=== PATIENT | male | born 1965 | race African-American/Black ===

== ENCOUNTER 2023-10-13 08:38 | Inpatient (IN) | payer MEDICARE, MEDICAID ==
[~2023-10-13] VITALS: Ht 185.4 cm; Wt 73.0 kg
[~2023-10-13 08:38] MED LIST: NITR1CAP35 PO
[2023-10-13 10:04] LABS: Urine Bacteria None Seen /hpf (None Seen)
[2023-10-13 10:25] LABS: Urine Blood 3+ /uL (Negative); Urine Budding Yeast MODERATE /hpf (None Seen); Urine Clarity Ex.Turbid (Clear); Urine Color Light-Brown (Yellow); Urine Protein, UAD 1+ (Negative); Urine Specific Gravity 1.006 (1.001-1.035); Urine Urobilinogen Normal (Negative); Urine WBC 1419 /hpf (0 - 3); Urine WBC Clumps PRESENT /hpf (None Seen)
[2023-10-13] MEDS: SODIUM CHLORIDE 0.9% 1,000 ML IV ONE (10:45)
[2023-10-13 11:03] LABS: Basophils # (auto) 0 10 ^3/uL (0-0.2); Basophils % (auto) 0.7 % (0.0-2.0); Eosinophils # (auto) 0.1 10 ^3/uL (0-0.8); Eosinophils % (auto) 1.8 % (0.0-7.0); Hematocrit 38.2 % (41.0-53.0); Hemoglobin 13.2 g/dL (13.5-17.5); Lymphocytes # (auto) 1.7 10 ^3/uL (0.4-5.4); Mean Corpuscular Hemoglobin 33.4 pg (28.0-32.0); Mean Corpuscular Hgb Conc. 34.6 g/dL (32.0-36.0); Mean Corpuscular Volume 96.4 fL (80.0-100.0); Monocytes # (auto) 0.8 10 ^3/uL (0-1.3); Neutrophils # (auto) 2.8 10 ^3/uL (1.6-8.6); Neutrophils % (auto) 51.5 % (37.0-80.0); Nucleated Red Blood Cells % 0.1 %; Red Blood Cells 3.96 10^6/uL (4.5-5.90); Red Cell Distribution Width 14.2 % (11.8-14.3); White Blood Cell 5.4 10^3/uL (4.4-10.8)
[2023-10-13 11:11] LABS: Chloride 105 mmol/L (98-107); Potassium 4.5 mmol/L (3.5-5.1); Sodium 138 mmol/L (136-145)
[2023-10-13 11:12] LABS: Anion Gap 3 (5-15); Calcium 10.2 mg/dL (8.7-10.4); Carbon Dioxide 30 mmol/L (20-30)
[2023-10-13 11:17] LABS: Blood Urea Nitrogen 21 mg/dL (9-23); Glucose 98 mg/dL (74-106)
[2023-10-13] MEDS ORDERED: OMEP1CAP70 PO (13:24)
[2023-10-13] MEDS ORDERED: TAMS0.4C36 PO (13:24)
[2023-10-13] MEDS ORDERED: LEVE750T3 PO (13:24)
[2023-10-13] MEDS ORDERED: FOLI-119 PO (13:24)
[2023-10-13] MEDS ORDERED: ATOR10TA52 PO (13:24)
[2023-10-13] MEDS ORDERED: METH-928 PO (13:24)
[2023-10-13] MEDS ORDERED: ARIP10TA29 PO (13:24)
[2023-10-13] MEDS ORDERED: NIAC1TAB30 PO (13:24)
[2023-10-13] MEDS ORDERED: PHEN1CAP60 PO (13:24)
[2023-10-13] MEDS ORDERED: BENZ1TAB6 PO (13:24)
[2023-10-13] MEDS ORDERED: TRAZ-227 PO (13:24)
[2023-10-13] MEDS ORDERED: ESCI1TAB36 PO (13:24)
[2023-10-13] MEDS ORDERED: LORA-1121 PO (13:24)
[2023-10-13] MEDS ORDERED: HYDR12.59 PO (13:24)
[2023-10-13] MEDS ORDERED: LOSA-534 PO (13:24)
[2023-10-13] MEDS ORDERED: VALP1CAP4 PO (13:24)
[2023-10-13] MEDS ORDERED: SODI1TAB PO (13:24)
[2023-10-13] MEDS ORDERED: FIN5T PO (13:24)
[2023-10-13 13:25] LABS: Triglycerides 76 mg/dL (< 150)
[2023-10-13 13:26] LABS: LDL Cholesterol 79 mg/dL (< 100)
[2023-10-13 13:27] LABS: Cholesterol 159 mg/dL (< 200); HDL Cholesterol 68 mg/dL (40-59)
[2023-10-13] MEDS: FLUCONAZOLE 100 MG TAB PO ONE (13:30)
[2023-10-13] MEDS: PHENAZOPYRIDINE HCL 100 MG TAB PO ONE (14:01)
[2023-10-13] MEDS: cefTRIAXone 1GM/50ML D5W 50 ML IV ONE (14:01)
[2023-10-13] MEDS: SODIUM CHLORIDE 0.9% 1,000 ML IV SCH (14:01)
[2023-10-13] MEDS: PHENAZOPYRIDINE HCL 100 MG TAB PO SCH (20:57)
[2023-10-13 21:37] VITALS: PULSE 108; RESP 18; O2SAT 96
[2023-10-14 00:21] VITALS: BP 132/76; PULSE 78; RESP 18; TEMP 98; O2SAT 98
[2023-10-14 04:31] VITALS: BP 124/68; PULSE 77; RESP 16; TEMP 97.8; O2SAT 98
[2023-10-14 04:53] LABS: Basophils # (auto) 0 10 ^3/uL (0-0.2); Eosinophils # (auto) 0.1 10 ^3/uL (0-0.8); Lymphocytes # (auto) 1.7 10 ^3/uL (0.4-5.4); Mean Corpuscular Hemoglobin 34.2 pg (28.0-32.0); Mean Corpuscular Hgb Conc. 35.1 g/dL (32.0-36.0); Mean Corpuscular Volume 97.4 fL (80.0-100.0); Neutrophils # (auto) 3.6 10 ^3/uL (1.6-8.6); Red Blood Cells 3.76 10^6/uL (4.5-5.90); White Blood Cell 6.4 10^3/uL (4.4-10.8)
[2023-10-14 04:55] LABS: Basophils % (auto) 0.4 % (0.0-2.0); Eosinophils % (auto) 1.4 % (0.0-7.0); Hematocrit 36.6 % (41.0-53.0); Hemoglobin 12.8 g/dL (13.5-17.5); Lymphocytes % (auto) 26.7 % (10.0-50.0); Monocytes % (auto) 15.6 % (0.0-12.0); Neutrophils % (auto) 55.9 % (37.0-80.0); Nucleated Red Blood Cells % 0.3 %
[2023-10-14] MEDS: ONDANSETRON HCL 4 MG/2 ML VIAL IV PRN (05:00)
[2023-10-14] MEDS: ONDANSETRON HCL 4 MG/2 ML VIAL ONE (05:01)
[2023-10-14 05:10] LABS: Alanine Aminotransferase 38 U/L (7-40); Alkaline Phosphatase 71 U/L (46-116); Calcium 8.8 mg/dL (8.7-10.4)
[2023-10-14 05:11] LABS: Albumin 3.7 g/dL (3.2-4.8); Anion Gap 7 (5-15); Aspartate Aminotransferase 28 U/L (13-40); BUN/Creatinine Ratio 12.4 (10.0-20.0); Bilirubin, Total 0.4 mg/dL (0.2-1.0); Blood Urea Nitrogen 16 mg/dL (9-23); Carbon Dioxide 25 mmol/L (20-30); Chloride 108 mmol/L (98-107); Glucose 97 mg/dL (74-106); Potassium 3.1 mmol/L (3.5-5.1); Sodium 140 mmol/L (136-145); Total Protein 6.6 g/dL (5.7-8.2)
[2023-10-14 07:30] VITALS: PULSE 107; RESP 18; O2SAT 98
[2023-10-14] MEDS: ACETAMINOPHEN 325 MG TAB PO PRN (07:45)
[2023-10-14] MEDS ORDERED: PALI3TAB PO (08:18)
[2023-10-14] MEDS ORDERED: QUET200T45 PO (08:18)
[2023-10-14] MEDS ORDERED: QUET50TA27 PO (08:18)
[2023-10-14] MEDS: cefTRIAXone 1GM/50ML D5W 50 ML IV SCH (09:30)
[2023-10-14] MEDS: FLUCONAZOLE 100 MG TAB PO SCH (11:09)
[2023-10-14] MEDS: FINASTERIDE 5 MG TAB PO ONE (15:04)
[2023-10-14] MEDS: VALPROIC ACID 250 MG/5 ML ORAL SOLN PO ONE (15:04)
[2023-10-14] MEDS: ATORVASTATIN 20 MG TAB PO ONE (15:05)
[2023-10-14] MEDS: POTASSIUM CHL 20 Meq TABLET PO SCH (15:05)
[2023-10-14] MEDS: PHENYTOIN SODIUM 100 MG CAP PO ONE (15:06)
[2023-10-14] MEDS: DONEPEZIL HYDROCHLORIDE 5 MG TAB PO ONE (15:06)
[2023-10-14] MEDS: PANTOPRAZOLE 40 MG TAB PO ONE (15:06)
[2023-10-14] MEDS: MULTIPLE VITAMIN TAB PO ONE (15:06)
[2023-10-14] MEDS: BENZTROPINE MESY 0.5 MG TAB PO ONE (15:07)
[2023-10-14] MEDS: QUEtiapine FUMARATE 25 MG TAB PO ONE (15:07)
[2023-10-14] MEDS: levETIRAcetam 500 MG TAB PO ONE (15:08)
[2023-10-14] MEDS: FLUCONAZOLE 200MG/100ML 100 ML IV ONE (17:50)
[2023-10-14] MEDS: LIDOCAINE 2% TOPICAL JELLY 5 ML URJT TOP ONE (17:55)
[2023-10-14] MEDS: TAMSULOSIN HYDROCHLORIDE 0.4 MG CAP PO SCH (19:17)
[2023-10-14] MEDS: QUEtiapine FUMARATE 25 MG TAB PO SCH (20:15)
[2023-10-14] MEDS: DONEPEZIL HYDROCHLORIDE 5 MG TAB PO SCH (21:45)
[2023-10-14] MEDS: levETIRAcetam 500 MG TAB PO SCH (21:46)
[2023-10-14] MEDS: ATORVASTATIN 20 MG TAB PO SCH (21:46)
[2023-10-14] MEDS: traZODone HCL 50 MG TAB PO SCH (21:47)
[2023-10-14] MEDS: PHENYTOIN SODIUM 100 MG CAP PO SCH (21:47)
[2023-10-14] MEDS ORDERED: Niacin 500mg TAB ER PO SCH (22:00)
[2023-10-14] MEDS ORDERED: QUEtiapine FUMARATE 25 MG TAB PO SCH (22:00)
[2023-10-15 07:25] VITALS: RESP 18
[2023-10-15] MEDS: PANTOPRAZOLE 40 MG TAB PO SCH (08:02)
[2023-10-15] MEDS: LORazepam 0.5 MG TAB PO PRN (08:02)
[2023-10-15] MEDS: VALPROIC ACID 250 MG/5 ML ORAL SOLN PO SCH (09:27)
[2023-10-15] MEDS: MULTIPLE VITAMIN TAB PO SCH (09:28)
[2023-10-15] MEDS: FLUCONAZOLE 200MG/100ML 100 ML IV SCH (10:30)
[2023-10-15] MEDS ORDERED: PALI1TAB PO (10:45)
[2023-10-15] MEDS ORDERED: QUET200T30 PO (10:45)
[2023-10-15] MEDS: BENZTROPINE MESY 0.5 MG TAB PO SCH (10:45)
[2023-10-15] MEDS ORDERED: AMLO1TAB23 PO (10:47)
[2023-10-15] MEDS: FINASTERIDE 5 MG TAB PO SCH (11:21)
[2023-10-15] MEDS: LORazepam 2MG/ML-1ML VIAL IV ONE (12:37)
[2023-10-15 18:20] VITALS: BP 159/101; PULSE 90; RESP 18; TEMP 97.5; O2SAT 95
[2023-10-15 19:00] VITALS: PULSE 90; RESP 16; O2SAT 96
[2023-10-15 20:00] VITALS: PULSE 96; RESP 19; O2SAT 93
[2023-10-15 21:00] VITALS: BP 156/99; PULSE 96; RESP 19; TEMP 97.6; O2SAT 93
[2023-10-16] VITALS (7 sets, daily range): BP systolic 134–161; BP diastolic 89–98; PULSE 81–96; RESP 17–20; TEMP 97.6–98; O2SAT 95–100
[2023-10-16 05:33] LABS: Valproic Acid (Depakene) 11.7 ug/mL (50-100)
[2023-10-16 05:49] LABS: Phenytoin (Dilantin) 21.1 ug/mL (10-20)
[2023-10-16 05:50] LABS: INR 1.02 (0.9-1.15); Partial Thromboplastin Time 29.5 SEC (24.5-34.5); Prothrombin Time 10.8 sec (9.3-11.8)
[2023-10-16] MEDS: amLODIPine BESYLATE 5 MG TAB PO SCH (10:00)
[2023-10-16] MEDS ORDERED: amLODIPine BESYLATE 5 MG TAB PO ONE (10:00)
[2023-10-16] MEDS: FLUoxetine HCL 20 MG CAP PO ONE (10:30)
[2023-10-16] MEDS: LORazepam 2MG/ML-1ML VIAL IV PRN (11:18)
[2023-10-16 11:23] LABS: Chloride 104 mmol/L (98-107); Potassium 4.2 mmol/L (3.5-5.1); Sodium 136 mmol/L (136-145)
[2023-10-16 11:24] LABS: Anion Gap 8 (5-15); Calcium 10.2 mg/dL (8.7-10.4); Carbon Dioxide 24 mmol/L (20-30)
[2023-10-16 11:29] LABS: BUN/Creatinine Ratio 13.5 (10.0-20.0); Blood Urea Nitrogen 22 mg/dL (9-23); Glucose 88 mg/dL (74-106)
[2023-10-16] MEDS ORDERED: hydrALAZINE HCL 20 MG/ML VL IV PRN (11:30)
[2023-10-16 11:37] LABS: Basophils # (auto) 0.1 10 ^3/uL (0-0.2); Basophils % (auto) 0.7 % (0.0-2.0); Eosinophils # (auto) 0.2 10 ^3/uL (0-0.8); Hematocrit 40.1 % (41.0-53.0); Hemoglobin 13.9 g/dL (13.5-17.5); Lymphocytes # (auto) 2.6 10 ^3/uL (0.4-5.4); Lymphocytes % (auto) 27.6 % (10.0-50.0); Mean Corpuscular Hemoglobin 33.8 pg (28.0-32.0); Mean Corpuscular Hgb Conc. 34.7 g/dL (32.0-36.0); Mean Corpuscular Volume 97.2 fL (80.0-100.0); Monocytes # (auto) 1.3 10 ^3/uL (0-1.3); Monocytes % (auto) 13.3 % (0.0-12.0); Neutrophils # (auto) 5.3 10 ^3/uL (1.6-8.6); Neutrophils % (auto) 56.4 % (37.0-80.0); Nucleated Red Blood Cells % 0.5 %; Red Blood Cells 4.13 10^6/uL (4.5-5.90); Red Cell Distribution Width 13.8 % (11.8-14.3); White Blood Cell 9.4 10^3/uL (4.4-10.8)
[2023-10-16] MEDS: VALPROIC ACID 250 MG/5 ML ORAL SOLN PO SCH (13:51)
[2023-10-16] MEDS ORDERED: PHENYTOIN SODIUM 100 MG CAP PO SCH (14:00)
[2023-10-16] MEDS: QUEtiapine FUMARATE 25 MG TAB PO SCH (21:42)
[2023-10-17 05:51] VITALS: BP 133/90; PULSE 89; RESP 18; TEMP 97.6; O2SAT 99
[2023-10-17 07:17] LABS: Calcium 9.9 mg/dL (8.7-10.4); Chloride 104 mmol/L (98-107); Sodium 138 mmol/L (136-145)
[2023-10-17 07:18] LABS: Anion Gap 7 (5-15); Carbon Dioxide 27 mmol/L (20-30)
[2023-10-17 07:23] LABS: BUN/Creatinine Ratio 16.4 (10.0-20.0); Blood Urea Nitrogen 24 mg/dL (9-23); Glucose 86 mg/dL (74-106)
[2023-10-17 09:00] VITALS: BP 132/78; PULSE 84; RESP 18; TEMP 97.6; O2SAT 98
[2023-10-17] MEDS: FLUoxetine HCL 20 MG CAP PO SCH (11:39)
[2023-10-17 13:00] VITALS: BP 148/94; PULSE 91; RESP 20; TEMP 98; O2SAT 94
[2023-10-17 17:00] VITALS: BP 137/94; PULSE 90; RESP 20; TEMP 98.2; O2SAT 98
[2023-10-17 21:00] VITALS: BP 145/66; PULSE 100; RESP 20; TEMP 98; O2SAT 100
[2023-10-18 01:00] VITALS: BP 135/75; PULSE 88; RESP 20; TEMP 97.9; O2SAT 100
[2023-10-18 05:00] VITALS: BP 131/91; PULSE 100; RESP 20; TEMP 98.3; O2SAT 100
[2023-10-18 09:00] VITALS: BP 140/91; PULSE 71; RESP 15; TEMP 98; O2SAT 96
[2023-10-18 10:27] LABS: Chloride 107 mmol/L (98-107); Potassium 4.4 mmol/L (3.5-5.1); Sodium 139 mmol/L (136-145)
[2023-10-18 10:28] LABS: Anion Gap 11 (5-15); Calcium 9.7 mg/dL (8.7-10.4); Carbon Dioxide 21 mmol/L (20-30)
[2023-10-18 10:33] LABS: BUN/Creatinine Ratio 10.3 (10.0-20.0); Blood Urea Nitrogen 16 mg/dL (9-23); Glucose 92 mg/dL (74-106)
[2023-10-18 13:00] VITALS: BP 132/78; PULSE 113; RESP 16; TEMP 98; O2SAT 94
[2023-10-18] MEDS: PHENYTOIN SODIUM 100 MG CAP PO SCH (15:11)
[2023-10-18 17:25] VITALS: BP 130/75; PULSE 94; RESP 22; TEMP 98.2; O2SAT 96
[2023-10-18 20:44] VITALS: BP 130/70; PULSE 101; RESP 20; TEMP 98.2; O2SAT 96
[2023-10-19 04:53] VITALS: BP 128/72; PULSE 101; RESP 20; TEMP 98.1; O2SAT 95
[2023-10-19 09:02] VITALS: BP 126/80; PULSE 82; RESP 15; TEMP 98.2; O2SAT 96
[2023-10-19] MEDS: CEPHALEXIN 250 MG CAP PO SCH (10:59)
[2023-10-19] MEDS: FLUCONAZOLE 100 MG TAB PO ONE (11:04)
[2023-10-19] MEDS: FUROSEMIDE 40 MG/4 ML VIAL IV ONE (11:05)
[2023-10-19] MEDS: FUROSEMIDE 40 MG/4 ML VIAL ONE (12:13)
[2023-10-19 13:53] VITALS: BP 135/77; PULSE 101; RESP 16; TEMP 98; O2SAT 96
[2023-10-19] MEDS: CIPROFLOXACIN 400MG/200ML 200 ML IV ONE (16:04)
[2023-10-19] MEDS ORDERED: MIDAZOLAM HCL 2MG/2ML 2ml VIAL (1mg/ml) ONE (16:43)
[2023-10-19] MEDS ORDERED: fentaNYL CITRATE 100 MCG/2 ML VL ONE (16:43)
[2023-10-19] MEDS ORDERED: ePHEDrine SULFATE 50 MG/ML AMP ONE (16:44)
[2023-10-19] MEDS ORDERED: GLYCOPYRROLATE 0.2 MG/ML 1ML VIAL ONE (16:44)
[2023-10-19] MEDS ORDERED: LIDOCAINE 2% (LOCAL ANESTH.) PF 5ml SDV ONE (16:44)
[2023-10-19] MEDS ORDERED: ETOMIDATE (2MG/ML) 20ML VIAL IV ONE (16:44)
[2023-10-19] MEDS ORDERED: ONDANSETRON HCL 4 MG/2 ML VIAL ONE (16:44)
[2023-10-19] MEDS ORDERED: PROPOFOL 10 MG/ML 20 ML IV ONE (16:44)
[2023-10-19] MEDS ORDERED: MEPERIDINE HCL (25 MG/ML) 1ML VIAL ONE (17:09)
[2023-10-19] MEDS ORDERED: SUGAMMADEX 200mg/2ml Vial (100MG/ML) IV ONE (17:15)
[2023-10-19 17:29] VITALS: O2SAT 100
[2023-10-19] MEDS ORDERED: HYDROmorphone HCL 2 MG/ML VL/or syr IV PRN (17:45)
[2023-10-19] MEDS: ONDANSETRON HCL 4 MG/2 ML VIAL IV ONE (17:45)
[2023-10-19] MEDS ORDERED: ROCURONIUM 10MG/ML 10ML VIAL IV ONE (18:29)
[2023-10-19 21:00] VITALS: BP 130/79; PULSE 86; RESP 17; TEMP 97.6; O2SAT 96
[2023-10-19] MEDS ORDERED: QUEtiapine FUMARATE 25 MG TAB ONE ×2 (22:35→22:37)
[2023-10-20 05:00] VITALS: BP 143/90; PULSE 71; RESP 17; TEMP 97.8; O2SAT 98
[2023-10-20 08:00] VITALS: PULSE 68; RESP 20; O2SAT 98
[2023-10-20 08:43] VITALS: BP 135/88; PULSE 68; RESP 22; TEMP 98.1; O2SAT 96
[2023-10-20] MEDS ORDERED: CEFD300C2 PO (11:18)
[2023-10-20] MEDS: FLUCONAZOLE 100 MG TAB PO SCH (12:31)
[2023-10-20] MEDS: cefTRIAXone 1GM/50ML D5W 50 ML IV SCH (12:56)
[2023-10-20 13:00] VITALS: BP 129/84; PULSE 84; RESP 19; TEMP 97.9; O2SAT 98
[2023-10-20 14:16] LABS: Basophils # (auto) 0 10 ^3/uL (0-0.2); Eosinophils # (auto) 0 10 ^3/uL (0-0.8); Red Cell Distribution Width 13.8 % (11.8-14.3)
[2023-10-20 14:19] LABS: Basophils % (auto) 0.6 % (0.0-2.0); Eosinophils % (auto) 0.1 % (0.0-7.0); Hematocrit 42.8 % (41.0-53.0); Hemoglobin 14.6 g/dL (13.5-17.5); Lymphocytes # (auto) 1.7 10 ^3/uL (0.4-5.4); Lymphocytes % (auto) 24.2 % (10.0-50.0); Mean Corpuscular Hemoglobin 33.1 pg (28.0-32.0); Mean Corpuscular Hgb Conc. 34.1 g/dL (32.0-36.0); Mean Corpuscular Volume 97.2 fL (80.0-100.0); Monocytes % (auto) 14.3 % (0.0-12.0); Neutrophils # (auto) 4.3 10 ^3/uL (1.6-8.6); Neutrophils % (auto) 60.8 % (37.0-80.0); Nucleated Red Blood Cells % 0.1 %; White Blood Cell 7.1 10^3/uL (4.4-10.8)
[2023-10-20 14:32] LABS: Chloride 103 mmol/L (98-107); Potassium 4.1 mmol/L (3.5-5.1); Sodium 136 mmol/L (136-145)
[2023-10-20 14:33] LABS: Anion Gap 7 (5-15); Calcium 9.5 mg/dL (8.7-10.4); Carbon Dioxide 26 mmol/L (20-30)
[2023-10-20 14:38] LABS: BUN/Creatinine Ratio 13.4 (10.0-20.0); Blood Urea Nitrogen 25 mg/dL (9-23); Glucose 102 mg/dL (74-106)
[2023-10-20 15:48] VITALS: BP 135/88; PULSE 84; RESP 19; TEMP 97.8; O2SAT 98
[2023-10-20 16:56] VITALS: BP 126/81; PULSE 79; RESP 21; TEMP 97.4; O2SAT 100
== END 2023-10-20 18:30 | disposition home or self-care (01) | DRG 690 ==
LOC: ER 08:38 → OVERFLOW 13:00 → WEST WING 10-15 18:22
PROVIDERS: ADMIT Internal Medicine; ATTEND Internal Medicine
PROC: 0TJB8ZZ Inspection of Bladder, Via Natural or Artificial Opening Endoscopic (ICD-10-PCS; principal; 2023-10-19 16:46)
DX: N13.6 Pyonephrosis (principal); I69.351 Hemiplegia and hemiparesis following cerebral infarction affecting right dominant side; N40.1 Benign prostatic hyperplasia with lower urinary tract symptoms; N17.0 Acute kidney failure with tubular necrosis; B96.89 Other specified bacterial agents as the cause of diseases classified elsewhere; N18.9 Chronic kidney disease, unspecified; I12.9 Hypertensive chronic kidney disease with stage 1 through stage 4 chronic kidney disease, or unspecified chronic kidney disease; F32.A Depression, unspecified; E87.6 Hypokalemia; E66.9 Obesity, unspecified; E78.5 Hyperlipidemia, unspecified; F03.90 Unspecified dementia, unspecified severity, without behavioral disturbance, psychotic disturbance, mood disturbance, and anxiety; K21.9 Gastro-esophageal reflux disease without esophagitis; G47.00 Insomnia, unspecified; R33.8 Other retention of urine; F41.9 Anxiety disorder, unspecified; D64.9 Anemia, unspecified; I70.8 Atherosclerosis of other arteries; Z88.8 Allergy status to other drugs, medicaments and biological substances; Z68.21 Body mass index [BMI] 21.0-21.9, adult
CPT/HCPCS: 36415; 71045; 74176; 76775; 78707; 80048; 80053; 80061; 80164; 80185; 81001; 83605; 83930; 84153; 84443; 85025; 85610; 85730; 86703; 86850; 86900; 86901; 87086; 93005; 97110; 97116; 97163; 97530; G0378; J1100; J1450; J2001; J2250; J2405; J2704

== ENCOUNTER 2023-11-16 14:42 | Inpatient (IN) | payer MEDICARE, MEDICAID ==
[~2023-11-16] VITALS: Ht 185.4 cm; Wt 65.0 kg
[~2023-11-16 14:42] MED LIST changes: +AMLO1TAB23 PO; +ARIP10TA29 PO; +ATOR10TA52 PO; +BENZ1TAB6 PO; +CEFD300C2 PO; +ESCI1TAB36 PO; +FIN5T PO; +FOLI-119 PO; +HYDR12.59 PO; +LEVE750T3 PO; +LORA-1121 PO; +LOSA-534 PO; +METH-928 PO; +NIAC1TAB30 PO; +OMEP1CAP70 PO; +PALI3TAB PO; +PHEN1CAP38 PO; +QUET200T30 PO; +SODI1TAB PO; +TAMS0.4C39 PO; +TRAZ-227 PO; +VALP1CAP4 PO
[2023-11-16] MEDS ORDERED: MORPHINE SULFATE INJ 2 MG/ml SYRG IV PRN ×2 (16:30→20:45)
[2023-11-16] MEDS ORDERED: DOCUSATE SOD 100 MG CAP PO PRN (16:30)
[2023-11-16] MEDS ORDERED: ONDANSETRON HCL 4 MG/2 ML VIAL IV PRN (16:30)
[2023-11-16 17:14] LABS: Basophils # (auto) 0 10 ^3/uL (0-0.2); Basophils % (auto) 0.4 % (0.0-2.0); Eosinophils # (auto) 0.1 10 ^3/uL (0-0.8); Eosinophils % (auto) 1.3 % (0.0-7.0); Hemoglobin 12.5 g/dL (13.5-17.5); Lymphocytes # (auto) 1.8 10 ^3/uL (0.4-5.4); Lymphocytes % (auto) 20.4 % (10.0-50.0); Mean Corpuscular Hemoglobin 33.6 pg (28.0-32.0); Mean Corpuscular Hgb Conc. 34.7 g/dL (32.0-36.0); Mean Corpuscular Volume 96.7 fL (80.0-100.0); Monocytes # (auto) 0.9 10 ^3/uL (0-1.3); Monocytes % (auto) 10.1 % (0.0-12.0); Neutrophils # (auto) 6.1 10 ^3/uL (1.6-8.6); Neutrophils % (auto) 67.8 % (37.0-80.0); Platelet Count (auto) 222 10^3/uL (140-450); Red Blood Cells 3.73 10^6/uL (4.5-5.90); Red Cell Distribution Width 14.1 % (11.8-14.3)
[2023-11-16 17:31] LABS: Chloride 106 mmol/L (98-107); INR 1.06 (0.9-1.15); Potassium 3.6 mmol/L (3.5-5.1); Prothrombin Time 11.2 sec (9.3-11.8); Sodium 139 mmol/L (136-145)
[2023-11-16 17:32] LABS: Anion Gap 6 (5-15); Carbon Dioxide 27 mmol/L (20-30)
[2023-11-16 17:33] LABS: Calcium 9.6 mg/dL (8.7-10.4)
[2023-11-16 17:37] LABS: BUN/Creatinine Ratio 11.3 (10.0-20.0); Blood Urea Nitrogen 17 mg/dL (9-23); Glucose 100 mg/dL (74-106)
[2023-11-16 20:38] LABS: INR 1.07 (0.9-1.15); Prothrombin Time 11.3 sec (9.3-11.8)
[2023-11-16] MEDS: SODIUM CHLORIDE 0.9% 1,000 ML IV SCH (20:45)
[2023-11-16] MEDS ORDERED: NITROGLYCERIN 0.4 MG SL TAB SL PRN (20:45)
[2023-11-16] MEDS: PALIPERIDONE PO SCH (22:00)
[2023-11-16] MEDS: METHENAMINE HIPPURATE 1 GM PO SCH (22:00)
[2023-11-16 22:57] VITALS: PULSE 104; O2SAT 97
[2023-11-17] VITALS (8 sets, daily range): BP systolic 119–155; BP diastolic 75–88; PULSE 101–109; RESP 16–20; TEMP 97.9–99.4; O2SAT 92–98
[2023-11-17] MEDS: levETIRAcetam 500 MG TAB PO SCH (01:25)
[2023-11-17] MEDS: traZODone HCL 50 MG TAB PO SCH (01:28)
[2023-11-17] MEDS: LOSARTAN POTASSIUM 50 MG TAB PO SCH (01:28)
[2023-11-17] MEDS: PHENYTOIN SODIUM 100 MG CAP PO SCH (01:29)
[2023-11-17] MEDS: QUEtiapine FUMARATE 100 MG TAB PO SCH (01:29)
[2023-11-17] MEDS: LORazepam 0.5 MG TAB PO SCH (01:30)
[2023-11-17] MEDS: VALPROIC ACID 250 MG/5 ML ORAL SOLN PO SCH (01:30)
[2023-11-17 06:48] LABS: Alanine Aminotransferase 33 U/L (7-40); Albumin 3.5 g/dL (3.2-4.8); Alkaline Phosphatase 71 U/L (46-116); Anion Gap 6 (5-15); Aspartate Aminotransferase 32 U/L (13-40); BUN/Creatinine Ratio 10.5 (10.0-20.0); Bilirubin, Total 0.4 mg/dL (0.2-1.0); Blood Urea Nitrogen 15 mg/dL (9-23); Calcium 9.5 mg/dL (8.7-10.4); Carbon Dioxide 27 mmol/L (20-30); Chloride 108 mmol/L (98-107); Glucose 98 mg/dL (74-106); Potassium 3.4 mmol/L (3.5-5.1); Sodium 141 mmol/L (136-145); Total Protein 6.3 g/dL (5.7-8.2)
[2023-11-17 06:52] LABS: Basophils # (auto) 0 10 ^3/uL (0-0.2); Basophils % (auto) 0.3 % (0.0-2.0); Eosinophils # (auto) 0.1 10 ^3/uL (0-0.8); Eosinophils % (auto) 1.3 % (0.0-7.0); Hematocrit 36.9 % (41.0-53.0); Hemoglobin 12.6 g/dL (13.5-17.5); Lymphocytes # (auto) 1.8 10 ^3/uL (0.4-5.4); Lymphocytes % (auto) 23.6 % (10.0-50.0); Mean Corpuscular Hemoglobin 33.8 pg (28.0-32.0); Mean Corpuscular Hgb Conc. 34.2 g/dL (32.0-36.0); Mean Corpuscular Volume 98.8 fL (80.0-100.0); Monocytes # (auto) 1.3 10 ^3/uL (0-1.3); Monocytes % (auto) 17.8 % (0.0-12.0); Neutrophils # (auto) 4.3 10 ^3/uL (1.6-8.6); Nucleated Red Blood Cells % 0.1 %; Platelet Count (auto) 218 10^3/uL (140-450); Red Blood Cells 3.73 10^6/uL (4.5-5.90); Red Cell Distribution Width 14.1 % (11.8-14.3); White Blood Cell 7.5 10^3/uL (4.4-10.8)
[2023-11-17] MEDS: BENZTROPINE MESY 0.5 MG TAB PO SCH (11:02)
[2023-11-17] MEDS: ATORVASTATIN 20 MG TAB PO SCH (11:02)
[2023-11-17] MEDS: amLODIPine BESYLATE 5 MG TAB PO SCH (11:02)
[2023-11-17] MEDS: FOLIC ACID 1 MG TAB PO SCH (11:03)
[2023-11-17] MEDS: FINASTERIDE 5 MG TAB PO SCH (11:03)
[2023-11-17] MEDS: CITALOPRAM HYDROBR 20 MG TAB PO SCH (11:03)
[2023-11-17] MEDS: hydroCHLOROthiazide 25 MG TAB PO SCH (11:04)
[2023-11-17] MEDS: Niacin 500mg TAB ER PO SCH (11:12)
[2023-11-17] MEDS: OMEPRAZOLE-SOD BICARB 20 MG POWDER PO SCH (11:12)
[2023-11-17] MEDS: TAMSULOSIN HYDROCHLORIDE 0.4 MG CAP PO SCH (18:06)
[2023-11-18] VITALS (10 sets, daily range): BP systolic 116–155; BP diastolic 78–92; PULSE 77–98; RESP 15–20; TEMP 97.8–98.4; O2SAT 90–100
[2023-11-18] MEDS: IODIXANOL 320MG/ML 100ML BTL IV ONE ×2 (14:28→14:59)
[2023-11-18] MEDS: MIDAZOLAM HCL 2MG/2ML 2ml VIAL (1mg/ml) ONE (14:59)
[2023-11-18] MEDS: LIDOCAINE 2%HCL (LOCAL ANESTH.) INJ 20ML MDV ONE (14:59)
[2023-11-18] MEDS: fentaNYL CITRATE 100 MCG/2 ML VL ONE (15:00)
[2023-11-18] MEDS: cefTRIAXone 1GM/50ML D5W 50 ML IV ONE (15:00)
[2023-11-18] MEDS: HYDROmorphone HCL 2 MG/ML VL/or syr ONE (15:26)
[2023-11-19] VITALS (9 sets, daily range): BP systolic 119–145; BP diastolic 68–84; PULSE 89–98; RESP 16–20; TEMP 36.2; O2SAT 94–99
[2023-11-20 01:00] VITALS: BP 122/73; PULSE 89; RESP 17; TEMP 98.2; O2SAT 97
[2023-11-20 05:00] VITALS: BP 133/78; PULSE 17; PULSE 96; RESP 17; TEMP 97.7; O2SAT 96
[2023-11-20 09:00] VITALS: BP 106/77; PULSE 86; RESP 17; TEMP 98.1; O2SAT 96
[2023-11-20] MEDS: PANTOPRAZOLE 40 MG TAB PO SCH (09:12)
[2023-11-20 17:00] VITALS: BP 132/79; PULSE 98; RESP 17; TEMP 98.4; O2SAT 98
[2023-11-20 20:00] VITALS: RESP 17
[2023-11-20 21:00] VITALS: BP 136/73; PULSE 98; RESP 16; TEMP 98; O2SAT 98
[2023-11-21 01:26] VITALS: BP 131/78; PULSE 79; RESP 18; TEMP 97.9; O2SAT 98
[2023-11-21 05:00] VITALS: BP 146/76; PULSE 80; RESP 18; TEMP 97.8; O2SAT 99
[2023-11-21 09:00] VITALS: BP 119/67; PULSE 83; RESP 18; TEMP 98.5; O2SAT 96
[2023-11-21 13:00] VITALS: BP 112/78; PULSE 85; RESP 18; TEMP 98.3; O2SAT 98
[2023-11-21] MEDS ORDERED: ACETAMINOPHEN 500 MG TAB PO PRN (17:15)
[2023-11-21] MEDS: HYDROcodone-ACET 5/325MG TAB PO PRN (17:26)
[2023-11-21 20:40] VITALS: BP 153/99; PULSE 78; RESP 18; TEMP 98; O2SAT 98
[2023-11-22] VITALS (7 sets, daily range): BP systolic 106–144; BP diastolic 61–78; PULSE 73–105; RESP 16–18; TEMP 97.9–98.4; O2SAT 91–98
[2023-11-22 07:04] LABS: Eosinophils # (auto) 0.4 10 ^3/uL (0-0.8); Hemoglobin 12.1 g/dL (13.5-17.5); Lymphocytes # (auto) 1.9 10 ^3/uL (0.4-5.4); Nucleated Red Blood Cells % 0.1 %; White Blood Cell 6.9 10^3/uL (4.4-10.8)
[2023-11-22 07:09] LABS: Basophils # (auto) 0.1 10 ^3/uL (0-0.2); Basophils % (auto) 0.8 % (0.0-2.0); Eosinophils % (auto) 5.3 % (0.0-7.0); Hematocrit 34.6 % (41.0-53.0); Lymphocytes % (auto) 27.8 % (10.0-50.0); Mean Corpuscular Hemoglobin 34.1 pg (28.0-32.0); Mean Corpuscular Hgb Conc. 34.8 g/dL (32.0-36.0); Mean Corpuscular Volume 98.1 fL (80.0-100.0); Monocytes # (auto) 0.9 10 ^3/uL (0-1.3); Monocytes % (auto) 13.8 % (0.0-12.0); Neutrophils # (auto) 3.6 10 ^3/uL (1.6-8.6); Neutrophils % (auto) 52.3 % (37.0-80.0); Platelet Count (auto) 239 10^3/uL (140-450); Red Blood Cells 3.53 10^6/uL (4.5-5.90); Red Cell Distribution Width 13.7 % (11.8-14.3)
[2023-11-22 07:22] LABS: Alanine Aminotransferase 29 U/L (7-40); Albumin 3.5 g/dL (3.2-4.8); Alkaline Phosphatase 65 U/L (46-116); Anion Gap 6 (5-15); Aspartate Aminotransferase 27 U/L (13-40); Blood Urea Nitrogen 16 mg/dL (9-23); Calcium 8.8 mg/dL (8.7-10.4); Carbon Dioxide 27 mmol/L (20-30); Chloride 108 mmol/L (98-107); Glucose 98 mg/dL (74-106); Potassium 3.5 mmol/L (3.5-5.1); Sodium 141 mmol/L (136-145)
[2023-11-22 07:23] LABS: Bilirubin, Total 0.3 mg/dL (0.2-1.0); Total Protein 5.9 g/dL (5.7-8.2)
[2023-11-22] MEDS: PALIPERIDONE 1.5 MG PO SCH (21:01)
[2023-11-22] MEDS: PALIPERIDONE 3 MG PO SCH (21:01)
[2023-11-23] VITALS (10 sets, daily range): BP systolic 110–141; BP diastolic 64–86; PULSE 71–100; RESP 15–24; TEMP 97.7–98.4; O2SAT 96–98
[2023-11-23 06:57] LABS: Basophils # (auto) 0 10 ^3/uL (0-0.2); Basophils % (auto) 0.5 % (0.0-2.0); Eosinophils # (auto) 0.3 10 ^3/uL (0-0.8); Eosinophils % (auto) 4.5 % (0.0-7.0); Hematocrit 36.8 % (41.0-53.0); Hemoglobin 12.6 g/dL (13.5-17.5); Lymphocytes # (auto) 2.2 10 ^3/uL (0.4-5.4); Lymphocytes % (auto) 34.2 % (10.0-50.0); Mean Corpuscular Hemoglobin 33.4 pg (28.0-32.0); Mean Corpuscular Hgb Conc. 34.3 g/dL (32.0-36.0); Mean Corpuscular Volume 97.6 fL (80.0-100.0); Monocytes # (auto) 0.8 10 ^3/uL (0-1.3); Monocytes % (auto) 12.4 % (0.0-12.0); Neutrophils # (auto) 3.2 10 ^3/uL (1.6-8.6); Neutrophils % (auto) 48.4 % (37.0-80.0); Nucleated Red Blood Cells % 0.3 %; Platelet Count (auto) 253 10^3/uL (140-450); Red Blood Cells 3.77 10^6/uL (4.5-5.90); Red Cell Distribution Width 13.8 % (11.8-14.3); White Blood Cell 6.5 10^3/uL (4.4-10.8)
[2023-11-23 06:59] LABS: Anion Gap 5 (5-15); Carbon Dioxide 28 mmol/L (20-30); Chloride 108 mmol/L (98-107); Potassium 3.9 mmol/L (3.5-5.1); Sodium 141 mmol/L (136-145)
[2023-11-23 07:00] LABS: Calcium 9.1 mg/dL (8.7-10.4)
[2023-11-23 07:05] LABS: BUN/Creatinine Ratio 12.9 (10.0-20.0); Blood Urea Nitrogen 18 mg/dL (9-23); Glucose 87 mg/dL (74-106)
[2023-11-23] MEDS: MIDAZOLAM HCL 2MG/2ML 2ml VIAL (1mg/ml) ONE (10:40)
[2023-11-23] MEDS: fentaNYL CITRATE 100 MCG/2 ML VL ONE (10:40)
[2023-11-23] MEDS: IODIXANOL 320MG/ML 100ML BTL IV ONE (10:41)
[2023-11-23] MEDS: LIDOCAINE 2%HCL (LOCAL ANESTH.) INJ 20ML MDV ONE (10:41)
[2023-11-23] MEDS: cefTRIAXone 1GM/50ML D5W 50 ML IV ONE (11:14)
[2023-11-24 01:00] VITALS: BP 116/69; PULSE 79; RESP 18; TEMP 97.8; O2SAT 97
[2023-11-24 04:46] VITALS: BP 129/71; PULSE 94; RESP 18; TEMP 97.9; O2SAT 99
[2023-11-24 08:00] VITALS: PULSE 79; RESP 16; O2SAT 99
[2023-11-24 08:47] VITALS: BP 119/79; PULSE 79; RESP 16; TEMP 98.9; O2SAT 99
== END 2023-11-24 15:20 | disposition home or self-care (01) | DRG 699 ==
LOC: EDBD 14:42 → ER 14:42 → EDUNIT# 14:42 → OVERFLOW 20:34 → EAST 23:10 → CENTRAL 11-19 21:08
PROVIDERS: ADMIT Nurse Practitioner Family; ATTEND Family Medicine
PROC: 0T9430Z Drainage of Left Kidney Pelvis with Drainage Device, Percutaneous Approach (ICD-10-PCS; principal; 2023-11-18)
PROC: 0TP5X0Z Removal of Drainage Device from Kidney, External Approach (ICD-10-PCS; 2023-11-20)
PROC: 0T9730Z Drainage of Left Ureter with Drainage Device, Percutaneous Approach (ICD-10-PCS; 2023-11-23)
DX: N99.522 Malfunction of incontinent external stoma of urinary tract (principal); F03.918 Unspecified dementia, unspecified severity, with other behavioral disturbance; I69.351 Hemiplegia and hemiparesis following cerebral infarction affecting right dominant side; N13.2 Hydronephrosis with renal and ureteral calculous obstruction; N17.9 Acute kidney failure, unspecified; F03.94 Unspecified dementia, unspecified severity, with anxiety; F51.04 Psychophysiologic insomnia; I12.9 Hypertensive chronic kidney disease with stage 1 through stage 4 chronic kidney disease, or unspecified chronic kidney disease; K21.9 Gastro-esophageal reflux disease without esophagitis; N18.9 Chronic kidney disease, unspecified; N40.0 Benign prostatic hyperplasia without lower urinary tract symptoms; G40.909 Epilepsy, unspecified, not intractable, without status epilepticus; E78.00 Pure hypercholesterolemia, unspecified; D63.8 Anemia in other chronic diseases classified elsewhere; Y73.2 Prosthetic and other implants, materials and accessory gastroenterology and urology devices associated with adverse incidents; Z87.442 Personal history of urinary calculi; Z79.82 Long term (current) use of aspirin; Z79.899 Other long term (current) drug therapy
CPT/HCPCS: 36415; 50693; 70450; 71045; 74176; 76775; 76942; 80048; 80053; 80164; 82607; 85025; 85610; 86850; 86900; 86901; 87081; 97110; 97116; 97163; 97530; 99152; G0378; J2250; Q9967

== ENCOUNTER 2024-10-10 16:27 | Inpatient (IN) | payer MEDICARE, MEDICAID ==
[~2024-10-10] VITALS: Ht 185.4 cm; Wt 74.1 kg
[2024-10-10] MEDS: SODIUM CHLORIDE 0.9% 1,000 ML IV SCH (00:30)
[2024-10-10 17:28] LABS: Hematocrit 38.0 % (41.0-53.0); Hemoglobin 12.8 g/dL (13.5-17.5); Mean Corpuscular Hemoglobin 32.2 pg (28.0-32.0); Mean Corpuscular Volume 95.6 fL (80.0-100.0); Nucleated Red Blood Cells % 0.1 %
--- NOTE | 2024-10-10 17:51 | DVH ---
EXAM: CT HEAD WITHOUT CONTRAST INDICATION: aloc TECHNIQUE: CT of the head without intravenous contrast. Radiation Dose : 1. Head: CT Dose: CTDI volume is 59 mGy. Dose-length product is 2102 mGy*cm The dose indicators for CT are the volume Computed Tomography (CT) Dose Index (CTDIvol) and the Dose Length Product (DLP), and are measured in units of mGy and mGy-cm, respectively. These indicators are not patient dose, but values generated from the CT scanner acquisition factors. The report includes radiation exposure data for exposures received during this examination. COMPARISON: CT HEAD WITHOUT CONTRAST on DOS: 11/23/23 FINDINGS: There is no evidence of acute intracranial hemorrhage, extra-axial collection, mass effect, midline s hift, herniation or hydrocephalus. Chronic encephalomalacia is seen throughout the left brain The ventricles, sulci and cisterns are age appropriate. Patchy periventricular and subcortical white matter hypoattenuation is nonspecific but may be related to small vessel ischemic disease. The visualized paranasal sinuses and mastoid air cells are clear. The surrounding soft tissues and osseous structures are unremarkable. IMPRESSION: 1. No acute intracranial abnormality. 2. Chronic encephalomalacia is seen throughout the left brain Radiation optimization: All CT scans at this facility use at least one of these dose optimization jenni hniques: automated exposure control mA and/or kV adjustment per patient size (includes targeted exam s where dose is matched to clinical indication) or iterative reconstruction.
[2024-10-10 17:54] LABS: Alanine Aminotransferase 28 U/L (7-40); Albumin 3.8 g/dL (3.2-4.8); Alkaline Phosphatase 75 U/L (46-116); Anion Gap 7 (5-15); BUN/Creatinine Ratio 22.2 (10.0-20.0); Calcium 9.8 mg/dL (8.7-10.4); Carbon Dioxide 28 mmol/L (20-31); Chloride 100 mmol/L (98-107); Potassium 4.3 mmol/L (3.5-5.1); Total Protein 6.3 g/dL (5.7-8.2)
[2024-10-10 17:56] LABS: Bilirubin, Total 0.2 mg/dL (0.2-1.0); Blood Urea Nitrogen 35 mg/dL (9-23); Glucose 137 mg/dL (74-106); Sodium 135 mmol/L (136-145)
[2024-10-10 18:01] LABS: Lactic Acid w/Reflex 2.1 mmol/L (0.4-2.0)
--- NOTE | 2024-10-10 20:09 | ED.PDOC ---
History of Present Illness HPI Comments Patient brought in by caregiver from assisted living facility he came from. Patient has been having a steady decline in his health over the last six months. Caregiver states they have noticed more significant decreased over the last month and a half. States patient has been more slouched forward in his chair, slow to respond. Patient does have a history of Alzheimer's and dementia. They state they has been seeing his different specialist over the last six months with no significant findings to attribute why he has been feeling more tired and less reactive. Caregiver states she has not noticed he has been more aggressive periodically. Chief Complaint: Lower Extremity Time Seen by MD: 16:36 Primary Care Provider: FLO Rojas Notes: Nurses Notes Allergies: Coded Allergies: ROBIN Inhibitors (Verified Allergy, Unknown, 10/13/23) Home Meds Active Scripts Cefdinir (Cefdinir) 300 Mg Cap, 1 CAP PO BID for 7 Days, #14 CAP Prov:STARR MURPHY MD 10/20/23 Reported Medications Nitrofurantoin (Nitrofurantoin Macrocryst) 50 Mg Cap, 1 CAP PO DAILY for 31 Days, #31 10/15/23 Amlodipine Besylate (Amlodipine Besylate) 10 Mg Tab, 1 TAB PO DAILY 10/15/23 Quetiapine Fumerate (Seroquel) 200 Mg Tab, 250 MG PO HS Take 50 mg tablet and 200 mg tablet together for a TOTAL of 250 mg tablets by mouth at bedtime. 10/15/23 Paliperidone (Paliperidone ER) 3 Mg Tab, 4.5 MG PO HS Take 1.5 mg tablet and 3 mg tablet together for a TOTAL of 4.5 mg tablets by mouth at bedtime. 10/15/23 Escitalopram Oxalate (ESCITALOPRAM OXALATE) 10 Mg Tab, 1 TAB PO DAILY 10/13/23 Folic Acid (Folic Acid) 1 Mg Tab, 1 TAB PO DAILY 10/13/23 Benztropine Mesylate (Benztropine Mesylate) 1 Mg Tab, 1 TAB PO DAILY 10/13/23 Levetiracetam (Levetiracetam) 750 Mg Tab, 1 TAB PO BID 10/13/23 Valproic Acid (Valproic Acid) 250 Mg Cap, 2 CAP PO TID 10/13/23 Phenytoin Sodium (DILANTIN CAPSULE) 100 Mg Cp, 1 CAP PO TID 10/13/23 Aripiprazole (Aripiprazole) 10 Mg Tab, 1 TAB PO DAILY 10/13/23 Lorazepam (ATIVAN TABLET) 0.5 Mg Tb, 1 TAB PO BID 10/13/23 Tamsulosin Hcl (Tamsulosin Hcl) 0.4 Mg Cap, 1 CAP PO DAILY 10/13/23 Finasteride (Finasteride) 5 Mg Tab, 1 TAB PO DAILY 10/13/23 Trazodone Hcl (Trazodone Hcl) 50 Mg Tab, 1 TAB PO 10/13/23 Omeprazole (Omeprazole Dr) 20 Mg Cap, 1 CAP PO DAILY 10/13/23 Niacin (Niacin ER) 500 Mg Tab, 1 TAB PO DAILY 10/13/23 Methenamine Hippurate (Methenamine Hippurate) 1 Gm Tab, 1 TAB PO BID 10/13/23 Hydrochlorothiazide (Hydrochlorothiazide) 12.5 Mg Cap, 1 CAP PO DAILY 10/13/23 Losartan Potassium (Losartan Potassium) 50 Mg Tab, 1 TAB PO BID 10/13/23 Atorvastatin Calcium (ATORVASTATIN CALCIUM) 10 Mg Tab, 1 TAB PO DAILY 10/13/23 Sodium Sulfate-Magnesium Sulfa (Sutab 0507-650-831 mg) 1 Tab Tab, 1 TAB PO 10/13/23 Information Source: Patient, Legal Guardian Mode of Arrival: Wheelchair Past Medical History PAST MEDICAL HISTORY: CKF, CVA, HTN Surgical History: Denies all surgeries Family History Family History: Reviewed,noncontributory to illness Social History Smoker: Non-Smoker Alcohol: Denies ETOH Use Drugs: Denies Drug Use Lives In: Home Unable to Obtain due to: Altered Mental Status, Dementia Physical Exam General Appearance: No Apparent Distress, Normal HEENT: Normal ENT Inspection, Pharynx Normal, TMs Normal Neck: Full Range of Motion, Non-Tender, Normal, Normal Inspection Respiratory: Chest Non-Tender, Lungs Clear, No Accessory Muscle Use, No Respiratory Distress, Normal Breath Sounds Cardiovascular: No Edema, No JVD, No Murmur, No Gallop, Normal Peripheral Pulses, Regular Rate/Rhythm Breast Exam: Deferred Gastrointestinal: No Organomegaly, Non Tender, No Pulsatile Mass, Normal Bowel Sounds, Soft Genitalia: Deferred Pelvic: Deferred Rectal: Deferred Extremities: No calf tenderness, Normal capillary refill, Normal inspection, Normal range of motion, Non-tender, No pedal edema Musculoskeletal : Apperance: Normal Neurologic: NOT DONE Cerebellar Function: Unable to Test Reflexes: NOT DONE Skin: Dry, Normal Color, Warm Lymphatic: No Adenopathy Was a procedure done? Was a procedure done?: No Differential Dx Considerations may include: Stroke, TIA, sepsis, metabolic encephalopathy, pneumonia, flu X-Ray, Labs, Meds, VS Vital Signs Date Time Temp Pulse Resp B/P (MAP) Pulse Ox O2 Delivery O2 Flow Rate FiO2 10/10/24 19:27 98.0 96 20 140/74 (96) 96 98.0 10/10/24 19:27 96 20 94 Room Air 10/10/24 16:39 97.6 91 16 139/76 (97) 97 97.6 Lab Test 10/10/24 18:45 10/10/24 16:53 10/10/24 16:47 Range/Units Lactic Acid Level 1.4 2.1 *H 0.4-2.0 mmol/L Ammonia 66 H 11-32 umol/L White Blood Count 5.7 4.4-10.8 10^3/uL Red Blood Count 3.98 L 4.5-5.90 10^6/uL Hemoglobin 12.8 L 13.5-17.5 g/dL Hematocrit 38.0 L 41.0-53.0 % Mean Corpuscular Volume 95.6 80.0-100.0 fL Mean Corpuscular Hemoglobin 32.2 H 28.0-32.0 pg Mean Corpuscular Hemoglobin Concent 33.7 32.0-36.0 g/dL Red Cell Distribution Width 13.8 11.8-14.3 % Platelet Count 205 140-450 10^3/uL Mean Platelet Volume 8.5 6.9-10.8 fL Neutrophils (%) (Auto) 44.3 37.0-80.0 % Lymphocytes (%) (Auto) 37.6 10.0-50.0 % Monocytes (%) (Auto) 13.8 H 0.0-12.0 % Eosinophils (%) (Auto) 3.7 0.0-7.0 % Basophils (%) (Auto) 0.6 0.0-2.0 % Neutrophils # (Auto) 2.5 1.6-8.6 10 ^3/uL Lymphocytes # (Auto) 2.1 0.4-5.4 10 ^3/uL Monocytes # (Auto) 0.8 0-1.3 10 ^3/uL Eosinophils # (Auto) 0.2 0-0.8 10 ^3/uL Basophils # (Auto) 0 0-0.2 10 ^3/uL Nucleated Red Blood Cells 0.1 % Sodium Level 135 L 136-145 mmol/L Potassium Level 4.3 3.5-5.1 mmol/L Chloride Level 100 98-107 mmol/L Carbon Dioxide Level 28 20-31 mmol/L Anion Gap 7 5-15 Blood Urea Nitrogen 35 H 9-23 mg/dL Creatinine 1.58 H 0.700-1.30 mg/dL Glomerular Filtration Rate Calc 50 >90 mL/min BUN/Creatinine Ratio 22.2 H 10.0-20.0 Serum Glucose 137 H 74-106 mg/dL Calcium Level 9.8 8.7-10.4 mg/dL Total Bilirubin 0.2 0.2-1.0 mg/dL Aspartate Amino Transferase (AST) 24 13-40 U/L Alanine Aminotransferase (ALT) 28 7-40 U/L Alkaline Phosphatase 75 46-116 U/L Total Protein 6.3 5.7-8.2 g/dL Albumin 3.8 3.2-4.8 g/dL Plasma/Serum Blood Alcohol < 3.0 <10 mg/dL X-Ray, Labs, Meds, VS Comment Has been here for metabolic encephalopathy, acute kidney injury, suspected urinary tract infection Time of 1ST Reevaluation: 20:09 Reevaluation 1ST: Unchanged Patient Education/Counseling: Diagnosis Family Education/Counseling: Diagnosis SEPSIS Sepsis Screen Date sepsis recognized/suspect: Oct 10, 2024 Time Sepsis recognized/suspect: 1928 Recent Procedure: No On Antibiotic Therapy: No Respiratory Rate >20: No Heart Rate >90: No Temp<36 C (96.8 F) or >38.3 C: No SBP <90 or MAP <65 mmHG: No New Acute Mental Status Change: No Is the patient on CPAP, BIPAP,: No Physician Orders Head Without Contrast (10/10/24 16:49) Drug Screen (10/10/24 16:49) Urinalysis (10/10/24 16:49) Blood Culture (10/10/24 16:49) Vital Signs Date Time Temp Pulse Resp B/P (MAP) Pulse Ox O2 Delivery O2 Flow Rate FiO2 7/14/25 19:27 98.0 96 20 140/74 (96) 96 98.0 10/10/24 19:27 96 20 94 Room Air 10/10/24 16:39 97.6 91 16 139/76 (97) 97 97.6 Laboratory Tests Test 10/10/24 16:47 10/10/24 16:53 10/10/24 18:45 White Blood Count 5.7 10^3/uL (4.4-10.8) Lactic Acid Level 2.1 mmol/L (0.4-2.0) *H 1.4 mmol/L (0.4-2.0) Departure 1 Departure Time of Disposition: 20:08 Impression: Primary Impression: Metabolic encephalopathy Additional Impressions: Grave disability Acute kidney injury Disposition: ADMITTED INPATIENT Condition: Stable Critical Care Note Critical Care Time?: No Stability Stability form required: No Heart Score Heart Score: Heart Score Response (Comments) Value History N/A 0 EKG N/A 0 Age N/A 0 Risk Factors N/A 0 Troponin N/A 0 Total 0 TIERA WORRELL RN ORTHOPAEDIC Oct 10, 2024 20:09
[2024-10-10] MEDS ORDERED: DOCUSATE SOD 100 MG CAP PO PRN (23:15)
--- NOTE | 2024-10-10 23:15 | DVHHP2 ---
History of Present Illness History of Present Illness Patient is 58 years old male with past medical history of hypertension, CKD, CVA with right-sided deficit, hyperlipidemia, BPH, seizure disorder, history of bilateral hydronephrosis, Alzheimer's dementia was brought in from [facility]. Patient is a poor historian, history was taken from patient's caregiver and also from reviewing chart. As per caregiver patient has been having declining function for last 3-4 months which has been getting worse lately. Patient has slow response, tired looking. patient is getting agitated lately. As per caregiver patient is ambulating less with worsening ADLS. No history of fever, chest pain, shortness of breath, dysuria, acute joint redness, fever, diarrhea. She lab workup revealed hemoglobin 12.4, serum creatinine 1.58, BUN 35, GFR 50, lactic acid 2.1, ammonia 66. CT head chronic encephalomalacia, no acute intracranial abnormality. CXR- Bibasilar opacities may reflect atelectasis or mild pneumonia . Kidney ultrasound revealed- Severe bilateral hydronephrosis. Distended urinary bladder. Urinary bladder wall is thickened which may be related to chronic outlet obstruction.Prior to voiding the bladder volume measures volume 811.95 cc. Past Medical History hypertension, CKD, CVA with right-sided deficit, hyperlipidemia, BPH, seizure disorder, history of bilateral hydronephrosis, Alzheimer's dementia Past Surgical History History of nephrostomy due to bilateral hydronephrosis, Past Social History Patient was brought in from [facility] Review of Systems Review of Systems Allergy- NKDA Patient was seen today at the bedside. Cardiovascular- deny acute chest pain or shortness of breath or cough or palpitation Respiratory denies cough or short of breath or wheezing Gastrointestinal- denies any rectal bleeding, nausea or vomiting Musculoskeletal-right ankle swelling Neurological- denies acute dysarthria, dysphagia, change in vision Psychiatry- denies depression or SI or HI Skin- denies acute rash or purpura Allergies: Coded Allergies: ROBIN Inhibitors (Verified Allergy, Unknown, 10/13/23) Medications Current Medications Medications Dose Ordered Sig/Jazmin Route Start Time Stop Time Status Last Admin Dose Admin Sodium Chloride 1,000 ml @ 120 mls/hr [id number] IV 10/10/24 23:15 Docusate Sodium 100 mg BIDPRN PRN PO 10/10/24 23:15 Enoxaparin Sodium 40 mg DAILY SC 10/11/24 10:00 UNV Exam Vital Signs Vital Signs Date Time Temp Pulse Resp B/P (MAP) Pulse Ox O2 Delivery O2 Flow Rate FiO2 10/10/24 21:47 97.3 83 20 137/70 (92) 97 97.3 10/10/24 19:27 Room Air Exam General examination- awake, alert, not in acute distress HEENT- PEERLA, no acute nasal discharge Cardiovascular- S1-S2 audible, rate and rhythm regular, no murmur Respiratory- CTAB, no wheeze or rhonchi Gastrointestinal-nontender, bowel sound+. Nondistended Musculoskeletal-no acute joint swelling or tenderness or redness Lower extremity- right ankle swollen+ Neurological- dysarthria, right-sided weakness++, Psychiatry- denies depression or SI or HI Skin- no acute rash or purpura Labs/Xrays Labs Test 10/10/24 18:45 10/10/24 16:53 10/10/24 16:47 Range/Units Lactic Acid Level 1.4 0.4-2.0 mmol/L Ammonia 66 H 11-32 umol/L White Blood Count 5.7 4.4-10.8 10^3/uL Red Blood Count 3.98 L 4.5-5.90 10^6/uL Hemoglobin 12.8 L 13.5-17.5 g/dL Hematocrit 38.0 L 41.0-53.0 % Mean Corpuscular Volume 95.6 80.0-100.0 fL Mean Corpuscular Hemoglobin 32.2 H 28.0-32.0 pg Mean Corpuscular Hemoglobin Concent 33.7 32.0-36.0 g/dL Red Cell Distribution Width 13.8 11.8-14.3 % Platelet Count 205 140-450 10^3/uL Mean Platelet Volume 8.5 6.9-10.8 fL Neutrophils (%) (Auto) 44.3 37.0-80.0 % Lymphocytes (%) (Auto) 37.6 10.0-50.0 % Monocytes (%) (Auto) 13.8 H 0.0-12.0 % Eosinophils (%) (Auto) 3.7 0.0-7.0 % Basophils (%) (Auto) 0.6 0.0-2.0 % Neutrophils # (Auto) 2.5 1.6-8.6 10 ^3/uL Lymphocytes # (Auto) 2.1 0.4-5.4 10 ^3/uL Monocytes # (Auto) 0.8 0-1.3 10 ^3/uL Eosinophils # (Auto) 0.2 0-0.8 10 ^3/uL Basophils # (Auto) 0 0-0.2 10 ^3/uL Nucleated Red Blood Cells 0.1 % Sodium Level 135 L 136-145 mmol/L Potassium Level 4.3 3.5-5.1 mmol/L Chloride Level 100 98-107 mmol/L Carbon Dioxide Level 28 20-31 mmol/L Anion Gap 7 5-15 Blood Urea Nitrogen 35 H 9-23 mg/dL Creatinine 1.58 H 0.700-1.30 mg/dL Glomerular Filtration Rate Calc 50 >90 mL/min BUN/Creatinine Ratio 22.2 H 10.0-20.0 Serum Glucose 137 H 74-106 mg/dL Calcium Level 9.8 8.7-10.4 mg/dL Total Bilirubin 0.2 0.2-1.0 mg/dL Aspartate Amino Transferase (AST) 24 13-40 U/L Alanine Aminotransferase (ALT) 28 7-40 U/L Alkaline Phosphatase 75 46-116 U/L Total Protein 6.3 5.7-8.2 g/dL Albumin 3.8 3.2-4.8 g/dL Plasma/Serum Blood Alcohol < 3.0 <10 mg/dL SEPSIS Sepsis Screen Date sepsis recognized/suspect: Oct 10, 2024 Time Sepsis recognized/suspect: 1928 Recent Procedure: No On Antibiotic Therapy: No Respiratory Rate >20: No Heart Rate >90: No Temp<36 C (96.8 F) or >38.3 C: No SBP <90 or MAP <65 mmHG: No New Acute Mental Status Change: No Is the patient on CPAP, BIPAP,: No Physician Orders Head Without Contrast (10/10/24 16:49) Drug Screen (10/10/24 16:49) Urinalysis (10/10/24 16:49) Blood Culture (10/10/24 16:49) Admit (10/10/24 23:06) Code Status (10/10/24 23:06) Renal Standard(2gna,3gk,Lopho) (10/11/24 Breakfast) Sodium Chloride 0.9% (10/10/24 23:15) Docusate Sodium Capsule (Colace Capsule) (10/10/24 23:15) Enoxaparin Sodium (Lovenox) (10/11/24 10:00) Complete Blood Count (10/11/24 04:00) Comprehensive Metabolic Panel (10/11/24 04:00) Cardiac Diet-2gna,Lofat,Lochol (10/11/24 Breakfast) Notify Of Changes From Base (10/10/24 23:06) Aquatic Scientist For 24 Hours (10/10/24 23:06) Thyroid Stimulating Hormone (10/10/24 23:12) Acute Hepatitis Panel (10/10/24 23:12) R Ankle 2 View Xray (10/10/24 23:12) Vital Signs Date Time Temp Pulse Resp B/P (MAP) Pulse Ox O2 Delivery O2 Flow Rate FiO2 10/10/24 21:47 97.3 83 20 137/70 (92) 97 97.3 10/10/24 19:27 98.0 96 20 140/74 (96) 96 98.0 10/10/24 19:27 96 20 94 Room Air 10/10/24 16:39 97.6 91 16 139/76 (97) 97 97.6 Laboratory Tests Test 10/10/24 16:47 10/10/24 16:53 10/10/24 18:45 White Blood Count 5.7 10^3/uL (4.4-10.8) Lactic Acid Level 2.1 mmol/L (0.4-2.0) *H 1.4 mmol/L (0.4-2.0) Assessment/Plan Assessment/Plan Assessment and plan # metabolic encephalopathy likely due to underlying UTI/PNA, rule out hepatic failure -ammonia 66, serum creatinine 1.58, BUN 35 -Bibasilar opacities may reflect atelectasis or mild pneumonia -CTA negative for acute intracranial abnormality Continue ceftriaxone and azithromycin as prescribed --continue IV fluid as prescribed -pending urine culture, blood culture # Acute retention of urine # bilateral severe hydronephrosis # obstructive uropathy due to BPH -ultrasound of the kidney-. Severe bilateral hydronephrosis.Distended urinary bladder. Urinary bladder wall is thickened which may be related to chronic outlet obstruction. Prior to voiding the bladder volume measures volume 811.95 cc. -ordered for Bobby's catheter - pending urinalysis -pending urine culture -pending PSA -continue ceftriaxone 1 g IV daily --continue Flomax and finasteride # ANNETTE likely due to VMN -avoid dehydration -continue IV normal saline as prescribed # lactic acidosis -lactic acid 2.1> 1.4 -continue IV normal saline as prescribed #Hyper ammonia -pending acute hepatic panel -continue lactulose 30 mL p.o. b.i.d. -avoid constipation # hypertension -resume home medication losartan, amlodipine -monitor blood pressure # CKD -avoid dehydration and nephrotoxic drugs # CVD with right-sided deficit -CT head negative for acute intracranial abnormality # hyperlipidemia -continue atorvastatin 10 mg p.o. q.h.s. #Seizure disorder -resume home medication phenytoin, levetiracetam. Valproic acid # Alzheimer's dementia -resumed home medication # history of hydronephrosis, history of nephrostomy tube placement -continue current management Diet-cardiac and renal diet Goals of care, Code status fullcode ; discussed with >15 minutes PUD prophylaxis: Pantoprazole DVT prophylaxis: Lovenox Plan discussed with Dr. Bird , nursing staff, Total time spent on patient evaluation, chart review, assessment and plan, discussion discussion >35 minutes Plan discussed with: Patient, Other (RN, Caregiver) My Orders Orders - MESHA CORONA RESIDENT Procedure Category Date Status Time Admit ADMIT 10/10/24 Transmitted 23:06 Code Status CODE 10/10/24 Transmitted 23:06 Renal DIET 10/11/24 Transmitted Standard(2gna,3gk,Lopho) Breakfast Sodium Chloride 0.9% PHA 10/10/24 Logged 23:15 Docusate Sodium PHA 10/10/24 Logged Capsule (Colace 23:15 Enoxaparin Sodium PHA 10/11/24 Logged (Lovenox) 10:00 Complete Blood Count LAB 10/11/24 Verified 04:00 Comprehensive LAB 10/11/24 Verified Metabolic Panel 04:00 Cardiac DIET 10/11/24 Transmitted Diet-2gna,Lofat,Lochol Breakfast Notify Of Changes FARHAT 10/10/24 In Process From Base 23:06 Aquatic Scientist For FARHAT 10/10/24 In Process 24 Hours 23:06 Thyroid Stimulating LAB 10/10/24 Transmitted Hormone 23:12 Acute Hepatitis Panel LAB 10/10/24 Transmitted 23:12 R Ankle 2 View Xray XY 10/10/24 Transmitted 23:12 Date of Service: Oct 10, 2024 Billing Provider: EDEL BIRD MD Common Visit Codes: 47280-MPOIZVH INP/OBS CARE (HIGH) Secondary Visit Codes: 54900-FPUNYYZR CARE PLAN 30 MINUTES MESHA CORONA RESIDENT Oct 10, 2024 23:15
--- NOTE | 2024-10-10 23:52 | DVH ---
CHEST RADIOGRAPH Indication: PNA Technique: Single frontal view of the chest was obtained COMPARISON: XY CHEST XRAY 1 VIEW on DOS: 11/17/23, XY CHEST XRAY 1 VIEW on DOS: 10/16/23 FINDINGS: Lines and Tubes: None Lungs: Bibasilar opacities may reflect atelectasis or mild pneumonia. Pleura: No effusion. No pneumothorax. Cardiomediastinal contours: Unremarkable Bones: Unremarkable IMPRESSION: 1. Bibasilar opacities may reflect atelectasis or mild pneumonia
[2024-10-11] VITALS (9 sets, daily range): BP systolic 116–161; BP diastolic 66–121; PULSE 75–120; RESP 18–20; TEMP 97.5–98.1; O2SAT 93–99
--- NOTE | 2024-10-11 00:13 | DVH ---
CLINICAL INDICATION: rule out fracture TECHNIQUE: XY R ANKLE 2 VIEW XRAY Comparison: None FINDINGS/IMPRESSION: : There is no evidence of acute fracture or dislocation. Soft tissues are unremarkable.
[2024-10-11] MEDS: PANTOPRAZOLE 40 MG TAB PO ONE (00:40)
--- NOTE | 2024-10-11 02:40 | DVH ---
Bilateral lower extremity venous duplex Clinical History: leg swelling Comparison: None Technique: Duplex Doppler evaluation of the deep venous systems of both lower extremities from the common femora l veins to the popliteal veins including color Doppler and spectral/pulsed waveform analysis was perf ormed. Findings: RIGHT SIDE: The common femoral vein demonstrates appropriate compressibility and waveform variability. There is compressibility/patency of the great saphenous vein at the proximal thigh. The femoral vein demonstrates appropriate compressibility and waveform variability. The deep femoral vein demonstrates appropriate compressibility and waveform variability. The popliteal vein demonstrates appropriate compressibility and waveform variability. There is normal compressibility at the tibioperoneal trunk. LEFT SIDE: The common femoral vein demonstrates appropriate compressibility and waveform variability. There is compressibility/patency of the great saphenous vein at the proximal thigh. The femoral vein demonstrates appropriate compressibility and waveform variability. The deep femoral vein demonstrates appropriate compressibility and waveform variability. The popliteal vein demonstrates appropriate compressibility and waveform variability. There is normal compressibility at the tibioperoneal trunk. Impression: 1. No right or left femoropopliteal venous thrombosis.
[2024-10-11] MEDS: cefTRIAXone 1GM/50ML D5W 50 ML IV ONE (02:41)
[2024-10-11] MEDS: AZITHROMYCIN 500MG/ 250ML 250 ML IV ONE (04:22)
--- NOTE | 2024-10-11 04:52 | DVH ---
INDICATION: History of hydronephrosis TECHNIQUE: Multiple real-time sonographic images of the kidneys and bladder were obtained. COMPARISON: US KIDNEY on DOS: 11/17/23, US KIDNEY on DOS: 10/15/23 FINDINGS: The right kidney measures 10.3 cm in length, which is normal in size. There is normal echog enicity of the right kidney. Severe hydronephrosis. The left kidney measures 10.2 cm in length, which is normal in size. There is normal echogenicity of the left kidney. Severe hydronephrosis. No echogenic material. Urinary bladder wall thickening measuring 0.5 cm. Prior to voiding the bladde r volume measures volume 811.95 cc. Postvoid residual not evaluated. IMPRESSION: 1. Severe bilateral hydronephrosis. 2. Distended urinary bladder. Urinary bladder wall is thickened which may be related to chronic outle t obstruction.
[2024-10-11] MEDS: PHENYTOIN SODIUM 100 MG CAP PO SCH (05:49)
[2024-10-11] MEDS: PANTOPRAZOLE 40 MG TAB PO SCH (05:49)
[2024-10-11 07:13] LABS: Urine Protein, UAD Negative (Negative)
[2024-10-11 07:25] LABS: Barbiturate Scree,Urine Neg (NEGATIVE)
[2024-10-11 07:29] LABS: Amphetamine Screen, Urine Neg (NEGATIVE); Benzodiazephine Screen, Urine Neg (NEGATIVE); Cannabinoid Screen, Urine Neg (NEGATIVE); Cocaine Screen, Urine Neg (NEGATIVE); Opiate Scree,Urine Neg (NEGATIVE); Phencyclidine Screen, Urine Neg (NEGATIVE)
[2024-10-11 07:34] LABS: Hematocrit 41.3 % (41.0-53.0); Hemoglobin 14.2 g/dL (13.5-17.5); Mean Corpuscular Hemoglobin 33.0 pg (28.0-32.0); Mean Corpuscular Volume 95.9 fL (80.0-100.0)
[2024-10-11 07:39] LABS: Alanine Aminotransferase 25 U/L (7-40); Albumin 4.0 g/dL (3.2-4.8); Alkaline Phosphatase 68 U/L (46-116); Anion Gap 7 (5-15); BUN/Creatinine Ratio 16.6 (10.0-20.0); Calcium 9.8 mg/dL (8.7-10.4); Carbon Dioxide 29 mmol/L (20-31); Chloride 105 mmol/L (98-107); Glucose 85 mg/dL (74-106); Potassium 4.0 mmol/L (3.5-5.1); Sodium 141 mmol/L (136-145); Total Protein 6.7 g/dL (5.7-8.2)
[2024-10-11 07:42] LABS: Bilirubin, Total 0.2 mg/dL (0.2-1.0); Blood Urea Nitrogen 28 mg/dL (9-23)
[2024-10-11 08:23] LABS: Total Cells Counted 100.0 (100)
[2024-10-11] MEDS: BENZTROPINE MESY 0.5 MG TAB PO SCH (09:31)
[2024-10-11] MEDS: TAMSULOSIN HYDROCHLORIDE 0.4 MG CAP PO SCH (09:32)
[2024-10-11] MEDS: levETIRAcetam 500 MG TAB PO SCH (09:33)
[2024-10-11] MEDS: CITALOPRAM HYDROBR 20 MG TAB PO SCH (09:33)
[2024-10-11] MEDS: LOSARTAN POTASSIUM 50 MG TAB PO SCH (09:49)
[2024-10-11] MEDS: FINASTERIDE 5 MG TAB PO SCH (09:49)
[2024-10-11] MEDS ORDERED: PATIENTS OWN MEDICATION (Benztropine Mesylate 1 TAB) PO SCH (10:00)
[2024-10-11] MEDS ORDERED: PATIENTS OWN MEDICATION (Amlodipine Besylate 1 TAB) PO SCH (10:00)
[2024-10-11] MEDS ORDERED: PATIENTS OWN MEDICATION (Escitalopram Oxalate 1 TAB) PO SCH (10:00)
[2024-10-11] MEDS ORDERED: PATIENTS OWN MEDICATION (Levetiracetam 1 TAB) PO SCH (10:00)
[2024-10-11] MEDS ORDERED: PATIENTS OWN MEDICATION (Atorvastatin Calcium 1 TAB) PO SCH (10:00)
[2024-10-11] MEDS: ENOXAPARIN SOD 40 MG/0.4 ML SYRINGE SC SCH (10:44)
--- NOTE | 2024-10-11 11:52 | DVH ---
Exam: CT CT AB PEL WO CON-NO ORAL OR IV History: hydronephrosis Comparison Study: CT CT AB PEL WO CON-NO ORAL OR IV on DOS: 11/19/23, CT CT AB PEL WO CON-NO ORAL OR I V on DOS: 10/14/23 Technique: Multidetector spiral CT of the abdomen and pelvis was performed from lung bases to pubic symphysis. Imaging was performed without IV contrast. Axial, coronal and sagittal multiplanar reform ats were obtained from the axial data set by the technologist. Radiation dose : Abdomen/Pelvis: CTDIvol 8.9 mGy, DLP 561.69 mGy*cm. Findings: Limited by motion. Evaluation of solid organs is limited due to lack of intravenous contrast use. Lung Bases: Mild atelectasis and consolidation in the lung bases left greater than right. Liver: The liver is normal in size. No focal lesions. Gallbladder and biliary Tree: Unremarkable Spleen: Unremarkable Pancreas: The pancreas is grossly normal in appearance. Adrenal Glands: Diffuse nodular enlargement of the left adrenal gland. Kidneys: Moderate right hydronephrosis and hydroureter. Severe left hydronephrosis and hydroureter. Bilateral renal cortical thinning and scarring right greater than left. Right kidney is small relati ve to the left kidney. No obstructing ureteral calculus identified. Bladder: Bladder is decompressed with a Bobby catheter and cannot be adequately assessed. Bowel: The stomach is grossly normal in appearance. Small bowel and colon are normal in caliber and d istribution. The appendix is not visualized; however, no secondary findings of acute appendicitis martin ntified. Large amount of stool in the colon and rectum. Ascites: Absent Lymphadenopathy: No mesenteric, retroperitoneal or periportal lymphadenopathy. Abdominal wall and Mesentery: Unremarkable. Vasculature: Calcified atherosclerotic disease. Pelvic Organs: Unremarkable Musculoskeletal: No aggressive focal bony lesions, acute fractures or dislocation. IMPRESSION: 1. Moderate right and severe left hydronephrosis and hydroureter. No obstructing ureteral calculus i dentified. Bilateral renal cortical thinning and scarring. Right kidney is small relative to the lef t kidney. 2. Left adrenal hyperplasia. Large amount of stool in the colon and rectum, consider constipation and fecal impaction. Mild atelectasis and consolidation in the lung bases. Radiation optimization: All CT scans at this facility use at least one of these dose optimization jenni hniques: Automated exposure control mA and/or kV adjustment per patient size (includes targeted exams where dose is matched to clinical indication) or iterative reconstruction. HS:Y
--- NOTE | 2024-10-11 13:22 | DVHINCON2 ---
Date of service: Oct 11, 2024 Referring Physician Hospitalist Reason for Consultation Patient has large left renal stones History of Present Illness 58 years old male with past medical history of hypertension, CKD, CVA with right-sided deficit, hyperlipidemia, BPH, seizure disorder, history of bilateral hydronephrosis, Alzheimer's dementia was brought in from [facility]. Patient is a poor historian, history was taken from patient's caregiver and also from reviewing chart. As per caregiver patient has been having declining function for last 3-4 months which has been getting worse lately. Patient has slow response, tired looking. patient is getting agitated lately. As per caregiver patient is ambulating less with worsening ADLS. No history of fever, chest pain, shortness of breath, dysuria, acute joint redness, fever, diarrhea. She lab workup revealed hemoglobin 12.4, serum creatinine 1.58, BUN 35, GFR 50, lactic acid 2.1, ammonia 66. CT head chronic encephalomalacia, no acute intracranial abnormality. CXR- Bibasilar opacities may reflect atelectasis or mild pneumonia . Kidney ultrasound revealed- Severe bilateral hydronephrosis. Distended urinary bladder. Urinary bladder wall is thickened which may be related to chronic outlet obstruction.Prior to voiding the bladder volume caio sures volume 811.[address] scan shows large left lower pole renal calculi Past Medical History hypertension, CKD, CVA with right-sided deficit, hyperlipidemia, BPH, seizure disorder, history of bilateral hydronephrosis, Alzheimer's dementia Past Surgical History Cystoscopy with left ureteral stent placement and left ESWL on 11/16/2023 Subsequent bilateral nephrostomy tubes placed for hydronephrosis Previous TURP Family History: Patient reports no known family medical history. Allergies: Coded Allergies: ROBIN Inhibitors (Verified Allergy, Unknown, 10/13/23) Home Meds Active Scripts Cefdinir (Cefdinir) 300 Mg Cap, 1 CAP PO BID for 7 Days, #14 CAP Prov:STARR MURPHY MD 10/20/23 Reported Medications Nitrofurantoin (Nitrofurantoin Macrocryst) 50 Mg Cap, 1 CAP PO DAILY for 31 Days, #31 10/15/23 Amlodipine Besylate (Amlodipine Besylate) 10 Mg Tab, 1 TAB PO DAILY 10/15/23 Quetiapine Fumerate (Seroquel) 200 Mg Tab, 250 MG PO HS Take 50 mg tablet and 200 mg tablet together for a TOTAL of 250 mg tablets by mouth at bedtime. 10/15/23 Paliperidone (Paliperidone ER) 3 Mg Tab, 4.5 MG PO HS Take 1.5 mg tablet and 3 mg tablet together for a TOTAL of 4.5 mg tablets by mouth at bedtime. 10/15/23 Escitalopram Oxalate (ESCITALOPRAM OXALATE) 10 Mg Tab, 1 TAB PO DAILY 10/13/23 Folic Acid (Folic Acid) 1 Mg Tab, 1 TAB PO DAILY 10/13/23 Benztropine Mesylate (Benztropine Mesylate) 1 Mg Tab, 1 TAB PO DAILY 10/13/23 Levetiracetam (Levetiracetam) 750 Mg Tab, 1 TAB PO BID 10/13/23 Valproic Acid (Valproic Acid) 250 Mg Cap, 2 CAP PO TID 10/13/23 Phenytoin Sodium (DILANTIN CAPSULE) 100 Mg Cp, 1 CAP PO TID 10/13/23 Aripiprazole (Aripiprazole) 10 Mg Tab, 1 TAB PO DAILY 10/13/23 Lorazepam (ATIVAN TABLET) 0.5 Mg Tb, 1 TAB PO BID 10/13/23 Tamsulosin Hcl (Tamsulosin Hcl) 0.4 Mg Cap, 1 CAP PO DAILY 10/13/23 Finasteride (Finasteride) 5 Mg Tab, 1 TAB PO DAILY 10/13/23 Trazodone Hcl (Trazodone Hcl) 50 Mg Tab, 1 TAB PO 10/13/23 Omeprazole (Omeprazole Dr) 20 Mg Cap, 1 CAP PO DAILY 10/13/23 Niacin (Niacin ER) 500 Mg Tab, 1 TAB PO DAILY 10/13/23 Methenamine Hippurate (Methenamine Hippurate) 1 Gm Tab, 1 TAB PO BID 10/13/23 Hydrochlorothiazide (Hydrochlorothiazide) 12.5 Mg Cap, 1 CAP PO DAILY 10/13/23 Losartan Potassium (Losartan Potassium) 50 Mg Tab, 1 TAB PO BID 10/13/23 Atorvastatin Calcium (ATORVASTATIN CALCIUM) 10 Mg Tab, 1 TAB PO DAILY 10/13/23 Sodium Sulfate-Magnesium Sulfa (Sutab 9483-364-888 mg) 1 Tab Tab, 1 TAB PO 10/13/23 Current Medications Current Medications Medications (Trade) Dose Ordered Sig/Jazmin Route PRN Reason Start Time Stop Time Status Last Admin Sodium Chloride 1,000 ml @ 120 mls/hr Q8H20M IV 10/10/24 23:15 10/11/24 02:03 Docusate Sodium (Colace Capsule) 100 mg BIDPRN PRN PO FOR CONSTIPATION 10/10/24 23:15 Enoxaparin Sodium (Lovenox) 40 mg DAILY SC 10/11/24 10:00 10/11/24 10:44 Finasteride (Proscar Tablet) 5 mg DAILY PO 10/11/24 10:00 10/11/24 10:43 Losartan Potassium (Cozaar Tablet) 50 mg BID PO 10/11/24 10:00 10/11/24 09:49 Phenytoin Sodium (Dilantin Capsule) 100 mg TID PO 10/11/24 06:00 10/11/24 05:49 Tamsulosin HCl (Flomax) 0.4 mg DAILY PO 10/11/24 10:00 10/11/24 09:32 Trazodone HCl (Desyrel) 50 mg HS PO 10/11/24 22:00 Patient Own Medication 1 tab DAILY PO 10/11/24 10:00 10/10/24 23:42 [place] Patient Own Medication 1 tab DAILY PO 10/11/24 10:00 Patient Own Medication 1 tab DAILY PO 10/11/24 10:00 10/10/24 23:42 [place] Patient Own Medication 1 tab DAILY PO 10/11/24 10:00 10/10/24 23:42 [place] Patient Own Medication 1 tab DAILY PO 10/11/24 10:00 10/10/24 23:42 [place] Patient Own Medication 1 tab BID PO 10/11/24 10:00 10/10/24 23:42 [place] Patient Own Medication 4.5 mg HS PO 10/11/24 22:00 Patient Own Medication 250 mg HS PO 10/11/24 22:00 10/10/24 23:42 [place] Patient Own Medication 2 cap TID PO 10/11/24 06:00 Pantoprazole Sodium (Protonix Tablet) 40 mg DAILY@0600 PO 10/11/24 06:00 10/11/24 05:49 Amlodipine Besylate (Norvasc Tablet) 10 mg DAILY PO 10/11/24 10:00 10/11/24 09:32 Atorvastatin Calcium (Lipitor) 10 mg HS PO 10/11/24 22:00 Benztropine Mesylate (Cogentin Tablet) 1 mg DAILY PO 10/11/24 10:00 10/11/24 09:31 Citalopram Hydrobromide (CeleXA TABLET) 20 mg DAILY PO 10/11/24 10:00 10/11/24 09:33 Levetiracetam (Keppra Tablet) 750 mg BID PO 10/11/24 10:00 10/11/24 09:33 Quetiapine Fumarate (SEROquel TABLET) 250 mg HS PO 10/11/24 22:00 Ceftriaxone Sodium 50 ml @ 100 mls/hr DAILY@09 IV 10/12/24 09:00 Azithromycin 250 ml @ 125 mls/hr DAILY IV 10/12/24 10:00 Review of Systems Allergy- NKDA Patient was seen today at the bedside. Cardiovascular- deny acute chest pain or shortness of breath or cough or palpitation Respiratory denies cough or short of breath or wheezing Gastrointestinal- denies any rectal bleeding, nausea or vomiting Musculoskeletal-right ankle swelling Neurological- denies acute dysarthria, dysphagia, change in vision Psychiatry- denies depression or SI or HI Skin- denies acute rash or purpura Allergies: Coded Allergies: ROBIN Inhibitors (Verified Allergy, Unknown, 10/13/23) Medications Current Medications Medications Dose Ordered Sig/Jazmin Route Start Time Stop Time Status Last Admin Dose Admin Sodium Chloride 1,000 ml @ 120 mls/hr Q8H20M IV 10/10/24 23:15 Docusate Sodium 100 mg BIDPRN PRN PO 10/10/24 23:15 Enoxaparin Sodium 40 mg DAILY SC 10/11/24 10:00 UNV Vital Signs Vital Signs Date Time Temp Pulse Resp B/P (MAP) Pulse Ox O2 Delivery O2 Flow Rate FiO2 10/11/24 12:59 98.1 75 20 134/84 (101) 97 98.1 10/11/24 07:30 Room Air* 0 21 Physical Exam Vital Signs Date Time Temp Pulse Resp B/P (MAP) Pulse Ox O2 Delivery O2 Flow Rate FiO2 10/10/24 21:47 97.3 83 20 137/70 (92) 97 97.3 10/10/24 19:27 Room Air Exam General examination- awake, alert, not in acute distress HEENT- PEERLA, no acute nasal discharge Cardiovascular- S1-S2 audible, rate and rhythm regular, no murmur Respiratory- CTAB, no wheeze or rhonchi Gastrointestinal-nontender, bowel sound+. Nondistended : Bobby catheter in place Musculoskeletal-no acute joint swelling or tenderness or redness Lower extremity- right ankle swollen+ Neurological- dysarthria, right-sided weakness++, Psychiatry- denies depression or SI or HI Skin- no acute rash or purpura Labs/Diagnostic Data Labs Test 10/11/24 06:58 10/11/24 05:45 10/11/24 02:27 10/10/24 23:29 Range/Units White Blood Count 5.6 4.4-10.8 10^3/uL Red Blood Count 4.31 L 4.5-5.90 10^6/uL Hemoglobin 14.2 13.5-17.5 g/dL Hematocrit 41.3 41.0-53.0 % Mean Corpuscular Volume 95.9 80.0-100.0 fL Mean Corpuscular Hemoglobin 33.0 H 28.0-32.0 pg Mean Corpuscular Hemoglobin Concent 34.4 32.0-36.0 g/dL Red Cell Distribution Width 13.7 11.8-14.3 % Platelet Count 188 140-450 10^3/uL Mean Platelet Volume 8.3 6.9-10.8 fL Neutrophils (%) (Auto) 37.0-80.0 % Lymphocytes (%) (Auto) 10.0-50.0 % Monocytes (%) (Auto) 0.0-12.0 % Basophils (%) (Auto) 0.0-2.0 % Neutrophils # (Auto) 1.6-8.6 10 ^3/uL Lymphocytes # (Auto) 0.4-5.4 10 ^3/uL Monocytes # (Auto) 0-1.3 10 ^3/uL Differential Total Cells Counted 100.0 100 Neutrophils % (Manual) 53 37.0-80.0 Band Neutrophils % (Manual) 0 Lymphocytes % (Manual) 28 10.0-50.0 Monocytes % (Manual) 16 H 0-12 Eosinophils % (Manual) 3 0-7 Basophils % (Manual) 0 0.0-2.0 Metamyelocytes % (manual) 0 Myelocytes % (Manual) 0 Promyelocytes % (Manual) 0 Blast Cells % (Manual) 0 Reactive Lymphocytes 0 Platelet Estimate Adequate Sodium Level 141 # 136-145 mmol/L Potassium Level 4.0 3.5-5.1 mmol/L Chloride Level 105 98-107 mmol/L Carbon Dioxide Level 29 20-31 mmol/L Anion Gap 7 5-15 Blood Urea Nitrogen 28 H 9-23 mg/dL Creatinine 1.69 H 0.700-1.30 mg/dL Glomerular Filtration Rate Calc 46 >90 mL/min BUN/Creatinine Ratio 16.6 10.0-20.0 Serum Glucose 85 74-106 mg/dL Hemoglobin A1c 5.1 <5.7 % A1C Calcium Level 9.8 8.7-10.4 mg/dL Total Bilirubin 0.2 0.2-1.0 mg/dL Aspartate Amino Transferase (AST) 24 13-40 U/L Alanine Aminotransferase (ALT) 25 7-40 U/L Alkaline Phosphatase 68 46-116 U/L Total Protein 6.7 5.7-8.2 g/dL Albumin 4.0 3.2-4.8 g/dL Vitamin B12 Level 1333 H 211-911 pg/mL Vitamin D 25-Hydroxy 64.6 30.0-100 ng/mL Folic Acid 28.17 >5.38 ng/mL Urine Color Light-yellow Yellow Urine Clarity Turbid H Clear Urine pH 7.5 5.0-9.0 Urine Specific [place] 1.007 1.001-1.035 Urine Protein Negative Negative Urine Ketones Negative Negative Urine Blood Trace H Negative /uL Urine Nitrite Negative Negative Urine Bilirubin Negative Negative Urine Urobilinogen Normal Negative mg/dL Urine Leukocyte Esterase 3+ Negative /uL Urine RBC 4 0 - 3 /hpf Urine Microscopic WBC 29 H 0-3 /HPF Urine Squamous Epithelial Cells None seen <5 /hpf Urine Bacteria Few H None Seen /hpf Urine Glucose Normal Normal mg/dL Urine Opiates Screen Neg NEGATIVE Urine Fentanyl Screen Neg NEGATIVE Urine Barbiturates Screen Neg NEGATIVE Urine Phencyclidine Screen Neg NEGATIVE Urine Amphetamines Screen Neg NEGATIVE Urine Benzodiazepines Screen Neg NEGATIVE Urine Cocaine Screen Neg NEGATIVE Urine Cannabinoids Screen Neg NEGATIVE Troponin I High Sensitivity 6 </=54 ng/L B-Type Natriuretic Peptide 5.77 0-100 pg/mL Thyroid Stimulating Hormone (TSH) 1.33 0.55-4.78 uIU/mL Test 10/10/24 18:45 7/14/25 16:53 10/10/24 16:47 Range/Units Lactic Acid Level 1.4 0.4-2.0 mmol/L Ammonia 66 H 11-32 umol/L Eosinophils (%) (Auto) 3.7 0.0-7.0 % Eosinophils # (Auto) 0.2 0-0.8 10 ^3/uL Basophils # (Auto) 0 0-0.2 10 ^3/uL Nucleated Red Blood Cells 0.1 % Plasma/Serum Blood Alcohol < 3.0 <10 mg/dL Assessment Left nephrolithiasis Bilateral hydronephrosis secondary to bladder outlet obstruction resolved with Bobby catheter insertion Neurogenic bladder Status post TURP Plan/Recommendation Patient needs to undergo left PCNL for the management of his kidney stones. He also requires catheter to be left in place due to bladder outlet obstruction from neurogenic bladder. Patient became violent when I explained that he needs to undergo testing and pro cedure. He does not want to stay in the hospital. He wants to go home. I recommend discharging with an indwelling catheter and arranging for outpatient procedure if he consents to proceed Plan discussed with: Patient, Other ROSA ELENA ROSSI MD Oct 11, 2024 13:22
[2024-10-11] MEDS: VALPROIC ACID 250 MG PO SCH (13:57)
--- NOTE | 2024-10-11 16:36 | DVHPNRES ---
Progress Note Date Seen: Oct 11, 2024 Resident Creating Document: GENNA CALLE RESIDENT Medical Necessity Reason Pt with a Central, PICC or Fol: Yes The following are medically ne: Bobby Catheter Subjective Review of Systems Kamlesh Palmer is a 58-year-old male with past medical history of epilepsy, GERD with esophagitis, hemiplegia & hemiparesis right side, dementia with behavioral disturbance, mixed HLD, paranoid schizophrenia, history of traumatic brain injury, chronic idiopathic constipation, CKD, history of COPD with chronic bronchitis, prostatomegaly, depression, insomnia, asthma. He is a poor historian. His history was obtained from his chart and caregiver in the ED. As per his caregiver, he has been declining function for last 3-4 months which has been getting worse lately. He has been getting agitated lately. When evaluated at bedside, he was agitated. He is ambulating less. No history of fever, chest pain, shortness of breath, dysuria, acute joint redness, fever, diarrhea. His WBCs are WNL. He has monocytosis, increased BUN, creatinine and BUN/creatinine ratio. His urine analysis showed turbid urine with trace blood, WBCs 29 and few bacteria. His toxicology screen was negative. Bilateral ultrasound Doppler showed no thrombosis. CXR showed bibasilar opacity due to atelectasis or pneumonia. Ankle x-ray WNL. CT scan showed no acute abnormality, chronic encephlomalacia seen. Past medical history: Epilepsy, GERD with esophagitis, hemiplegia & hemiparesis right side, dementia with behavioral disturbance, mixed HLD, paranoid schizophrenia, history of traumatic brain injury, chronic idiopathic constipation, CKD, history of COPD with chronic bronchitis, prostatomegaly, depression, insomnia, asthma Social history: He was brought in from [facility]. ROS: Constitutional: Agitated, unable to articulate his words. He is mostly mumbling and struggling to explain his needs. Objective vital signs Vital Sign Date Time Temp Pulse Resp B/P (MAP) Pulse Ox O2 Delivery O2 Flow Rate FiO2 10/11/24 12:59 98.1 75 20 134/84 (101) 97 98.1 10/11/24 07:30 Room Air* 0 21 Total Intake and Output 10/10/24 10/10/24 10/11/24 15:00 23:00 07:00 Intake Total 170 ml Balance 170 ml medications Current Medications Medications Dose Ordered Sig/Jazmin Route Start Time Stop Time Status Last Admin Dose Admin Sodium Chloride 1,000 ml @ 120 mls/hr Q8H20M IV 10/10/24 23:15 10/11/24 02:03 120 MLS/HR Docusate Sodium 100 mg BIDPRN PRN PO 10/10/24 23:15 Enoxaparin Sodium 40 mg DAILY SC 10/11/24 10:00 10/11/24 10:44 40 MG Finasteride 5 mg DAILY PO 10/11/24 10:00 10/11/24 10:43 5 MG Losartan Potassium 50 mg BID PO 10/11/24 10:00 10/11/24 09:49 50 MG Phenytoin Sodium 100 mg TID PO 10/11/24 06:00 10/11/24 05:49 100 MG Tamsulosin HCl 0.4 mg DAILY PO 10/11/24 10:00 10/11/24 09:32 0.4 MG Trazodone HCl 50 mg HS PO 10/11/24 22:00 Patient Own Medication 1 tab DAILY PO 10/11/24 10:00 Patient Own Medication 4.5 mg HS PO 10/11/24 22:00 Patient Own Medication 2 cap TID PO 10/11/24 06:00 Pantoprazole Sodium 40 mg DAILY@0600 PO 10/11/24 06:00 10/11/24 05:49 40 MG Amlodipine Besylate 10 mg DAILY PO 10/11/24 10:00 10/11/24 09:32 10 MG Atorvastatin Calcium 10 mg HS PO 10/11/24 22:00 Benztropine Mesylate 1 mg DAILY PO 10/11/24 10:00 10/11/24 09:31 1 MG Citalopram Hydrobromide 20 mg DAILY PO 10/11/24 10:00 10/11/24 09:33 20 MG Levetiracetam 750 mg BID PO 10/11/24 10:00 10/11/24 09:33 750 MG Quetiapine Fumarate 250 mg HS PO 10/11/24 22:00 Ceftriaxone Sodium 50 ml @ 100 mls/hr DAILY@09 IV 10/12/24 09:00 Azithromycin 250 ml @ 125 mls/hr DAILY IV 10/12/24 10:00 Lactulose 30 ml BID PO 10/11/24 13:45 Examination General: Patient is not following commands. Patient is lying on bed and does not want to be examined. HEENT: Hemiparesis of right side. Difficulty in articulating words. Agitation when trying to speak. laboratory and microbiology Laboratory Tests 10/11/24 06:58 Test 10/11/24 06:58 Range/Units Serum Glucose 85 74-106 mg/dL Problem List/Assessment/Plan Problem List/Assessment/Plan #Metabolic encephalopathy likely due to: #Bladder outlet obstruction #Hyperammonemia #UTI, possible #PNA, possible #Hepatic failure, rule out -Increased Ammonia 66, -Bibasilar opacities may reflect atelectasis or mild pneumonia -CTA negative for acute intracranial abnormality -UA shows turbid urine, trace blood, 29 WBCs and few bacteria. Pending urine culture -Continue IV ceftriaxone and azithromycin -Continue IV fluid as prescribed -Ordered urine culture, blood culture #Bladder outlet obstruction, possible, due to BPH -Ultrasound kidneys-. Severe bilateral hydronephrosis. Distended urinary bladder. Urinary bladder wall is thickened which may be related to chronic outlet obstruction. Prior to voiding the bladder volume measures volume 811.95 cc. -Ordered for Bobby's catheter -Pending PSA -Continue ceftriaxone 1 g IV daily -Continue Flomax and finasteride # ANNETTE likely due to VMN -Serum creatinine 1.58, BUN 35 -Increased BUN to creatinine ratio -Continue IV normal saline as prescribed #Lactic acidosis -Lactic acid 2.1> 1.4 #Hyperammonia -Pending acute hepatic panel -Start lactulose 30 mL b.i.d. #Hypertension -Resume home medication losartan, amlodipine -Monitor blood pressure # CKD -Avoid dehydration and nephrotoxic drugs # CVD with right-sided deficit -CT head negative for acute intracranial abnormality # hyperlipidemia -Continue atorvastatin 10 mg p.o. q.h.s. #Seizure disorder -Resume home medication phenytoin, levetiracetam, valproic acid # Alzheimer's dementia -Resumed home medication #History of hydronephrosis, history of nephrostomy tube placement -Continue current management PUD prophylaxis: Pantoprazole DVT prophylaxis: Lovenox Plan discussed with nursing staff, Dr. Polanco. Patient evaluation, chart review, assessment and plan reviewed for more than 35 minute Code status full code Plan discussed with: Patient, Other (Nurse) My Orders My Orders Orders - GENNA CALLE Procedure Category Date Status Time Lactulose Oral PHA 10/11/24 In Process 13:45 *Tele Psych Consult CONS 10/11/24 Transmitted 13:39 GENNA CALLE RESIDENT Oct 11, 2024 16:36
[2024-10-11] MEDS: LACTULOSE 20Gm/30ML SOLN PO SCH (17:32)
[2024-10-11 19:03] LABS: INR 1.04 (0.9-1.15); Partial Thromboplastin Time 29.1 SEC (24.5-34.5); Prothrombin Time 11.0 sec (9.3-11.8)
[2024-10-11] MEDS: ATORVASTATIN 20 MG TAB PO SCH (21:39)
[2024-10-11] MEDS: PALIPERIDONE PO SCH (21:44)
[2024-10-11] MEDS ORDERED: QUETIAPINE PO SCH (22:00)
[2024-10-12] VITALS (7 sets, daily range): BP systolic 135–151; BP diastolic 83–94; PULSE 72–107; RESP 16–19; TEMP 97.3–97.8; O2SAT 96–99
[2024-10-12] MEDS: LORazepam 2MG/ML-1ML VIAL IV PRN (00:13)
[2024-10-12 08:07] LABS: Prostate Specific Antigen 0.2 ng/mL (0.0-4.0)
[2024-10-12] MEDS: cefTRIAXone 1GM/50ML D5W 50 ML IV SCH (08:39)
[2024-10-12] MEDS: FUROSEMIDE 40 MG/4 ML VIAL IV ONE (09:45)
[2024-10-12 10:02] LABS: Hepatitis B Surface Antigen Negative (Negative)
[2024-10-12 10:32] LABS: Hepatitis C Antibody Negative (Negative)
[2024-10-12 11:27] LABS: Hematocrit 47.3 % (41.0-53.0); Hemoglobin 16.1 g/dL (13.5-17.5); Mean Corpuscular Hemoglobin 32.8 pg (28.0-32.0); Mean Corpuscular Volume 96.7 fL (80.0-100.0)
[2024-10-12 11:43] LABS: Alanine Aminotransferase 32 U/L (7-40); Albumin 4.4 g/dL (3.2-4.8); Alkaline Phosphatase 75 U/L (46-116); Anion Gap 8 (5-15); BUN/Creatinine Ratio 15.0 (10.0-20.0); Calcium 9.8 mg/dL (8.7-10.4); Carbon Dioxide 27 mmol/L (20-31); Chloride 106 mmol/L (98-107); Glucose 98 mg/dL (74-106); Potassium 4.3 mmol/L (3.5-5.1); Sodium 141 mmol/L (136-145); Total Protein 7.3 g/dL (5.7-8.2)
[2024-10-12 11:44] LABS: Bilirubin, Total 0.4 mg/dL (0.2-1.0); Blood Urea Nitrogen 24 mg/dL (9-23)
[2024-10-12] MEDS: AZITHROMYCIN 500MG/ 250ML 250 ML IV SCH (11:50)
[2024-10-12 11:54] LABS: Total Cells Counted 100.0 (100)
[2024-10-12 11:55] LABS: RBC Morphology Normal
--- NOTE | 2024-10-12 14:38 | DVH ---
EXAM: NM NM MAG3 RENAL SCAN DATE OF SERVICE: 10/12/2024 09:00 AM ORDERING PHYSICIAN: GENNA CALLE REASON FOR EXAM: hydronephrosis TECHNIQUE: During the injection of radiopharmaceutical, posterior flow images of the kidneys were ac quired immediately at one frame per second for one minute, immediately followed by posterior imaging at 30 seconds per frame for 30 minutes. Approximately 20 minutes after the radiopharmaceutical admini stration, the indicated dose of lasix was administered. Regions of interest were drawn around the kid neys and time activity curves were generated. Differential function was calculated. COMPARISON: NM NM MAG3 RENAL SCAN on DOS: 10/19/23 FINDINGS: Blood flow images demonstrate delayed but symmetric flow to the left kidney with no focal defects. D elayed and heterogeneous uptake in the right kidney. Functional images demonstrate a cortical transit time ([id number]) of 18.4 on the right and 18.4 on the left (normal is < 6 minutes). There is no adequate spontaneous excretion from the kidneys. Differential function (uptake %) is 25.9 % by the right kidney and 74.1 % by the left kidney. After Lasix administration, there was adequate and prompt excretion from both collecting systems. The post-Lasix half-emptying time (diuretic T1/2) was 55.6 minutes on the right and 6.5 minutes on the l eft. IMPRESSION: 1. Delayed perfusion of the left kidney with appropriate response to the diuretic suggestive of a fun ctional obstruction. 2. Delayed perfusion and no evidence of response to the diuretic suggestive of a minimally functionin g right kidney. 3. Differential renal function (uptake percent) of 25.9 % by the right kidney and 74.1 % by the left.
--- NOTE | 2024-10-12 17:51 | DVHPNRES ---
Progress Note Date Seen: Oct 12, 2024 Resident Creating Document: GENNA CALLE RESIDENT Medical Necessity Reason Pt with a Central, PICC or Fol: Yes The following are medically ne: Bobby Catheter Subjective Review of Systems Kamlesh Palmer is a 58-year-old male with past medical history of epilepsy, GERD with esophagitis, hemiplegia & hemiparesis right side, dementia with behavioral disturbance, mixed HLD, paranoid schizophrenia, history of traumatic brain injury, chronic idiopathic constipation, CKD, history of COPD with chronic bronchitis, prostatomegaly, depression, insomnia, asthma. He is a poor historian. His history was obtained from his chart and caregiver in the ED. As per his caregiver, he has been declining function for last 3-4 months which has been getting worse lately. He has been getting agitated lately. When evaluated at bedside, he was agitated. He is ambulating less. No history of fever, chest pain, shortness of breath, dysuria, acute joint redness, fever, diarrhea. His WBCs are WNL. He has monocytosis, increased BUN, creatinine and BUN/creatinine ratio. His urine analysis showed turbid urine with trace blood, WBCs 29 and few bacteria. His toxicology screen was negative. Bilateral ultrasound Doppler showed no thrombosis. CXR showed bibasilar opacity due to atelectasis or pneumonia. Ankle x-ray WNL. CT scan showed no acute abnormality, chronic encephlomalacia seen. Past medical history: Epilepsy, GERD with esophagitis, hemiplegia & hemiparesis right side, dementia with behavioral disturbance, mixed HLD, paranoid schizophrenia, history of traumatic brain injury, chronic idiopathic constipation, CKD, history of COPD with chronic bronchitis, prostatomegaly, depression, insomnia, asthma Social history: He was brought in from [facility]. 10/12/24: Patient seen at bedside. No history obtained from patient today. Urology was consulted. He has taken for scan, we will undergo PCNL for stone in left kidney pole. ROS: Constitutional: Agitated, unable to articulate his words. He is mostly mumbling and struggling to explain his needs. Objective vital signs Vital Sign Date Time Temp Pulse Resp B/P (MAP) Pulse Ox O2 Delivery O2 Flow Rate FiO2 10/12/24 16:37 97.8 98 17 151/87 (108) 97 97.8 10/12/24 07:30 Room Air* 0 21 Total Intake and Output 10/11/24 10/11/24 10/12/24 15:00 23:00 07:00 Intake Total 2490 ml 400 ml Output Total 2500 ml 1100 ml Balance -10 ml -700 ml medications Current Medications Medications Dose Ordered Sig/Jazmin Route Start Time Stop Time Status Last Admin Dose Admin Sodium Chloride 1,000 ml @ 120 mls/hr [id number] IV 10/10/24 23:15 10/12/24 06:11 120 MLS/HR Docusate Sodium 100 mg BIDPRN PRN PO 10/10/24 23:15 Enoxaparin Sodium 40 mg DAILY SC 10/11/24 10:00 10/11/24 10:44 40 MG Finasteride 5 mg DAILY PO 10/11/24 10:00 10/11/24 10:43 5 MG Losartan Potassium 50 mg BID PO 10/11/24 10:00 10/12/24 08:45 50 MG Phenytoin Sodium 100 mg TID PO 10/11/24 06:00 10/12/24 14:08 100 MG Tamsulosin HCl 0.4 mg DAILY PO 10/11/24 10:00 10/12/24 11:51 0.4 MG Trazodone HCl 50 mg HS PO 10/11/24 22:00 10/11/24 21:37 50 MG Patient Own Medication 1 tab DAILY PO 10/11/24 10:00 Patient Own Medication 4.5 mg HS PO 10/11/24 22:00 Patient Own Medication 2 cap TID PO 10/11/24 06:00 Pantoprazole Sodium 40 mg DAILY@0600 PO 10/11/24 06:00 10/12/24 06:12 40 MG Amlodipine Besylate 10 mg DAILY PO 10/11/24 10:00 10/12/24 08:45 10 MG Atorvastatin Calcium 10 mg HS PO 10/11/24 22:00 10/11/24 21:39 10 MG Benztropine Mesylate 1 mg DAILY PO 10/11/24 10:00 10/12/24 08:42 1 MG Citalopram Hydrobromide 20 mg DAILY PO 10/11/24 10:00 10/12/24 08:44 20 MG Levetiracetam 750 mg BID PO 10/11/24 10:00 10/12/24 08:44 750 MG Quetiapine Fumarate 250 mg HS PO 10/11/24 22:00 10/11/24 21:38 250 MG Ceftriaxone Sodium 50 ml @ 100 mls/hr DAILY@09 IV 10/12/24 09:00 10/12/24 08:39 100 MLS/HR Azithromycin 250 ml @ 125 mls/hr DAILY IV 10/12/24 10:00 10/12/24 11:50 125 MLS/HR Lactulose 30 ml BID PO 10/11/24 13:45 10/12/24 11:50 30 ML Lorazepam 0.5 mg Q4HP PRN IV 10/11/24 19:15 10/12/24 09:00 0.5 MG Examination General: Patient is not following commands. Patient is lying on bed and does not want to be examined. HEENT: Hemiparesis of right side. Difficulty in articulating words. Agitation when trying to speak. laboratory and microbiology Laboratory Tests 10/12/24 10:56 10/12/24 10:54 Test 10/12/24 10:56 Range/Units Serum Glucose 98 74-106 mg/dL Microbiology Date/Time Source Procedure Growth Status 10/11/24 05:45 Voided Urine Urine Culture - Preliminary Resulted 10/10/24 16:53 Blood Blood Culture - Preliminary NO GROWTH AFTER 48 HOURS OF INCUBATION. Resulted Problem List/Assessment/Plan Problem List/Assessment/Plan #Metabolic encephalopathy likely due to: #Bladder outlet obstruction #Hyperammonemia #UTI, possible #PNA, possible #Hepatic failure, rule out -Increased Ammonia 66, -Bibasilar opacities may reflect atelectasis or mild pneumonia -CTA negative for acute intracranial abnormality -UA shows turbid urine, trace blood, 29 WBCs and few bacteria. Pending urine culture -Continue IV ceftriaxone and azithromycin -Continue IV fluid as prescribed -Ordered urine culture, blood culture #Left nephrolithiasis -Urology consulted -He will undergo left PCNL. #Bilateral hydronephrosis secondary to bladder outlet obstruction #Neurogenic bladder #Status post TURP -Ultrasound kidneys-. Severe bilateral hydronephrosis. Distended urinary bladder. Urinary bladder wall is thickened which may be related to chronic outlet obstruction. Prior to voiding the bladder volume measures volume 811.95 cc. -Ordered for Bobby's catheter -Pending PSA -Continue ceftriaxone 1 g IV daily -Continue Flomax and finasteride -Neurology advised discharge plan to continue indwelling catheter. # ANNETTE likely due to VMN -Serum creatinine 1.58, BUN 35 -Increased BUN to creatinine ratio -Continue IV normal saline as prescribed #Lactic acidosis -Lactic acid 2.1> 1.4 #Hyperammonia -Pending acute hepatic panel -Start lactulose 30 mL b.i.d. #Hypertension -Resume home medication losartan, amlodipine -Monitor blood pressure # CKD -Avoid dehydration and nephrotoxic drugs # CVD with right-sided deficit -CT head negative for acute intracranial abnormality # hyperlipidemia -Continue atorvastatin 10 mg p.o. q.h.s. #Seizure disorder -Resume home medication phenytoin, levetiracetam, valproic acid # Alzheimer's dementia, behavioral disturbance -Resumed home medication -Psychiatry consulted #History of hydronephrosis, history of nephrostomy tube placement -Continue current management PUD prophylaxis: Pantoprazole DVT prophylaxis: Lovenox Plan discussed with nursing staff, caregiver, Dr. Polanco. Patient evaluation, chart review, assessment and plan reviewed for more than 25 minute Code status full code Plan discussed with: Other (Caregivers, nursing staff) GENNA CALLE RESIDENT Oct 12, 2024 17:51
[2024-10-13] VITALS (12 sets, daily range): BP systolic 125–158; BP diastolic 77–95; PULSE 82–120; RESP 15–20; TEMP 97.4–98.6; O2SAT 93–99
[2024-10-13 05:16] LABS: Hematocrit 44.4 % (41.0-53.0); Hemoglobin 15.3 g/dL (13.5-17.5); Mean Corpuscular Hemoglobin 32.9 pg (28.0-32.0); Mean Corpuscular Volume 95.2 fL (80.0-100.0); Nucleated Red Blood Cells % 0.1 %
[2024-10-13 05:35] LABS: Alanine Aminotransferase 33 U/L (7-40); Albumin 4.1 g/dL (3.2-4.8); Alkaline Phosphatase 73 U/L (46-116); Anion Gap 8 (5-15); BUN/Creatinine Ratio 15.9 (10.0-20.0); Bilirubin, Total 0.4 mg/dL (0.2-1.0); Blood Urea Nitrogen 28 mg/dL (9-23); Calcium 10.2 mg/dL (8.7-10.4); Carbon Dioxide 30 mmol/L (20-31); Chloride 108 mmol/L (98-107); Glucose 86 mg/dL (74-106); Potassium 3.8 mmol/L (3.5-5.1); Sodium 146 mmol/L (136-145); Total Protein 7.1 g/dL (5.7-8.2)
--- NOTE | 2024-10-13 06:48 | DVHDSRES ---
Discharge Summary Date of Admission Resident Creating Document: GENNA CALLE RESIDENT Oct 10, 2024 at 23:06 Date of Discharge: Oct 14, 2024 Admitting Diagnosis Metabolic encephalopathy likely due to underlying urinary tract infection/pneumonia Wounds: No large wounds Labs/Diagnostic Data: Laboratory Results Test 10/13/24 04:35 10/12/24 10:54 10/11/24 18:30 10/11/24 06:58 White Blood Count 7.1 10^3/uL (4.4-10.8) Red Blood Count 4.66 10^6/uL (4.5-5.90) Hemoglobin 15.3 g/dL (13.5-17.5) Hematocrit 44.4 % (41.0-53.0) Mean Corpuscular Volume 95.2 fL (80.0-100.0) Mean Corpuscular Hemoglobin 32.9 pg (28.0-32.0) Mean Corpuscular Hemoglobin Concent 34.5 g/dL (32.0-36.0) Red Cell Distribution Width 14.1 % (11.8-14.3) Platelet Count 221 10^3/uL (140-450) Mean Platelet Volume 8.4 fL (6.9-10.8) Neutrophils (%) (Auto) 51.8 % (37.0-80.0) Lymphocytes (%) (Auto) 26.8 % (10.0-50.0) Monocytes (%) (Auto) 17.0 % (0.0-12.0) Eosinophils (%) (Auto) 3.9 % (0.0-7.0) Basophils (%) (Auto) 0.5 % (0.0-2.0) Neutrophils # (Auto) 3.7 10 ^3/uL (1.6-8.6) Lymphocytes # (Auto) 1.9 10 ^3/uL (0.4-5.4) Monocytes # (Auto) 1.2 10 ^3/uL (0-1.3) Eosinophils # (Auto) 0.3 10 ^3/uL (0-0.8) Basophils # (Auto) 0 10 ^3/uL (0-0.2) Nucleated Red Blood Cells 0.1 % Sodium Level 146 mmol/L (136-145) Potassium Level 3.8 mmol/L (3.5-5.1) Chloride Level 108 mmol/L (98-107) Carbon Dioxide Level 30 mmol/L (20-31) Anion Gap 8 (5-15) Blood Urea Nitrogen 28 mg/dL (9-23) Creatinine 1.76 mg/dL (0.700-1.30) Glomerular Filtration Rate Calc 44 mL/min (>90) BUN/Creatinine Ratio 15.9 (10.0-20.0) Serum Glucose 86 mg/dL (74-106) Calcium Level 10.2 mg/dL (8.7-10.4) Total Bilirubin 0.4 mg/dL (0.2-1.0) Aspartate Amino Transferase (AST) 37 U/L (13-40) Alanine Aminotransferase (ALT) 33 U/L (7-40) Alkaline Phosphatase 73 U/L (46-116) Total Protein 7.1 g/dL (5.7-8.2) Albumin 4.1 g/dL (3.2-4.8) Differential Total Cells Counted 100.0 (100) Neutrophils % (Manual) 55 (37.0-80.0) Band Neutrophils % (Manual) 0 Lymphocytes % (Manual) 27 (10.0-50.0) Monocytes % (Manual) 16 (0-12) Eosinophils % (Manual) 2 (0-7) Basophils % (Manual) 0 (0.0-2.0) Metamyelocytes % (manual) 0 Myelocytes % (Manual) 0 Promyelocytes % (Manual) 0 Blast Cells % (Manual) 0 Reactive Lymphocytes 0 Platelet Estimate Adequate Red Blood Cell Morphology Normal Prothrombin Time 11.0 sec (9.3-11.8) Prothrombin Time INR 1.04 (0.9-1.15) Activated Partial Thromboplast Time 29.1 SEC (24.5-34.5) Hemoglobin A1c 5.1 % A1C (<5.7) Free Prostate Specific Antigen 0.06 ng/mL (N/A) Percent Free Prostate Specific Ag 30.0 % (.) Prostate Specific Antigen Total 0.2 ng/mL (0.0-4.0) Vitamin B12 Level 1333 pg/mL (211-911) Vitamin D 25-Hydroxy 64.6 ng/mL (30.0-100) Folic Acid 28.17 ng/mL (>5.38) Test 10/11/24 05:45 10/11/24 02:27 10/10/24 23:29 10/10/24 18:45 Urine Color Light-yellow (Yellow) Urine Clarity Turbid (Clear) Urine pH 7.5 (5.0-9.0) Urine Specific [place] 1.007 (1.001-1.035) Urine Protein Negative (Negative) Urine Ketones Negative (Negative) Urine Blood Trace /uL (Negative) Urine Nitrite Negative (Negative) Urine Bilirubin Negative (Negative) Urine Urobilinogen Normal mg/dL (Negative) Urine Leukocyte Esterase 3+ /uL (Negative) Urine RBC 4 /hpf (0 - 3) Urine Microscopic WBC 29 /HPF (0-3) Urine Squamous Epithelial Cells None seen /hpf (<5) Urine Bacteria Few /hpf (None Seen) Urine Glucose Normal mg/dL (Normal) Urine Opiates Screen Neg (NEGATIVE) Urine Fentanyl Screen Neg (NEGATIVE) Urine Barbiturates Screen Neg (NEGATIVE) Urine Phencyclidine Screen Neg (NEGATIVE) Urine Amphetamines Screen Neg (NEGATIVE) Urine Benzodiazepines Screen Neg (NEGATIVE) Urine Cocaine Screen Neg (NEGATIVE) Urine Cannabinoids Screen Neg (NEGATIVE) Troponin I High Sensitivity 6 ng/L (</=54) B-Type Natriuretic Peptide 5.77 pg/mL (0-100) Thyroid Stimulating Hormone (TSH) 1.33 uIU/mL (0.55-4.78) Hepatitis A IgM Antibody Negative Hepatitis B Surface Antigen Negative (Negative) Hepatitis B Core IgM Antibody Negative (Negative) Hepatitis C Antibody Negative (Negative) Lactic Acid Level 1.4 mmol/L (0.4-2.0) Test 10/10/24 16:53 10/10/24 16:47 Ammonia 66 umol/L (11-32) Plasma/Serum Blood Alcohol < 3.0 mg/dL (<10) Other Laboratory Tests 10/13/24 04:35 Brief Hx & Hospital Course: Kamlesh Palmer is a 58-year-old male with past medical history of epilepsy, GERD with esophagitis, hemiplegia & hemiparesis right side, dementia with behavioral disturbance, mixed HLD, paranoid schizophrenia, history of traumatic brain injury, chronic idiopathic constipation, CKD, history of COPD with chronic bronchitis, prostatomegaly, depression, insomnia, asthma. He is a poor historian. He was brought in from [facility]. His history was obtained from his chart and caregiver in the ED. As per his caregiver, he has been declining function for last 3-4 months which has been getting worse lately. He has been getting agitated lately. The caregiver also mentioned to him losing balance and was unable to support his head in the chair or bed. He is ambulating less. When evaluated at bedside, he was agitated. No history of fever, chest pain, shortness of breath, dysuria, acute joint redness, fever, diarrhea. His WBCs are WNL. He has monocytosis, increased BUN, creatinine and BUN/creatinine ratio. His urine analysis showed turbid urine with trace blood, WBCs 29 and few bacteria. His toxicology screen was negative. Bilateral ultrasound Doppler showed no thrombosis. CXR showed bibasilar opacity due to atelectasis or pneumonia. Ankle x-ray WNL. CT scan showed no acute abnormality, chronic encephlomalacia seen. CT abdomen showed large stone in the lower pole of left kidney. Urology was consulted, advised PCNL. Renal scan showed delayed perfusion of left kidney with appropriate response to diuretics, and delayed perfusion of right kidney with inappropriate response. A nephrostomy tube was placed to drain hydronephrosis. During his stay, he was agitated, unable to articulate his words. Caretakers at the [facility] reports inability to support patient with catheter. He is being discharged to SNF on oral Bactrim. Discharge plan: Follow up with PCP in 1 week. Follow with urology for PCNL outpatient. Continue oral Bactrim twice daily for 5 days. Continue home medications. Consults/Reason for consult Urology was consulted, for left nephrolithiasis, bilateral hydronephrosis secondary to bladder outlet obstruction resolved with Bobby catheter insertion, neurogenic bladder, status post TURP. He was recommended to undergo left PCNL for the management of his kidney stones. He also requires catheter to be left in place due to bladder outlet obstruction from neurogenic bladder. For discharge plan, discharge with an indwelling catheter and arranging for outpatient procedure if he consents to proceed Operations or Procedures NM NM MAG3 RENAL SCAN DATE OF SERVICE: 10/12/2024 09:00 AM ORDERING PHYSICIAN: GENNA CALLE REASON FOR EXAM: hydronephrosis TECHNIQUE: During the injection of radiopharmaceutical, posterior flow images of the kidneys were acquired immediately at one frame per second for one minute, immediately followed by posterior imaging at 30 seconds per frame for 30 minutes. Approximately 20 minutes after the radiopharmaceutical administration, the indicated dose of lasix was administered. Regions of interest were drawn around the kidneys and time activity curves were generated. Differential function was calculated. COMPARISON: NM NM MAG3 RENAL SCAN on DOS: 10/19/23 FINDINGS: Blood flow images demonstrate delayed but symmetric flow to the left kidney with no focal defects. Delayed and heterogeneous uptake in the right kidney. Functional images demonstrate a cortical transit time ([id number]) of 18.4 on the right and 18.4 on the left (normal is < 6 minutes). There is no adequate spontaneous excretion from the kidneys. Differential function (uptake %) is 25.9 % by the right kidney and 74.1 % by the left kidney. After Lasix administration, there was adequate and prompt excretion from both collecting systems. The post-Lasix half-emptying time (diuretic T1/2) was 55.6 minutes on the right and 6.5 minutes on the left. IMPRESSION: 1. Delayed perfusion of the left kidney with appropriate response to the diuretic suggestive of a functional obstruction. 2. Delayed perfusion and no evidence of response to the diuretic suggestive of a minimally functioning right kidney. 3. Differential renal function (uptake percent) of 25.9 % by the right kidney and 74.1 % by the left. --- CT CT AB PEL WO CON-NO ORAL OR IV History: hydronephrosis Comparison Study: CT CT AB PEL WO CON-NO ORAL OR IV on DOS: 11/19/23, CT CT AB PEL WO CON-NO ORAL OR IV on DOS: 10/14/23 Technique: Multidetector spiral CT of the abdomen and pelvis was performed from lung bases to pubic symphysis. Imaging was performed without IV contrast. Axial, coronal and sagittal multiplanar reformats were obtained from the axial data set by the technologist. Radiation dose : Abdomen/Pelvis: CTDIvol 8.9 mGy, DLP 561.69 mGy*cm. Findings: Limited by motion. Evaluation of solid organs is limited due to lack of intravenous contrast use. Lung Bases: Mild atelectasis and consolidation in the lung bases left greater than right. Liver: The liver is normal in size. No focal lesions. Gallbladder and biliary Tree: Unremarkable Spleen: Unremarkable Pancreas: The pancreas is grossly normal in appearance. Adrenal Glands: Diffuse nodular enlargement of the left adrenal gland. Kidneys: Moderate right hydronephrosis and hydroureter. Severe left hydronephrosis and hydroureter. Bilateral renal cortical thinning and scarring right greater than left. Right kidney is small relative to the left kidney. No obstructing ureteral calculus identified. Bladder: Bladder is decompressed with a Bobby catheter and cannot be adequately assessed. Bowel: The stomach is grossly normal in appearance. Small bowel and colon are normal in caliber and distribution. The appendix is not visualized; however, no secondary findings of acute appendicitis identified. Large amount of stool in the colon and rectum. Ascites: Absent Lymphadenopathy: No mesenteric, retroperitoneal or periportal lymphadenopathy. Abdominal wall and Mesentery: Unremarkable. Vasculature: Calcified atherosclerotic disease. Pelvic Organs: Unremarkable Musculoskeletal: No aggressive focal bony lesions, acute fractures or dislocation. IMPRESSION: 1. Moderate right and severe left hydronephrosis and hydroureter. No obstructing ureteral calculus identified. Bilateral renal cortical thinning and scarring. Right kidney is small relative to the left kidney. 2. Left adrenal hyperplasia. Large amount of stool in the colon and rectum, consider constipation and fecal impaction. Mild atelectasis and consolidation in the lung bases. -- Multiple real-time sonographic images of the kidneys and bladder were obtained. COMPARISON: US KIDNEY on DOS: 11/17/23, US KIDNEY on DOS: 10/15/23 FINDINGS: The right kidney measures 10.3 cm in length, which is normal in size. There is normal echogenicity of the right kidney. Severe hydronephrosis. The left kidney measures 10.2 cm in length, which is normal in size. There is normal echogenicity of the left kidney. Severe hydronephrosis. No echogenic material. Urinary bladder wall thickening measuring 0.5 cm. Prior to voiding the bladder volume measures volume 811.95 cc. Postvoid residual not evaluated. IMPRESSION: 1. Severe bilateral hydronephrosis. 2. Distended urinary bladder. Urinary bladder wall is thickened which may be related to chronic outlet obstruction. --- Bilateral lower extremity venous duplex Clinical History: leg swelling Comparison: None Technique: Duplex Doppler evaluation of the deep venous systems of both lower extremities from the common femoral veins to the popliteal veins including color Doppler and spectral/pulsed waveform analysis was performed. Findings: RIGHT SIDE: The common femoral vein demonstrates appropriate compressibility and waveform variability. There is compressibility/patency of the great saphenous vein at the proximal thigh. The femoral vein demonstrates appropriate compressibility and waveform variability. The deep femoral vein demonstrates appropriate compressibility and waveform variability. The popliteal vein demonstrates appropriate compressibility and waveform variability. There is normal compressibility at the tibioperoneal trunk. LEFT SIDE: The common femoral vein demonstrates appropriate compressibility and waveform variability. There is compressibility/patency of the great saphenous vein at the proximal thigh. The femoral vein demonstrates appropriate compressibility and waveform variability. The deep femoral vein demonstrates appropriate compressibility and waveform variability. The popliteal vein demonstrates appropriate compressibility and waveform variability. There is normal compressibility at the tibioperoneal trunk. Impression: 1. No right or left femoropopliteal venous thrombosis. --- CHEST RADIOGRAPH Indication: PNA Technique: Single frontal view of the chest was obtained COMPARISON: XY CHEST XRAY 1 VIEW on DOS: 11/17/23, XY CHEST XRAY 1 VIEW on DOS: 10/16/23 FINDINGS: Lines and Tubes: None Lungs: Bibasilar opacities may reflect atelectasis or mild pneumonia. Pleura: No effusion. No pneumothorax. Cardiomediastinal contours: Unremarkable Bones: Unremarkable IMPRESSION: 1. Bibasilar opacities may reflect atelectasis or mild pneumonia --- XY R ANKLE 2 VIEW XRAY Comparison: None FINDINGS/IMPRESSION: : There is no evidence of acute fracture or dislocation. Soft tissues are unremarkable. --- CT HEAD WITHOUT CONTRAST INDICATION: aloc TECHNIQUE: CT of the head without intravenous contrast. Radiation Dose : 1. Head: CT Dose: CTDI volume is 59 mGy. Dose-length product is 2102 mGy*cm The dose indicators for CT are the volume Computed Tomography (CT) Dose Index (CTDIvol) and the Dose Length Product (DLP), and are measured in units of mGy and mGy-cm, respectively. These indicators are not patient dose, but values generated from the CT scanner acquisition factors. The report includes radiation exposure data for exposures received during this examination. COMPARISON: CT HEAD WITHOUT CONTRAST on DOS: 11/23/23 FINDINGS: There is no evidence of acute intracranial hemorrhage, extra-axial collection, mass effect, midline shift, herniation or hydrocephalus. Chronic encephalomalacia is seen throughout the left brain The ventricles, sulci and cisterns are age appropriate. Patchy periventricular and subcortical white matter hypoattenuation is nonspecific but may be related to small vessel ischemic disease. The visualized paranasal sinuses and mastoid air cells are clear. The surrounding soft tissues and osseous structures are unremarkable. IMPRESSION: 1. No acute intracranial abnormality. 2. Chronic encephalomalacia is seen throughout the left brain --- Genitourinary catheter placement Procedural Personnel Attending physician(s): Phil Laughlin Fellow physician(s): None Resident physician(s): None Advanced practice provider(s): None Pre-procedure diagnosis: Left hydronephrosis Post-procedure diagnosis: Same Indication: Provision of access to the collecting system No Additional clinical history: None Complications: No immediate complications. IMPRESSION: Left nephrostomy tube placement. Plan: Flush drain with 10 cc normal saline daily to maintain patency. PROCEDURE SUMMARY - Target organ: Unilateral [place] kidney - Image-guided placement of genitourinary catheter(s) - Additional procedure(s): None PROCEDURE DETAILS: Pre-procedure Consent: Informed consent for the procedure including risks, benefits and alternatives was obtained and time-out was performed prior to the procedure. Preparation: The site was prepared and draped using maximal sterile barrier technique including cutaneous antisepsis. Anesthesia/sedation Level of anesthesia/sedation: Moderate sedation (conscious sedation) Anesthesia/sedation administered by: Independent trained observer under attending supervision with continuous monitoring of the patient s level of consciousness and physiologic status Total intra-service sedation time (minutes): 45 Genitourinary catheter placement Side:Left [place] Local anesthesia was administered. A needle was advanced into an interpolar calyx under ultrasound and fluoroscopy guidance. A wire was advanced, the tract was serially dilated and a nephrostomy tube was placed . Contrast injection was performed. Genitourinary catheter placed: Multipurpose drain, 8.5 [place] Findings: Redemonstrated filling defects of the calyceal and pelvic regions External catheter securement: Non-absorbable suture Additional genitourinary system intervention Side:NA Genitourinary intervention: None Location of intervention: Not applicable Device used: Not applicable Description of intervention: Not applicable Post-intervention findings: Not applicable Contrast Contrast agent: Omnipaque 350 Contrast volume (mL): 10 Radiation Dose Fluoroscopy time (mm:ss): 1:41 Reference air kerma (mGy): 8 Kerma area product (Not provided by imaging equipment) Additional Details Additional description of procedure: None Registry event: V/3/f Device used: Not applicable Equipment details: None Specimens removed: None. A sample was not sent for analysis. Estimated blood loss (mL): Less than 10 Standardized report: _[email or web address] Condition at Discharge: Stable Final Diagnosis/Problems List Metabolic encephalopathy likely due to: Bladder outlet obstruction UTI, possible PNA, possible Hyperammonemia Hepatic failure, ruled out Left nephrolithiasis Bilateral hydronephrosis secondary to bladder outlet obstruction Neurogenic bladder Status post TURP ANNETTE likely due to VMN Lactic acidosis Hypertension CKD CVD with right-sided deficit hyperlipidemia Seizure disorder Alzheimer's dementia, behavioral disturbance Hydronephrosis, nephrostomy tube placement Discharge Disposition: Usp Facility Discharge Instruct/Medications Diet: Renal Activity: No Restrictions, As Tolerated New Medications: Sulfamethoxazole W/Trimethopri (Bactrim Ds Tablet) 1 Tab Tb 1 TAB PO BID for 5 Days, #10 TAB Care Plan: Care plan: Follow up with PCP in 1 week. Follow with urology for PCNL outpatient. Continue oral Bactrim twice daily for 5 day. Continue home medications Scheduled Amlodipine Besylate (Amlodipine Besylate), 1 TAB PO DAILY, (Reported) Aripiprazole (Aripiprazole), 1 TAB PO DAILY, (Reported) Atorvastatin Calcium (Atorvastatin Calcium), 1 TAB PO DAILY, (Reported) Benztropine Mesylate (Benztropine Mesylate), 1 TAB PO DAILY, (Reported) Cefdinir (Cefdinir), 1 CAP PO BID Escitalopram Oxalate (Escitalopram Oxalate), 1 TAB PO DAILY, (Reported) Finasteride (Finasteride), 1 TAB PO DAILY, (Reported) Folic Acid (Folic Acid), 1 TAB PO DAILY, (Reported) Hydrochlorothiazide (Hydrochlorothiazide), 1 CAP PO DAILY, (Reported) Levetiracetam (Levetiracetam), 1 TAB PO BID, (Reported) Lorazepam (Ativan Tablet), 1 TAB PO BID, (Reported) Losartan Potassium (Losartan Potassium), 1 TAB PO BID, (Reported) Methenamine Hippurate (Methenamine Hippurate), 1 TAB PO BID, (Reported) Niacin (Niacin ER), 1 TAB PO DAILY, (Reported) Nitrofurantoin (Nitrofurantoin Macrocryst), 1 CAP PO DAILY, (Reported) Omeprazole (Omeprazole Dr), 1 CAP PO DAILY, (Reported) Paliperidone (Paliperidone ER), 4.5 MG PO HS, (Reported) Phenytoin Sodium (Dilantin Capsule), 1 CAP PO TID, (Reported) Quetiapine Fumerate (Seroquel), 250 MG PO HS, (Reported) Sulfamethoxazole W/Trimethopri (Bactrim Ds Tablet), 1 TAB PO BID Tamsulosin Hcl (Tamsulosin Hcl), 1 CAP PO DAILY, (Reported) Valproic Acid (Valproic Acid), 2 CAP PO TID, (Reported) Miscellaneous Medications Sodium Sulfate-Magnesium Sulfa (Sutab 9212-461-817 mg), 1 TAB PO, (Reported) Trazodone Hcl (Trazodone Hcl), 1 TAB PO, (Reported) Discharge Statement: "Patient was advised to return to the ER or call 911 if any headaches, dizziness, shortness of breath, chest pain, abdominal pain, bleeding, fevers, or worsening of medical condition. Patient was counseled about treatment plan, medications, possible side effects, patientverbalized understanding. All questions were answered to the best of my ability. This discharge took greater then 30 minutes in planning, reviewing documentation, counseling the patient, and discussing with other team members." ASSESSMENT ASSESSMENT Assessment GENNA CALLE RESIDENT Oct 13, 2024 06:48
[2024-10-13 12:12] LABS: COVID19 ANTIGEN SOFIA FIA NEGATIVE (NEGATIVE)
[2024-10-13] MEDS: MIDAZOLAM HCL 2MG/2ML 2ml VIAL (1mg/ml) ONE (13:06)
[2024-10-13] MEDS: fentaNYL CITRATE 100 MCG/2 ML VL ONE (13:06)
[2024-10-13] MEDS: LIDOCAINE 2%HCL (LOCAL ANESTH.) INJ 20ML MDV ONE (13:06)
[2024-10-13] MEDS: IODIXANOL 320MG/ML 100ML BTL IV ONE (13:10)
--- NOTE | 2024-10-13 15:31 | DVH ---
PROCEDURE: Genitourinary catheter placement Procedural Personnel Attending physician(s): Phil Laughlin Fellow physician(s): None Resident physician(s): None Advanced practice provider(s): None Pre-procedure diagnosis: Left hydronephrosis Post-procedure diagnosis: Same Indication: Provision of access to the collecting system No Additional clinical history: None Complications: No immediate complications. IMPRESSION: Left nephrostomy tube placement. Plan: Flush drain with 10 cc normal saline daily to maintain patency. PROCEDURE SUMMARY - Target organ: Unilateral [place] kidney - Image-guided placement of genitourinary catheter(s) - Additional procedure(s): None PROCEDURE DETAILS: Pre-procedure Consent: Informed consent for the procedure including risks, benefits and alternatives was obtained a nd time-out was performed prior to the procedure. Preparation: The site was prepared and draped using maximal sterile barrier technique including cutan eous antisepsis. Anesthesia/sedation Level of anesthesia/sedation: Moderate sedation (conscious sedation) Anesthesia/sedation administered by: Independent trained observer under attending supervision with co ntinuous monitoring of the patient s level of consciousness and physiologic status Total intra-service sedation time (minutes): 45 Genitourinary catheter placement Side:Left [place] Local anesthesia was administered. A needle was advanced into an interpolar calyx under ultrasound an d fluoroscopy guidance. A wire was advanced, the tract was serially dilated and a nephrostomy tube wa s placed . Contrast injection was performed. Genitourinary catheter placed: Multipurpose drain, 8.5 [place] Findings: Redemonstrated filling defects of the calyceal and pelvic regions External catheter securement: Non-absorbable suture Additional genitourinary system intervention Side:NA Genitourinary intervention: None Location of intervention: Not applicable Device used: Not applicable Description of intervention: Not applicable Post-intervention findings: Not applicable Contrast Contrast agent: Omnipaque 350 Contrast volume (mL): 10 Radiation Dose Fluoroscopy time (mm:ss): 1:41 Reference air kerma (mGy): 8 [place] area product (Not provided by imaging equipment) Additional Details Additional description of procedure: None Registry event: V/3/f Device used: Not applicable Equipment details: None Specimens removed: None. A sample was not sent for analysis. Estimated blood loss (mL): Less than 10 Standardized report: [email or web address] Attestation Signer name: Phil Floresca I attest that I was present for the entire procedure. I reviewed the stored images and agree with the report as written.
--- NOTE | 2024-10-13 15:31 | DVH ---
PROCEDURE: Genitourinary catheter placement Procedural Personnel Attending physician(s): Phil Laughlin Fellow physician(s): None Resident physician(s): None Advanced practice provider(s): None Pre-procedure diagnosis: Left hydronephrosis Post-procedure diagnosis: Same Indication: Provision of access to the collecting system No Additional clinical history: None Complications: No immediate complications. IMPRESSION: Left nephrostomy tube placement. Plan: Flush drain with 10 cc normal saline daily to maintain patency. PROCEDURE SUMMARY - Target organ: Unilateral [place] coos kidney - Image-guided placement of genitourinary catheter(s) - Additional procedure(s): None PROCEDURE DETAILS: Pre-procedure Consent: Informed consent for the procedure including risks, benefits and alternatives was obtained a nd time-out was performed prior to the procedure. Preparation: The site was prepared and draped using maximal sterile barrier technique including cutan eous antisepsis. Anesthesia/sedation Level of anesthesia/sedation: Moderate sedation (conscious sedation) Anesthesia/sedation administered by: Independent trained observer under attending supervision with co ntinuous monitoring of the patient s level of consciousness and physiologic status Total intra-service sedation time (minutes): 45 Genitourinary catheter placement Side:Left [place] Local anesthesia was administered. A needle was advanced into an interpolar calyx under ultrasound an d fluoroscopy guidance. A wire was advanced, the tract was serially dilated and a nephrostomy tube wa s placed . Contrast injection was performed. Genitourinary catheter placed: Multipurpose drain, 8.5 Romanian Findings: Redemonstrated filling defects of the calyceal and pelvic regions External catheter securement: Non-absorbable suture Additional genitourinary system intervention Side:NA Genitourinary intervention: None Location of intervention: Not applicable Device used: Not applicable Description of intervention: Not applicable Post-intervention findings: Not applicable Contrast Contrast agent: Omnipaque 350 Contrast volume (mL): 10 Radiation Dose Fluoroscopy time (mm:ss): 1:41 Reference air kerma (mGy): 8 Kerma area product (Not provided by imaging equipment) Additional Details Additional description of procedure: None Registry event: V/3/f Device used: Not applicable Equipment details: None Specimens removed: None. A sample was not sent for analysis. Estimated blood loss (mL): Less than 10 Standardized report: [email or web address] Attestation Signer name: Phil Floresca I attest that I was present for the entire procedure. I reviewed the stored images and agree with the report as written.
--- NOTE | 2024-10-13 17:33 | DVHPNRES ---
Progress Note Date Seen: Oct 13, 2024 Resident Creating Document: GENNA CALLE RESIDENT Medical Necessity Reason Pt with a Central, PICC or Fol: Yes The following are medically ne: Bobby Catheter Subjective Review of Systems Kamlesh Palmer is a 58-year-old male with past medical history of epilepsy, GERD with esophagitis, hemiplegia & hemiparesis right side, dementia with behavioral disturbance, mixed HLD, paranoid schizophrenia, history of traumatic brain injury, chronic idiopathic constipation, CKD, history of COPD with chronic bronchitis, prostatomegaly, depression, insomnia, asthma. He is a poor historian. His history was obtained from his chart and caregiver in the ED. As per his caregiver, he has been declining function for last 3-4 months which has been getting worse lately. He has been getting agitated lately. When evaluated at bedside, he was agitated. He is ambulating less. No history of fever, chest pain, shortness of breath, dysuria, acute joint redness, fever, diarrhea. His WBCs are WNL. He has monocytosis, increased BUN, creatinine and BUN/creatinine ratio. His urine analysis showed turbid urine with trace blood, WBCs 29 and few bacteria. His toxicology screen was negative. Bilateral ultrasound Doppler showed no thrombosis. CXR showed bibasilar opacity due to atelectasis or pneumonia. Ankle x-ray WNL. CT scan showed no acute abnormality, chronic encephalomalacia seen. Past medical history: Epilepsy, GERD with esophagitis, hemiplegia & hemiparesis right side, dementia with behavioral disturbance, mixed HLD, paranoid schizophrenia, history of traumatic brain injury, chronic idiopathic constipation, CKD, history of COPD with chronic bronchitis, prostate enlargement, depression, insomnia, asthma Social history: He was brought in from [facility]. 10/12/24: No history obtained from patient today. Urology was consulted. He has taken for scan, we will undergo PCNL for stone in left kidney pole. 10/13/24: Patient was seen at bedside. Unable to obtain history from him, illegible speech. Patient is agitated and wants to go back home. He tried to pulled out his IV lines yesterday. Caretakers at the [facility] reports inability to support patient with catheter. He will be discharged to SNF. Computer Operator consulted. Nephrology on board, will place a nephrostomy tube to drain hydronephrosis. Renal scan showed delayed perfusion of left kidney with appropriate response to diuretics, and delayed perfusion of right kidney with inappropriate response. Poor prognosis due to given comorbidities and behavioral issues. We will monitor him today. ROS: Constitutional: Agitated, unable to articulate his words. He is mostly mumbling and struggling to explain his needs. General: Patient is not following commands. Patient is lying on bed and does not want to be examined. HEENT: Difficulty in articulating words. Agitation when trying to speak. Objective vital signs Vital Sign Date Time Temp Pulse Resp B/P (MAP) Pulse Ox O2 Delivery O2 Flow Rate FiO2 10/13/24 14:31 97.4 105 17 150/91 (110) 95 97.4 10/13/24 08:00 Room Air* 0 21 Total Intake and Output 10/12/24 10/12/24 10/13/24 15:00 23:00 07:00 Intake Total 1050 ml 700 ml 100 ml Output Total 2700 ml 850 ml Balance 1050 ml -2000 ml -750 ml medications Current Medications Medications Dose Ordered Sig/Jazmin Route Start Time Stop Time Status Last Admin Dose Admin Sodium Chloride 1,000 ml @ 120 mls/hr Q8H20M IV 10/10/24 23:15 10/12/24 06:11 120 MLS/HR Docusate Sodium 100 mg BIDPRN PRN PO 10/10/24 23:15 Enoxaparin Sodium 40 mg DAILY SC 10/11/24 10:00 10/11/24 10:44 40 MG Finasteride 5 mg DAILY PO 10/11/24 10:00 10/13/24 11:20 5 MG Losartan Potassium 50 mg BID PO 10/11/24 10:00 10/13/24 11:18 50 MG Phenytoin Sodium 100 mg TID PO 10/11/24 06:00 10/13/24 15:39 100 MG Tamsulosin HCl 0.4 mg DAILY PO 10/11/24 10:00 10/13/24 11:18 0.4 MG Trazodone HCl 50 mg HS PO 10/11/24 22:00 10/12/24 22:09 50 MG Patient Own Medication 1 tab DAILY PO 10/11/24 10:00 Patient Own Medication 4.5 mg HS PO 10/11/24 22:00 Patient Own Medication 2 cap TID PO 10/11/24 06:00 Pantoprazole Sodium 40 mg DAILY@0600 PO 10/11/24 06:00 10/13/24 06:09 40 MG Amlodipine Besylate 10 mg DAILY PO 10/11/24 10:00 10/13/24 11:18 10 MG Atorvastatin Calcium 10 mg HS PO 10/11/24 22:00 10/12/24 22:06 10 MG Benztropine Mesylate 1 mg DAILY PO 10/11/24 10:00 10/13/24 11:18 1 MG Citalopram Hydrobromide 20 mg DAILY PO 10/11/24 10:00 10/13/24 11:18 20 MG Levetiracetam 750 mg BID PO 10/11/24 10:00 10/13/24 09:26 750 MG Quetiapine Fumarate 250 mg HS PO 10/11/24 22:00 10/12/24 22:08 250 MG Ceftriaxone Sodium 50 ml @ 100 mls/hr DAILY@09 IV 10/12/24 09:00 10/13/24 11:17 100 MLS/HR Azithromycin 250 ml @ 125 mls/hr DAILY IV 10/12/24 10:00 10/13/24 15:39 125 MLS/HR Lactulose 30 ml BID PO 10/11/24 13:45 10/13/24 11:17 30 ML Lorazepam 0.5 mg Q4HP PRN IV 10/11/24 19:15 10/13/24 09:31 0.5 MG Examination General: Patient is not following commands. Patient is lying on bed and does not want to be examined. HEENT: Hemiparesis of right side. Difficulty in articulating words. Agitation when trying to speak. laboratory and microbiology Laboratory Tests 10/13/24 04:35 Test 10/13/24 04:35 Range/Units Serum Glucose 86 74-106 mg/dL Microbiology Date/Time Source Procedure Growth Status 10/11/24 05:45 Voided Urine Urine Culture - Preliminary Resulted 10/10/24 16:53 Blood Blood Culture - Preliminary NO GROWTH AFTER 48 HOURS OF INCUBATION. Resulted Problem List/Assessment/Plan Problem List/Assessment/Plan #Metabolic encephalopathy likely due to: #Bladder outlet obstruction #Hyperammonemia #UTI, possible #PNA, possible #Hepatic failure, rule out -Increased Ammonia 66, -Bibasilar opacities may reflect atelectasis or mild pneumonia -CTA negative for acute intracranial abnormality -UA shows turbid urine, trace blood, 29 WBCs and few bacteria. Pending urine culture -Continue IV ceftriaxone and azithromycin -Continue IV fluid as prescribed -Ordered urine culture, blood culture #Left nephrolithiasis -Urology consulted -He will undergo left PCNL. -Nephrology on board, placed a nephrostomy tube to drain hydronephrosis. Renal scan showed delayed perfusion of left kidney with appropriate response to diuretics, and delayed perfusion of right kidney with inappropriate response. #Bilateral hydronephrosis secondary to bladder outlet obstruction #Neurogenic bladder #Status post TURP -Ultrasound kidneys-. Severe bilateral hydronephrosis. Distended urinary bladder. Urinary bladder wall is thickened which may be related to chronic outlet obstruction. Prior to voiding the bladder volume measures volume 811.95 cc. -Ordered for Bobby's catheter -Pending PSA -Continue ceftriaxone 1 g IV daily -Continue Flomax and finasteride -Neurology advised discharge plan to continue indwelling catheter. # ANNETTE likely due to VMN -Serum creatinine 1.58, BUN 35 -Increased BUN to creatinine ratio -Continue IV normal saline as prescribed #Lactic acidosis -Lactic acid 2.1> 1.4 #Hyperammonia -Pending acute hepatic panel -Start lactulose 30 mL b.i.d. #Hypertension -Resume home medication losartan, amlodipine -Monitor blood pressure # CKD -Avoid dehydration and nephrotoxic drugs # CVD with right-sided deficit -CT head negative for acute intracranial abnormality # hyperlipidemia -Continue atorvastatin 10 mg p.o. q.h.s. #Seizure disorder -Resume home medication phenytoin, levetiracetam, valproic acid # Alzheimer's dementia, behavioral disturbance -Resumed home medication -Psychiatry consulted #History of hydronephrosis, history of nephrostomy tube placement -Continue current management PUD prophylaxis: Pantoprazole DVT prophylaxis: Lovenox Plan discussed with nursing staff, caregiver, Dr. Polanco. Patient evaluation, chart review, assessment and plan reviewed for more than 25 minute Code status full code Plan discussed with: Other (Nursing staff, POA) My Orders My Orders Orders - GENNA CALLE RESIDENT Procedure Category Date Status Time Percutaneous XY 10/13/24 Resulted Nephrostomy 13:46 Complete Blood Count LAB 10/13/24 Transmitted 17:15 Comprehensive LAB 10/13/24 Transmitted Metabolic Panel 17:15 GENNA CALLE RESIDENT Oct 13, 2024 17:33
[2024-10-13 18:07] LABS: Hematocrit 46.9 % (41.0-53.0); Hemoglobin 15.8 g/dL (13.5-17.5); Mean Corpuscular Hemoglobin 32.2 pg (28.0-32.0); Mean Corpuscular Volume 95.5 fL (80.0-100.0); Nucleated Red Blood Cells % 0.1 %
[2024-10-13 18:15] LABS: Alanine Aminotransferase 37 U/L (7-40); Albumin 4.3 g/dL (3.2-4.8); Alkaline Phosphatase 77 U/L (46-116); Anion Gap 8 (5-15); BUN/Creatinine Ratio 15.1 (10.0-20.0); Calcium 10.3 mg/dL (8.7-10.4); Carbon Dioxide 27 mmol/L (20-31); Potassium 3.7 mmol/L (3.5-5.1); Sodium 143 mmol/L (136-145); Total Protein 7.4 g/dL (5.7-8.2)
[2024-10-13 18:17] LABS: Bilirubin, Total 0.3 mg/dL (0.2-1.0); Blood Urea Nitrogen 28 mg/dL (9-23); Chloride 108 mmol/L (98-107); Glucose 138 mg/dL (74-106)
[2024-10-13] MEDS ORDERED: ACETAMINOPHEN 325 MG TAB PO PRN (23:30)
[2024-10-14] VITALS (9 sets, daily range): BP systolic 133–166; BP diastolic 79–90; PULSE 83–110; RESP 15–17; TEMP 36.7; O2SAT 93–96
[2024-10-14] MEDS ORDERED: BACDST PO (14:19)
[2024-10-15 01:00] VITALS: BP 138/63; PULSE 85; RESP 14; TEMP 97.9; O2SAT 95
[2024-10-15 05:00] VITALS: BP 146/83; PULSE 72; RESP 14; TEMP 97; O2SAT 97
[2024-10-15 08:00] VITALS: PULSE 84; PULSE 87; RESP 18; O2SAT 95
[2024-10-15 09:02] VITALS: BP 130/77; PULSE 87; RESP 18; O2SAT 95
[2024-10-15 13:30] VITALS: BP 133/84; PULSE 89; RESP 19; O2SAT 95
--- NOTE | 2024-10-15 13:59 | DVHPNRES ---
Progress Note Date Seen: Oct 15, 2024 Resident Creating Document: WILLIE CACERES RESIDENT Medical Necessity Reason Pt with a Central, PICC or Fol: Yes The following are medically ne: Cancino Catheter Reason for cancino catheter: Bladder Retention/Obstruc Subjective Review of Systems Patient seen and examined at the bedside. Unable to obtain complete ROS due to patient's clinical status like patient is agitated but saying that he do not have any active issues right now and wants to go home. Patient was discharged yesterday but unable to arrange transport to [facility], discharge expected in next 24 hours. Objective vital signs Vital Sign Date Time Temp Pulse Resp B/P (MAP) Pulse Ox O2 Delivery O2 Flow Rate FiO2 10/15/24 10:48 130/77 10/15/24 09:02 87 18 95 10/15/24 08:00 Room Air* 0 21 10/15/24 05:00 97.0 97.0 Total Intake and Output 10/14/24 10/14/24 10/15/24 15:00 23:00 07:00 Intake Total 1200 ml 300 ml Output Total 625 ml 900 ml Balance 575 ml -600 ml medications Current Medications Medications Dose Ordered Sig/Jazmin Route Start Time Stop Time Status Last Admin Dose Admin Sodium Chloride 1,000 ml @ 120 mls/hr Q8H20M IV 10/10/24 23:15 10/14/24 02:41 120 MLS/HR Docusate Sodium 100 mg BIDPRN PRN PO 10/10/24 23:15 Enoxaparin Sodium 40 mg DAILY SC 10/11/24 10:00 10/11/24 10:44 40 MG Finasteride 5 mg DAILY PO 10/11/24 10:00 10/15/24 10:46 5 MG Losartan Potassium 50 mg BID PO 10/11/24 10:00 10/15/24 10:45 50 MG Phenytoin Sodium 100 mg TID PO 10/11/24 06:00 10/15/24 06:03 100 MG Tamsulosin HCl 0.4 mg DAILY PO 10/11/24 10:00 10/15/24 10:46 0.4 MG Trazodone HCl 50 mg HS PO 10/11/24 22:00 10/14/24 20:48 50 MG Patient Own Medication 1 tab DAILY PO 10/11/24 10:00 Patient Own Medication 4.5 mg HS PO 10/11/24 22:00 Patient Own Medication 2 cap TID PO 10/11/24 06:00 Pantoprazole Sodium 40 mg DAILY@0600 PO 10/11/24 06:00 10/15/24 06:03 40 MG Amlodipine Besylate 10 mg DAILY PO 10/11/24 10:00 10/15/24 10:48 10 MG Atorvastatin Calcium 10 mg HS PO 10/11/24 22:00 10/14/24 20:50 10 MG Benztropine Mesylate 1 mg DAILY PO 10/11/24 10:00 10/15/24 10:46 1 MG Citalopram Hydrobromide 20 mg DAILY PO 10/11/24 10:00 10/15/24 10:46 20 MG Levetiracetam 750 mg BID PO 10/11/24 10:00 10/15/24 10:44 750 MG Quetiapine Fumarate 250 mg HS PO 10/11/24 22:00 10/14/24 20:49 250 MG Ceftriaxone Sodium 50 ml @ 100 mls/hr DAILY@09 IV 10/12/24 09:00 10/13/24 11:17 100 MLS/HR Azithromycin 250 ml @ 125 mls/hr DAILY IV 10/12/24 10:00 10/13/24 15:39 125 MLS/HR Lactulose 30 ml BID PO 10/11/24 13:45 10/15/24 10:43 30 ML Lorazepam 0.5 mg Q4HP PRN IV 10/11/24 19:15 10/13/24 20:03 0.5 MG Acetaminophen 650 mg Q6HP PRN PO 10/13/24 23:30 Examination Pt is lying on bed, agitated, limited exam due to patient's status. General Appearance: Alert, But agitated, not in distress HEENT: Atraumatic, Mucous membranes moist/pink Respiratory: Clear to auscultation, Normal air movement, No added sounds Cardiovascular: Regular rate, Normal S1, Normal S2, No murmurs Abdominal: Active bowel sounds, Soft, no distention, no tenderness : Left nephrostomy tube Extremities: minimal right ankle swelling but no tenderness Skin: No Significant rash, except past surgical scars Neuro: dysarthria, right-sided weakness from old CVA Psych/Mental Status: minimal agitation Nurse was there as student education specialist during examination laboratory and microbiology Laboratory Tests 10/13/24 17:39 Test 10/13/24 17:39 Range/Units Serum Glucose 138 H 74-106 mg/dL Microbiology Date/Time Source Procedure Growth Status 10/13/24 11:17 Nose MRSA Screen - Final Complete 10/11/24 05:45 Voided Urine Urine Culture - Final Morganella morganii Complete 10/10/24 16:53 Blood Blood Culture - Preliminary NO GROWTH AFTER 72 HOURS OF INCUBATION. Resulted Labs and/or images reviewed: Labs reviewed by me, Image(s) reviewed by me Problem List/Assessment/Plan Problem List/Assessment/Plan # Acute Metabolic encephalopathy likely due to suspected sepsis: PNA vs UTI # ? PNA, Gram-positive/negative -Bibasilar opacities may reflect atelectasis or mild pneumonia -CTA negative for acute intracranial abnormality -UA shows turbid urine, trace blood, 29 WBCs and few bacteria. Pending urine culture -Continue IV ceftriaxone and azithromycin -Continue IV fluid as prescribed -Ordered urine culture, blood culture #Bilateral hydronephrosis secondary to bladder outlet obstruction #Neurogenic bladder #Status post TURP #Left nephrolithiasis # ? Acute complicated UTI with Morganella morganii cultures -S/p left PCNL. -Nephrology on board, placed a nephrostomy tube to drain hydronephrosis. Renal scan showed delayed perfusion of left kidney with appropriate response to diuretics, and delayed perfusion of right kidney with inappropriate response. -Ultrasound kidneys-. Severe bilateral hydronephrosis. Distended urinary bladder. Urinary bladder wall is thickened which may be related to chronic outlet obstruction. Prior to voiding the bladder volume measures volume 811.95 cc. -Ordered for Cancino's catheter -Continue ceftriaxone 1 g IV daily -Continue Flomax and finasteride -Urology advised discharge plan to continue indwelling catheter. # ANNETTE likely due to VMN # CKD -Serum creatinine 1.58, BUN 35 -Increased BUN to creatinine ratio -Continue IV normal saline as prescribed #Hyperammonemia -Pending acute hepatic panel- negative -Start lactulose 30 mL b.i.d. #Hypertension -Resume home medication losartan, amlodipine -Monitor blood pressure # hyperlipidemia -Continue atorvastatin 10 mg p.o. q.h.s. # CVA with right-sided deficit -CT head negative for acute intracranial abnormality # Seizure disorder -Resume home medication phenytoin, levetiracetam, valproic acid # Alzheimer's dementia, behavioral disturbance -Resumed home medication -Psychiatry consulted PUD prophylaxis: Pantoprazole DVT prophylaxis: Lovenox Discharge summary documented on October 13, 2024 Goals of care discussed with the patient for 20 minutes, code status full code Plan discussed with the Dr. Kohli, nurse Plan discussed with: Other (RN) Addendum Addendum Addendum I was physically present for the [place] portions of the service provided to patient by THE RESIDENT. I have reviewed the documentation, discussed the case with resident and agree with the resident's documentation except as noted. Also the patient's clinical case was discussed with the patient's nurse. This medical document was created using an electronic medical record system with computerized dictation system. Although this document has been carefully reviewed, there might still be some phonetic and typographical errors. These areas are purely typographical due to imperfections of the software programs, and do not reflect any compromise in the patient's medical care. Late signature. Date of Service: Oct 15, 2024 Billing Provider: MARIUSZ KOHLI MD Common Visit Codes: 97658-FGX/OBS DISCH DAY >30min Secondary Visit Codes: 27814-[id number] CARE PLAN 30 MINUTES (20 minute) WILLIE CACERES RESIDENT Oct 15, 2024 13:59 MARIUSZ KOHLI MD Oct 16, 2024 14:13
[2024-10-15 17:24] VITALS: BP 130/77; PULSE 80; RESP 17; O2SAT 96
== END 2024-10-15 20:58 | DRG 853 ==
LOC: ER 16:27 → OVERFLOW 23:06 → TELE-WESTW 10-11 03:15
PROVIDERS: ADMIT Student in an Organized Health Care Education/Training Program; ATTEND Student in an Organized Health Care Education/Training Program
PROC: 0T9170Z Drainage of Left Kidney with Drainage Device, Via Natural or Artificial Opening (ICD-10-PCS; principal; 2024-10-13)
DX: A41.50 Gram-negative sepsis, unspecified (principal); G93.41 Metabolic encephalopathy; J15.69 Pneumonia due to other Gram-negative bacteria; J15.9 Unspecified bacterial pneumonia; N17.0 Acute kidney failure with tubular necrosis; N13.6 Pyonephrosis; E87.20 Acidosis, unspecified; E72.20 Disorder of urea cycle metabolism, unspecified; N32.0 Bladder-neck obstruction; N20.0 Calculus of kidney; N18.9 Chronic kidney disease, unspecified; G40.909 Epilepsy, unspecified, not intractable, without status epilepticus; G30.9 Alzheimer's disease, unspecified; I12.9 Hypertensive chronic kidney disease with stage 1 through stage 4 chronic kidney disease, or unspecified chronic kidney disease; F02.80 Dementia in other diseases classified elsewhere, unspecified severity, without behavioral disturbance, psychotic disturbance, mood disturbance, and anxiety; E78.5 Hyperlipidemia, unspecified; G93.89 Other specified disorders of brain; N31.9 Neuromuscular dysfunction of bladder, unspecified; Z90.79 Acquired absence of other genital organ(s); Z79.2 Long term (current) use of antibiotics; Z86.73 Personal history of transient ischemic attack (TIA), and cerebral infarction without residual deficits; Z79.899 Other long term (current) drug therapy; N40.1 Benign prostatic hyperplasia with lower urinary tract symptoms
CPT/HCPCS: 36415; 50432; 70450; 71045; 73600; 74176; 74425; 76775; 76942; 78707; 80053; 80074; 80307; 80320; 81001; 82140; 82306; 82607; 82746; 83036; 83605; 83880; 84154; 84443; 84484; 85007; 85025; 85027; 85610; 85730; 87040; 87081; 87086; 87088; 87186; 87426; 87804; 93970; 99152; G0378; J2250; Q9967

== ENCOUNTER 2024-10-26 08:56 | Inpatient (IN) | payer MEDICARE, MEDICAID ==
[~2024-10-26] VITALS: Ht 185.4 cm; Wt 66.8 kg
[~2024-10-26 08:56] MED LIST changes: +BACDST PO
--- NOTE | 2024-10-26 09:15 | ED.PDOC ---
History of Present Illness HPI Comments 59-year-old male brought in by EMS presents with a chief complaint of seizure activity. Patients last known well time was 0800 this morning. Patient is not actively seizing upon arrival. Patient is coming from SNF. No other symptoms or modifying factors present at this time. Chief Complaint: Seizure Time Seen by MD: 09:04 Primary Care Provider: FLO Reviewed Notes: Medications, Allergies Allergies: Coded Allergies: ROBIN Inhibitors (Verified Allergy, Unknown, 10/13/23) Home Meds Active Scripts Sulfamethoxazole W/Trimethopri (Bactrim Ds Tablet) 1 Tab Tb, 1 TAB PO BID for 5 Days, #10 TAB Prov:LOLIS LUX RESIDENT 10/14/24 Cefdinir (Cefdinir) 300 Mg Cap, 1 CAP PO BID for 7 Days, #14 CAP Prov:STARR MURPHY MD 10/20/23 Reported Medications Nitrofurantoin (Nitrofurantoin Macrocryst) 50 Mg Cap, 1 CAP PO DAILY for 31 Days, #31 10/15/23 Amlodipine Besylate (Amlodipine Besylate) 10 Mg Tab, 1 TAB PO DAILY 10/15/23 Quetiapine Fumerate (Seroquel) 200 Mg Tab, 250 MG PO HS Take 50 mg tablet and 200 mg tablet together for a TOTAL of 250 mg tablets by mouth at bedtime. 10/15/23 Paliperidone (Paliperidone ER) 3 Mg Tab, 4.5 MG PO HS Take 1.5 mg tablet and 3 mg tablet together for a TOTAL of 4.5 mg tablets by mouth at bedtime. 10/15/23 Escitalopram Oxalate (ESCITALOPRAM OXALATE) 10 Mg Tab, 1 TAB PO DAILY 10/13/23 Folic Acid (Folic Acid) 1 Mg Tab, 1 TAB PO DAILY 10/13/23 Benztropine Mesylate (Benztropine Mesylate) 1 Mg Tab, 1 TAB PO DAILY 10/13/23 Levetiracetam (Levetiracetam) 750 Mg Tab, 1 TAB PO BID 10/13/23 Valproic Acid (Valproic Acid) 250 Mg Cap, 2 CAP PO TID 10/13/23 Phenytoin Sodium (DILANTIN CAPSULE) 100 Mg Cp, 1 CAP PO TID 10/13/23 Aripiprazole (Aripiprazole) 10 Mg Tab, 1 TAB PO DAILY 10/13/23 Lorazepam (ATIVAN TABLET) 0.5 Mg Tb, 1 TAB PO BID 10/13/23 Tamsulosin Hcl (Tamsulosin Hcl) 0.4 Mg Cap, 1 CAP PO DAILY 10/13/23 Finasteride (Finasteride) 5 Mg Tab, 1 TAB PO DAILY 10/13/23 Trazodone Hcl (Trazodone Hcl) 50 Mg Tab, 1 TAB PO 10/13/23 Omeprazole (Omeprazole Dr) 20 Mg Cap, 1 CAP PO DAILY 10/13/23 Niacin (Niacin ER) 500 Mg Tab, 1 TAB PO DAILY 10/13/23 Methenamine Hippurate (Methenamine Hippurate) 1 Gm Tab, 1 TAB PO BID 10/13/23 Hydrochlorothiazide (Hydrochlorothiazide) 12.5 Mg Cap, 1 CAP PO DAILY 10/13/23 Losartan Potassium (Losartan Potassium) 50 Mg Tab, 1 TAB PO BID 10/13/23 Atorvastatin Calcium (ATORVASTATIN CALCIUM) 10 Mg Tab, 1 TAB PO DAILY 10/13/23 Sodium Sulfate-Magnesium Sulfa (Sutab 2300-710-412 mg) 1 Tab Tab, 1 TAB PO 10/13/23 Information Source: Emergency Med Personnel Mode of Arrival: EMS Severity: Moderate Timing: Minutes Duration: Since onset Prehospital treatment: None Past Medical History PAST MEDICAL HISTORY: CKF, CVA, HTN, Seizures Surgical History: Denies all surgeries Family History Family History: Reviewed,noncontributory to illness Social History Smoker: Non-Smoker Alcohol: Denies ETOH Use Drugs: Denies Drug Use Lives In: Home Constitutional: denies: chills, diaphoresis, fatigue, fever, malaise, sweats, weakness, others EENTM: denies: blurred vision, double vision, ear bleeding, ear discharge, ear drainage, ear pain, ear ringing, eye pain, eye redness, hearing loss, mouth pa in, mouth swelling, nasal discharge, nose bleeding, nose congestion, nose pain, photophobia, tearing, throat pain, throat swelling, voice changes, others Respiratory: denies: cough, hemoptysis, orthopnea, SOB at rest, shortness of breath, SOB with excertion, stridor, wheezing, others Cardiovascular: denies: chest pain, dizzy spells, diaphoresis, Dyspnea on exertion, edema, irregular heart beat, left arm pain, lightheadedness, palpitations, PND, syncope, others Gastrointestinal: denies: abdomen distended, abdominal pain, blood streaked bowels, constipated, diarrhea, dysphagia, difficulty swallowing, hematemesis, melena, nausea, poor appetite, poor fluid intake, rectal bleeding, rectal pain, vomiting, others Genitourinary: denies: burning, dysuria, flank pain, frequency, hematuria, incontinence, penile discharge, penile sore, pain, testicle pain, testicle swelling, urgency, others Neurological: reports: seizure; denies: dizziness, fainting, headache, left sided numbness, left sided weakness, numbness, paresthesia, pre-existing deficit, right sided numbness, right sided weakness, speech problems, tingling, tremors, weakness, others Musculoskeletal: denies: back pain, gout, joint pain, joint swelling, muscle pain, muscle stiffness, neck pain, others Integumetry: denies: bruises, change in color, change in hair/nails, dryness, laceration, lesions, lumps, rash, wounds, others Allergic/Immunocompromised: denies: Difficulty Healing, Frequent Infections, Hives, Itching, others Hematologic/Lymphatic: denies: anemia, blood clots, easy bleeding, easy bruising, swollen glands, others Endocrine: denies: excessive hunger, excessive sweating, excessive thirst, excessive urination, flushing, intolerance to cold, intolerance to heat, unexplained weight gain, unexplained weight loss, others Psychiatric: denies: anxiety, bipolar disorder, depression, hopeless, panic disorder, schizophrenia, sleepless, suicidal, others All Other Systems: Reviewed and Negative Physical Exam General Appearance: No Apparent Distress, Normal HEENT: Normal ENT Inspection, Pharynx Normal, TMs Normal Neck: Full Range of Motion, Non-Tender, Normal, Normal Inspection Respiratory: Chest Non-Tender, Lungs Clear, No Accessory Muscle Use, No Respiratory Distress, Normal Breath Sounds Cardiovascular: No Edema, No JVD, No Murmur, No Gallop, Normal Peripheral Pulses, Regular Rate/Rhythm Breast Exam: Deferred Gastrointestinal: No Organomegaly, Non Tender, No Pulsatile Mass, Normal Bowel Sounds, Soft Genitalia: Deferred Pelvic: Deferred Rectal: Deferred Extremities: No calf tenderness, Normal capillary refill, Normal inspection, Normal range of motion, Non-tender, No pedal edema Musculoskeletal : Apperance: Normal Neurologic: Alert, pharmacy innovation assistant II-XII nml as Tested, No Motor Deficits, Normal Affect, Normal Mood, No Sensory Deficits Cerebellar Function: Normal Reflexes: Normal Skin: Dry, Normal Color, Warm Lymphatic: No Adenopathy Was a procedure done? Was a procedure done?: No Differential Dx Considerations may include: Breakthrough seizure, electrolyte abnormality, infectious etiology X-Ray, Labs, Meds, VS Vital Signs Date Time Temp Pulse Resp B/P (MAP) Pulse Ox O2 Delivery O2 Flow Rate FiO2 10/26/24 12:01 97 Nasal Cannula* 2 28 10/26/24 10:04 85 18 100 Nasal Cannula* 2 28 10/26/24 10:04 98.5 85 18 166/91 (116) 100 98.5 10/26/24 09:07 98.5 98 20 164/86 98 98.5 Lab Test 10/26/24 11:55 10/26/24 10:35 10/26/24 09:20 Range/Units Troponin I High Sensitivity Pending 22 </=54 ng/L White Blood Count 6.8 4.4-10.8 10^3/uL Red Blood Count 4.59 4.5-5.90 10^6/uL Hemoglobin 15.0 13.5-17.5 g/dL Hematocrit 43.6 41.0-53.0 % Mean Corpuscular Volume 94.9 80.0-100.0 fL Mean Corpuscular Hemoglobin 32.7 H 28.0-32.0 pg Mean Corpuscular Hemoglobin Concent 34.5 32.0-36.0 g/dL Red Cell Distribution Width 13.6 11.8-14.3 % Platelet Count 307 140-450 10^3/uL Mean Platelet Volume 7.5 6.9-10.8 fL Neutrophils (%) (Auto) 73.5 37.0-80.0 % Lymphocytes (%) (Auto) 15.7 10.0-50.0 % Monocytes (%) (Auto) 10.2 0.0-12.0 % Eosinophils (%) (Auto) 0.0 0.0-7.0 % Basophils (%) (Auto) 0.6 0.0-2.0 % Neutrophils # (Auto) 5.0 1.6-8.6 10 ^3/uL Lymphocytes # (Auto) 1.1 0.4-5.4 10 ^3/uL Monocytes # (Auto) 0.7 0-1.3 10 ^3/uL Eosinophils # (Auto) 0 0-0.8 10 ^3/uL Basophils # (Auto) 0 0-0.2 10 ^3/uL Nucleated Red Blood Cells 0.1 % Sodium Level 139 136-145 mmol/L Potassium Level 3.7 3.5-5.1 mmol/L Chloride Level 103 98-107 mmol/L Carbon Dioxide Level 27 20-31 mmol/L Anion Gap 9 5-15 Blood Urea Nitrogen 15 9-23 mg/dL Creatinine 1.48 H 0.700-1.30 mg/dL Glomerular Filtration Rate Calc 54 >90 mL/min BUN/Creatinine Ratio 10.1 10.0-20.0 Serum Glucose 118 H 74-106 mg/dL Calcium Level 10.1 8.7-10.4 mg/dL Urine Color Colorless Yellow Urine Clarity Turbid H Clear Urine pH 7.0 5.0-9.0 Urine Specific [place] 1.010 1.001-1.035 Urine Protein 1+ H Negative Urine Ketones Negative Negative Urine Blood 1+ H Negative /uL Urine Nitrite Negative Negative Urine Bilirubin Negative Negative Urine Urobilinogen Normal Negative mg/dL Urine Leukocyte Esterase 3+ Negative /uL Urine RBC 7 0 - 3 /hpf Urine WBC Clumps Present None Seen /hpf Urine Microscopic WBC 77 H 0-3 /HPF Urine Squamous Epithelial Cells Few <5 /hpf Urine Bacteria Few H None Seen /hpf Urine Mucus Few None Seen Urine Glucose Normal Normal mg/dL Current Medications Medications (Trade) Dose Ordered Sig/Jazmin Route Start Time Stop Time Status Last Admin Levetiracetam 200 ml @ 400 mls/hr ONCE ONCE IV 10/26/24 09:30 10/26/24 09:59 DC 10/26/24 10:39 Time of 1ST Reevaluation: 09:34 Reevaluation 1ST: Unchanged Patient Education/Counseling: Diagnosis, Treatment Family Education/Counseling: No Family Present SEPSIS Sepsis Screen Physician Orders Chest Portable (10/26/24 09:20) Head Without Contrast (10/26/24 09:20) Electrocardigram (10/26/24 09:20) Troponin-I Hs (10/26/24 10:20) Troponin-I Hs (10/26/24 12:20) Electrocardigram (10/26/24 10:20) Electrocardigram (10/26/24 12:20) Vital Signs Date Time Temp Pulse Resp B/P (MAP) Pulse Ox O2 Delivery O2 Flow Rate FiO2 10/26/24 12:01 97 Nasal Cannula* 2 28 10/26/24 10:04 85 18 100 Nasal Cannula* 2 28 10/26/24 10:04 98.5 85 18 166/91 (116) 100 98.5 10/26/24 09:07 98.5 98 20 164/86 98 98.5 Laboratory Tests Test 10/26/24 10:35 White Blood Count 6.8 10^3/uL (4.4-10.8) Medications Medications Dose Ordered Sig/Jazmin Route Start Time Stop Time Status Last Admin Dose Admin Levetiracetam 200 ml @ 400 mls/hr ONCE ONCE IV 10/26/24 09:30 10/26/24 09:59 DC 10/26/24 10:39 Departure 1 Departure Time of Disposition: 12:24 (Patient is likely not septic. Patient had multiple seizures with a baseline of seizures. Patient found to have a urinary tract infection we will empirically cover patient with antibiotics admit patient for further workup) Impression: Primary Impression: Metabolic encephalopathy Additional Impressions: Breakthrough seizure Complicated UTI (urinary tract infection) Disposition: ADMITTED INPATIENT Admit to: Med Surg Condition: Serious Critical Care Note Critical Care Time?: Yes Critical care comment: Altered mental status Authorized and Performed by: Marin Bullock MD Total critical care time: Approximately 43 minutes Due to a high probability of clinically significant, life threatening deterioration, the patient required my highest level of preparedness to intervene emergently and I personally spent this critical care time directly and personally managing the patient. This critical care time included obtaining a history; examining the patient; pulse oximetry; ordering and review of studies; arranging urgent treatment with development of a management plan; evaluation of patient's response to treatment; frequent reassessment; and, discussions with other providers. This critical care time was performed to assess and manage the high probability of imminent, life-threatening deterioration that could result in multi-organ failure. It was exclusive of separately billable procedures and treating other patients and teaching time. Please see my other sections and the rest of the note for further information on patient assessment and treatment. Stability Stability form required: No Heart Score Heart Score: Heart Score Response (Comments) Value History N/A 0 EKG N/A 0 Age N/A 0 Risk Factors N/A 0 Troponin N/A 0 Total 0 I personally scribed for MARIN BULLOCK MD ([email or web address]) on 10/26/24 at 09:15. Electronically submitted by Иван Cardoza ([email or web address]). MARIN BULLOCK MD Oct 26, 2024 09:15
[2024-10-26 10:04] VITALS: PULSE 85; RESP 18; O2SAT 100
--- NOTE | 2024-10-26 10:17 | DVH ---
INDICATION: ams TECHNIQUE: Frontal view of the chest. COMPARISON: XY CHEST XRAY 1 VIEW on DOS: 10/10/24, XY CHEST XRAY 1 VIEW on DOS: 11/17/23, XY CHEST XRAY 1 VIEW on DOS: 10/16/23 FINDINGS: . The heart and mediastinal contours are grossly unremarkable. There is no evidence of pleural disea se. The lungs are clear. The bony structures of the chest are intact without fracture. IMPRESSION: 1. No evidence of acute disease.
[2024-10-26] MEDS: levETIRAcetam 1000 mg/100ml 200 ML IV ONE (10:39)
--- NOTE | 2024-10-26 10:42 | DVH ---
EXAM: CT HEAD WITHOUT CONTRAST INDICATION: ams TECHNIQUE: CT of the head without intravenous contrast. Radiation Dose : 1. Head: CT Dose: CTDI volume is 55.87 mGy. Dose-length product is 1.71 mGy*cm The dose indicators for CT are the volume Computed Tomography (CT) Dose Index (CTDIvol) and the Dose Length Product (DLP), and are measured in units of mGy and mGy-cm, respectively. These indicators are not patient dose, but values generated from the CT scanner acquisition factors. The report includes radiation exposure data for exposures received during this examination. COMPARISON: CT HEAD WITHOUT CONTRAST on DOS: 10/10/24, CT HEAD WITHOUT CONTRAST on DOS: 11/23/23 FINDINGS: There is no evidence of acute intracranial hemorrhage, extra-axial collection, mass effect, midline s hift, herniation or hydrocephalus. Diffuse cerebellar atrophy. Encephalomalacia in the left frontal lobe. The ventricles, sulci and cisterns are age appropriate. The conley-white differentiation is intact. Patchy periventricular and subcortical white matter hypoattenuation is nonspecific but may be related to small vessel ischemic disease. The visualized paranasal sinuses and mastoid air cells are clear. The surrounding soft tissues and osseous structures are unremarkable. IMPRESSION: No acute intracranial abnormality. Radiation optimization: All CT scans at this facility use at least one of these dose optimization jenni hniques: automated exposure control mA and/or kV adjustment per patient size (includes targeted exam s where dose is matched to clinical indication) or iterative reconstruction.
[2024-10-26 11:09] LABS: Hematocrit 43.6 % (41.0-53.0); Hemoglobin 15.0 g/dL (13.5-17.5); Mean Corpuscular Hemoglobin 32.7 pg (28.0-32.0); Mean Corpuscular Volume 94.9 fL (80.0-100.0); Nucleated Red Blood Cells % 0.1 %
[2024-10-26 11:14] LABS: Chloride 103 mmol/L (98-107); Potassium 3.7 mmol/L (3.5-5.1); Sodium 139 mmol/L (136-145)
[2024-10-26 11:15] LABS: Anion Gap 9 (5-15); Calcium 10.1 mg/dL (8.7-10.4); Carbon Dioxide 27 mmol/L (20-31)
[2024-10-26 11:20] LABS: BUN/Creatinine Ratio 10.1 (10.0-20.0); Blood Urea Nitrogen 15 mg/dL (9-23)
[2024-10-26 11:21] LABS: Glucose 118 mg/dL (74-106)
[2024-10-26 11:28] LABS: Urine Protein, UAD 1+ (Negative); Urine WBC Clumps PRESENT /hpf (None Seen)
[2024-10-26] MEDS: SODIUM CHLORIDE 0.9% 1,000 ML IV ONE (12:54)
[2024-10-26] MEDS: VANCOMYCIN 1GM/200ML PM 200 ML IV ONE (12:54)
[2024-10-26] MEDS ORDERED: ONDANSETRON HCL 4 MG/2 ML VIAL IV PRN (13:45)
[2024-10-26] MEDS ORDERED: DOCUSATE SOD 100 MG CAP PO PRN (13:45)
[2024-10-26] MEDS: SODIUM CHLORIDE 0.9% 1,000 ML IV SCH (13:45)
[2024-10-26] MEDS ORDERED: MORPHINE SULFATE INJ 2 MG/ml SYRG IV PRN (13:45)
[2024-10-26] MEDS ORDERED: NITROGLYCERIN 0.4 MG SL TAB SL PRN (13:45)
--- NOTE | 2024-10-26 14:24 | DVHHP2 ---
History of Present Illness Reason for Visit: ALOC History of Present Illness Kamlesh Palmer is a 59-year-old male with past medical history of chronic kidney disease, CVA, BPH, bilateral hydronephrosis, obstructive urinary retention, hypertension, hyperlipidemia, seizures, and anemia, who was brought to the hospital due to ALOC. [facility] They state they found him this morning altered, last known well time was last night around 1999. On assessment patient is nonverbal, not following commands, will not nod yes or no to questions. Patient was recently admitted for UTI, and obstructive urinary retention. He had a nephrostomy tube placed to his right kidney. At the time of his last admission he did not want further treatment, he wanted to go home and would follow up as an outpatient. Cardiovascular: HTN, hyperipidemia TRAM INSPECTOR: Other (CVA, Dementia, seizures ) Renal/: Chronic renal insuff, Benign prostatic enlarg. Past Surgical History: Other (left nephrostomy tube) Family History: None Smoke: No ALCOHOL: none Drugs: None Lives: [facility] Domestic Violence: Neg Review of Systems Constitutional: No: Fever, Chills, Sweats, Weakness, Malaise, Other Eyes: No: Pain, Vision change, Conjunctivae inflammation, Eyelid inflammation, Other, Redness ENT: No: Ear pain, Ear discharge, Nose pain, Nose discharge, Nose congestion, Mouth pain, Mouth swelling, Throat pain, Throat swelling, Other Respiratory: No: Cough, Dry, Shortness of breath, SOB with excertion, Wheezing, Hemoptysis, Pleuritic Pain, Sputum, Wheezing, Other Cardiovascular: No: Chest Pain, Palpitations, Orthopnea, Paroxysmal Noc. Dyspne a, Edema, Lt Headedness, Other Gastrointestinal: No: Nausea, Vomiting, Abdominal Pain, Diarrhea, Constipation, Melena, Hematochezia, Other Genitourinary: No Dysuria, No Frequency, No Incontinence, No Hematuria, No Retention, No Other Musculoskeletal: No: other, neck pain, shoulder pain, arm pain, back pain, hand pain, leg pain, foot pain Skin: No: Rash, Lesions, Jaundice, Bruising, Other Neurological: Other (ALOC); No: Weakness, Numbness, Incoordination, Change in speech, Confusion, Seizures Allergies: Coded Allergies: ROBIN Inhibitors (Verified Allergy, Unknown, 10/13/23) Medications Current Medications Medications Dose Ordered Sig/Jazmin Route Start Time Stop Time Status Last Admin Dose Admin Sodium Chloride 1,000 ml @ 75 mls/hr [id number] IV 10/26/24 13:45 Ondansetron HCl 4 mg Q4HP PRN IV 10/26/24 13:45 Docusate Sodium 100 mg BIDPRN PRN PO 10/26/24 13:45 Nitroglycerin 0.4 mg Q5MINP PRN SL 10/26/24 13:45 Morphine Sulfate 2 mg Q30M PRN IV 10/26/24 13:45 Exam Vital Signs Vital Signs Date Time Temp Pulse Resp B/P (MAP) Pulse Ox O2 Delivery O2 Flow Rate FiO2 10/26/24 13:00 79 19 176/91 (119) 99 10/26/24 12:01 Nasal Cannula* 2 28 10/26/24 10:04 98.5 98.5 General Appearance: Alert, moderate distress, Other (Nonverbal, not following commands, will not nod yes or no to questions) HEENT: Atraumatic, PERRLA Respiratory: Clear to auscultation, Normal air movement Cardiovascular: Regular rate, Normal S1, Normal S2 Abdominal: Normal bowel sounds, Other (cancino catheter in place) Skin: No rashes, No breakdown, No significant lesion Neuro: Other (Nonverbal, not following commands, will not nod yes or no to questions) Labs/Xrays Labs Test 10/26/24 13:42 10/26/24 13:05 10/26/24 10:35 10/26/24 09:20 Range/Units Lactic Acid Level 1.3 0.4-2.0 mmol/L White Blood Count 6.8 4.4-10.8 10^3/uL Red Blood Count 4.59 4.5-5.90 10^6/uL Hemoglobin 15.0 13.5-17.5 g/dL Hematocrit 43.6 41.0-53.0 % Mean Corpuscular Volume 94.9 80.0-100.0 fL Mean Corpuscular Hemoglobin 32.7 H 28.0-32.0 pg Mean Corpuscular Hemoglobin Concent 34.5 32.0-36.0 g/dL Red Cell Distribution Width 13.6 11.8-14.3 % Platelet Count 307 140-450 10^3/uL Mean Platelet Volume 7.5 6.9-10.8 fL Neutrophils (%) (Auto) 73.5 37.0-80.0 % Lymphocytes (%) (Auto) 15.7 10.0-50.0 % Monocytes (%) (Auto) 10.2 0.0-12.0 % Eosinophils (%) (Auto) 0.0 0.0-7.0 % Basophils (%) (Auto) 0.6 0.0-2.0 % Neutrophils # (Auto) 5.0 1.6-8.6 10 ^3/uL Lymphocytes # (Auto) 1.1 0.4-5.4 10 ^3/uL Monocytes # (Auto) 0.7 0-1.3 10 ^3/uL Eosinophils # (Auto) 0 0-0.8 10 ^3/uL Basophils # (Auto) 0 0-0.2 10 ^3/uL Nucleated Red Blood Cells 0.1 % Sodium Level 139 136-145 mmol/L Potassium Level 3.7 3.5-5.1 mmol/L Chloride Level 103 98-107 mmol/L Carbon Dioxide Level 27 20-31 mmol/L Anion Gap 9 5-15 Blood Urea Nitrogen 15 9-23 mg/dL Creatinine 1.48 H 0.700-1.30 mg/dL Glomerular Filtration Rate Calc 54 >90 mL/min BUN/Creatinine Ratio 10.1 10.0-20.0 Serum Glucose 118 H 74-106 mg/dL Calcium Level 10.1 8.7-10.4 mg/dL Urine Color Colorless Yellow Urine Clarity Turbid H Clear Urine pH 7.0 5.0-9.0 Urine Specific [place] 1.010 1.001-1.035 Urine Protein 1+ H Negative Urine Ketones Negative Negative Urine Blood 1+ H Negative /uL Urine Nitrite Negative Negative Urine Bilirubin Negative Negative Urine Urobilinogen Normal Negative mg/dL Urine Leukocyte Esterase 3+ Negative /uL Urine RBC 7 0 - 3 /hpf Urine WBC Clumps Present None Seen /hpf Urine Microscopic WBC 77 H 0-3 /HPF Urine Squamous Epithelial Cells Few <5 /hpf Urine Bacteria Few H None Seen /hpf Urine Mucus Few None Seen Urine Glucose Normal Normal mg/dL TECHNIQUE: Frontal view of the chest. FINDINGS: The heart and mediastinal contours are grossly unremarkable. There is no evidence of pleural disease. The lungs are clear. The bony structures of the chest are intact without fracture. IMPRESSION: 1. No evidence of acute disease. EXAM: CT HEAD WITHOUT CONTRAST FINDINGS: There is no evidence of acute intracranial hemorrhage, extra-axial collection, mass effect, midline shift, herniation or hydrocephalus. Diffuse cerebellar atrophy. Encephalomalacia in the left frontal lobe. The ventricles, sulci and cisterns are age appropriate. The conley-white differentiation is intact. Patchy periventricular and subcortical white matter hypoattenuation is nonspecific but may be related to small vessel ischemic disease. The visualized paranasal sinuses and mastoid air cells are clear. The surrounding soft tissues and osseous structures are unremarkable. IMPRESSION: No acute intracranial abnormality. SEPSIS Sepsis Screen Date sepsis recognized/suspect: Oct 26, 2024 Time Sepsis recognized/suspect: 1013 Recent Procedure: No On Antibiotic Therapy: No Respiratory Rate >20: No Heart Rate >90: No Temp<36 C (96.8 F) or >38.3 C: No SBP <90 or MAP <65 mmHG: No New Acute Mental Status Change: No Is the patient on CPAP, BIPAP,: No Physician Orders Chest Portable (10/26/24 09:20) Head Without Contrast (10/26/24 09:20) Electrocardigram (10/26/24 09:20) Troponin-I Hs (10/26/24 12:20) Electrocardigram (10/26/24 10:20) Electrocardigram (10/26/24 12:20) Blood Culture (10/26/24 12:22) Cefepime 2gm/50ml Ns (Maxipime 2gm/50ml) (10/26/24 12:30) Admit (10/26/24 13:38) Code Status (10/26/24 13:38) Sodium Chloride 0.9% (10/26/24 13:45) Ondansetron Hcl (Zofran) (10/26/24 13:45) Docusate Sodium Capsule (Colace Capsule) (10/26/24 13:45) Complete Blood Count (10/27/24 04:00) Comprehensive Metabolic Panel (10/27/24 04:00) * Swallow Request (10/26/24 13:38) Condition: Critical (10/26/24 13:38) Nitroglycerin Sublingual (Ntrostat Subli (10/26/24 13:45) Morphine Sulfate Injection (10/26/24 13:45) Stat Ekg For Chest Pain (10/26/24 13:38) Notify Of Changes From Base (10/26/24 13:38) Shoe Cutter For 24 Hours (10/26/24 13:38) Emergency Dysrhythmia Protocol (10/26/24 13:38) Rhythm Strips Once Every Shift (10/26/24 13:38) Oxygen By Nasal Cannula (10/26/24 13:38) Npo (Nothing By Mouth) Diet (10/26/24 Dinner) * Neurology Consult (10/26/24 13:45) Vital Signs Date Time Temp Pulse Resp B/P (MAP) Pulse Ox O2 Delivery O2 Flow Rate FiO2 10/26/24 13:00 79 19 176/91 (119) 99 10/26/24 12:01 97 Nasal Cannula* 2 28 10/26/24 11:00 111 18 162/77 (105) 98 10/26/24 10:04 85 18 100 Nasal Cannula* 2 28 10/26/24 10:04 98.5 85 18 166/91 (116) 100 98.5 10/26/24 09:07 98.5 98 20 164/86 98 98.5 Laboratory Tests Test 10/26/24 10:35 10/26/24 13:05 White Blood Count 6.8 10^3/uL (4.4-10.8) Lactic Acid Level 1.3 mmol/L (0.4-2.0) Medications Medications Dose Ordered Sig/Jazmin Route Start Time Stop Time Status Last Admin Dose Admin Levetiracetam 200 ml @ 400 mls/hr ONCE ONCE IV 10/26/24 09:30 10/26/24 09:59 DC 10/26/24 10:39 400 MLS/HR Sodium Chloride 1,000 ml @ 1,000 mls/hr Q1H ONCE IV 10/26/24 12:30 10/26/24 13:29 DC 10/26/24 12:54 1,000 MLS/HR Vancomycin HCl 200 ml @ 200 mls/hr ONCE ONCE IV 10/26/24 12:30 10/26/24 13:29 DC 10/26/24 12:54 200 MLS/HR Assessment/Plan Assessment/Plan Assessment: Metabolic encephalopathy, Complicated UTI, Hypertension, Seizures, Hyperlipidemia, Chronic kidney disease, Plan: Admit to NASH, Neurology consult, Urology consult, Speech therapy evaluation, NPO until cleared by speech therapy, IV antibiotics, IV hydration, IV seizure medications, Home medications held due to NPO, Plan discussed with: Patient My Orders Orders - REGLA MENDOZA Procedure Category Date Status Time Admit ADMIT 10/26/24 Transmitted 13:38 Code Status CODE 10/26/24 Transmitted 13:38 Sodium Chloride 0.9% PHA 10/26/24 In Process 13:45 Ondansetron Hcl PHA 10/26/24 In Process (Zofran) 13:45 Docusate Sodium PHA 10/26/24 In Process Capsule (Colace 13:45 Complete Blood Count LAB 10/27/24 Verified 04:00 Comprehensive LAB 10/27/24 Verified Metabolic Panel 04:00 * Swallow Request ST 10/26/24 Transmitted 13:38 Condition: Critical FARHAT 10/26/24 In Process 13:38 Nitroglycerin PHA 10/26/24 In Process Sublingual (Ntrostat 13:45 Morphine Sulfate PHA 10/26/24 In Process Injection 13:45 Stat Ekg For Chest FARHAT 10/26/24 In Process Pain 13:38 Notify Md Of Changes FARHAT 10/26/24 In Process From Base 13:38 Shoe Cutter For [facility] 10/26/24 In Process 24 Hours 13:38 Emergency Dysrhythmia [facility] 10/26/24 In Process Protocol 13:38 Rhythm Strips Once [facility] 10/26/24 In Process Every Shift 13:38 Oxygen By Nasal RT 10/26/24 Transmitted Cannula 13:38 Npo (Nothing By DIET 10/26/24 Transmitted Mouth) Diet Dinner * Neurology Consult CONS 10/26/24 Transmitted 13:45 Date of Service: Oct 26, 2024 Billing Provider: REGLA MENDOZA Common Visit Codes: [id number] INP/OBS CARE (HIGH) REGLA MENDOZA Oct 26, 2024 14:24
[2024-10-26] MEDS: hydrALAZINE HCL 20 MG/ML VL IV PRN (14:42)
[2024-10-26] MEDS: CEFEPIME 2GM/50ML NS 50 ML IV ONE (14:45)
[2024-10-26 19:30] VITALS: PULSE 89; RESP 24; O2SAT 97
[2024-10-26] MEDS: levETIRAcetam 500 mg/100ml 100 ML IV SCH (22:08)
--- NOTE | 2024-10-26 22:23 | DVHINCON2 ---
Date of service: Oct 26, 2024 Referring Physician Elly Reason for Consultation Metabolic encephalopathy History of Present Illness Mr. Palmer is a 59 years old gentleman with a history of mental retardation, hypertension, chronic kidney failure, BPH, kidney stone, was brought to the [facility] on 10/26/2024 with a chief complaint of seizure activity, he has no seizure in the ER. I saw him on 11/22/2023 for seizure He has a history of mental retardation, his baseline is able to understand his surroundings to some degree, and he is completely dependent on other people for daily living, he uses a cane to walk around. On 10/26/2024, nurse relates the patient was said to be oriented x 2-3. He has a history of seizure disorder since childhood, his home medications included: Lipitor 10 mg daily, citalopram 10 mg daily, quetiapine 250 mg daily, Keppra 750 mg daily, Dilantin 100 mg t.i.d. Depakote 500 mg t.i.d. trazodone 50 mg daily In the ER, the patient's keeps moving the jaw, and he can temporarily stop it when I talked to him. 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 No acute intracranial abnormality CT head, 10/26/2024: No acute intracranial abnormality. (encephalomalacia in the left hemisphere) Past Medical History Hypertension, stroke, chronic kidney failure, BPH, kidney stone Past Surgical History TURP Family History: Patient reports no known family medical history. Family History Noncontributory to illness Social History Smoker: Non-Smoker Alcohol: Denies ETOH Use Drugs: Denies Drug Use Lives In: Home Allergies: Coded Allergies: ROBIN Inhibitors (Verified Allergy, Unknown, 10/13/23) Home Meds Active Scripts Sulfamethoxazole W/Trimethopri (Bactrim Ds Tablet) 1 Tab Tb, 1 TAB PO BID for 5 Days, #10 TAB Prov:SEDRICK LUXE [facility] 10/14/24 Cefdinir (Cefdinir) 300 Mg Cap, 1 CAP PO BID for 7 Days, #14 CAP Prov:STARR MURPHY MD 10/20/23 Reported Medications Nitrofurantoin (Nitrofurantoin Macrocryst) 50 Mg Cap, 1 CAP PO DAILY for 31 Days, #31 10/15/23 Amlodipine Besylate (Amlodipine Besylate) 10 Mg Tab, 1 TAB PO DAILY 10/15/23 Quetiapine Fumerate (Seroquel) 200 Mg Tab, 250 MG PO HS Take 50 mg tablet and 200 mg tablet together for a TOTAL of 250 mg tablets by mouth at bedtime. 10/15/23 Paliperidone (Paliperidone ER) 3 Mg Tab, 4.5 MG PO HS Take 1.5 mg tablet and 3 mg tablet together for a TOTAL of 4.5 mg tablets by mouth at bedtime. 10/15/23 Escitalopram Oxalate (ESCITALOPRAM OXALATE) 10 Mg Tab, 1 TAB PO DAILY 10/13/23 Folic Acid (Folic Acid) 1 Mg Tab, 1 TAB PO DAILY 10/13/23 Benztropine Mesylate (Benztropine Mesylate) 1 Mg Tab, 1 TAB PO DAILY 10/13/23 Levetiracetam (Levetiracetam) 750 Mg Tab, 1 TAB PO BID 10/13/23 Valproic Acid (Valproic Acid) 250 Mg Cap, 2 CAP PO TID 10/13/23 Phenytoin Sodium (DILANTIN CAPSULE) 100 Mg Cp, 1 CAP PO TID 10/13/23 Aripiprazole (Aripiprazole) 10 Mg Tab, 1 TAB PO DAILY 10/13/23 Lorazepam (ATIVAN TABLET) 0.5 Mg Tb, 1 TAB PO BID 10/13/23 Tamsulosin Hcl (Tamsulosin Hcl) 0.4 Mg Cap, 1 CAP PO DAILY 10/13/23 Finasteride (Finasteride) 5 Mg Tab, 1 TAB PO DAILY 10/13/23 Trazodone Hcl (Trazodone Hcl) 50 Mg Tab, 1 TAB PO 10/13/23 Omeprazole (Omeprazole Dr) 20 Mg Cap, 1 CAP PO DAILY 10/13/23 Niacin (Niacin ER) 500 Mg Tab, 1 TAB PO DAILY 10/13/23 Methenamine Hippurate (Methenamine Hippurate) 1 Gm Tab, 1 TAB PO BID 10/13/23 Hydrochlorothiazide (Hydrochlorothiazide) 12.5 Mg Cap, 1 CAP PO DAILY 10/13/23 Losartan Potassium (Losartan Potassium) 50 Mg Tab, 1 TAB PO BID 10/13/23 Atorvastatin Calcium (ATORVASTATIN CALCIUM) 10 Mg Tab, 1 TAB PO DAILY 10/13/23 Sodium Sulfate-Magnesium Sulfa (Sutab 8796-717-453 mg) 1 Tab Tab, 1 TAB PO 10/13/23 Current Medications Current Medications Medications (Trade) Dose Ordered Sig/Jazmin Route PRN Reason Start Time Stop Time Status Last Admin Sodium Chloride 1,000 ml @ 75 mls/hr [id number] IV 10/26/24 13:45 10/26/24 18:37 Ondansetron HCl (Zofran) 4 mg Q4HP PRN IV NAUSEA / VOMITING 10/26/24 13:45 Docusate Sodium (Colace Capsule) 100 mg BIDPRN PRN PO FOR CONSTIPATION 10/26/24 13:45 Nitroglycerin (Ntrostat Sublingual) 0.4 mg Q5MINP PRN SL FOR CHEST PAIN 10/26/24 13:45 Morphine Sulfate 2 mg Q30M PRN IV FOR CHEST PAIN 10/26/24 13:45 Hydralazine HCl (Apresoline Injection) 10 mg Q6HP PRN IV SBP>150 10/26/24 14:30 10/26/24 14:42 Cefepime HCl 50 ml @ 12.5 mls/hr Q12HR IV 10/26/24 22:00 Levetiracetam 100 ml @ 400 mls/hr BID IV 10/26/24 22:00 10/26/24 22:08 Review of Systems As above, the other systems are negative Vital Signs Vital Signs Date Time Temp Pulse Resp B/P (MAP) Pulse Ox O2 Delivery O2 Flow Rate FiO2 10/26/24 20:21 97 Room Air* 0 21 10/26/24 20:00 78 10/26/24 19:30 24 159/84 (109) 10/26/24 10:04 98.5 98.5 Physical Exam GENERAL EXAM: General: the patient is well developed and nourished. No acute distress. HEENT: Normocephalic, neck is supple, no carotid bruits. No mass. RESPIRATORY: Normal respiratory effort with symmetrical lung expansion. Lungs clear to auscultation. CARDIOVASCULAR: Regular rate and rhythm with no murmurs. S1, S2. ABDOMEN: Soft, nontender, normal bowel sound NEUROLOGICAL: MENTAL STATUS: Awake SPEECH, LANGUAGE, HIGHER CORTICAL FUNCTION: He does not vocalize CRANIAL NERVES: #2: Intact visual kumar to visual thread #3,4,6: Pupils are equal, round and reactive. EOMs full and conjugate. #5: Facial sensation intact in all three divisions bilaterally. Mandibular strength intact. #7: Facial muscles symmetrical and strength intact. #8: Hearing grossly normal to voice. #9,10: Deferred #11: Deferred #12: Deferred SENSATION: Sensation to touch and pinprick is okay MOTOR: Increased muscle tone in the right arm than leg. Normal muscle bulk. No fasciculations. He only moves the left arm than leg a little bit. REFLEXES: Deep tendon reflexes are symmetrical. No pathological reflexes. CEREBELLAR/COORDINATION: Deferred GAIT/STATION: deferred. Labs/Diagnostic Data Labs Test 10/26/24 13:42 10/26/24 13:05 10/26/24 10:35 10/26/24 09:20 Range/Units Troponin I High Sensitivity 16 </=54 ng/L Lactic Acid Level 1.3 0.4-2.0 mmol/L White Blood Count 6.8 4.4-10.8 10^3/uL Red Blood Count 4.59 4.5-5.90 10^6/uL Hemoglobin 15.0 13.5-17.5 g/dL Hematocrit 43.6 41.0-53.0 % Mean Corpuscular Volume 94.9 80.0-100.0 fL Mean Corpuscular Hemoglobin 32.7 H 28.0-32.0 pg Mean Corpuscular Hemoglobin Concent 34.5 32.0-36.0 g/dL Red Cell Distribution Width 13.6 11.8-14.3 % Platelet Count 307 140-450 10^3/uL Mean Platelet Volume 7.5 6.9-10.8 fL Neutrophils (%) (Auto) 73.5 37.0-80.0 % Lymphocytes (%) (Auto) 15.7 10.0-50.0 % Monocytes (%) (Auto) 10.2 0.0-12.0 % Eosinophils (%) (Auto) 0.0 0.0-7.0 % Basophils (%) (Auto) 0.6 0.0-2.0 % Neutrophils # (Auto) 5.0 1.6-8.6 10 ^3/uL Lymphocytes # (Auto) 1.1 0.4-5.4 10 ^3/uL Monocytes # (Auto) 0.7 0-1.3 10 ^3/uL Eosinophils # (Auto) 0 0-0.8 10 ^3/uL Basophils # (Auto) 0 0-0.2 10 ^3/uL Nucleated Red Blood Cells 0.1 % Sodium Level 139 136-145 mmol/L Potassium Level 3.7 3.5-5.1 mmol/L Chloride Level 103 98-107 mmol/L Carbon Dioxide Level 27 20-31 mmol/L Anion Gap 9 5-15 Blood Urea Nitrogen 15 9-23 mg/dL Creatinine 1.48 H 0.700-1.30 mg/dL Glomerular Filtration Rate Calc 54 >90 mL/min BUN/Creatinine Ratio 10.1 10.0-20.0 Serum Glucose 118 H 74-106 mg/dL Calcium Level 10.1 8.7-10.4 mg/dL Urine Color Colorless Yellow Urine Clarity Turbid H Clear Urine pH 7.0 5.0-9.0 Urine Specific [place] 1.010 1.001-1.035 Urine Protein 1+ H Negative Urine Ketones Negative Negative Urine Blood 1+ H Negative /uL Urine Nitrite Negative Negative Urine Bilirubin Negative Negative Urine Urobilinogen Normal Negative mg/dL Urine Leukocyte Esterase 3+ Negative /uL Urine RBC 7 0 - 3 /hpf Urine WBC Clumps Present None Seen /hpf Urine Microscopic WBC 77 H 0-3 /HPF Urine Squamous Epithelial Cells Few <5 /hpf Urine Bacteria Few H None Seen /hpf Urine Mucus Few None Seen Urine Glucose Normal Normal mg/dL Assessment Seizure disorder with seizure breakthrough Altered mental status Metabolic encephalopathy Subclinical seizure Mental retardation Gait disturbance ? secondary to mental retardation and history of stroke Reported stroke Agitation Kidney stone Plan/Recommendation Monitoring Supportive treatment Telemetry Dilantin level Depakote level EEG ASA 81 mg qd Lipitor 10 mg daily Depakote 500 mg t.i.d. Keppra 750 mg b.i.d. Dilantin 100 mg t.i.d Ativan for seizure breakthrough Prognosis: Poor This medical document was created using an electronic medical record system with [employer] dictation system. Although this document has been carefully reviewed, there may still be some phonetic and typographical errors. These areas are purely typographical due to imperfections of the software programs, and do not reflect any compromise in the patient's medical care. Plan discussed with: Other LEYLA VARGHESE MD Oct 26, 2024 22:23
[2024-10-26] MEDS: CEFEPIME 1GM/ 50ML 50 ML IV SCH (22:33)
[2024-10-26] MEDS: LORazepam 2MG/ML-1ML VIAL ONE (22:43)
[2024-10-26] MEDS: LORazepam 2MG/ML-1ML VIAL IV ONE (22:45)
[2024-10-27] MEDS: PHENYTOIN SODIUM 50 MG/ML 2ML VIAL IV ONE (00:09)
[2024-10-27] MEDS: VALPROATE INJ 500 MG in SODIUM CHL 0.9% 100 ML IV ONE (00:44)
[2024-10-27] MEDS: VALPROATE SODIUM 100 MG/ML 5ML VIAL IV ONE ×3 (00:46→22:38)
[2024-10-27] MEDS: VALPROATE INJ 500 MG in SODIUM CHL 0.9% 100 ML IV SCH (06:12)
[2024-10-27] MEDS: PHENYTOIN SODIUM 50 MG/ML 2ML VIAL IV SCH (06:12)
[2024-10-27 08:13] VITALS: PULSE 77; RESP 17; O2SAT 98
--- NOTE | 2024-10-27 08:50 | DVHPN2 ---
Progress Note - Dictate Date Seen: Oct 27, 2024 Medical Necessity Reason Pt with a Central, PICC or Fol: Yes The following are medically ne: Bobby Catheter Subjective Mr. Palmer is a 59 years old gentleman with a history of mental retardation, hypertension, chronic kidney failure, BPH, kidney stone, was brought to the [facility] on 10/26/2024 with a chief complaint of seizure activity I saw him on 11/22/2023 for seizure I have seen and examined the patient, I have talked to his nurse and other medical staff, the patient is awake, he has social smiles, but he does not not talk or follows verbal commands He still moves the jaw, but not as much as yesterday He does not move the right arm than leg, the muscle tone is high Urinalysis, 10/26/2024: WBC: 77, urine leukocyte esterase: 3+ Dilantin, 10/17/2023: 16.1 Depakote, 11/18/2023: CBC, 10/26/2024: Unremarkable BUN/CR, 11/22/2023: 16/1.33, 10/26/2024: 15/1.48 GFR, 10/26/2024: 54 TG/HDL/LDL/HDL, 09/2023: 76/159/79/68 CT head, 11/23/2023: Encephalomalacia in the left MCA distribution due to old infarct. No acute intracranial abnormality CT head, 10/26/2024: No acute intracranial abnormality. (encephalomalacia in the left hemisphere) vital signs Vital Sign Date Time Temp Pulse Resp B/P (MAP) Pulse Ox O2 Delivery O2 Flow Rate FiO2 10/27/24 08:13 77 17 98 Room Air* 0 21 10/27/24 08:00 98.4 151/84 (106) 98.4 Total Intake and Output 10/26/24 10/26/24 10/27/24 15:00 23:00 07:00 Intake Total 400 ml 1375.0 ml 755.0 ml Output Total 200 ml 875 ml 2010 ml Balance 200 ml 500.0 ml -1255.0 ml medications Current Medications Medications Dose Ordered Sig/Jazmin Route Start Time Stop Time Status Last Admin Dose Admin Sodium Chloride 1,000 ml @ 75 mls/hr [id number] IV 10/26/24 13:45 10/26/24 18:37 75 MLS/HR Ondansetron HCl 4 mg Q4HP PRN IV 10/26/24 13:45 Docusate Sodium 100 mg BIDPRN PRN PO 10/26/24 13:45 Nitroglycerin 0.4 mg Q5MINP PRN SL 10/26/24 13:45 Morphine Sulfate 2 mg Q30M PRN IV 10/26/24 13:45 Hydralazine HCl 10 mg Q6HP PRN IV 10/26/24 14:30 10/26/24 22:26 10 MG Cefepime HCl 50 ml @ 12.5 mls/hr Q12HR IV 10/26/24 22:00 10/26/24 22:33 12.5 MLS/HR Phenytoin Sodium 100 mg Q8HR IV 10/27/24 06:00 10/27/24 06:12 100 MG Valproate Sodium 500 mg/Sodium Chloride 105 ml @ 105 mls/hr TID IV 10/27/24 06:00 10/27/24 06:12 105 MLS/HR Aspirin 81 mg DAILY PO 10/27/24 10:00 Atorvastatin Calcium 10 mg HS PO 10/27/24 22:00 Levetiracetam 750 mg/Sodium Chloride 107.5 ml @ 430 mls/hr BID IV 10/27/24 10:00 objective General: the patient is well developed and nourished. No acute distress. MENTAL STATUS: Subjective SPEECH, LANGUAGE, HIGHER CORTICAL FUNCTION: He does not vocalize CRANIAL NERVES: Pupils are equal, round and reactive. EOMs full and conjugate. Facial sensation intact in all three divisions bilaterally. Mandibular strength intact. Facial muscles symmetrical and strength intact. SENSATION: Sensation to touch and pinprick is okay MOTOR: Increased muscle tone in the right arm than leg. Normal muscle bulk. No fasciculations. He only moves the left arm and leg REFLEXES: Deep tendon reflexes are symmetrical. No pathological reflexes. CEREBELLAR/COORDINATION: Deferred GAIT/STATION: deferred. laboratory and microbiology Laboratory Tests 10/26/24 10:35 Test 10/26/24 10:35 Range/Units Serum Glucose 118 H 74-106 mg/dL Problem List Seizure disorder with seizure breakthrough Altered mental status Metabolic encephalopathy Subclinical seizure Mental retardation Gait disturbance ? secondary to mental retardation and history of stroke Reported stroke Agitation Kidney stone Assessment/Plan Monitoring Supportive treatment Telemetry Dilantin level Depakote level EEG ASA 81 mg qd Lipitor 10 mg daily Depakote 500 mg t.i.d. Keppra 750 mg b.i.d. Dilantin 100 mg t.i.d Ativan for seizure breakthrough This medical document was created using an electronic medical record system with [employer] dictation system. Although this document has been carefully reviewed, there may still be some phonetic and typographical errors. These areas are purely typographical due to imperfections of the software programs, and do not reflect any compromise in the patient's medical care. Prognosis poor Plan discussed with: Other Total Time (mins): 35 LEYLA VARGHESE MD Oct 27, 2024 08:50
[2024-10-27 10:00] LABS: Hematocrit 42.8 % (41.0-53.0); Hemoglobin 15.1 g/dL (13.5-17.5); Mean Corpuscular Hemoglobin 32.8 pg (28.0-32.0); Mean Corpuscular Volume 92.9 fL (80.0-100.0); Nucleated Red Blood Cells % 0.4 %
[2024-10-27] MEDS ORDERED: PATIENTS OWN MEDICATION (keppra 750 MG) IV SCH (10:00)
[2024-10-27 10:16] LABS: Alanine Aminotransferase 57 U/L (7-40); Albumin 4.2 g/dL (3.2-4.8); Alkaline Phosphatase 86 U/L (46-116); Anion Gap 13 (5-15); BUN/Creatinine Ratio 11.9 (10.0-20.0); Bilirubin, Total 0.4 mg/dL (0.2-1.0); Blood Urea Nitrogen 16 mg/dL (9-23); Calcium 10.0 mg/dL (8.7-10.4); Carbon Dioxide 21 mmol/L (20-31); Chloride 110 mmol/L (98-107); Glucose 105 mg/dL (74-106); Potassium 4.9 mmol/L (3.5-5.1); Sodium 144 mmol/L (136-145); Total Protein 7.0 g/dL (5.7-8.2)
[2024-10-27 10:39] LABS: Phenytoin (Dilantin) 8.8 ug/mL (10-20)
--- NOTE | 2024-10-27 14:17 | DVHPN2 ---
Subjective 59-year-old male was brought from [facility] due to altered level of consciousness The patient was here recently and was discharged from here 10 days ago He has a nephrostomy tube Right now he is still confused, disoriented, restless Vital signs are stable Changes from previous H/P or p: Changes Eyes: No Pain, No Vision change, No Conjunctivae inflammation, No Eyelid inflammation, No Other, No Redness ENT: No Ear pain, No Ear discharge, No Nose pain, No Nose discharge, No Nose congestion, No Mouth pain, No Mouth swelling, No Throat pain, No Throat swelling, No Other Cardiovascular: No Chest Pain, No Palpitations, No Orthopnea, No Paroxysmal Noc. Dyspnea, No Edema, No Lt Headedness, No Other Respiratory: No Cough, No Dry, No Shortness of breath, No SOB with excertion, No Wheezing, No Hemoptysis, No Pleuritic Pain, No Sputum, No Other Gastrointestinal: No Nausea, No Vomiting, No Abdominal Pain, No Diarrhea, No Constipation, No Melena, No Hematochezia, No Other Genitourinary: No Dysuria, No Frequency, No Incontinence, No Hematuria, No Retention, No Other Musculoskeletal: No other, No neck pain, No shoulder pain, No arm pain, No back pain, No hand pain, No leg pain, No foot pain Skin: No Rash, No Lesions, No Jaundice, No Bruising, No Other Objective Vitals Vital Signs Date Time Temp Pulse Resp B/P (MAP) Pulse Ox O2 Delivery O2 Flow Rate FiO2 10/27/24 13:00 98.4 72 23 146/58 (87) 97 98.4 10/27/24 08:13 Room Air* 0 21 Intake/Output Intake and Output 10/27/24 07:00 Intake Total 2530.0 ml Output Total 3085 ml Balance -555.0 ml Intake IV Total 2530.0 ml Output Urine Total 2785 ml Other 300 ml General Appearance: Alert, Other Lungs: Clear to auscultation Cardiovascular: Regular rate, Normal S1, Normal S2 Abdomen: Normal bowel sounds, Soft, No tenderness Extremities: No edema Medications Current Medications Medications Dose Ordered Sig/Jazmin Route Start Time Stop Time Status Last Admin Dose Admin Sodium Chloride 1,000 ml @ 75 mls/hr [id number] IV 10/26/24 13:45 10/26/24 18:37 75 MLS/HR Ondansetron HCl 4 mg Q4HP PRN IV 10/26/24 13:45 Docusate Sodium 100 mg BIDPRN PRN PO 10/26/24 13:45 Nitroglycerin 0.4 mg Q5MINP PRN SL 10/26/24 13:45 Morphine Sulfate 2 mg Q30M PRN IV 10/26/24 13:45 Hydralazine HCl 10 mg Q6HP PRN IV 10/26/24 14:30 10/26/24 22:26 10 MG Cefepime HCl 50 ml @ 12.5 mls/hr Q12HR IV 10/26/24 22:00 10/27/24 09:36 12.5 MLS/HR Phenytoin Sodium 100 mg Q8HR IV 10/27/24 06:00 10/27/24 06:12 100 MG Valproate Sodium 500 mg/Sodium Chloride 105 ml @ 105 mls/hr TID IV 10/27/24 06:00 10/27/24 06:12 105 MLS/HR Aspirin 81 mg DAILY PO 10/27/24 10:00 Atorvastatin Calcium 10 mg HS PO 10/27/24 22:00 Levetiracetam 750 mg/Sodium Chloride 107.5 ml @ 430 mls/hr BID IV 10/27/24 10:00 10/27/24 10:07 430 MLS/HR Laboratory Results Laboratory Tests 10/27/24 09:08 Chemistry Test 10/27/24 09:08 Albumin 4.2 g/dL (3.2-4.8) Calcium Level 10.0 mg/dL (8.7-10.4) Total Protein 7.0 g/dL (5.7-8.2) LFT Test 10/27/24 09:08 Alanine Aminotransferase (ALT) 57 U/L (7-40) H Alkaline Phosphatase 86 U/L (46-116) Aspartate Amino Transferase (AST) 52 U/L (13-40) H Total Bilirubin 0.4 mg/dL (0.2-1.0) Urinalysis Test 10/26/24 09:20 Urine Color Colorless (Yellow) Urine Clarity Turbid (Clear) H Urine pH 7.0 (5.0-9.0) Urine Specific [place] 1.010 (1.001-1.035) Urine Protein 1+ (Negative) H Urine Ketones Negative (Negative) Urine Blood 1+ /uL (Negative) H Urine Nitrite Negative (Negative) Urine Bilirubin Negative (Negative) Urine Urobilinogen Normal mg/dL (Negative) Urine Leukocyte Esterase 3+ /uL (Negative) Urine RBC 7 /hpf (0 - 3) Urine WBC Clumps Present /hpf (None Seen) Urine Microscopic WBC 77 /HPF (0-3) H Urine Squamous Epithelial Cells Few /hpf (<5) Urine Bacteria Few /hpf (None Seen) H Urine Mucus Few (None Seen) Urine Glucose Normal mg/dL (Normal) Microbiology Microbiology Date/Time Source Procedure Growth Status 10/26/24 13:17 Blood Blood Culture - Preliminary NO GROWTH AFTER 24 HOURS OF INCUBATION. Resulted Assessment/Plan Assessment/Plan Acute metabolic encephalopathy, Complicated UTI, ANNETTE due to VMN Hypertension, Seizures, Hyperlipidemia, Chronic kidney disease, As homeless dementia History of bilateral hydronephrosis History of CVA with right-sided deficit History of traumatic brain injury History of chronic idiopathic constipation History of COPD Prostatomegaly Plan: IV antibiotics cefepime IV fluids Keppra 750 mg twice a day Neurology consult Valproic acid 500 mg IV 3 times a day Urine culture Blood culture Urology consult Keep NPO for now until he is more alert and oriented Full code Plan discussed with: Patient, Other Date of Service: Oct 27, 2024 Billing Provider: ABDOUL BLACKMON MD Common Visit Codes: 40619-VFHFGLXEMT INP/OBS CARE(HIGH) Secondary Visit Codes: 13964-[id number] CARE PLAN 30 MINUTES ABDOUL BLACKMON MD Oct 27, 2024 14:17
--- NOTE | 2024-10-27 16:29 | DVHINCON2 ---
Date of service: Oct 27, 2024 Referring Physician Hospitalist Reason for Consultation UTI and obstructive urinary retention History of Present Illness History Source: Patient, RN Notes Exam Limitations: Clinical condition, Physical impairment HPI Kamlesh Palmer is a 59-year-old male with past medical history of chronic kidney disease, CVA, BPH, bilateral hydronephrosis, obstructive urinary retention, hypertension, hyperlipidemia, seizures, and anemia, who was brought to the hospital due to ALOC. Patient is residing in a long term facility. They state they found him this morning altered, last known well time was last night around 1999. On assessment patient is nonverbal, not following commands, will not nod yes or no to questions. Patient was recently admitted for UTI, and obstructive urinary retention, Kidney ultrasound revealed- Severe bilateral hydronephrosis, he had a nephrostomy tube placed to his right kidney. At the time of his last admission he did not want further treatment, he wanted to go home and would follow up as an outpatient. Home Meds Active Scripts Sulfamethoxazole W/Trimethopri (Bactrim Ds Tablet) 1 Tab Tb, 1 TAB PO BID for 5 Days, #10 TAB Prov:LOLIS LUX RESIDENT 10/14/24 Cefdinir (Cefdinir) 300 Mg Cap, 1 CAP PO BID for 7 Days, #14 CAP Prov:STARR MURPHY MD 10/20/23 Reported Medications Nitrofurantoin (Nitrofurantoin Macrocryst) 50 Mg Cap, 1 CAP PO DAILY for 31 Days, #31 10/15/23 Amlodipine Besylate (Amlodipine Besylate) 10 Mg Tab, 1 TAB PO DAILY 10/15/23 Quetiapine Fumerate (Seroquel) 200 Mg Tab, 250 MG PO HS Take 50 mg tablet and 200 mg tablet together for a TOTAL of 250 mg tablets by mouth at bedtime. 10/15/23 Paliperidone (Paliperidone ER) 3 Mg Tab, 4.5 MG PO HS Take 1.5 mg tablet and 3 mg tablet together for a TOTAL of 4.5 mg tablets by mouth at bedtime. 10/15/23 Escitalopram Oxalate (ESCITALOPRAM OXALATE) 10 Mg Tab, 1 TAB PO DAILY 10/13/23 Folic Acid (Folic Acid) 1 Mg Tab, 1 TAB PO DAILY 10/13/23 Benztropine Mesylate (Benztropine Mesylate) 1 Mg Tab, 1 TAB PO DAILY 10/13/23 Levetiracetam (Levetiracetam) 750 Mg Tab, 1 TAB PO BID 10/13/23 Valproic Acid (Valproic Acid) 250 Mg Cap, 2 CAP PO TID 10/13/23 Phenytoin Sodium (DILANTIN CAPSULE) 100 Mg Cp, 1 CAP PO TID 10/13/23 Aripiprazole (Aripiprazole) 10 Mg Tab, 1 TAB PO DAILY 10/13/23 Lorazepam (ATIVAN TABLET) 0.5 Mg Tb, 1 TAB PO BID 10/13/23 Tamsulosin Hcl (Tamsulosin Hcl) 0.4 Mg Cap, 1 CAP PO DAILY 10/13/23 Finasteride (Finasteride) 5 Mg Tab, 1 TAB PO DAILY 10/13/23 Trazodone Hcl (Trazodone Hcl) 50 Mg Tab, 1 TAB PO 10/13/23 Omeprazole (Omeprazole Dr) 20 Mg Cap, 1 CAP PO DAILY 10/13/23 Niacin (Niacin ER) 500 Mg Tab, 1 TAB PO DAILY 10/13/23 Methenamine Hippurate (Methenamine Hippurate) 1 Gm Tab, 1 TAB PO BID 10/13/23 Hydrochlorothiazide (Hydrochlorothiazide) 12.5 Mg Cap, 1 CAP PO DAILY 10/13/23 Losartan Potassium (Losartan Potassium) 50 Mg Tab, 1 TAB PO BID 10/13/23 Atorvastatin Calcium (ATORVASTATIN CALCIUM) 10 Mg Tab, 1 TAB PO DAILY 10/13/23 Sodium Sulfate-Magnesium Sulfa (Sutab 9090-725-501 mg) 1 Tab Tab, 1 TAB PO 10/13/23 Past Medical History Patient Family History: Patient reports no known family medical history. H&P Exam Vital Signs Vital Signs Date Time Temp Pulse Resp B/P (MAP) Pulse Ox O2 Delivery O2 Flow Rate FiO2 10/27/24 16:00 98.4 85 18 160/81 (107) 97 98.4 10/27/24 08:13 Room Air* 0 21 Labs/Xrays Labs Test 10/27/24 09:08 10/26/24 13:42 10/26/24 13:05 10/26/24 09:20 Range/Units White Blood Count 10.2 # 4.4-10.8 10^3/uL Red Blood Count 4.61 4.5-5.90 10^6/uL Hemoglobin 15.1 13.5-17.5 g/dL Hematocrit 42.8 41.0-53.0 % Mean Corpuscular Volume 92.9 80.0-100.0 fL Mean Corpuscular Hemoglobin 32.8 H 28.0-32.0 pg Mean Corpuscular Hemoglobin Concent 35.3 32.0-36.0 g/dL Red Cell Distribution Width 13.3 11.8-14.3 % Platelet Count 205 140-450 10^3/uL Mean Platelet Volume 8.5 6.9-10.8 fL Neutrophils (%) (Auto) 74.8 37.0-80.0 % Lymphocytes (%) (Auto) 15.4 10.0-50.0 % Monocytes (%) (Auto) 8.2 0.0-12.0 % Eosinophils (%) (Auto) 0.2 0.0-7.0 % Basophils (%) (Auto) 1.4 0.0-2.0 % Neutrophils # (Auto) 7.6 1.6-8.6 10 ^3/uL Lymphocytes # (Auto) 1.6 0.4-5.4 10 ^3/uL Monocytes # (Auto) 0.8 0-1.3 10 ^3/uL Eosinophils # (Auto) 0 0-0.8 10 ^3/uL Basophils # (Auto) 0.1 0-0.2 10 ^3/uL Nucleated Red Blood Cells 0.4 % Sodium Level 144 # 136-145 mmol/L Potassium Level 4.9 3.5-5.1 mmol/L Chloride Level 110 H 98-107 mmol/L Carbon Dioxide Level 21 20-31 mmol/L Anion Gap 13 5-15 Blood Urea Nitrogen 16 9-23 mg/dL Creatinine 1.34 H 0.700-1.30 mg/dL Glomerular Filtration Rate Calc 61 >90 mL/min BUN/Creatinine Ratio 11.9 10.0-20.0 Serum Glucose 105 74-106 mg/dL Calcium Level 10.0 8.7-10.4 mg/dL Total Bilirubin 0.4 0.2-1.0 mg/dL Aspartate Amino Transferase (AST) 52 H 13-40 U/L Alanine Aminotransferase (ALT) 57 H 7-40 U/L Alkaline Phosphatase 86 46-116 U/L Total Protein 7.0 5.7-8.2 g/dL Albumin 4.2 3.2-4.8 g/dL Phenytoin (Dilantin) Level 8.8 L 10-20 ug/mL Valproic Acid Level 49.4 L 50-100 ug/mL Troponin I High Sensitivity 16 </=54 ng/L Lactic Acid Level 1.3 0.4-2.0 mmol/L Urine Color Colorless Yellow Urine Clarity Turbid H Clear Urine pH 7.0 5.0-9.0 Urine Specific [place] 1.010 1.001-1.035 Urine Protein 1+ H Negative Urine Ketones Negative Negative Urine Blood 1+ H Negative /uL Urine Nitrite Negative Negative Urine Bilirubin Negative Negative Urine Urobilinogen Normal Negative mg/dL Urine Leukocyte Esterase 3+ Negative /uL Urine RBC 7 0 - 3 /hpf Urine WBC Clumps Present None Seen /hpf Urine Microscopic WBC 77 H 0-3 /HPF Urine Squamous Epithelial Cells Few <5 /hpf Urine Bacteria Few H None Seen /hpf Urine Mucus Few None Seen Urine Glucose Normal Normal mg/dL Microbiology Date/Time Source Procedure Growth Status 10/26/24 13:17 Blood Blood Culture - Preliminary NO GROWTH AFTER 24 HOURS OF INCUBATION. Resulted Assessment/Plan Problem List: (1) Malfunction of nephrostomy tube (2) Acute kidney injury (3) Metabolic encephalopathy Plan Assessment Left nephrolithiasis Bilateral hydronephrosis secondary to bladder outlet obstruction resolved with Bobby catheter insertion Neurogenic bladder Status post TURP Plan/Recommendation Patient needs to undergo left PCNL for the management of his kidney stones. He also requires catheter to be left in place due to bladder outlet obstruction from neurogenic bladder. I recommend discharging with an indwelling catheter and arranging for outpatient procedure if he consents to proceed Plan discussed with: Patient, Other Plan discussed with: Patient, Other MOJGAN GUERRA NP Oct 27, 2024 16:29 ROSA ELENA ROSSI MD Oct 28, 2024 09:34 COLT ARGUELLES NP Oct 28, 2024 16:16
--- NOTE | 2024-10-27 21:10 | DVHEEG2 ---
Neurology EEG Procedural Note Procedural Note EXAM DATE: 10/27/2024 REFERRING DOCTOR: Dr. Varghese TECHNIQUE: Eighteen channels of EEG, 2 channels of EOG, and 1 channel of EKG were recorded using the International 10/20 system. CLINICAL DATA: The patient was referred for an EEG evaluation for the evidence of seizure disorder. MEDICATIONS: See the chart BACKGROUND ACTIVITY: There was a lot of movement artifacts in the recording, the EEG appeared to be diffuse low amplitude theta and delta activity, possibly worse on the left side ACTIVATION: Hyperventilation: Not down Photic Stimulation: Not done Sleep: Not seen IMPRESSION: This is an inadequate, abnormal EEG, this EEG seen in cerebral dysfunction due to metabolic/hypoxic encephalopathy or medication effects, this EEG also showed evidence suggestive of structural pathology in the left hemispheres, please correlate clinically The EKG channel showed a regular heart rate of 72 per minute [place] [address] LEYLA VARGHESE MD Oct 27, 2024 21:10
[2024-10-27 21:39] VITALS: RESP 20; O2SAT 98
[2024-10-27] MEDS: ATORVASTATIN 20 MG TAB PO SCH (22:00)
[2024-10-27] MEDS: levETIRAcetam 1000 mg/100ml 100 ML IV ONE (22:50)
[2024-10-28] VITALS (24 sets, daily range): BP systolic 125–146; BP diastolic 59–96; PULSE 69–106; RESP 16–20; TEMP 97.9–100.6; O2SAT 93–97
[2024-10-28 06:18] LABS: Hematocrit 39.2 % (41.0-53.0); Hemoglobin 13.9 g/dL (13.5-17.5); Mean Corpuscular Hemoglobin 33.6 pg (28.0-32.0); Mean Corpuscular Volume 95.0 fL (80.0-100.0); Nucleated Red Blood Cells % 0.1 %
[2024-10-28 06:20] LABS: Anion Gap 11 (5-15); Carbon Dioxide 24 mmol/L (20-31); Potassium 3.6 mmol/L (3.5-5.1)
[2024-10-28 06:22] LABS: Calcium 9.6 mg/dL (8.7-10.4)
[2024-10-28 06:27] LABS: BUN/Creatinine Ratio 13.1 (10.0-20.0); Blood Urea Nitrogen 19 mg/dL (9-23); Magnesium 1.7 mg/dL (1.6-2.6)
[2024-10-28 06:34] LABS: Chloride 114 mmol/L (98-107); Glucose 108 mg/dL (74-106); Sodium 149 mmol/L (136-145)
[2024-10-28] MEDS: LORazepam 2MG/ML-1ML VIAL IV PRN (15:13)
[2024-10-28] MEDS: D5W/LACTATED RINGERS 1,000 ML IV SCH (15:45)
--- NOTE | 2024-10-28 17:10 | DVHPN2 ---
Subjective More alert Following commands Changes from previous H/P or p: Changes Eyes: No Pain, No Vision change, No Conjunctivae inflammation, No Eyelid inflammation, No Other, No Redness ENT: No Ear pain, No Ear discharge, No Nose pain, No Nose discharge, No Nose congestion, No Mouth pain, No Mouth swelling, No Throat pain, No Throat swelling, No Other Cardiovascular: No Chest Pain, No Palpitations, No Orthopnea, No Paroxysmal Noc. Dyspnea, No Edema, No Lt Headedness, No Other Respiratory: No Cough, No Dry, No Shortness of breath, No SOB with excertion, No Wheezing, No Hemoptysis, No Pleuritic Pain, No Sputum, No Other Gastrointestinal: No Nausea, No Vomiting, No Abdominal Pain, No Diarrhea, No Constipation, No Melena, No Hematochezia, No Other Genitourinary: No Dysuria, No Frequency, No Incontinence, No Hematuria, No Retention, No Other Musculoskeletal: No other, No neck pain, No shoulder pain, No arm pain, No back pain, No hand pain, No leg pain, No foot pain Skin: No Rash, No Lesions, No Jaundice, No Bruising, No Other Objective Vitals Vital Signs Date Time Temp Pulse Resp B/P (MAP) Pulse Ox O2 Delivery O2 Flow Rate FiO2 10/28/24 16:00 94 10/28/24 15:30 143/72 (95) 93 10/28/24 08:00 16 Room Air* 0 21 10/28/24 04:34 99.2 99.2 Intake/Output Intake and Output 10/28/24 07:00 Intake Total 2105.0 ml Output Total 2400 ml Balance -295.0 ml Intake Oral 0 ml IV Total 2105.0 ml Output Urine Total 1900 ml Other 500 ml General Appearance: Alert, Other Lungs: Clear to auscultation Cardiovascular: Regular rate, Normal S1, Normal S2 Abdomen: Normal bowel sounds, Soft, No tenderness Extremities: No edema Medications Current Medications Medications Dose Ordered Sig/Jazmin Route Start Time Stop Time Status Last Admin Dose Admin Ondansetron HCl 4 mg Q4HP PRN IV 10/26/24 13:45 Docusate Sodium 100 mg BIDPRN PRN PO 10/26/24 13:45 Nitroglycerin 0.4 mg Q5MINP PRN SL 10/26/24 13:45 Morphine Sulfate 2 mg Q30M PRN IV 10/26/24 13:45 Hydralazine HCl 10 mg Q6HP PRN IV 10/26/24 14:30 10/26/24 22:26 10 MG Cefepime HCl 50 ml @ 12.5 mls/hr Q12HR IV 10/26/24 22:00 10/28/24 10:21 12.5 MLS/HR Phenytoin Sodium 100 mg Q8HR IV 10/27/24 06:00 10/28/24 14:35 100 MG Valproate Sodium 500 mg/Sodium Chloride 105 ml @ 105 mls/hr TID IV 10/27/24 06:00 10/28/24 15:45 105 MLS/HR Aspirin 81 mg DAILY PO 10/27/24 10:00 10/28/24 10:22 81 MG Atorvastatin Calcium 10 mg HS PO 10/27/24 22:00 Levetiracetam 750 mg/Sodium Chloride 107.5 ml @ 430 mls/hr BID IV 10/27/24 10:00 10/28/24 10:27 430 MLS/HR Lorazepam 1 mg Q5MINP PRN IV 10/28/24 07:45 10/28/24 15:13 1 MG Dextrose/Lactated Ringer's 1,000 ml @ 75 mls/hr [id number] IV 10/28/24 10:45 10/28/24 15:45 75 MLS/HR Laboratory Results Laboratory Tests 10/28/24 04:00 Chemistry Test 10/28/24 04:00 Calcium Level 9.6 mg/dL (8.7-10.4) Magnesium Level 1.7 mg/dL (1.6-2.6) Urinalysis Test 10/26/24 09:20 Urine Color Colorless (Yellow) Urine Clarity Turbid (Clear) H Urine pH 7.0 (5.0-9.0) Urine Specific [place] 1.010 (1.001-1.035) Urine Protein 1+ (Negative) H Urine Ketones Negative (Negative) Urine Blood 1+ /uL (Negative) H Urine Nitrite Negative (Negative) Urine Bilirubin Negative (Negative) Urine Urobilinogen Normal mg/dL (Negative) Urine Leukocyte Esterase 3+ /uL (Negative) Urine RBC 7 /hpf (0 - 3) Urine WBC Clumps Present /hpf (None Seen) Urine Microscopic WBC 77 /HPF (0-3) H Urine Squamous Epithelial Cells Few /hpf (<5) Urine Bacteria Few /hpf (None Seen) H Urine Mucus Few (None Seen) Urine Glucose Normal mg/dL (Normal) Microbiology Microbiology Date/Time Source Procedure Growth Status 10/28/24 04:30 Nose MRSA Screen - Final Complete 10/26/24 13:17 Blood Blood Culture - Preliminary NO GROWTH AFTER 48 HOURS OF INCUBATION. Resulted Assessment/Plan Assessment/Plan Acute metabolic encephalopathy, Complicated UTI, ANNETTE due to VMN Hypertension, Seizures, Hyperlipidemia, Chronic kidney disease, As homeless dementia History of bilateral hydronephrosis History of CVA with right-sided deficit History of traumatic brain injury History of chronic idiopathic constipation History of COPD Prostatomegaly Plan: IV antibiotics cefepime IV fluids Keppra 750 mg twice a day Neurology consult Valproic acid 500 mg IV 3 times a day Urine culture Blood culture Urology consult Keep NPO for now until he is more alert and oriented Full code 10/28/24: PT eval Swallow eval Downgrade to Tele Hypernatremia: Change IV fluids Cefepime Keppra and Depakote IV Neurology consult Plan discussed with: Patient My Orders Orders - ABDOUL BLACKMON MD Procedure Category Date Status Time Pt Request For Service PT 10/28/24 Logged 10:45 * Swallow Request ST 10/28/24 Transmitted 10:45 D5w/Lactated Ringers PHA 10/28/24 In Process (D5wlr) 10:45 Date of Service: Oct 28, 2024 Billing Provider: ABDOUL BLACKMON MD Common Visit Codes: [id number] INP/OBS CARE(HIGH) ABDOUL BLACKMON MD Oct 28, 2024 17:10
[2024-10-29] VITALS (7 sets, daily range): BP systolic 90–152; BP diastolic 59–97; PULSE 73–96; RESP 17–19; TEMP 97.2–99; O2SAT 94–98
[2024-10-29 07:29] LABS: Albumin 3.9 g/dL (3.2-4.8); Alkaline Phosphatase 77 U/L (46-116); Anion Gap 11 (5-15); BUN/Creatinine Ratio 14.3 (10.0-20.0); Blood Urea Nitrogen 21 mg/dL (9-23); Calcium 9.8 mg/dL (8.7-10.4); Carbon Dioxide 23 mmol/L (20-31); Glucose 106 mg/dL (74-106); Magnesium 1.9 mg/dL (1.6-2.6); Potassium 3.8 mmol/L (3.5-5.1); Total Protein 6.5 g/dL (5.7-8.2)
[2024-10-29 07:30] LABS: Bilirubin, Total 0.5 mg/dL (0.2-1.0)
[2024-10-29 07:31] LABS: Alanine Aminotransferase 48 U/L (7-40); Chloride 120 mmol/L (98-107); Sodium 154 mmol/L (136-145)
[2024-10-29] MEDS: D5W 5% 1,000 ML IV SCH (10:11)
--- NOTE | 2024-10-29 10:35 | DVHPN2 ---
Subjective He is less alert today His sodium went up to 154 Creatinine went up to 1.47 He failed a swallow evaluation and therefore he is still NPO Changes from previous H/P or p: Changes Eyes: No Pain, No Vision change, No Conjunctivae inflammation, No Eyelid inflammation, No Other, No Redness ENT: No Ear pain, No Ear discharge, No Nose pain, No Nose discharge, No Nose congestion, No Mouth pain, No Mouth swelling, No Throat pain, No Throat swelling, No Other Cardiovascular: No Chest Pain, No Palpitations, No Orthopnea, No Paroxysmal Noc. Dyspnea, No Edema, No Lt Headedness, No Other Respiratory: No Cough, No Dry, No Shortness of breath, No SOB with excertion, No Wheezing, No Hemoptysis, No Pleuritic Pain, No Sputum, No Other Gastrointestinal: No Nausea, No Vomiting, No Abdominal Pain, No Diarrhea, No Constipation, No Melena, No Hematochezia, No Other Genitourinary: No Dysuria, No Frequency, No Incontinence, No Hematuria, No Retention, No Other Musculoskeletal: No other, No neck pain, No shoulder pain, No arm pain, No back pain, No hand pain, No leg pain, No foot pain Skin: No Rash, No Lesions, No Jaundice, No Bruising, No Other Objective Vitals Vital Signs Date Time Temp Pulse Resp B/P (MAP) Pulse Ox O2 Delivery O2 Flow Rate FiO2 10/29/24 08:00 18 96 Room Air* 0 21 10/29/24 01:00 98.2 80 90/60 (70) 98.2 Intake/Output Intake and Output 10/29/24 06:59 Intake Total 305 ml Output Total 1950 ml Balance -1645 ml IV Total 305 ml Output Urine Total 1550 ml Other 400 ml General Appearance: Alert, Other Lungs: Clear to auscultation Cardiovascular: Regular rate, Normal S1, Normal S2 Abdomen: Normal bowel sounds, Soft, No tenderness Extremities: No edema Medications Current Medications Medications Dose Ordered Sig/Jazmin Route Start Time Stop Time Status Last Admin Dose Admin Ondansetron HCl 4 mg Q4HP PRN IV 10/26/24 13:45 Docusate Sodium 100 mg BIDPRN PRN PO 10/26/24 13:45 Nitroglycerin 0.4 mg Q5MINP PRN SL 10/26/24 13:45 Morphine Sulfate 2 mg Q30M PRN IV 10/26/24 13:45 Hydralazine HCl 10 mg Q6HP PRN IV 10/26/24 14:30 10/26/24 22:26 10 MG Cefepime HCl 50 ml @ 12.5 mls/hr Q12HR IV 10/26/24 22:00 10/29/24 10:10 12.5 MLS/HR Phenytoin Sodium 100 mg Q8HR IV 10/27/24 06:00 10/29/24 06:41 100 MG Valproate Sodium 500 mg/Sodium Chloride 105 ml @ 105 mls/hr TID IV 10/27/24 06:00 10/29/24 06:41 105 MLS/HR Aspirin 81 mg DAILY PO 10/27/24 10:00 10/28/24 10:22 81 MG Atorvastatin Calcium 10 mg HS PO 10/27/24 22:00 Levetiracetam 750 mg/Sodium Chloride 107.5 ml @ 430 mls/hr BID IV 10/27/24 10:00 10/28/24 22:03 430 MLS/HR Lorazepam 1 mg Q5MINP PRN IV 10/28/24 07:45 10/28/24 15:13 1 MG Dextrose 1,000 ml @ 100 mls/hr Q10H IV 10/29/24 09:30 10/29/24 10:11 100 MLS/HR Laboratory Results Laboratory Tests 10/28/24 04:00 10/29/24 06:00 Chemistry Test 10/29/24 06:00 Albumin 3.9 g/dL (3.2-4.8) Calcium Level 9.8 mg/dL (8.7-10.4) Magnesium Level 1.9 mg/dL (1.6-2.6) Total Protein 6.5 g/dL (5.7-8.2) LFT Test 10/29/24 06:00 Alanine Aminotransferase (ALT) 48 U/L (7-40) H Alkaline Phosphatase 77 U/L (46-116) Aspartate Amino Transferase (AST) 42 U/L (13-40) H Total Bilirubin 0.5 mg/dL (0.2-1.0) Urinalysis Test 10/26/24 09:20 Urine Color Colorless (Yellow) Urine Clarity Turbid (Clear) H Urine pH 7.0 (5.0-9.0) Urine Specific [place] 1.010 (1.001-1.035) Urine Protein 1+ (Negative) H Urine Ketones Negative (Negative) Urine Blood 1+ /uL (Negative) H Urine Nitrite Negative (Negative) Urine Bilirubin Negative (Negative) Urine Urobilinogen Normal mg/dL (Negative) Urine Leukocyte Esterase 3+ /uL (Negative) Urine RBC 7 /hpf (0 - 3) Urine WBC Clumps Present /hpf (None Seen) Urine Microscopic WBC 77 /HPF (0-3) H Urine Squamous Epithelial Cells Few /hpf (<5) Urine Bacteria Few /hpf (None Seen) H Urine Mucus Few (None Seen) Urine Glucose Normal mg/dL (Normal) Microbiology Microbiology Date/Time Source Procedure Growth Status 10/28/24 04:30 Nose MRSA Screen - Final Complete 10/26/24 13:17 Blood Blood Culture - Preliminary NO GROWTH AFTER 48 HOURS OF INCUBATION. Resulted Assessment/Plan Assessment/Plan Acute metabolic encephalopathy, Complicated UTI, ANNETTE due to VMN Hypertension, Seizures, Hyperlipidemia, Chronic kidney disease, As homeless dementia History of bilateral hydronephrosis History of CVA with right-sided deficit History of traumatic brain injury History of chronic idiopathic constipation History of COPD Prostatomegaly Plan: IV antibiotics cefepime IV fluids Keppra 750 mg twice a day Neurology consult Valproic acid 500 mg IV 3 times a day Urine culture Blood culture Urology consult Keep NPO for now until he is more alert and oriented Full code 10/28/24: PT eval Swallow eval Downgrade to Tele Hypernatremia: Change IV fluids Cefepime Keppra and Depakote IV Neurology consult 10/29/2024: Hypernatremia: Change IV fluids to D5W Dehydration: Continue IV fluids Dysphagia: Repeat a swallow evaluation Seizures continue the seizure medications including Keppra and Depakote IV antibiotics cefepime Sitter at the bedside PT eval and swallow eval The rest of the management will depend on the hospital course Plan discussed with: Patient, Other My Orders Orders - ABDOUL BLACKMON MD Procedure Category Date Status Time Pt Request For Service PT 10/28/24 Logged 10:45 * Swallow Request ST 10/28/24 Transmitted 10:45 D5w 5% (Dextrose 5%) PHA 10/29/24 In Process 09:30 Date of Service: Oct 29, 2024 Billing Provider: ABDOUL BLACKMON MD Common Visit Codes: [id number] INP/OBS CARE(HIGH) ABDOUL BLACKMON MD Oct 29, 2024 10:34
[2024-10-30] VITALS (9 sets, daily range): BP systolic 139–166; BP diastolic 78–107; PULSE 50–99; RESP 18–21; TEMP 97.6–98.6; O2SAT 90–98
[2024-10-30 06:52] LABS: Alkaline Phosphatase 82 U/L (46-116); Anion Gap 11 (5-15); BUN/Creatinine Ratio 14.0 (10.0-20.0); Blood Urea Nitrogen 20 mg/dL (9-23); Calcium 9.6 mg/dL (8.7-10.4); Carbon Dioxide 25 mmol/L (20-31); Magnesium 2.0 mg/dL (1.6-2.6); Potassium 3.9 mmol/L (3.5-5.1); Total Protein 6.5 g/dL (5.7-8.2)
[2024-10-30 06:53] LABS: Albumin 4.0 g/dL (3.2-4.8); Bilirubin, Total 0.4 mg/dL (0.2-1.0)
[2024-10-30 06:56] LABS: Alanine Aminotransferase 44 U/L (7-40); Chloride 119 mmol/L (98-107); Glucose 128 mg/dL (74-106); Sodium 155 mmol/L (136-145)
--- NOTE | 2024-10-30 10:58 | DVHPN2 ---
Subjective He is still not eating or drinking He is NPO His sodium he is still very high at 155 and creatinine 1.4 even though he is receiving D5W Changes from previous H/P or p: Changes Eyes: No Pain, No Vision change, No Conjunctivae inflammation, No Eyelid inflammation, No Other, No Redness ENT: No Ear pain, No Ear discharge, No Nose pain, No Nose discharge, No Nose congestion, No Mouth pain, No Mouth swelling, No Throat pain, No Throat swelling, No Other Cardiovascular: No Chest Pain, No Palpitations, No Orthopnea, No Paroxysmal Noc. Dyspnea, No Edema, No Lt Headedness, No Other Respiratory: No Cough, No Dry, No Shortness of breath, No SOB with excertion, No Wheezing, No Hemoptysis, No Pleuritic Pain, No Sputum, No Other Gastrointestinal: No Nausea, No Vomiting, No Abdominal Pain, No Diarrhea, No Constipation, No Melena, No Hematochezia, No Other Genitourinary: No Dysuria, No Frequency, No Incontinence, No Hematuria, No Retention, No Other Musculoskeletal: No other, No neck pain, No shoulder pain, No arm pain, No back pain, No hand pain, No leg pain, No foot pain Skin: No Rash, No Lesions, No Jaundice, No Bruising, No Other Objective Vitals Vital Signs Date Time Temp Pulse Resp B/P (MAP) Pulse Ox O2 Delivery O2 Flow Rate FiO2 10/30/24 08:00 18 96 Room Air* 0 21 10/30/24 05:00 97.8 73 144/78 (100) 97.8 Intake/Output Intake and Output 10/30/24 06:59 Intake Total 667.5 ml Output Total 2050 ml Balance -1382.5 ml Intake Oral 0 ml IV Total 667.5 ml Output Urine Total 1750 ml Drainage Total 300 ml General Appearance: Alert, Other Lungs: Clear to auscultation Cardiovascular: Regular rate, Normal S1, Normal S2 Abdomen: Normal bowel sounds, Soft, No tenderness Extremities: No edema Medications Current Medications Medications Dose Ordered Sig/Jazmin Route Start Time Stop Time Status Last Admin Dose Admin Ondansetron HCl 4 mg Q4HP PRN IV 10/26/24 13:45 Docusate Sodium 100 mg BIDPRN PRN PO 10/26/24 13:45 Nitroglycerin 0.4 mg Q5MINP PRN SL 10/26/24 13:45 Morphine Sulfate 2 mg Q30M PRN IV 10/26/24 13:45 Hydralazine HCl 10 mg Q6HP PRN IV 10/26/24 14:30 10/26/24 22:26 10 MG Cefepime HCl 50 ml @ 12.5 mls/hr Q12HR IV 10/26/24 22:00 10/29/24 23:29 12.5 MLS/HR Phenytoin Sodium 100 mg Q8HR IV 10/27/24 06:00 10/30/24 05:59 100 MG Valproate Sodium 500 mg/Sodium Chloride 105 ml @ 105 mls/hr TID IV 10/27/24 06:00 10/30/24 05:57 105 MLS/HR Aspirin 81 mg DAILY PO 10/27/24 10:00 10/28/24 10:22 81 MG Atorvastatin Calcium 10 mg HS PO 10/27/24 22:00 Levetiracetam 750 mg/Sodium Chloride 107.5 ml @ 430 mls/hr BID IV 10/27/24 10:00 10/29/24 23:29 430 MLS/HR Lorazepam 1 mg Q5MINP PRN IV 10/28/24 07:45 10/28/24 15:13 1 MG Dextrose 1,000 ml @ 100 mls/hr Q10H IV 10/29/24 09:30 10/29/24 23:30 100 MLS/HR Laboratory Results Laboratory Tests 10/28/24 04:00 10/30/24 06:08 Chemistry Test 10/30/24 06:08 Albumin 4.0 g/dL (3.2-4.8) Calcium Level 9.6 mg/dL (8.7-10.4) Magnesium Level 2.0 mg/dL (1.6-2.6) Total Protein 6.5 g/dL (5.7-8.2) LFT Test 10/30/24 06:08 Alanine Aminotransferase (ALT) 44 U/L (7-40) H Alkaline Phosphatase 82 U/L (46-116) Aspartate Amino Transferase (AST) 34 U/L (13-40) Total Bilirubin 0.4 mg/dL (0.2-1.0) Urinalysis Test 10/26/24 09:20 Urine Color Colorless (Yellow) Urine Clarity Turbid (Clear) H Urine pH 7.0 (5.0-9.0) Urine Specific [place] 1.010 (1.001-1.035) Urine Protein 1+ (Negative) H Urine Ketones Negative (Negative) Urine Blood 1+ /uL (Negative) H Urine Nitrite Negative (Negative) Urine Bilirubin Negative (Negative) Urine Urobilinogen Normal mg/dL (Negative) Urine Leukocyte Esterase 3+ /uL (Negative) Urine RBC 7 /hpf (0 - 3) Urine WBC Clumps Present /hpf (None Seen) Urine Microscopic WBC 77 /HPF (0-3) H Urine Squamous Epithelial Cells Few /hpf (<5) Urine Bacteria Few /hpf (None Seen) H Urine Mucus Few (None Seen) Urine Glucose Normal mg/dL (Normal) Microbiology Microbiology Date/Time Source Procedure Growth Status 10/28/24 04:30 Nose MRSA Screen - Final Complete 10/26/24 13:17 Blood Blood Culture - Preliminary NO GROWTH AFTER 72 HOURS OF INCUBATION. Resulted Assessment/Plan Assessment/Plan Acute metabolic encephalopathy, Complicated UTI, ANNETTE due to VMN Hypertension, Seizures, Hyperlipidemia, Chronic kidney disease, As homeless dementia History of bilateral hydronephrosis History of CVA with right-sided deficit History of traumatic brain injury History of chronic idiopathic constipation History of COPD Prostatomegaly Plan: IV antibiotics cefepime IV fluids Keppra 750 mg twice a day Neurology consult Valproic acid 500 mg IV 3 times a day Urine culture Blood culture Urology consult Keep NPO for now until he is more alert and oriented Full code 10/28/24: PT eval Swallow eval Downgrade to Tele Hypernatremia: Change IV fluids Cefepime Keppra and Depakote IV Neurology consult 10/29/2024: Hypernatremia: Change IV fluids to D5W Dehydration: Continue IV fluids Dysphagia: Repeat a swallow evaluation Seizures continue the seizure medications including Keppra and Depakote IV antibiotics cefepime Sitter at the bedside PT eval and swallow eval The rest of the management will depend on the hospital course 10/30/2024: Hypernatremia, not better: The patient needs free water Place NG tube and start free water Continue D5W IV fluids Repeat a swallow eval IV antibiotics Monitor closely Plan discussed with: Patient Date of Service: Oct 30, 2024 Billing Provider: ABDOUL BLACKMON MD Common Visit Codes: [id number] INP/OBS CARE(HIGH) ABDOUL BLACKMON MD Oct 30, 2024 10:58
--- NOTE | 2024-10-30 13:04 | DVH ---
CHEST RADIOGRAPH Indication: NG TUBE PLACEMENT Technique: Single frontal view of the chest was obtained Comparison: XY CHEST PORTABLE on DOS: 10/26/24, XY CHEST XRAY 1 VIEW on DOS: 10/10/24, XY CHEST XRAY 1 VIEW on DOS: 11/17/23, XY CHEST XRAY 1 VIEW on DOS: 10/16/23 FINDINGS: Lines and Tubes: NG tube in stomach Lungs: No focal consolidation. Pleura: No effusion. No pneumothorax. Cardiomediastinal contours: Unremarkable Bones: No acute osseous abnormality. IMPRESSION: No acute cardiopulmonary disease.
[2024-10-30] MEDS: FREE WATER GT SCH (15:17)
--- NOTE | 2024-10-30 19:34 | DVHPN2 ---
Progress Note - Dictate Date Seen: Oct 30, 2024 Medical Necessity Reason Pt with a Central, PICC or Fol: Yes The following are medically ne: Bobby Catheter Subjective Mr. Palmer is a 59 years old gentleman with a history of mental retardation, hypertension, chronic kidney failure, BPH, kidney stone, was brought to the [facility] on 10/26/2024 with a chief complaint of seizure activity I saw him on 11/22/2023 for seizure I have seen and examined the patient along with her nurse, he is awake, reasonable social skills, he tracks, but he does not vocalize He has almost continuous jerking in the right facial muscles and right upper extremity Otherwise she does not move the right extremities Urinalysis, 10/26/2024: WBC: 77, urine leukocyte esterase: 3+ Dilantin, 10/17/2023: 16.1, 10/27/24: 8.8 Depakote, 11/18/2023: CBC, 10/26/2024: Unremarkable BUN/CR, 11/22/2023: 16/1.33, 10/26/2024: 15/1.48 GFR, 10/26/2024: 54 TG/HDL/LDL/HDL, 09/2023: 76/159/79/68 EEG, 10/09/2024: Inadequate but abnormal EEG consistent with encephalopathy Chest x-ray, 10/30/2024: No acute cardiopulmonary disease. 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 No acute intracranial abnormality CT head, 10/26/2024: No acute intracranial abnormality. (encephalomalacia in the left hemisphere) vital signs Vital Sign Date Time Temp Pulse Resp B/P (MAP) Pulse Ox O2 Delivery O2 Flow Rate FiO2 10/30/24 17:41 139/92 (108) 10/30/24 16:57 98.6 99 21 90 98.6 10/30/24 08:00 Room Air* 0 21 Total Intake and Output 10/29/24 10/29/24 10/30/24 15:00 23:00 07:00 Intake Total 667.5 ml 0 ml 0 ml Output Total 900 ml 1150 ml Balance 667.5 ml -900 ml -1150 ml medications Current Medications Medications Dose Ordered Sig/Jazmin Route Start Time Stop Time Status Last Admin Dose Admin Ondansetron HCl 4 mg Q4HP PRN IV 10/26/24 13:45 Docusate Sodium 100 mg BIDPRN PRN PO 10/26/24 13:45 Nitroglycerin 0.4 mg Q5MINP PRN SL 10/26/24 13:45 Morphine Sulfate 2 mg Q30M PRN IV 10/26/24 13:45 Hydralazine HCl 10 mg Q6HP PRN IV 10/26/24 14:30 10/26/24 22:26 10 MG Cefepime HCl 50 ml @ 12.5 mls/hr Q12HR IV 10/26/24 22:00 10/30/24 11:09 12.5 MLS/HR Phenytoin Sodium 100 mg Q8HR IV 10/27/24 06:00 10/30/24 15:02 100 MG Valproate Sodium 500 mg/Sodium Chloride 105 ml @ 105 mls/hr TID IV 10/27/24 06:00 10/30/24 15:02 105 MLS/HR Aspirin 81 mg DAILY PO 10/27/24 10:00 10/28/24 10:22 81 MG Atorvastatin Calcium 10 mg HS PO 10/27/24 22:00 Levetiracetam 750 mg/Sodium Chloride 107.5 ml @ 430 mls/hr BID IV 10/27/24 10:00 10/30/24 10:00 430 MLS/HR Lorazepam 1 mg Q5MINP PRN IV 10/28/24 07:45 10/28/24 15:13 1 MG Dextrose 1,000 ml @ 100 mls/hr Q10H IV 10/29/24 09:30 10/30/24 15:57 100 MLS/HR Purified Water 250 ml Q6HR GT 10/30/24 12:00 10/30/24 17:45 250 ML objective General: the patient is well developed and nourished. No acute distress. MENTAL STATUS: Subjective SPEECH, LANGUAGE, HIGHER CORTICAL FUNCTION: He does not vocalize CRANIAL NERVES: Pupils are equal, round and reactive. EOMs full and conjugate. Facial sensation intact in all three divisions bilaterally. Mandibular strength intact. Facial muscles symmetrical and strength intact. SENSATION: Sensation to touch and pinprick is okay MOTOR: Increased muscle tone in the right arm than leg. Normal muscle bulk. No fasciculations. He only moves the left arm and leg REFLEXES: Deep tendon reflexes are symmetrical. No pathological reflexes. CEREBELLAR/COORDINATION: Deferred GAIT/STATION: deferred. laboratory and microbiology Laboratory Tests 10/30/24 06:08 10/28/24 04:00 Test 10/30/24 06:08 Range/Units Serum Glucose 128 H 74-106 mg/dL Problem List Seizure disorder with seizure breakthrough ? Partial continuous epilepsy Altered mental status Metabolic encephalopathy Subclinical seizure Mental retardation Gait disturbance ? secondary to mental retardation and history of stroke Reported stroke Agitation Kidney stone Assessment/Plan Monitoring Supportive treatment Telemetry Dilantin level Follow-up EEG Extra Dilantin 500 mg IV ASA 81 mg qd Lipitor 10 mg daily Depakote 500 mg t.i.d. Keppra 750 mg b.i.d. Dilantin 100 mg t.i.d Ativan for seizure breakthrough This medical document was created using an electronic medical record system with [employer] dictation system. Although this document has been carefully reviewed, there may still be some phonetic and typographical errors. These areas are purely typographical due to imperfections of the software programs, and do not reflect any compromise in the patient's medical care. Prognosis poor Dietary Evaluation Review Comments: 1. TF if EN/GI accessible, Nepro@30ml/hr providing 58g Protein, 1274 kcal and 523ml free water, supporting 100% protein needs and 73% energy needs 2. TPN per pharmacy if NPO>7 days 3. reassess needs after pt pass a ELEVATOR REPAIR MECHANIC eval. Expected Outcomes/Goals: prevent further wt loss, avoid uremic syndrome Plan discussed with: Other Total Time (mins): 40 LEYLA VARGHESE MD Oct 30, 2024 19:34
[2024-10-30] MEDS: PHENYTOIN IV DILANTIN 500 MG in SODIUM CHL 0.9% 100 ML IV ONE (20:45)
[2024-10-30] MEDS ORDERED: ARIP2TAB PO (21:47)
[2024-10-30] MEDS ORDERED: GUAI100S6 PO (22:02)
[2024-10-30] MEDS ORDERED: PHEN50CH8 PO (22:02)
[2024-10-30] MEDS ORDERED: NITR50CA52 PO (22:02)
[2024-10-30] MEDS ORDERED: KEP500T PO (22:02)
[2024-10-30] MEDS ORDERED: QUET100T47 PO (22:02)
[2024-10-30] MEDS ORDERED: PALI3TAB PO (22:02)
[2024-10-30] MEDS ORDERED: QUET200T45 PO (22:02)
[2024-10-30] MEDS ORDERED: CRAN500C7 PO (22:02)
[2024-10-30] MEDS ORDERED: METH118C PO (22:02)
[2024-10-30] MEDS ORDERED: MOME1AER3 INH (22:02)
[2024-10-30] MEDS ORDERED: TRAZ-227 PO (22:02)
[2024-10-30] MEDS ORDERED: AML5T PO (22:02)
[2024-10-30] MEDS ORDERED: FINA5TAB4 PO (22:02)
[2024-10-30] MEDS ORDERED: BACL10TA PO (22:02)
[2024-10-30] MEDS ORDERED: NIAC500T89 PO (22:02)
[2024-10-30] MEDS ORDERED: DOCU-94 PO (22:02)
[2024-10-30] MEDS ORDERED: FOLI-119 PO (22:02)
[2024-10-30] MEDS ORDERED: OMEP20TA PO (22:02)
[2024-10-30] MEDS ORDERED: DIVA500T13 PO (22:02)
[2024-10-30] MEDS ORDERED: LOPE-20 PO (22:02)
[2024-10-30] MEDS ORDERED: POLY335015 PO (22:02)
[2024-10-30] MEDS ORDERED: CHOL20007 PO (22:02)
[2024-10-30] MEDS ORDERED: METO25TA5 PO (22:02)
[2024-10-31] VITALS (8 sets, daily range): BP systolic 118–152; BP diastolic 70–93; PULSE 74–100; RESP 17–19; TEMP 97.4–98.3; O2SAT 95–98
[2024-10-31 07:43] LABS: Alanine Aminotransferase 36 U/L (7-40); Albumin 4.0 g/dL (3.2-4.8); Alkaline Phosphatase 85 U/L (46-116); Anion Gap 12 (5-15); BUN/Creatinine Ratio 14.5 (10.0-20.0); Bilirubin, Total 0.4 mg/dL (0.2-1.0); Blood Urea Nitrogen 20 mg/dL (9-23); Calcium 9.5 mg/dL (8.7-10.4); Carbon Dioxide 23 mmol/L (20-31); Magnesium 2.1 mg/dL (1.6-2.6); Potassium 4.1 mmol/L (3.5-5.1); Total Protein 6.5 g/dL (5.7-8.2)
[2024-10-31 07:44] LABS: Chloride 118 mmol/L (98-107); Glucose 119 mg/dL (74-106); Sodium 153 mmol/L (136-145)
[2024-10-31] MEDS: FREE WATER GT SCH (11:45)
--- NOTE | 2024-10-31 12:21 | DVHPN2 ---
Subjective Doing well More alert and oriented Sodium is still high at 153 Creatinine is down to 1.3 He is receiving free water in the NG tube and D5W IV Changes from previous H/P or p: Changes Eyes: No Pain, No Vision change, No Conjunctivae inflammation, No Eyelid inflammation, No Other, No Redness ENT: No Ear pain, No Ear discharge, No Nose pain, No Nose discharge, No Nose congestion, No Mouth pain, No Mouth swelling, No Throat pain, No Throat swelling, No Other Cardiovascular: No Chest Pain, No Palpitations, No Orthopnea, No Paroxysmal Noc. Dyspnea, No Edema, No Lt Headedness, No Other Respiratory: No Cough, No Dry, No Shortness of breath, No SOB with excertion, No Wheezing, No Hemoptysis, No Pleuritic Pain, No Sputum, No Other Gastrointestinal: No Nausea, No Vomiting, No Abdominal Pain, No Diarrhea, No Constipation, No Melena, No Hematochezia, No Other Genitourinary: No Dysuria, No Frequency, No Incontinence, No Hematuria, No Retention, No Other Musculoskeletal: No other, No neck pain, No shoulder pain, No arm pain, No back pain, No hand pain, No leg pain, No foot pain Skin: No Rash, No Lesions, No Jaundice, No Bruising, No Other Objective Vitals Vital Signs Date Time Temp Pulse Resp B/P (MAP) Pulse Ox O2 Delivery O2 Flow Rate FiO2 10/31/24 08:00 18 96 Room Air* 0 21 10/31/24 05:00 97.4 93 138/75 (96) 97.4 Intake/Output Intake and Output 10/31/24 07:00 Intake Total 3797.5 ml Output Total 1300 ml Balance 2497.5 ml Intake Oral 0 ml IV Total 3297.5 ml Tube Feeding 500 ml Output Urine Total 900 ml Drainage Total 400 ml General Appearance: Alert, Other Lungs: Clear to auscultation Cardiovascular: Regular rate, Normal S1, Normal S2 Abdomen: Normal bowel sounds, Soft, No tenderness Extremities: No edema Medications Current Medications Medications Dose Ordered Sig/Jazmin Route Start Time Stop Time Status Last Admin Dose Admin Ondansetron HCl 4 mg Q4HP PRN IV 10/26/24 13:45 Docusate Sodium 100 mg BIDPRN PRN PO 10/26/24 13:45 Nitroglycerin 0.4 mg Q5MINP PRN SL 10/26/24 13:45 Morphine Sulfate 2 mg Q30M PRN IV 10/26/24 13:45 Hydralazine HCl 10 mg Q6HP PRN IV 10/26/24 14:30 10/30/24 22:40 10 MG Cefepime HCl 50 ml @ 12.5 mls/hr Q12HR IV 10/26/24 22:00 10/31/24 10:16 12.5 MLS/HR Phenytoin Sodium 100 mg Q8HR IV 10/27/24 06:00 10/31/24 05:28 100 MG Aspirin 81 mg DAILY PO 10/27/24 10:00 10/28/24 10:22 81 MG Atorvastatin Calcium 10 mg HS PO 10/27/24 22:00 Levetiracetam 750 mg/Sodium Chloride 107.5 ml @ 430 mls/hr BID IV 10/27/24 10:00 10/31/24 10:00 430 MLS/HR Lorazepam 1 mg Q5MINP PRN IV 10/28/24 07:45 10/28/24 15:13 1 MG Dextrose 1,000 ml @ 100 mls/hr Q10H IV 10/29/24 09:30 10/30/24 15:57 100 MLS/HR Purified Water 300 ml Q4HR GT 10/31/24 11:45 UNV Valproate Sodium 1000 mg/Sodium Chloride 110 ml @ 110 mls/hr BID IV 10/31/24 22:00 UNV Laboratory Results Laboratory Tests 10/28/24 04:00 10/31/24 05:59 Chemistry Test 10/31/24 05:59 Albumin 4.0 g/dL (3.2-4.8) Calcium Level 9.5 mg/dL (8.7-10.4) Magnesium Level 2.1 mg/dL (1.6-2.6) Total Protein 6.5 g/dL (5.7-8.2) LFT Test 10/31/24 05:59 Alanine Aminotransferase (ALT) 36 U/L (7-40) Alkaline Phosphatase 85 U/L (46-116) Aspartate Amino Transferase (AST) 32 U/L (13-40) Total Bilirubin 0.4 mg/dL (0.2-1.0) Urinalysis Test 10/26/24 09:20 Urine Color Colorless (Yellow) Urine Clarity Turbid (Clear) H Urine pH 7.0 (5.0-9.0) Urine Specific [place] 1.010 (1.001-1.035) Urine Protein 1+ (Negative) H Urine Ketones Negative (Negative) Urine Blood 1+ /uL (Negative) H Urine Nitrite Negative (Negative) Urine Bilirubin Negative (Negative) Urine Urobilinogen Normal mg/dL (Negative) Urine Leukocyte Esterase 3+ /uL (Negative) Urine RBC 7 /hpf (0 - 3) Urine WBC Clumps Present /hpf (None Seen) Urine Microscopic WBC 77 /HPF (0-3) H Urine Squamous Epithelial Cells Few /hpf (<5) Urine Bacteria Few /hpf (None Seen) H Urine Mucus Few (None Seen) Urine Glucose Normal mg/dL (Normal) Microbiology Microbiology Date/Time Source Procedure Growth Status 10/28/24 04:30 Nose MRSA Screen - Final Complete 10/26/24 13:17 Blood Blood Culture - Preliminary NO GROWTH AFTER 72 HOURS OF INCUBATION. Resulted Assessment/Plan Assessment/Plan Acute metabolic encephalopathy, Complicated UTI, ANNETTE due to VMN Hypertension, Seizures, Hyperlipidemia, Chronic kidney disease, As homeless dementia History of bilateral hydronephrosis History of CVA with right-sided deficit History of traumatic brain injury History of chronic idiopathic constipation History of COPD Prostatomegaly Plan: IV antibiotics cefepime IV fluids Keppra 750 mg twice a day Neurology consult Valproic acid 500 mg IV 3 times a day Urine culture Blood culture Urology consult Keep NPO for now until he is more alert and oriented Full code 10/28/24: PT eval Swallow eval Downgrade to Tele Hypernatremia: Change IV fluids Cefepime Keppra and Depakote IV Neurology consult 10/29/2024: Hypernatremia: Change IV fluids to D5W Dehydration: Continue IV fluids Dysphagia: Repeat a swallow evaluation Seizures continue the seizure medications including Keppra and Depakote IV antibiotics cefepime Sitter at the bedside PT eval and swallow eval The rest of the management will depend on the hospital course 10/30/2024: Hypernatremia, not better: The patient needs free water Place NG tube and start free water Continue D5W IV fluids Repeat a swallow eval IV antibiotics Monitor closely 10/31/2024: Hypernatremia: Continue free water, increase the amount, continue D5W Acute kidney injury: Continue IV fluids Left nephrolithiasis status post nephrostomy tube, the patient will need lithotripsy, urology is following, possibly once he is medically stable Seizure disorder: Continue Keppra and Depakote and Dilantin Metabolic encephalopathy Hypertension Complicated UTI: Discontinue cefepime History of CVA with right-sided deficit History of traumatic brain injury Discussed with the sister and caregiver at the bedside Plan discussed with: Patient, Other My Orders Orders - ABDOUL BLACKMON MD Procedure Category Date Status Time Chest Xray 1 View XY 10/30/24 Resulted 12:19 * Swallow Request ST 10/31/24 Transmitted 10:30 Free Water PHA 10/31/24 Logged 11:45 Valproate Inj PHA 10/31/24 Logged ([facility]) 22:00 Insert Midline ORDERS 10/31/24 Transmitted 11:54 Date of Service: Oct 31, 2024 Billing Provider: ABDOUL BLACKMON MD Common Visit Codes: [id number] INP/OBS CARE(HIGH) ABDOUL BLACKMON MD Oct 31, 2024 12:21
[2024-10-31] MEDS: VALPROATE INJ 1,000 MG in SODIUM CHL 0.9% 100 ML IV SCH (22:24)
--- NOTE | 2024-10-31 23:07 | DVHPN2 ---
Progress Note - Dictate Date Seen: Oct 31, 2024 Medical Necessity Reason Pt with a Central, PICC or Fol: Yes The following are medically ne: Bobby Catheter Subjective Mr. Palmer is a 59 years old gentleman with a history of mental retardation, hypertension, chronic kidney failure, BPH, kidney stone, was brought to the [facility] on 10/26/2024 with a chief complaint of seizure activity I saw him on 11/22/2023 for seizure I have seen and examined the patient along with her nurse, he is awake, he tracks, he responds to verbal stimuli He has intermittent myoclonus in the arms, shoulders, with the right-sided much more affected Urinalysis, 10/26/2024: WBC: 77, urine leukocyte esterase: 3+ Dilantin, 10/17/2023: 16.1, 10/27/24: 8.8, 10/30/24: 15.4, 10/31/2024: 11.2 Depakote, 11/18/2023: CBC, 10/26/2024: Unremarkable Na, 10/27/24: 144, 10/28/24: 149, 10/29/2024: 154, 10/30/2024: 155, 10/31/2024: 153 BUN/CR, 11/22/2023: 16/1.33, 10/26/2024: 15/1.48 GFR, 10/26/2024: 54 TG/HDL/LDL/HDL, 09/2023: 76/159/79/68 EEG, 10/09/2024: Inadequate but abnormal EEG consistent with encephalopathy Chest x-ray, 10/30/2024: No acute cardiopulmonary disease. 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 No acute intracranial abnormality CT head, 10/26/2024: No acute intracranial abnormality. (encephalomalacia in the left hemisphere) vital signs Vital Sign Date Time Temp Pulse Resp B/P (MAP) Pulse Ox O2 Delivery O2 Flow Rate FiO2 10/31/24 21:00 98.2 75 17 130/87 (101) 98 98.2 10/31/24 08:00 Room Air* 0 21 Total Intake and Output 10/30/24 10/30/24 10/31/24 15:00 23:00 07:00 Intake Total 1367.5 ml 1670.0 ml 760 ml Output Total 400 ml 900 ml Balance 1367.5 ml 1270.0 ml -140 ml medications Current Medications Medications Dose Ordered Sig/Jazmin Route Start Time Stop Time Status Last Admin Dose Admin Ondansetron HCl 4 mg Q4HP PRN IV 10/26/24 13:45 Docusate Sodium 100 mg BIDPRN PRN PO 10/26/24 13:45 Nitroglycerin 0.4 mg Q5MINP PRN SL 10/26/24 13:45 Morphine Sulfate 2 mg Q30M PRN IV 10/26/24 13:45 Hydralazine HCl 10 mg Q6HP PRN IV 10/26/24 14:30 10/30/24 22:40 10 MG Phenytoin Sodium 100 mg Q8HR IV 10/27/24 06:00 10/31/24 22:21 100 MG Aspirin 81 mg DAILY PO 10/27/24 10:00 10/28/24 10:22 81 MG Atorvastatin Calcium 10 mg HS PO 10/27/24 22:00 Levetiracetam 750 mg/Sodium Chloride 107.5 ml @ 430 mls/hr BID IV 10/27/24 10:00 10/31/24 22:26 430 MLS/HR Lorazepam 1 mg Q5MINP PRN IV 10/28/24 07:45 10/28/24 15:13 1 MG Dextrose 1,000 ml @ 100 mls/hr Q10H IV 10/29/24 09:30 10/31/24 22:18 100 MLS/HR Purified Water 300 ml Q4HR GT 10/31/24 11:45 10/31/24 22:26 300 ML Valproate Sodium 1000 mg/Sodium Chloride 110 ml @ 110 mls/hr BID IV 10/31/24 22:00 10/31/24 22:24 110 MLS/HR objective General: the patient is well developed and nourished. No acute distress. MENTAL STATUS: Subjective SPEECH, LANGUAGE, HIGHER CORTICAL FUNCTION: He does not vocalize CRANIAL NERVES: Pupils are equal, round and reactive. EOMs full and conjugate. Facial sensation intact in all three divisions bilaterally. Mandibular strength intact. Facial muscles symmetrical and strength intact. SENSATION: Sensation to touch and pinprick is okay MOTOR: Increased muscle tone in the right arm than leg. Normal muscle bulk. No fasciculations. He only moves the left arm and leg REFLEXES: Deep tendon reflexes are symmetrical. No pathological reflexes. CEREBELLAR/COORDINATION: Deferred GAIT/STATION: deferred. laboratory and microbiology Laboratory Tests 10/31/24 05:59 10/28/24 04:00 Test 10/31/24 05:59 Range/Units Serum Glucose 119 H 74-106 mg/dL Problem List Seizure disorder with seizure breakthrough ? Partial continuous epilepsy Myoclonus Altered mental status Metabolic encephalopathy Subclinical seizure Mental retardation Gait disturbance ? secondary to mental retardation and history of stroke Reported stroke Agitation Kidney stone Assessment/Plan Monitoring Supportive treatment Telemetry Follow-up EEG ASA 81 mg qd Lipitor 10 mg daily Depakote 500 mg t.i.d. Keppra 750 mg b.i.d. Dilantin 100 mg t.i.d Ativan for seizure breakthrough This medical document was created using an electronic medical record system with [employer] dictation system. Although this document has been carefully reviewed, there may still be some phonetic and typographical errors. These areas are purely typographical due to imperfections of the software programs, and do not reflect any compromise in the patient's medical care. Prognosis poor Dietary Evaluation Review Comments: 1. TF if EN/GI accessible, Nepro@30ml/hr providing 58g Protein, 1274 kcal and 523ml free water, supporting 100% protein needs and 73% energy needs 2. TPN per pharmacy if NPO>7 days 3. reassess needs after pt pass a REHAB PHYSICIAN eval. Expected Outcomes/Goals: prevent further wt loss, avoid uremic syndrome Plan discussed with: Other LEYLA VARGHESE MD Oct 31, 2024 23:07
[2024-11-01] VITALS (7 sets, daily range): BP systolic 111–146; BP diastolic 72–95; PULSE 68–78; RESP 16–17; TEMP 97.7–98.9; O2SAT 96–99
--- NOTE | 2024-11-01 00:41 | DVHEEG2 ---
Neurology EEG Procedural Note Procedural Note EXAM DATE: 10/31/2024 REFERRING DOCTOR: Dr. Varghese TECHNIQUE: Eighteen channels of EEG, 2 channels of EOG, and 1 channel of EKG were recorded using the [employer] 10/20 system. CLINICAL DATA: The patient was referred for an EEG evaluation for the evidence of seizure disorder. MEDICATIONS: See the chart BACKGROUND ACTIVITY: This EEG showed diffuse theta and delta activity over both hemispheres, taken she noticed seizure-like activity but only with associated movement/electrode artifacts, but no evidence of electrographic seizures ACTIVATION: Hyperventilation: Not done Photic Stimulation: Not done Sleep: Not a seen IMPRESSION: This is a mildly abnormal EEG, this EEG is seen in mild cerebral dysfunction due to metabolic/hypoxic encephalopathy or medication effect, please correlate clinically. The seizure-like activity, in the absence of EEG correlation, is not epileptic in nature The EKG channel showed a regular heart rate of 78 per [place] [address] LEYLA VARGHESE MD Nov 01, 2024 00:41
--- NOTE | 2024-11-01 09:35 | DVHPN2 ---
Subjective More alert Labs are still pending today Changes from previous H/P or p: Changes Eyes: No Pain, No Vision change, No Conjunctivae inflammation, No Eyelid inflammation, No Other, No Redness ENT: No Ear pain, No Ear discharge, No Nose pain, No Nose discharge, No Nose congestion, No Mouth pain, No Mouth swelling, No Throat pain, No Throat swelling, No Other Cardiovascular: No Chest Pain, No Palpitations, No Orthopnea, No Paroxysmal Noc. Dyspnea, No Edema, No Lt Headedness, No Other Respiratory: No Cough, No Dry, No Shortness of breath, No SOB with excertion, No Wheezing, No Hemoptysis, No Pleuritic Pain, No Sputum, No Other Gastrointestinal: No Nausea, No Vomiting, No Abdominal Pain, No Diarrhea, No Constipation, No Melena, No Hematochezia, No Other Genitourinary: No Dysuria, No Frequency, No Incontinence, No Hematuria, No Retention, No Other Musculoskeletal: No other, No neck pain, No shoulder pain, No arm pain, No back pain, No hand pain, No leg pain, No foot pain Skin: No Rash, No Lesions, No Jaundice, No Bruising, No Other Objective Vitals Vital Signs Date Time Temp Pulse Resp B/P (MAP) Pulse Ox O2 Delivery O2 Flow Rate FiO2 11/01/24 05:00 97.7 78 17 111/79 (90) 96 97.7 10/31/24 20:00 Room Air* 0 21 Intake/Output Intake and Output 11/01/24 07:00 Intake Total 1217.5 ml Output Total 1450 ml Balance -232.5 ml Intake Oral 0 ml IV Total 1217.5 ml Output Urine Total 1225 ml Drainage Total 225 ml # Bowel Movements 1 General Appearance: Alert, Other Lungs: Clear to auscultation Cardiovascular: Regular rate, Normal S1, Normal S2 Abdomen: Normal bowel sounds, Soft, No tenderness Extremities: No edema Medications Current Medications Medications Dose Ordered Sig/Jazmin Route Start Time Stop Time Status Last Admin Dose Admin Ondansetron HCl 4 mg Q4HP PRN IV 10/26/24 13:45 Docusate Sodium 100 mg BIDPRN PRN PO 10/26/24 13:45 Nitroglycerin 0.4 mg Q5MINP PRN SL 10/26/24 13:45 Morphine Sulfate 2 mg Q30M PRN IV 10/26/24 13:45 Hydralazine HCl 10 mg Q6HP PRN IV 10/26/24 14:30 10/30/24 22:40 10 MG Phenytoin Sodium 100 mg Q8HR IV 10/27/24 06:00 11/01/24 06:20 100 MG Aspirin 81 mg DAILY PO 10/27/24 10:00 10/28/24 10:22 81 MG Atorvastatin Calcium 10 mg HS PO 10/27/24 22:00 Levetiracetam 750 mg/Sodium Chloride 107.5 ml @ 430 mls/hr BID IV 10/27/24 10:00 10/31/24 22:26 430 MLS/HR Lorazepam 1 mg Q5MINP PRN IV 10/28/24 07:45 10/28/24 15:13 1 MG Dextrose 1,000 ml @ 100 mls/hr Q10H IV 10/29/24 09:30 10/31/24 22:18 100 MLS/HR Purified Water 300 ml Q4HR GT 10/31/24 11:45 11/01/24 06:20 300 ML Valproate Sodium 1000 mg/Sodium Chloride 110 ml @ 110 mls/hr BID IV 10/31/24 22:00 10/31/24 22:24 110 MLS/HR Laboratory Results Laboratory Tests 10/28/24 04:00 10/31/24 05:59 Urinalysis Test 10/26/24 09:20 Urine Color Colorless (Yellow) Urine Clarity Turbid (Clear) H Urine pH 7.0 (5.0-9.0) Urine Specific [place] 1.010 (1.001-1.035) Urine Protein 1+ (Negative) H Urine Ketones Negative (Negative) Urine Blood 1+ /uL (Negative) H Urine Nitrite Negative (Negative) Urine Bilirubin Negative (Negative) Urine Urobilinogen Normal mg/dL (Negative) Urine Leukocyte Esterase 3+ /uL (Negative) Urine RBC 7 /hpf (0 - 3) Urine WBC Clumps Present /hpf (None Seen) Urine Microscopic WBC 77 /HPF (0-3) H Urine Squamous Epithelial Cells Few /hpf (<5) Urine Bacteria Few /hpf (None Seen) H Urine Mucus Few (None Seen) Urine Glucose Normal mg/dL (Normal) Microbiology Microbiology Date/Time Source Procedure Growth Status 10/28/24 04:30 Nose MRSA Screen - Final Complete 10/26/24 13:17 Blood Blood Culture - Final NO GROWTH AFTER 5 DAYS OF INCUBATION. Complete Assessment/Plan Assessment/Plan Acute metabolic encephalopathy, Complicated UTI, ANNETTE due to VMN Hypertension, Seizures, Hyperlipidemia, Chronic kidney disease, As homeless dementia History of bilateral hydronephrosis History of CVA with right-sided deficit History of traumatic brain injury History of chronic idiopathic constipation History of COPD Prostatomegaly Plan: IV antibiotics cefepime IV fluids Keppra 750 mg twice a day Neurology consult Valproic acid 500 mg IV 3 times a day Urine culture Blood culture Urology consult Keep NPO for now until he is more alert and oriented Full code 10/28/24: PT eval Swallow eval Downgrade to Tele Hypernatremia: Change IV fluids Cefepime Keppra and Depakote IV Neurology consult 10/29/2024: Hypernatremia: Change IV fluids to D5W Dehydration: Continue IV fluids Dysphagia: Repeat a swallow evaluation Seizures continue the seizure medications including Keppra and Depakote IV antibiotics cefepime Sitter at the bedside PT eval and swallow eval The rest of the management will depend on the hospital course 10/30/2024: Hypernatremia, not better: The patient needs free water Place NG tube and start free water Continue D5W IV fluids Repeat a swallow eval IV antibiotics Monitor closely 10/31/2024: Hypernatremia: Continue free water, increase the amount, continue D5W Acute kidney injury: Continue IV fluids Left nephrolithiasis status post nephrostomy tube, the patient will need lithotripsy, urology is following, possibly once he is medically stable Seizure disorder: Continue Keppra and Depakote and Dilantin Metabolic encephalopathy Hypertension Complicated UTI: Discontinue cefepime, finished treatment History of CVA with right-sided deficit History of traumatic brain injury Discussed with the sister and caregiver at the bedside 11/01/2024: Hypernatremia: Continue free water and D5W, Labs are still pending NG tube in place for the free water Repeat a swallow evaluation, if the patient can swallow then we will discontinue the NG tube and start oral intake We will consult with Urology again for the final treatment of his stone and hopefully remove the nephrostomy tube during this admission Plan discussed with: Patient, Other My Orders Orders - ABDOUL BLACKMON MD Procedure Category Date Status Time * Swallow Request ST 10/31/24 Transmitted 10:30 Free Water PHA 10/31/24 In Process 11:45 Valproate Inj PHA 10/31/24 In Process ([facility]acon) 22:00 Insert Midline ORDERS 10/31/24 Transmitted 11:54 Basic Metabolic Panel LAB 11/01/24 Logged 04:00 Magnesium LAB 11/01/24 Logged 04:00 Notify Provider NOTICE 10/31/24 Transmitted Malnutrition 13:17 Increase Calorie NOURISH 10/31/24 Transmitted Intake 13:17 Date of Service: Nov 01, 2024 Billing Provider: ABDOUL BLACKMON MD Common Visit Codes: [id number] INP/OBS CARE(HIGH) ABDOUL BLACKMON MD Nov 01, 2024 09:35
[2024-11-01 14:19] LABS: Anion Gap 9 (5-15)
[2024-11-01 14:25] LABS: BUN/Creatinine Ratio 19.2 (10.0-20.0)
[2024-11-01 14:26] LABS: Sodium 145 mmol/L (136-145)
[2024-11-01 14:27] LABS: Blood Urea Nitrogen 20 mg/dL (9-23); Calcium 9.0 mg/dL (8.7-10.4); Carbon Dioxide 25 mmol/L (20-31); Chloride 111 mmol/L (98-107); Glucose 99 mg/dL (74-106); Magnesium 1.8 mg/dL (1.6-2.6); Potassium 3.9 mmol/L (3.5-5.1)
--- NOTE | 2024-11-01 20:10 | DVHPN2 ---
Progress Note - Dictate Date Seen: Nov 01, 2024 Medical Necessity Reason Pt with a Central, PICC or Fol: Yes The following are medically ne: Bobby Catheter Subjective Mr. Palmer is a 59 years old gentleman with a history of mental retardation, hypertension, chronic kidney failure, BPH, kidney stone, was brought to the [facility] on 10/26/2024 with a chief complaint of seizure activity I saw him on 11/22/2023 for seizure I have seen and examined. I have talked to his nurse and sitter, he is more alert today, he tracks, and responsive to verbal stimuli I do not see myoclonus jerks today, nurse and sitter did not report seizure-like activity Urinalysis, 10/26/2024: WBC: 77, urine leukocyte esterase: 3+ Dilantin, 10/17/2023: 16.1, 10/27/24: 8.8, 10/30/24: 15.4, 10/31/2024: 11.2 Depakote, 11/18/2023: CBC, 10/26/2024: Unremarkable Na, 10/27/24: 144, 10/28/24: 149, 10/29/2024: 154, 10/30/2024: 155, 10/31/2024: 153 BUN/CR, 11/22/2023: 16/1.33, 10/26/2024: 15/1.48 GFR, 10/26/2024: 54 TG/HDL/LDL/HDL, 09/2023: 76/159/79/68 EEG, 10/09/2024: Inadequate but abnormal EEG consistent with encephalopathy Chest x-ray, 10/30/2024: No acute cardiopulmonary disease. 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 No acute intracranial abnormality CT head, 10/26/2024: No acute intracranial abnormality. (encephalomalacia in the left hemisphere) vital signs Vital Sign Date Time Temp Pulse Resp B/P (MAP) Pulse Ox O2 Delivery O2 Flow Rate FiO2 11/01/24 17:00 98.9 70 16 133/95 (108) 97 98.9 11/01/24 08:00 Room Air* 0 21 Total Intake and Output 10/31/24 10/31/24 11/01/24 15:00 23:00 07:00 Intake Total 1107.5 ml 110 ml Output Total 800 ml 650 ml Balance 307.5 ml -540 ml medications Current Medications Medications Dose Ordered Sig/Jazmin Route Start Time Stop Time Status Last Admin Dose Admin Ondansetron HCl 4 mg Q4HP PRN IV 10/26/24 13:45 Docusate Sodium 100 mg BIDPRN PRN PO 10/26/24 13:45 Nitroglycerin 0.4 mg Q5MINP PRN SL 10/26/24 13:45 Morphine Sulfate 2 mg Q30M PRN IV 10/26/24 13:45 Hydralazine HCl 10 mg Q6HP PRN IV 10/26/24 14:30 10/30/24 22:40 10 MG Phenytoin Sodium 100 mg Q8HR IV 10/27/24 06:00 11/01/24 06:20 100 MG Aspirin 81 mg DAILY PO 10/27/24 10:00 11/01/24 10:04 81 MG Atorvastatin Calcium 10 mg HS PO 10/27/24 22:00 Levetiracetam 750 mg/Sodium Chloride 107.5 ml @ 430 mls/hr BID IV 10/27/24 10:00 11/01/24 11:27 430 MLS/HR Lorazepam 1 mg Q5MINP PRN IV 10/28/24 07:45 10/28/24 15:13 1 MG Dextrose 1,000 ml @ 100 mls/hr Q10H IV 10/29/24 09:30 11/01/24 10:03 100 MLS/HR Purified Water 300 ml Q4HR GT 10/31/24 11:45 11/01/24 13:28 300 ML Valproate Sodium 1000 mg/Sodium Chloride 110 ml @ 110 mls/hr BID IV 10/31/24 22:00 11/01/24 10:02 110 MLS/HR objective General: the patient is well developed and nourished. No acute distress. MENTAL STATUS: Subjective SPEECH, LANGUAGE, HIGHER CORTICAL FUNCTION: He does not vocalize CRANIAL NERVES: Pupils are equal, round and reactive. EOMs full and conjugate. Facial sensation intact in all three divisions bilaterally. Mandibular strength intact. Facial muscles symmetrical and strength intact. SENSATION: Sensation to touch and pinprick is okay MOTOR: Increased muscle tone in the right arm than leg. Normal muscle bulk. No fasciculations. He only moves the left arm and leg REFLEXES: Deep tendon reflexes are symmetrical. No pathological reflexes. CEREBELLAR/COORDINATION: Deferred GAIT/STATION: deferred. laboratory and microbiology Laboratory Tests 11/01/24 13:00 10/28/24 04:00 Test 11/01/24 13:00 Range/Units Serum Glucose 99 74-106 mg/dL Problem List Seizure disorder with seizure breakthrough ? Partial continuous epilepsy Myoclonus Altered mental status Metabolic encephalopathy Subclinical seizure Mental retardation Gait disturbance ? secondary to mental retardation and history of stroke Reported stroke Agitation Kidney stone Assessment/Plan Monitoring Supportive treatment Telemetry ASA 81 mg qd Lipitor 10 mg daily Depakote 500 mg t.i.d. Keppra 750 mg b.i.d. Dilantin 100 mg t.i.d Ativan for seizure breakthrough This medical document was created using an electronic medical record system with [employer] dictation system. Although this document has been carefully reviewed, there may still be some phonetic and typographical errors. These areas are purely typographical due to imperfections of the software programs, and do not reflect any compromise in the patient's medical care. Prognosis poor Dietary Evaluation Review Comments: 1. TF if EN/GI accessible, Nepro@30ml/hr providing 58g Protein, 1274 kcal and 523ml free water, supporting 100% protein needs and 73% energy needs 2. TPN per pharmacy if NPO>7 days 3. reassess needs after pt pass a ADMIN ASST eval. Expected Outcomes/Goals: prevent further wt loss, avoid uremic syndrome Plan discussed with: Other LEYLA VARGHESE MD Nov 01, 2024 20:10
[2024-11-02] VITALS (8 sets, daily range): BP systolic 120–157; BP diastolic 73–95; PULSE 68–84; RESP 16–21; TEMP 97.3–98.6; O2SAT 95–98
--- NOTE | 2024-11-02 09:34 | DVH ---
Technique: Real-time ultrasound imaging, with color Doppler and compression of the left upper extre mity veins Indication: SWELLING ON LEFT ARM R/O DVT Comparison: None Findings: The left internal jugular, subclavian, axillary veins demonstrate color flow. Left axillary vein is compressible. Left brachial vein is noncompressible and demonstrates occlusive thrombus. PICC line wi thin the left basilic vein. Left radial, ulnar veins demonstrate occlusive thrombus. Left cephalic ve in nonvisualized. Impression: Deep vein thrombosis with occlusive thrombus in the left brachial, radial and ulnar veins.
[2024-11-02] MEDS: D5W 5% 1,000 ML IV SCH (09:45)
--- NOTE | 2024-11-02 09:45 | DVHPN2 ---
Subjective More alert and oriented He passed a swallow eval so he is on a pureed diet Sodium is better at 1:45 a.m. Creatinine is better at 1.0 Per the sitter the patient had a seizure this morning for about 45 seconds Left arm is swollen at the midline site Changes from previous H/P or p: Changes Eyes: No Pain, No Vision change, No Conjunctivae inflammation, No Eyelid inflammation, No Other, No Redness ENT: No Ear pain, No Ear discharge, No Nose pain, No Nose discharge, No Nose congestion, No Mouth pain, No Mouth swelling, No Throat pain, No Throat swelling, No Other Cardiovascular: No Chest Pain, No Palpitations, No Orthopnea, No Paroxysmal Noc. Dyspnea, No Edema, No Lt Headedness, No Other Respiratory: No Cough, No Dry, No Shortness of breath, No SOB with excertion, No Wheezing, No Hemoptysis, No Pleuritic Pain, No Sputum, No Other Gastrointestinal: No Nausea, No Vomiting, No Abdominal Pain, No Diarrhea, No Constipation, No Melena, No Hematochezia, No Other Genitourinary: No Dysuria, No Frequency, No Incontinence, No Hematuria, No Retention, No Other Musculoskeletal: No other, No neck pain, No shoulder pain, No arm pain, No back pain, No hand pain, No leg pain, No foot pain Skin: No Rash, No Lesions, No Jaundice, No Bruising, No Other Objective Vitals Vital Signs Date Time Temp Pulse Resp B/P (MAP) Pulse Ox O2 Delivery O2 Flow Rate FiO2 11/02/24 09:00 97.6 80 21 157/95 (115) 97 97.6 11/01/24 20:00 Room Air* 0 21 Intake/Output Intake and Output 11/02/24 07:00 Intake Total 1435.0 ml Output Total 1900 ml Balance -465.0 ml Intake Oral 0 ml IV Total 1435.0 ml Output Urine Total 1600 ml Drainage Total 300 ml # Bowel Movements 1 General Appearance: Alert, Other Lungs: Clear to auscultation Cardiovascular: Regular rate, Normal S1, Normal S2 Abdomen: Normal bowel sounds, Soft, No tenderness Extremities: No edema Medications Current Medications Medications Dose Ordered Sig/Jazmin Route Start Time Stop Time Status Last Admin Dose Admin Ondansetron HCl 4 mg Q4HP PRN IV 10/26/24 13:45 Docusate Sodium 100 mg BIDPRN PRN PO 10/26/24 13:45 Nitroglycerin 0.4 mg Q5MINP PRN SL 10/26/24 13:45 Morphine Sulfate 2 mg Q30M PRN IV 10/26/24 13:45 Hydralazine HCl 10 mg Q6HP PRN IV 10/26/24 14:30 10/30/24 22:40 10 MG Phenytoin Sodium 100 mg Q8HR IV 10/27/24 06:00 11/02/24 06:05 100 MG Aspirin 81 mg DAILY PO 10/27/24 10:00 11/02/24 09:36 81 MG Atorvastatin Calcium 10 mg HS PO 10/27/24 22:00 11/01/24 21:56 10 MG Levetiracetam 750 mg/Sodium Chloride 107.5 ml @ 430 mls/hr BID IV 10/27/24 10:00 11/01/24 21:54 430 MLS/HR Lorazepam 1 mg Q5MINP PRN IV 10/28/24 07:45 10/28/24 15:13 1 MG Dextrose 1,000 ml @ 100 mls/hr Q10H IV 10/29/24 09:30 11/02/24 03:42 100 MLS/HR Purified Water 300 ml Q4HR GT 10/31/24 11:45 11/01/24 13:28 300 ML Valproate Sodium 1000 mg/Sodium Chloride 110 ml @ 110 mls/hr BID IV 10/31/24 22:00 11/02/24 09:32 110 MLS/HR Laboratory Results Laboratory Tests 10/28/24 04:00 11/01/24 13:00 Chemistry Test 11/01/24 13:00 Calcium Level 9.0 mg/dL (8.7-10.4) Magnesium Level 1.8 mg/dL (1.6-2.6) Urinalysis Test 10/26/24 09:20 Urine Color Colorless (Yellow) Urine Clarity Turbid (Clear) H Urine pH 7.0 (5.0-9.0) Urine Specific [place] 1.010 (1.001-1.035) Urine Protein 1+ (Negative) H Urine Ketones Negative (Negative) Urine Blood 1+ /uL (Negative) H Urine Nitrite Negative (Negative) Urine Bilirubin Negative (Negative) Urine Urobilinogen Normal mg/dL (Negative) Urine Leukocyte Esterase 3+ /uL (Negative) Urine RBC 7 /hpf (0 - 3) Urine WBC Clumps Present /hpf (None Seen) Urine Microscopic WBC 77 /HPF (0-3) H Urine Squamous Epithelial Cells Few /hpf (<5) Urine Bacteria Few /hpf (None Seen) H Urine Mucus Few (None Seen) Urine Glucose Normal mg/dL (Normal) Microbiology Microbiology Date/Time Source Procedure Growth Status 10/28/24 04:30 Nose MRSA Screen - Final Complete 10/26/24 13:17 Blood Blood Culture - Final NO GROWTH AFTER 5 DAYS OF INCUBATION. Complete Assessment/Plan Assessment/Plan Acute metabolic encephalopathy, Complicated UTI, ANNETTE due to VMN Hypertension, Seizures, Hyperlipidemia, Chronic kidney disease, As homeless dementia History of bilateral hydronephrosis History of CVA with right-sided deficit History of traumatic brain injury History of chronic idiopathic constipation History of COPD Prostatomegaly Plan: IV antibiotics cefepime IV fluids Keppra 750 mg twice a day Neurology consult Valproic acid 500 mg IV 3 times a day Urine culture Blood culture Urology consult Keep NPO for now until he is more alert and oriented Full code 10/28/24: PT eval Swallow eval Downgrade to Tele Hypernatremia: Change IV fluids Cefepime Keppra and Depakote IV Neurology consult 10/29/2024: Hypernatremia: Change IV fluids to D5W Dehydration: Continue IV fluids Dysphagia: Repeat a swallow evaluation Seizures continue the seizure medications including Keppra and Depakote IV antibiotics cefepime Sitter at the bedside PT eval and swallow eval The rest of the management will depend on the hospital course 10/30/2024: Hypernatremia, not better: The patient needs free water Place NG tube and start free water Continue D5W IV fluids Repeat a swallow eval IV antibiotics Monitor closely 10/31/2024: Hypernatremia: Continue free water, increase the amount, continue D5W Acute kidney injury: Continue IV fluids Left nephrolithiasis status post nephrostomy tube, the patient will need lithotripsy, urology is following, possibly once he is medically stable Seizure disorder: Continue Keppra and Depakote and Dilantin Metabolic encephalopathy Hypertension Complicated UTI: Discontinue cefepime, finished treatment History of CVA with right-sided deficit History of traumatic brain injury Discussed with the sister and caregiver at the bedside 11/01/2024: Hypernatremia: Continue free water and D5W, Labs are still pending NG tube in place for the free water Repeat a swallow evaluation, if the patient can swallow then we will discontinue the NG tube and start oral intake We will consult with Urology again for the final treatment of his stone and hopefully remove the nephrostomy tube during this admission 11/02/2024: Discussed with Urology, he will need to have a lithotripsy as an outpatient since he already has a nephrostomy tube now Hypernatremia: Improving company D5W Generalized weakness: PT eval Seizures: Continue Keppra and Depakote and Dilantin L arm DVT: Remove the midline, Start Lovenox Plan discussed with: Patient, Other My Orders Orders - ABDOUL BLACKMON MD Procedure Category Date Status Time Discontinue Ng ORDERS 11/01/24 Transmitted 14:07 Pureed DIET 11/01/24 Transmitted Dinner Date of Service: Nov 02, 2024 Billing Provider: ABDOUL BLCAKMON MD Common Visit Codes: [id number] INP/OBS CARE(HIGH) ABDOUL BLACKMON MD Nov 02, 2024 09:45
[2024-11-02] MEDS: levETIRAcetam 500 MG TAB PO SCH (10:00)
[2024-11-02 10:19] LABS: Hematocrit 42.0 % (41.0-53.0); Hemoglobin 14.2 g/dL (13.5-17.5); Mean Corpuscular Hemoglobin 33.0 pg (28.0-32.0); Mean Corpuscular Volume 97.2 fL (80.0-100.0); Nucleated Red Blood Cells % 0.1 %
[2024-11-02] MEDS: ENOXAPARIN SOD 80 MG/0.8ML SYRINGE SC ONE (10:30)
[2024-11-02 10:39] LABS: Alanine Aminotransferase 26 U/L (7-40); Albumin 3.6 g/dL (3.2-4.8); Alkaline Phosphatase 92 U/L (46-116); Anion Gap 9 (5-15); BUN/Creatinine Ratio 18.3 (10.0-20.0); Bilirubin, Total 0.4 mg/dL (0.2-1.0); Blood Urea Nitrogen 19 mg/dL (9-23); Calcium 9.0 mg/dL (8.7-10.4); Carbon Dioxide 25 mmol/L (20-31); Magnesium 1.7 mg/dL (1.6-2.6); Sodium 143 mmol/L (136-145); Total Protein 5.8 g/dL (5.7-8.2)
[2024-11-02 10:45] LABS: Chloride 109 mmol/L (98-107); Glucose 108 mg/dL (74-106); Potassium 3.4 mmol/L (3.5-5.1)
[2024-11-02] MEDS: PHENYTOIN SODIUM 100 MG CAP PO SCH (15:32)
--- NOTE | 2024-11-02 21:50 | DVHPN2 ---
Progress Note - Dictate Date Seen: Nov 02, 2024 Medical Necessity Reason Pt with a Central, PICC or Fol: Yes The following are medically ne: Bobby Catheter Subjective Mr. Palmer is a 59 years old gentleman with a history of mental retardation, hypertension, chronic kidney failure, BPH, kidney stone, was brought to the [facility] on 10/26/2024 with a chief complaint of seizure activity I saw him on 11/22/2023 for seizure I have seen and examined. I have talked to his nurse and sitter, mentally keeps improving, he is watching TV, he moves the hands to me appropriately I do not see myoclonus jerks today, but sitter reports fistula jerking in both legs with a left-sided more affected He was said to have seizure media intern on 11/02/2024 witnessed by nurse retail assistant manager, however not documented, details unclear Urinalysis, 10/26/2024: WBC: 77, urine leukocyte esterase: 3+ Dilantin, 10/17/2023: 16.1, 10/27/24: 8.8, 10/30/24: 15.4, 10/31/2024: 11.2 Depakote, 11/18/2023: CBC, 10/26/2024: Unremarkable Na, 10/27/24: 144, 10/28/24: 149, 10/29/2024: 154, 10/30/2024: 155, 10/31/2024: 153 BUN/CR, 11/22/2023: 16/1.33, 10/26/2024: 15/1.48 GFR, 10/26/2024: 54 TG/HDL/LDL/HDL, 09/2023: 76/159/79/68 EEG, 10/09/2024: Inadequate but abnormal EEG consistent with encephalopathy Extremity venous study, left upper extremity, 11/02/2024: Deep vein thrombosis with occlusive thrombus in the left brachial, radial and ulnar veins. Chest x-ray, 10/30/2024: No acute cardiopulmonary disease. 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 No acute intracranial abnormality CT head, 10/26/2024: No acute intracranial abnormality. (encephalomalacia in the left hemisphere) vital signs Vital Sign Date Time Temp Pulse Resp B/P (MAP) Pulse Ox O2 Delivery O2 Flow Rate FiO2 11/02/24 16:58 97.4 80 19 146/73 (97) 98 97.4 11/02/24 08:15 Room Air* 0 21 Total Intake and Output 11/01/24 11/01/24 11/02/24 15:00 23:00 07:00 Intake Total 217.5 ml 217.5 ml 1000 ml Output Total 700 ml 1200 ml Balance 217.5 ml -482.5 ml -200 ml medications Current Medications Medications Dose Ordered Sig/Jazmin Route Start Time Stop Time Status Last Admin Dose Admin Ondansetron HCl 4 mg Q4HP PRN IV 10/26/24 13:45 Docusate Sodium 100 mg BIDPRN PRN PO 10/26/24 13:45 Nitroglycerin 0.4 mg Q5MINP PRN SL 10/26/24 13:45 Morphine Sulfate 2 mg Q30M PRN IV 10/26/24 13:45 Hydralazine HCl 10 mg Q6HP PRN IV 10/26/24 14:30 10/30/24 22:40 10 MG Aspirin 81 mg DAILY PO 10/27/24 10:00 11/02/24 09:36 81 MG Atorvastatin Calcium 10 mg HS PO 10/27/24 22:00 11/01/24 21:56 10 MG Lorazepam 1 mg Q5MINP PRN IV 10/28/24 07:45 10/28/24 15:13 1 MG Purified Water 300 ml Q4HR GT 10/31/24 11:45 11/01/24 13:28 300 ML Dextrose 1,000 ml @ 60 mls/hr [id number] IV 11/02/24 09:45 11/02/24 09:45 60 MLS/HR Phenytoin Sodium 100 mg Q8HR PO 11/02/24 14:00 11/02/24 15:32 100 MG Levetiracetam 750 mg BID PO 11/02/24 10:00 Divalproex Sodium 1,000 mg BID PO 11/02/24 10:00 Enoxaparin Sodium 70 mg Q12HR SC 11/02/24 22:00 objective General: the patient is well developed and nourished. No acute distress. MENTAL STATUS: Subjective SPEECH, LANGUAGE, HIGHER CORTICAL FUNCTION: He does not vocalize CRANIAL NERVES: Pupils are equal, round and reactive. EOMs full and conjugate. Facial sensation intact in all three divisions bilaterally. Mandibular strength intact. Right facial weakness. SENSATION: Sensation to touch and pinprick is okay MOTOR: Increased muscle tone in the right arm than leg. Normal muscle bulk. No fasciculations. He only moves the left arm and leg REFLEXES: Deep tendon reflexes are symmetrical. No pathological reflexes. CEREBELLAR/COORDINATION: Deferred GAIT/STATION: deferred. laboratory and microbiology Laboratory Tests 11/02/24 09:56 Test 11/02/24 09:56 Range/Units Serum Glucose 108 H 74-106 mg/dL Problem List Seizure disorder with seizure breakthrough ? Partial continuous epilepsy Myoclonus Altered mental status Metabolic encephalopathy Subclinical seizure Mental retardation Gait disturbance ? secondary to mental retardation and history of stroke Reported stroke Agitation Kidney stone Assessment/Plan Monitoring Supportive treatment Telemetry Phenytoin level in the morning ASA 81 mg qd Lipitor 10 mg daily Depakote 500 mg t.i.d. Keppra 750 mg b.i.d. Dilantin 100 mg t.i.d Ativan for seizure breakthrough This medical document was created using an electronic medical record system with [employer] dictation system. Although this document has been carefully reviewed, there may still be some phonetic and typographical errors. These areas are purely typographical due to imperfections of the software programs, and do not reflect any compromise in the patient's medical care. Prognosis poor Dietary Evaluation Review Comments: 1. TF if EN/GI accessible, Nepro@30ml/hr providing 58g Protein, 1274 kcal and 523ml free water, supporting 100% protein needs and 73% energy needs 2. TPN per pharmacy if NPO>7 days 3. reassess needs after pt pass a HADOOP DEVELOPER eval. Expected Outcomes/Goals: prevent further wt loss, avoid uremic syndrome Plan discussed with: Other LEYLA VARGHESE MD Nov 02, 2024 21:50
[2024-11-02] MEDS: ENOXAPARIN SOD 80 MG/0.8ML SYRINGE SC SCH (22:18)
[2024-11-02] MEDS: VALPROIC ACID 250 MG/5 ML ORAL SOLN GT SCH (23:44)
[2024-11-02] MEDS: PHENYTOIN 100 MG/4 ML SUSP GT SCH (23:44)
[2024-11-03] VITALS (10 sets, daily range): BP systolic 100–185; BP diastolic 54–102; PULSE 70–106; RESP 14–19; TEMP 97.5–98.2; O2SAT 96–99
--- NOTE | 2024-11-03 13:42 | DVHPN2 ---
Subjective More alert He is able to swallow now Changes from previous H/P or p: Changes Eyes: No Pain, No Vision change, No Conjunctivae inflammation, No Eyelid inflammation, No Other, No Redness ENT: No Ear pain, No Ear discharge, No Nose pain, No Nose discharge, No Nose congestion, No Mouth pain, No Mouth swelling, No Throat pain, No Throat swelling, No Other Cardiovascular: No Chest Pain, No Palpitations, No Orthopnea, No Paroxysmal Noc. Dyspnea, No Edema, No Lt Headedness, No Other Respiratory: No Cough, No Dry, No Shortness of breath, No SOB with excertion, No Wheezing, No Hemoptysis, No Pleuritic Pain, No Sputum, No Other Gastrointestinal: No Nausea, No Vomiting, No Abdominal Pain, No Diarrhea, No Constipation, No Melena, No Hematochezia, No Other Genitourinary: No Dysuria, No Frequency, No Incontinence, No Hematuria, No Retention, No Other Musculoskeletal: No other, No neck pain, No shoulder pain, No arm pain, No back pain, No hand pain, No leg pain, No foot pain Skin: No Rash, No Lesions, No Jaundice, No Bruising, No Other Objective Vitals Vital Signs Date Time Temp Pulse Resp B/P (MAP) Pulse Ox O2 Delivery O2 Flow Rate FiO2 11/03/24 12:52 97.8 95 16 143/93 (110) 97 97.8 11/03/24 08:20 Room Air* 0 21 Intake/Output Intake and Output 11/03/24 07:00 Intake Total 400 ml Output Total 1350 ml Balance -950 ml Intake Oral 400 ml Output Urine Total 1350 ml # Bowel Movements 1 General Appearance: Alert, Other Lungs: Clear to auscultation Cardiovascular: Regular rate, Normal S1, Normal S2 Abdomen: Normal bowel sounds, Soft, No tenderness Extremities: No edema Medications Current Medications Medications Dose Ordered Sig/Jazmin Route Start Time Stop Time Status Last Admin Dose Admin Ondansetron HCl 4 mg Q4HP PRN IV 10/26/24 13:45 Docusate Sodium 100 mg BIDPRN PRN PO 10/26/24 13:45 Nitroglycerin 0.4 mg Q5MINP PRN SL 10/26/24 13:45 Morphine Sulfate 2 mg Q30M PRN IV 10/26/24 13:45 Hydralazine HCl 10 mg Q6HP PRN IV 10/26/24 14:30 11/03/24 09:14 10 MG Aspirin 81 mg DAILY PO 10/27/24 10:00 11/03/24 09:04 81 MG Atorvastatin Calcium 10 mg HS PO 10/27/24 22:00 11/02/24 22:15 10 MG Lorazepam 1 mg Q5MINP PRN IV 10/28/24 07:45 11/03/24 01:22 1 MG Purified Water 300 ml Q4HR GT 10/31/24 11:45 11/01/24 13:28 300 ML Dextrose 1,000 ml @ 60 mls/hr [id number] IV 11/02/24 09:45 11/02/24 09:45 60 MLS/HR Levetiracetam 750 mg BID PO 11/02/24 10:00 11/03/24 09:04 750 MG Enoxaparin Sodium 70 mg Q12HR SC 11/02/24 22:00 11/03/24 09:05 70 MG Valproate Sodium 1,000 mg BID GT 11/02/24 23:30 11/03/24 09:07 1,000 MG Phenytoin Sodium 100 mg Q8HR GT 11/02/24 23:30 11/03/24 05:32 100 MG Laboratory Results Laboratory Tests 11/02/24 09:56 Urinalysis Test 10/26/24 09:20 Urine Color Colorless (Yellow) Urine Clarity Turbid (Clear) H Urine pH 7.0 (5.0-9.0) Urine Specific [place] 1.010 (1.001-1.035) Urine Protein 1+ (Negative) H Urine Ketones Negative (Negative) Urine Blood 1+ /uL (Negative) H Urine Nitrite Negative (Negative) Urine Bilirubin Negative (Negative) Urine Urobilinogen Normal mg/dL (Negative) Urine Leukocyte Esterase 3+ /uL (Negative) Urine RBC 7 /hpf (0 - 3) Urine WBC Clumps Present /hpf (None Seen) Urine Microscopic WBC 77 /HPF (0-3) H Urine Squamous Epithelial Cells Few /hpf (<5) Urine Bacteria Few /hpf (None Seen) H Urine Mucus Few (None Seen) Urine Glucose Normal mg/dL (Normal) Microbiology Microbiology Date/Time Source Procedure Growth Status 10/28/24 04:30 Nose MRSA Screen - Final Complete 10/26/24 13:17 Blood Blood Culture - Final NO GROWTH AFTER 5 DAYS OF INCUBATION. Complete Assessment/Plan Assessment/Plan Acute metabolic encephalopathy, Complicated UTI, ANNETTE due to VMN Hypertension, Seizures, Hyperlipidemia, Chronic kidney disease, As homeless dementia History of bilateral hydronephrosis History of CVA with right-sided deficit History of traumatic brain injury History of chronic idiopathic constipation History of COPD Prostatomegaly Plan: IV antibiotics cefepime IV fluids Keppra 750 mg twice a day Neurology consult Valproic acid 500 mg IV 3 times a day Urine culture Blood culture Urology consult Keep NPO for now until he is more alert and oriented Full code 10/28/24: PT eval Swallow eval Downgrade to Tele Hypernatremia: Change IV fluids Cefepime Keppra and Depakote IV Neurology consult 10/29/2024: Hypernatremia: Change IV fluids to D5W Dehydration: Continue IV fluids Dysphagia: Repeat a swallow evaluation Seizures continue the seizure medications including Keppra and Depakote IV antibiotics cefepime Sitter at the bedside PT eval and swallow eval The rest of the management will depend on the hospital course 10/30/2024: Hypernatremia, not better: The patient needs free water Place NG tube and start free water Continue D5W IV fluids Repeat a swallow eval IV antibiotics Monitor closely 10/31/2024: Hypernatremia: Continue free water, increase the amount, continue D5W Acute kidney injury: Continue IV fluids Left nephrolithiasis status post nephrostomy tube, the patient will need lithotripsy, urology is following, possibly once he is medically stable Seizure disorder: Continue Keppra and Depakote and Dilantin Metabolic encephalopathy Hypertension Complicated UTI: Discontinue cefepime, finished treatment History of CVA with right-sided deficit History of traumatic brain injury Discussed with the sister and caregiver at the bedside 11/01/2024: Hypernatremia: Continue free water and D5W, Labs are still pending NG tube in place for the free water Repeat a swallow evaluation, if the patient can swallow then we will discontinue the NG tube and start oral intake We will consult with Urology again for the final treatment of his stone and hopefully remove the nephrostomy tube during this admission 11/02/2024: Discussed with Urology, he will need to have a lithotripsy as an outpatient since he already has a nephrostomy tube now Hypernatremia: Improving company D5W Generalized weakness: PT eval Seizures: Continue Keppra and Depakote and Dilantin L arm DVT: Remove the midline, Start Lovenox 11/03/2024: DVT of the left arm: Switch Lovenox to Eliquis Hypernatremia: Controlled Discontinue IV fluids Continue diet as tolerated Continue seizure medications with the Keppra and Depakote and Dilantin Physical therapy evaluation Discharge planning for tomorrow Plan discussed with: Patient, Other My Orders Orders - ABDOUL BLACKMON MD Procedure Category Date Status Time Valproic Acid Oral PHA 11/02/24 In Process Soln (Depakene Oral S 23:30 Phenytoin Suspension PHA 11/02/24 In Process (Dilantin Suspensio 23:30 Date of Service: Nov 03, 2024 Billing Provider: ABDOUL BLACKMON MD Common Visit Codes: [id number] INP/OBS CARE(MOD) ABDOUL BLACKMON MD Nov 03, 2024 13:42
[2024-11-03 15:53] LABS: Anion Gap 10 (5-15); Carbon Dioxide 26 mmol/L (20-31)
[2024-11-03 15:54] LABS: Calcium 9.3 mg/dL (8.7-10.4); Chloride 111 mmol/L (98-107); Potassium 3.3 mmol/L (3.5-5.1); Sodium 147 mmol/L (136-145)
[2024-11-03 15:58] LABS: Glucose 80 mg/dL (74-106)
[2024-11-03 15:59] LABS: BUN/Creatinine Ratio 16.5 (10.0-20.0); Blood Urea Nitrogen 18 mg/dL (9-23); Magnesium 1.7 mg/dL (1.6-2.6)
[2024-11-03] MEDS: POTASSIUM CHL 20 Meq TABLET PO ONE (19:07)
[2024-11-03] MEDS: APIXABAN 5 MG TAB PO SCH (22:40)
[2024-11-03] MEDS: VALPROIC ACID 250 MG/5 ML ORAL SOLN PO SCH (23:30)
[2024-11-03] MEDS: PHENYTOIN 100 MG/4 ML SUSP PO SCH (23:30)
--- NOTE | 2024-11-03 23:53 | DVHPN2 ---
Progress Note - Dictate Date Seen: Nov 03, 2024 Medical Necessity Reason Pt with a Central, PICC or Fol: Yes The following are medically ne: Bobby Catheter Subjective Mr. Palmer is a 59 years old gentleman with a history of mental retardation, hypertension, chronic kidney failure, BPH, kidney stone, was brought to the [facility] on 10/26/2024 with a chief complaint of seizure activity I saw him on 11/22/2023 for seizure I have seen and examined. I have talked to his nurse and sitter, looks okay, responsive to verbal stimuli, Sitter witnessed on event where he was shaking mildly with eyes rolling back Urinalysis, 10/26/2024: WBC: 77, urine leukocyte esterase: 3+ Dilantin, 10/17/2023: 16.1, 10/27/24: 8.8, 10/30/24: 15.4, 10/31/2024: 11.2, 15:30: 8.2 Depakote, 11/18/2023: CBC, 10/26/2024: Unremarkable Na, 10/27/24: 144, 10/28/24: 149, 10/29/2024: 154, 10/30/2024: 155, 10/31/2024: 153, 11/03/2024: 147 BUN/CR, 11/22/2023: 16/1.33, 10/26/2024: 15/1.48 GFR, 10/26/2024: 54 TG/HDL/LDL/HDL, 09/2023: 76/159/79/68 EEG, 10/09/2024: Inadequate but abnormal EEG consistent with encephalopathy Extremity venous study, left upper extremity, 11/02/2024: Deep vein thrombosis with occlusive thrombus in the left brachial, radial and ulnar veins. Chest x-ray, 10/30/2024: No acute cardiopulmonary disease. 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 No acute intracranial abnormality CT head, 10/26/2024: No acute intracranial abnormality. (encephalomalacia in the left hemisphere) vital signs Vital Sign Date Time Temp Pulse Resp B/P (MAP) Pulse Ox O2 Delivery O2 Flow Rate FiO2 11/03/24 21:00 97.9 106 18 142/81 (101) 99 97.9 11/03/24 08:20 Room Air* 0 21 Total Intake and Output 11/02/24 11/02/24 11/03/24 15:00 23:00 07:00 Intake Total 200 ml 200 ml Output Total 650 ml 700 ml Balance -450 ml -500 ml medications Current Medications Medications Dose Ordered Sig/Jazmin Route Start Time Stop Time Status Last Admin Dose Admin Ondansetron HCl 4 mg Q4HP PRN IV 10/26/24 13:45 Docusate Sodium 100 mg BIDPRN PRN PO 10/26/24 13:45 Nitroglycerin 0.4 mg Q5MINP PRN SL 10/26/24 13:45 Morphine Sulfate 2 mg Q30M PRN IV 10/26/24 13:45 Hydralazine HCl 10 mg Q6HP PRN IV 10/26/24 14:30 11/03/24 16:24 10 MG Aspirin 81 mg DAILY PO 10/27/24 10:00 11/03/24 09:04 81 MG Atorvastatin Calcium 10 mg HS PO 10/27/24 22:00 11/03/24 22:40 10 MG Lorazepam 1 mg Q5MINP PRN IV 10/28/24 07:45 11/03/24 01:22 1 MG Purified Water 300 ml Q4HR GT 10/31/24 11:45 11/01/24 13:28 300 ML Levetiracetam 750 mg BID PO 11/02/24 10:00 11/03/24 22:00 750 MG Apixaban 10 mg BID PO 11/03/24 22:00 11/10/24 21:59 11/03/24 22:40 10 MG Phenytoin Sodium 100 mg Q8HR PO 11/03/24 23:15 11/03/24 23:30 100 MG Valproate Sodium 1,000 mg BID PO 11/03/24 23:30 11/03/24 23:30 1,000 MG objective General: the patient is well developed and nourished. No acute distress. MENTAL STATUS: Subjective SPEECH, LANGUAGE, HIGHER CORTICAL FUNCTION: He does not vocalize CRANIAL NERVES: Pupils are equal, round and reactive. EOMs full and conjugate. Facial sensation intact in all three divisions bilaterally. Mandibular strength intact. Right facial weakness. SENSATION: Sensation to touch and pinprick is okay MOTOR: Increased muscle tone in the right arm than leg. Normal muscle bulk. No fasciculations. He only moves the left arm and leg REFLEXES: Deep tendon reflexes are symmetrical. No pathological reflexes. CEREBELLAR/COORDINATION: Deferred GAIT/STATION: deferred. laboratory and microbiology Laboratory Tests 11/03/24 15:30 11/02/24 09:56 Test 11/03/24 15:30 Range/Units Serum Glucose 80 74-106 mg/dL Problem List Seizure disorder with seizure breakthrough ? Partial continuous epilepsy Myoclonus Altered mental status Metabolic encephalopathy Subclinical seizure Mental retardation Gait disturbance ? secondary to mental retardation and history of stroke Reported stroke Agitation Kidney stone Assessment/Plan Monitoring Supportive treatment Telemetry Extra Dilantin loading, 500 mg x 1 now Phenytoin level in the morning ASA 81 mg qd Lipitor 10 mg daily Depakote 500 mg t.i.d. Keppra 750 mg b.i.d. Dilantin 100 mg t.i.d Ativan for seizure breakthrough This medical document was created using an electronic medical record system with [employer] dictation system. Although this document has been carefully reviewed, there may still be some phonetic and typographical errors. These areas are purely typographical due to imperfections of the software programs, and do not reflect any compromise in the patient's medical care. Prognosis poor Dietary Evaluation Review Comments: 1. TF if EN/GI accessible, Nepro@30ml/hr providing 58g Protein, 1274 kcal and 523ml free water, supporting 100% protein needs and 73% energy needs 2. TPN per pharmacy if NPO>7 days 3. reassess needs after pt pass a MAINTE[employer]CE [employer] eval. Expected Outcomes/Goals: prevent further wt loss, avoid uremic syndrome Plan discussed with: Other LEYLA VARGHESE MD Nov 03, 2024 23:53
[2024-11-04] VITALS (8 sets, daily range): BP systolic 105–168; BP diastolic 68–94; PULSE 75–91; RESP 17–20; TEMP 97.5–99.2; O2SAT 98–100
--- NOTE | 2024-11-04 10:00 | DVHPN2 ---
Subjective According to the sitter he had a seizure last night of 15 seconds Today he is more alert and oriented Changes from previous H/P or p: Changes Eyes: No Pain, No Vision change, No Conjunctivae inflammation, No Eyelid inflammation, No Other, No Redness ENT: No Ear pain, No Ear discharge, No Nose pain, No Nose discharge, No Nose congestion, No Mouth pain, No Mouth swelling, No Throat pain, No Throat swelling, No Other Cardiovascular: No Chest Pain, No Palpitations, No Orthopnea, No Paroxysmal Noc. Dyspnea, No Edema, No Lt Headedness, No Other Respiratory: No Cough, No Dry, No Shortness of breath, No SOB with excertion, No Wheezing, No Hemoptysis, No Pleuritic Pain, No Sputum, No Other Gastrointestinal: No Nausea, No Vomiting, No Abdominal Pain, No Diarrhea, No Constipation, No Melena, No Hematochezia, No Other Genitourinary: No Dysuria, No Frequency, No Incontinence, No Hematuria, No Retention, No Other Musculoskeletal: No other, No neck pain, No shoulder pain, No arm pain, No back pain, No hand pain, No leg pain, No foot pain Skin: No Rash, No Lesions, No Jaundice, No Bruising, No Other Objective Vitals Vital Signs Date Time Temp Pulse Resp B/P (MAP) Pulse Ox O2 Delivery O2 Flow Rate FiO2 11/04/24 08:30 99.2 89 20 119/79 (92) 100 99.2 11/04/24 08:00 Room Air* 0 21 Intake/Output Intake and Output 11/04/24 07:00 Intake Total 860 ml Output Total 1600 ml Balance -740 ml Intake Oral 860 ml Output Urine Total 1600 ml # Bowel Movements 3 General Appearance: Alert, Other Lungs: Clear to auscultation Cardiovascular: Regular rate, Normal S1, Normal S2 Abdomen: Normal bowel sounds, Soft, No tenderness Extremities: No edema Medications Current Medications Medications Dose Ordered Sig/Jazmin Route Start Time Stop Time Status Last Admin Dose Admin Ondansetron HCl 4 mg Q4HP PRN IV 10/26/24 13:45 Docusate Sodium 100 mg BIDPRN PRN PO 10/26/24 13:45 Nitroglycerin 0.4 mg Q5MINP PRN SL 10/26/24 13:45 Morphine Sulfate 2 mg Q30M PRN IV 10/26/24 13:45 Hydralazine HCl 10 mg Q6HP PRN IV 10/26/24 14:30 11/03/24 16:24 10 MG Aspirin 81 mg DAILY PO 10/27/24 10:00 11/03/24 09:04 81 MG Atorvastatin Calcium 10 mg HS PO 10/27/24 22:00 11/03/24 22:40 10 MG Lorazepam 1 mg Q5MINP PRN IV 10/28/24 07:45 11/03/24 01:22 1 MG Purified Water 300 ml Q4HR GT 10/31/24 11:45 11/04/24 05:48 300 ML Levetiracetam 750 mg BID PO 11/02/24 10:00 11/03/24 22:00 750 MG Apixaban 10 mg BID PO 11/03/24 22:00 11/10/24 21:59 11/03/24 22:40 10 MG Phenytoin Sodium 100 mg Q8HR PO 11/03/24 23:15 11/04/24 05:55 100 MG Valproate Sodium 1,000 mg BID PO 11/03/24 23:30 11/03/24 23:30 1,000 MG Laboratory Results Laboratory Tests 11/02/24 09:56 11/03/24 15:30 Chemistry Test 11/03/24 15:30 Calcium Level 9.3 mg/dL (8.7-10.4) Magnesium Level 1.7 mg/dL (1.6-2.6) Urinalysis Test 10/26/24 09:20 Urine Color Colorless (Yellow) Urine Clarity Turbid (Clear) H Urine pH 7.0 (5.0-9.0) Urine Specific [place] 1.010 (1.001-1.035) Urine Protein 1+ (Negative) H Urine Ketones Negative (Negative) Urine Blood 1+ /uL (Negative) H Urine Nitrite Negative (Negative) Urine Bilirubin Negative (Negative) Urine Urobilinogen Normal mg/dL (Negative) Urine Leukocyte Esterase 3+ /uL (Negative) Urine RBC 7 /hpf (0 - 3) Urine WBC Clumps Present /hpf (None Seen) Urine Microscopic WBC 77 /HPF (0-3) H Urine Squamous Epithelial Cells Few /hpf (<5) Urine Bacteria Few /hpf (None Seen) H Urine Mucus Few (None Seen) Urine Glucose Normal mg/dL (Normal) Microbiology Microbiology Date/Time Source Procedure Growth Status 10/28/24 04:30 Nose MRSA Screen - Final Complete 10/26/24 13:17 Blood Blood Culture - Final NO GROWTH AFTER 5 DAYS OF INCUBATION. Complete Assessment/Plan Assessment/Plan Acute metabolic encephalopathy, Complicated UTI, ANNETTE due to VMN Hypertension, Seizures, Hyperlipidemia, Chronic kidney disease, As homeless dementia History of bilateral hydronephrosis History of CVA with right-sided deficit History of traumatic brain injury History of chronic idiopathic constipation History of COPD Prostatomegaly Plan: IV antibiotics cefepime IV fluids Keppra 750 mg twice a day Neurology consult Valproic acid 500 mg IV 3 times a day Urine culture Blood culture Urology consult Keep NPO for now until he is more alert and oriented Full code 10/28/24: PT eval Swallow eval Downgrade to Tele Hypernatremia: Change IV fluids Cefepime Keppra and Depakote IV Neurology consult 10/29/2024: Hypernatremia: Change IV fluids to D5W Dehydration: Continue IV fluids Dysphagia: Repeat a swallow evaluation Seizures continue the seizure medications including Keppra and Depakote IV antibiotics cefepime Sitter at the bedside PT eval and swallow eval The rest of the management will depend on the hospital course 10/30/2024: Hypernatremia, not better: The patient needs free water Place NG tube and start free water Continue D5W IV fluids Repeat a swallow eval IV antibiotics Monitor closely 10/31/2024: Hypernatremia: Continue free water, increase the amount, continue D5W Acute kidney injury: Continue IV fluids Left nephrolithiasis status post nephrostomy tube, the patient will need lithotripsy, urology is following, possibly once he is medically stable Seizure disorder: Continue Keppra and Depakote and Dilantin Metabolic encephalopathy Hypertension Complicated UTI: Discontinue cefepime, finished treatment History of CVA with right-sided deficit History of traumatic brain injury Discussed with the sister and caregiver at the bedside 11/01/2024: Hypernatremia: Continue free water and D5W, Labs are still pending NG tube in place for the free water Repeat a swallow evaluation, if the patient can swallow then we will discontinue the NG tube and start oral intake We will consult with Urology again for the final treatment of his stone and hopefully remove the nephrostomy tube during this admission 11/02/2024: Discussed with Urology, he will need to have a lithotripsy as an outpatient since he already has a nephrostomy tube now Hypernatremia: Improving company D5W Generalized weakness: PT eval Seizures: Continue Keppra and Depakote and Dilantin L arm DVT: Remove the midline, Start Lovenox 11/03/2024: DVT of the left arm: Switch Lovenox to Eliquis Hypernatremia: Controlled Discontinue IV fluids Continue diet as tolerated Continue seizure medications with the Keppra and Depakote and Dilantin Physical therapy evaluation Discharge planning for tomorrow 11/04/2024: Continue the current management Continue Dilantin and Keppra and Depakote Neurology is on the correctional casework specialist closely Plan discussed with: Patient My Orders Orders - ABDOUL BLACKMON MD Procedure Category Date Status Time Apixaban (Eliquis) PHA 11/03/24 In Process 22:00 Date of Service: Nov 04, 2024 Billing Provider: ABDOUL BLACKMON MD Common Visit Codes: [id number] INP/OBS CARE(HIGH) ABDOUL BLACKMON MD Nov 04, 2024 10:00
[2024-11-04] MEDS: PHENYTOIN IV DILANTIN 500 MG in SODIUM CHL 0.9% 100 ML IV ONE (13:43)
[2024-11-04] MEDS: FREE WATER NG SCH (23:15)
[2024-11-05] VITALS (8 sets, daily range): BP systolic 117–163; BP diastolic 80–107; PULSE 75–89; RESP 16–18; TEMP 97.7–98.9; O2SAT 98–100
--- NOTE | 2024-11-05 00:24 | DVH ---
CHEST RADIOGRAPH Indication: NG TUBE PLACEMENT Technique: Single frontal view of the chest was obtained COMPARISON: XY CHEST XRAY 1 VIEW on DOS: 10/30/24, XY CHEST PORTABLE on DOS: 10/26/24, XY CHEST XRAY 1 V IEW on DOS: 10/10/24, XY CHEST XRAY 1 VIEW on DOS: 11/17/23, XY CHEST XRAY 1 VIEW on DOS: 10/16/23 FINDINGS: Lines and Tubes: Enteric catheter terminates within the gastric lumen. Lungs: Clear Pleura: No effusion. No pneumothorax. Cardiomediastinal contours: Unremarkable Bones: Unremarkable IMPRESSION: 1. No acute disease. 2. Enteric catheter.
--- NOTE | 2024-11-05 00:42 | DVHPN2 ---
Progress Note - Dictate Date Seen: Nov 04, 2024 Medical Necessity Reason Pt with a Central, PICC or Fol: Yes The following are medically ne: Bobby Catheter Subjective Mr. Palmer is a 59 years old gentleman with a history of mental retardation, hypertension, chronic kidney failure, BPH, kidney stone, was brought to the [facility] on 10/26/2024 with a chief complaint of seizure activity I saw him on 11/22/2023 for seizure I have seen and examined. I have talked to his nurse and sitter, he choked when he was swallow his phenytoin. But he is awake, responsive to verbal stimuli, he waves his hand to me when I stepped in the room, No seizure activity today Hoarseness reason, the extra Dilantin was not loaded Urinalysis, 10/26/2024: WBC: 77, urine leukocyte esterase: 3+ Dilantin, 10/17/2023: 16.1, 10/27/24: 8.8, 10/30/24: 15.4, 10/31/2024: 11.2, 15:30: 8.2, 11/04/24: 9.3 Depakote, 11/18/2023: CBC, 10/26/2024: Unremarkable Na, 10/27/24: 144, 10/28/24: 149, 10/29/2024: 154, 10/30/2024: 155, 10/31/2024: 153, 11/03/2024: 147 BUN/CR, 11/22/2023: 16/1.33, 10/26/2024: 15/1.48 GFR, 10/26/2024: 54 TG/HDL/LDL/HDL, 09/2023: 76/159/79/68 EEG, 10/09/2024: Inadequate but abnormal EEG consistent with encephalopathy Extremity venous study, left upper extremity, 11/02/2024: Deep vein thrombosis with occlusive thrombus in the left brachial, radial and ulnar veins. Chest x-ray, 10/30/2024: No acute cardiopulmonary disease. 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 No acute intracranial abnormality CT head, 10/26/2024: No acute intracranial abnormality. (encephalomalacia in the left hemisphere) vital signs Vital Sign Date Time Temp Pulse Resp B/P (MAP) Pulse Ox O2 Delivery O2 Flow Rate FiO2 11/04/24 21:00 97.9 88 17 141/84 (103) 99 97.9 11/04/24 08:00 Room Air* 0 21 Total Intake and Output 11/04/24 11/04/24 11/05/24 15:00 23:00 07:00 Intake Total 540 ml Output Total 400 ml 800 ml Balance -400 ml -260 ml medications Current Medications Medications Dose Ordered Sig/Jazmin Route Start Time Stop Time Status Last Admin Dose Admin Ondansetron HCl 4 mg Q4HP PRN IV 10/26/24 13:45 Docusate Sodium 100 mg BIDPRN PRN PO 10/26/24 13:45 Nitroglycerin 0.4 mg Q5MINP PRN SL 10/26/24 13:45 Hydralazine HCl 10 mg Q6HP PRN IV 10/26/24 14:30 11/03/24 16:24 10 MG Lorazepam 1 mg Q5MINP PRN IV 10/28/24 07:45 11/03/24 01:22 1 MG Aspirin 81 mg DAILY NG 11/05/24 10:00 Apixaban 10 mg BID NG 11/05/24 10:00 11/12/24 09:59 Atorvastatin Calcium 10 mg HS NG 11/05/24 22:00 Purified Water 300 ml Q4HR NG 11/04/24 23:15 Phenytoin Sodium 100 mg Q8HR NG 11/04/24 23:15 Valproate Sodium 1,000 mg BID NG 11/04/24 23:15 Levetiracetam 750 mg BID NG 11/04/24 23:15 objective General: the patient is well developed and nourished. No acute distress. MENTAL STATUS: Subjective SPEECH, LANGUAGE, HIGHER CORTICAL FUNCTION: He does not vocalize CRANIAL NERVES: Pupils are equal, round and reactive. EOMs full and conjugate. Facial sensation intact in all three divisions bilaterally. Mandibular strength intact. Right facial weakness. SENSATION: Sensation to touch and pinprick is okay MOTOR: Increased muscle tone in the right arm than leg. Normal muscle bulk. No fasciculations. He only moves the left arm and leg REFLEXES: Deep tendon reflexes are symmetrical. No pathological reflexes. CEREBELLAR/COORDINATION: Deferred GAIT/STATION: deferred. laboratory and microbiology Laboratory Tests 11/03/24 15:30 11/02/24 09:56 Test 11/03/24 15:30 Range/Units Serum Glucose 80 74-106 mg/dL Problem List Seizure disorder with seizure breakthrough ? Partial continuous epilepsy Myoclonus Altered mental status Metabolic encephalopathy Subclinical seizure Mental retardation Gait disturbance ? secondary to mental retardation and history of stroke Reported stroke Agitation Kidney stone Assessment/Plan Monitoring Supportive treatment Telemetry Tube feeding Extra Dilantin loading, 500 mg x 1 now Phenytoin level in the morning ASA 81 mg qd Lipitor 10 mg daily Depakote 500 mg t.i.d. Keppra 750 mg b.i.d. Dilantin 100 mg t.i.d Ativan for seizure breakthrough This medical document was created using an electronic medical record system with [employer] dictation system. Although this document has been carefully reviewed, there may still be some phonetic and typographical errors. These areas are purely typographical due to imperfections of the software programs, and do not reflect any compromise in the patient's medical care. Prognosis poor Dietary Evaluation Review Comments: 1. TF if EN/GI accessible, Nepro@30ml/hr providing 58g Protein, 1274 kcal and 523ml free water, supporting 100% protein needs and 73% energy needs 2. TPN per pharmacy if NPO>7 days 3. reassess needs after pt pass a MACHINE OPERATOR PACKAGING eval. Expected Outcomes/Goals: prevent further wt loss, avoid uremic syndrome Plan discussed with: Other LEYLA VARGHESE MD Nov 05, 2024 00:42
[2024-11-05] MEDS: PHENYTOIN 100 MG/4 ML SUSP NG SCH (00:49)
[2024-11-05] MEDS: VALPROIC ACID 250 MG/5 ML ORAL SOLN NG SCH (00:49)
[2024-11-05] MEDS: levETIRAcetam 500 MG TAB NG SCH (00:50)
[2024-11-05] MEDS: APIXABAN 5 MG TAB NG SCH (10:02)
[2024-11-05] MEDS: PHENYTOIN IV DILANTIN 500 MG in SODIUM CHL 0.9% 100 ML IV ONE (16:00)
--- NOTE | 2024-11-05 17:47 | DVHPN2 ---
Subjective No changes 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 (Lawyer Criminal) Changes from previous H/P or p: No Changes Objective Vitals Vital Signs Date Time Temp Pulse Resp B/P (MAP) Pulse Ox O2 Delivery O2 Flow Rate FiO2 11/05/24 13:00 97.8 89 18 117/81 (93) 100 97.8 11/05/24 08:00 Room Air* 0 21 Intake/Output Intake and Output 11/05/24 07:00 Intake Total 1040 ml Output Total 2050 ml Balance -1010 ml Intake Oral 1040 ml Output Urine Total 1650 ml Drainage Total 400 ml # Bowel Movements 2 General Appearance: Alert, No acute distress, Other (Nonverbal and not following command) HEENT: Atraumatic Lungs: Clear to auscultation Cardiovascular: Regular rate Abdomen: Normal bowel sounds, Soft, No tenderness Extremities: No edema Medications Current Medications Medications Dose Ordered Sig/Jazmin Route Start Time Stop Time Status Last Admin Dose Admin Ondansetron HCl 4 mg Q4HP PRN IV 10/26/24 13:45 Docusate Sodium 100 mg BIDPRN PRN PO 10/26/24 13:45 Nitroglycerin 0.4 mg Q5MINP PRN SL 10/26/24 13:45 Hydralazine HCl 10 mg Q6HP PRN IV 10/26/24 14:30 11/05/24 06:04 10 MG Lorazepam 1 mg Q5MINP PRN IV 10/28/24 07:45 11/03/24 01:22 1 MG Aspirin 81 mg DAILY NG 11/05/24 10:00 11/05/24 10:01 81 MG Apixaban 10 mg BID NG 11/05/24 10:00 11/12/24 09:59 11/05/24 10:02 10 MG Atorvastatin Calcium 10 mg HS NG 11/05/24 22:00 Purified Water 300 ml Q4HR NG 11/04/24 23:15 11/05/24 14:26 300 ML Phenytoin Sodium 100 mg Q8HR NG 11/04/24 23:15 11/05/24 14:21 100 MG Valproate Sodium 1,000 mg BID NG 11/04/24 23:15 11/05/24 10:05 1,000 MG Levetiracetam 750 mg BID NG 11/04/24 23:15 11/05/24 10:02 750 MG Laboratory Results Laboratory Tests 11/02/24 09:56 11/03/24 15:30 Urinalysis Test 10/26/24 09:20 Urine Color Colorless (Yellow) Urine Clarity Turbid (Clear) H Urine pH 7.0 (5.0-9.0) Urine Specific [place] 1.010 (1.001-1.035) Urine Protein 1+ (Negative) H Urine Ketones Negative (Negative) Urine Blood 1+ /uL (Negative) H Urine Nitrite Negative (Negative) Urine Bilirubin Negative (Negative) Urine Urobilinogen Normal mg/dL (Negative) Urine Leukocyte Esterase 3+ /uL (Negative) Urine RBC 7 /hpf (0 - 3) Urine WBC Clumps Present /hpf (None Seen) Urine Microscopic WBC 77 /HPF (0-3) H Urine Squamous Epithelial Cells Few /hpf (<5) Urine Bacteria Few /hpf (None Seen) H Urine Mucus Few (None Seen) Urine Glucose Normal mg/dL (Normal) Microbiology Microbiology Date/Time Source Procedure Growth Status 10/28/24 04:30 Nose MRSA Screen - Final Complete 10/26/24 13:17 Blood Blood Culture - Final NO GROWTH AFTER 5 DAYS OF INCUBATION. Complete Assessment/Plan Assessment/Plan Metabolic and septic encephalopathy UTI Seizures Chronic kidney disease with acute kidney injury Hypertension Dyslipidemia History of CVA with right-sided weakness Traumatic brain injury COPD Enlarged prostate Plan: Continue current plan of care. Possible discharge tomorrow Plan discussed with: Other (Nursing) Date of Service: Nov 05, 2024 Billing Provider: VICENTA JOHNSON MD Common Visit Codes: [id number] INP/OBS CARE(MOD) VICENTA JOHNSON MD Nov 05, 2024 17:47
--- NOTE | 2024-11-05 22:42 | DVH ---
CHEST RADIOGRAPH Indication: NG TUBE PLACEMENT Technique: Single frontal view of the chest was obtained Comparison: XY CHEST XRAY 1 VIEW on DOS: 11/05/24, XY CHEST XRAY 1 VIEW on DOS: 10/30/24, XY CHEST PORTAB LE on DOS: 10/26/24 FINDINGS: Lines and Tubes: Enteric tube in the stomach Lungs: No focal consolidation. Pleura: No effusion. No pneumothorax. Cardiomediastinal contours: Unremarkable Bones: No acute osseous abnormality. IMPRESSION: 1. Enteric tube in the stomach.
[2024-11-05] MEDS: ATORVASTATIN 20 MG TAB NG SCH (22:59)
[2024-11-06] VITALS (8 sets, daily range): BP systolic 129–160; BP diastolic 72–102; PULSE 64–79; RESP 16; TEMP 97.4–98.3; O2SAT 98–100
--- NOTE | 2024-11-06 14:03 | DVH ---
CHEST RADIOGRAPH Indication: NG Tube Placement verification. Technique: Single frontal view of the chest was obtained Comparison: XY CHEST XRAY 1 VIEW on DOS: 11/05/24, XY CHEST XRAY 1 VIEW on DOS: 11/05/24, XY CHEST XRAY 1 VIEW on DOS: 10/30/24, XY CHEST PORTABLE on DOS: 10/26/24, XY CHEST XRAY 1 VIEW on DOS: 10/10/24 FINDINGS: Lines and Tubes: None Lungs: No focal consolidation. Pleura: No effusion. No pneumothorax. Cardiomediastinal contours: Unremarkable Bones: No acute osseous abnormality. IMPRESSION: No acute cardiopulmonary disease. NO NG tube seen
[2024-11-06 15:00] LABS: Potassium 4.3 mmol/L (3.5-5.1); Sodium 144 mmol/L (136-145)
[2024-11-06 15:01] LABS: Anion Gap 11 (5-15); Calcium 9.7 mg/dL (8.7-10.4); Carbon Dioxide 22 mmol/L (20-31); Chloride 111 mmol/L (98-107)
[2024-11-06] MEDS: PHENYTOIN SODIUM 50 MG/ML 2ML VIAL IV ONE (15:01)
[2024-11-06] MEDS: levETIRAcetam 500 mg/100ml 100 ML IV ONE (15:01)
[2024-11-06 15:06] LABS: BUN/Creatinine Ratio 13.5 (10.0-20.0); Blood Urea Nitrogen 13 mg/dL (9-23); Glucose 80 mg/dL (74-106)
--- NOTE | 2024-11-06 16:24 | DVHPN2 ---
Subjective Patient pulled his NG tube twice. 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 (Academic Affairs Director) Changes from previous H/P or p: No Changes Objective Vitals Vital Signs Date Time Temp Pulse Resp B/P (MAP) Pulse Ox O2 Delivery O2 Flow Rate FiO2 11/06/24 12:55 97.8 72 16 160/84 (109) 99 97.8 11/06/24 08:00 Room Air* 0 21 Intake/Output Intake and Output 11/06/24 07:00 Intake Total 0 ml Output Total 1300 ml Balance -1300 ml Intake Oral 0 ml Output Urine Total 1300 ml General Appearance: Alert, No acute distress, Other (Nonverbal and not following command) HEENT: Atraumatic Lungs: Clear to auscultation Cardiovascular: Regular rate Abdomen: Normal bowel sounds, Soft, No tenderness Extremities: No edema Medications Current Medications Medications Dose Ordered Sig/Jazmin Route Start Time Stop Time Status Last Admin Dose Admin Ondansetron HCl 4 mg Q4HP PRN IV 10/26/24 13:45 Docusate Sodium 100 mg BIDPRN PRN PO 10/26/24 13:45 Nitroglycerin 0.4 mg Q5MINP PRN SL 10/26/24 13:45 Hydralazine HCl 10 mg Q6HP PRN IV 10/26/24 14:30 11/05/24 06:04 10 MG Lorazepam 1 mg Q5MINP PRN IV 10/28/24 07:45 11/03/24 01:22 1 MG Aspirin 81 mg DAILY NG 11/05/24 10:00 11/05/24 10:01 81 MG Apixaban 10 mg BID NG 11/05/24 10:00 11/12/24 09:59 11/05/24 22:58 10 MG Atorvastatin Calcium 10 mg HS NG 11/05/24 22:00 11/05/24 22:59 10 MG Purified Water 300 ml Q4HR NG 11/04/24 23:15 11/06/24 05:02 300 ML Phenytoin Sodium 100 mg Q8HR NG 11/04/24 23:15 11/06/24 05:02 100 MG Valproate Sodium 1,000 mg BID NG 11/04/24 23:15 11/05/24 22:59 1,000 MG Levetiracetam 750 mg BID NG 11/04/24 23:15 8/9/25 22:58 750 MG Laboratory Results Laboratory Tests 11/02/24 09:56 11/06/24 14:30 Chemistry Test 11/06/24 14:30 Calcium Level 9.7 mg/dL (8.7-10.4) Urinalysis Test 10/26/24 09:20 Urine Color Colorless (Yellow) Urine Clarity Turbid (Clear) H Urine pH 7.0 (5.0-9.0) Urine Specific [place] 1.010 (1.001-1.035) Urine Protein 1+ (Negative) H Urine Ketones Negative (Negative) Urine Blood 1+ /uL (Negative) H Urine Nitrite Negative (Negative) Urine Bilirubin Negative (Negative) Urine Urobilinogen Normal mg/dL (Negative) Urine Leukocyte Esterase 3+ /uL (Negative) Urine RBC 7 /hpf (0 - 3) Urine WBC Clumps Present /hpf (None Seen) Urine Microscopic WBC 77 /HPF (0-3) H Urine Squamous Epithelial Cells Few /hpf (<5) Urine Bacteria Few /hpf (None Seen) H Urine Mucus Few (None Seen) Urine Glucose Normal mg/dL (Normal) Microbiology Microbiology Date/Time Source Procedure Growth Status 10/28/24 04:30 Nose MRSA Screen - Final Complete 10/26/24 13:17 Blood Blood Culture - Final NO GROWTH AFTER 5 DAYS OF INCUBATION. Complete Assessment/Plan Assessment/Plan Metabolic and septic encephalopathy UTI Seizures Chronic kidney disease with acute kidney injury Hypertension Dyslipidemia History of CVA with right-sided weakness Traumatic brain injury COPD Enlarged prostate Left upper extremity DVT/Eliquis Plan: We will ask for swallow evaluation again to see if we can give the medications p.o.. Temporary we are going to give some medication IV to prevent seizures. Plan discussed with: Other (Nursing) My Orders Orders - VICENTA JOHNSON MD Procedure Category Date Status Time * Swallow Request ST 11/05/24 Transmitted 18:32 Chest Xray 1 View XY 11/06/24 Resulted 11:52 * Swallow Request ST 11/06/24 Verified 16:22 Date of Service: Nov 06, 2024 Billing Provider: VICENTA JOHNSON MD Common Visit Codes: [id number] INP/OBS CARE(HIGH) VICENTA JOHNSON MD Nov 06, 2024 16:24
[2024-11-06] MEDS: levETIRAcetam 500 mg/100ml 100 ML IV SCH (21:24)
[2024-11-06] MEDS: PHENYTOIN SODIUM 50 MG/ML 2ML VIAL IV SCH (21:24)
--- NOTE | 2024-11-06 23:20 | DVH ---
EXAM: XY CHEST XRAY 1 VIEW CLINICAL HISTORY: ngt placement verification TECHNIQUE: Single AP view of the chest WID: COMPARISON: XY CHEST XRAY 1 VIEW on DOS: 11/06/24, XY CHEST XRAY 1 VIEW on DOS: 11/05/24, XY CHEST XRAY 1 VIEW on DOS: 11/05/24 FINDINGS: Lines and tubes: Gastric tube in place with the tip projecting over the proximal body of the stomach. Chest: The heart size and pulmonary vasculature is within normal limits. No pleural effusion, pneumothorax, or consolidation. Linear left basilar opacities which could reflec t atelectasis or scarring The osseous structures are grossly intact. IMPRESSION: Gastric tube in place with the tip projecting over the proximal body of the stomach
[2024-11-07] VITALS (10 sets, daily range): BP systolic 121–170; BP diastolic 69–100; PULSE 66–89; RESP 16–21; TEMP 97.2–98.2; O2SAT 97–99
--- NOTE | 2024-11-07 08:34 | DVH ---
EXAM: XY CHEST XRAY 1 VIEW Indication: NGT placement Technique: Single frontal view of the chest was obtained Comparison: XY CHEST XRAY 1 VIEW on DOS: 11/06/24, XY CHEST XRAY 1 VIEW on DOS: 11/06/24, XY CHEST XRAY 1 VIEW on DOS: 11/05/24, XY CHEST XRAY 1 VIEW on DOS: 11/05/24, XY CHEST XRAY 1 VIEW on DOS: 10/30/24 FINDINGS: Lines and Tubes: Enteric tube tip projects over the expected region of the stomach. Lungs: No focal consolidation. Pleura: Trace left pleural effusion. No pneumothorax. Cardiomediastinal contours: Unremarkable Bones: No acute osseous abnormality. IMPRESSION: Enteric tube in appropriate position.
--- NOTE | 2024-11-07 13:23 | DVHPN2 ---
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) Changes from previous H/P or p: No Changes Objective Vitals Vital Signs Date Time Temp Pulse Resp B/P (MAP) Pulse Ox O2 Delivery O2 Flow Rate FiO2 11/07/24 13:00 97.8 74 17 131/91 (104) 99 97.8 11/07/24 08:10 Room Air* 0 21 Intake/Output Intake and Output 11/07/24 07:00 Intake Total 200 ml Output Total 2100 ml Balance -1900 ml Intake Oral 0 ml IV Total 200 ml Output Urine Total 1400 ml Drainage Total 700 ml General Appearance: Alert, No acute distress, Other (Nonverbal and not following command) HEENT: Atraumatic Lungs: Clear to auscultation Cardiovascular: Regular rate Abdomen: Normal bowel sounds, Soft, No tenderness Extremities: No edema Medications Current Medications Medications Dose Ordered Sig/Jazmin Route Start Time Stop Time Status Last Admin Dose Admin Ondansetron HCl 4 mg Q4HP PRN IV 10/26/24 13:45 Docusate Sodium 100 mg BIDPRN PRN PO 10/26/24 13:45 Nitroglycerin 0.4 mg Q5MINP PRN SL 10/26/24 13:45 Hydralazine HCl 10 mg Q6HP PRN IV 10/26/24 14:30 11/05/24 06:04 10 MG Lorazepam 1 mg Q5MINP PRN IV 10/28/24 07:45 11/03/24 01:22 1 MG Aspirin 81 mg DAILY NG 11/05/24 10:00 11/07/24 10:27 81 MG Apixaban 10 mg BID NG 11/05/24 10:00 11/12/24 09:59 11/07/24 10:27 10 MG Atorvastatin Calcium 10 mg HS NG 11/05/24 22:00 11/06/24 23:33 10 MG Purified Water 300 ml Q4HR NG 11/04/24 23:15 11/07/24 10:28 300 ML Valproate Sodium 1,000 mg BID NG 11/04/24 23:15 11/07/24 10:25 1,000 MG Phenytoin Sodium 100 mg Q8HR IV 11/06/24 22:00 11/07/24 06:05 100 MG Levetiracetam 100 ml @ 400 mls/hr BID IV 11/06/24 22:00 11/07/24 10:40 400 MLS/HR Laboratory Results Laboratory Tests 11/02/24 09:56 11/06/24 14:30 Chemistry Test 11/06/24 14:30 Calcium Level 9.7 mg/dL (8.7-10.4) Urinalysis Test 10/26/24 09:20 Urine Color Colorless (Yellow) Urine Clarity Turbid (Clear) H Urine pH 7.0 (5.0-9.0) Urine Specific [place] 1.010 (1.001-1.035) Urine Protein 1+ (Negative) H Urine Ketones Negative (Negative) Urine Blood 1+ /uL (Negative) H Urine Nitrite Negative (Negative) Urine Bilirubin Negative (Negative) Urine Urobilinogen Normal mg/dL (Negative) Urine Leukocyte Esterase 3+ /uL (Negative) Urine RBC 7 /hpf (0 - 3) Urine WBC Clumps Present /hpf (None Seen) Urine Microscopic WBC 77 /HPF (0-3) H Urine Squamous Epithelial Cells Few /hpf (<5) Urine Bacteria Few /hpf (None Seen) H Urine Mucus Few (None Seen) Urine Glucose Normal mg/dL (Normal) Microbiology Microbiology Date/Time Source Procedure Growth Status 10/28/24 04:30 Nose MRSA Screen - Final Complete 10/26/24 13:17 Blood Blood Culture - Final NO GROWTH AFTER 5 DAYS OF INCUBATION. Complete Labs and/or images reviewed: Labs reviewed by me, Image(s) reviewed by me Assessment/Plan Assessment/Plan Acute metabolic encephalopathy, Complicated UTI, cefepime ANNETTE due to VMN Hypertension, Seizures, Keppra valproic acid Hyperlipidemia, Chronic kidney disease, As homeless dementia History of bilateral hydronephrosis History of CVA with right-sided deficit History of traumatic brain injury History of chronic idiopathic constipation History of COPD Prostatomegaly Patient failed swallow test: NG tube feeding started Time Spent 70 minutes Advanced care planning time 20 minutes Patient is full code Plan discussed with: Patient Date of Service: Nov 07, 2024 Billing Provider: ARIANNE ANGEL MD Common Visit Codes: [id number] CARE 30-74 MIN ARIANNE ANGEL MD Nov 07, 2024 13:23
[2024-11-07] MEDS ORDERED: HYDROcodone-ACET 5/325MG TAB NG ONE (21:30)
[2024-11-07] MEDS: hydrALAZINE HCL 20 MG/ML VL IV ONE (22:39)
[2024-11-08] VITALS (9 sets, daily range): BP systolic 128–165; BP diastolic 53–86; PULSE 66–80; RESP 16–22; TEMP 97.5–98.2; O2SAT 97–99
--- NOTE | 2024-11-08 11:04 | DVHPN2 ---
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 Safety Manager) Changes from previous H/P or p: No Changes Objective Vitals Vital Signs Date Time Temp Pulse Resp B/P (MAP) Pulse Ox O2 Delivery O2 Flow Rate FiO2 11/08/24 09:02 98.0 71 20 134/84 (101) 98 98.0 11/08/24 08:00 Room Air* 0 21 Intake/Output Intake and Output 11/08/24 07:00 Intake Total 450 ml Output Total 1550 ml Balance -1100 ml Intake Oral 0 ml IV Total 200 ml Intraperitoneal 250 ml Output Urine Total 1550 ml General Appearance: Alert, No acute distress, Other (Nonverbal and not following command) HEENT: Atraumatic Lungs: Clear to auscultation Cardiovascular: Regular rate Abdomen: Normal bowel sounds, Soft, No tenderness Extremities: No edema Medications Current Medications Medications Dose Ordered Sig/Jazmin Route Start Time Stop Time Status Last Admin Dose Admin Ondansetron HCl 4 mg Q4HP PRN IV 10/26/24 13:45 Docusate Sodium 100 mg BIDPRN PRN PO 10/26/24 13:45 Nitroglycerin 0.4 mg Q5MINP PRN SL 10/26/24 13:45 Hydralazine HCl 10 mg Q6HP PRN IV 10/26/24 14:30 11/05/24 06:04 10 MG Lorazepam 1 mg Q5MINP PRN IV 10/28/24 07:45 11/03/24 01:22 1 MG Aspirin 81 mg DAILY NG 11/05/24 10:00 11/07/24 10:27 81 MG Apixaban 10 mg BID NG 11/05/24 10:00 11/12/24 09:59 11/07/24 10:27 10 MG Atorvastatin Calcium 10 mg HS NG 11/05/24 22:00 11/07/24 21:14 10 MG Purified Water 300 ml Q4HR NG 11/04/24 23:15 11/08/24 09:32 300 ML Valproate Sodium 1,000 mg BID NG 11/04/24 23:15 11/08/24 09:32 1,000 MG Phenytoin Sodium 100 mg Q8HR IV 11/06/24 22:00 11/08/24 05:17 100 MG Levetiracetam 100 ml @ 400 mls/hr BID IV 11/06/24 22:00 11/08/24 09:27 400 MLS/HR Laboratory Results Laboratory Tests 11/02/24 09:56 11/06/24 14:30 Urinalysis Test 10/26/24 09:20 Urine Color Colorless (Yellow) Urine Clarity Turbid (Clear) H Urine pH 7.0 (5.0-9.0) Urine Specific [place] 1.010 (1.001-1.035) Urine Protein 1+ (Negative) H Urine Ketones Negative (Negative) Urine Blood 1+ /uL (Negative) H Urine Nitrite Negative (Negative) Urine Bilirubin Negative (Negative) Urine Urobilinogen Normal mg/dL (Negative) Urine Leukocyte Esterase 3+ /uL (Negative) Urine RBC 7 /hpf (0 - 3) Urine WBC Clumps Present /hpf (None Seen) Urine Microscopic WBC 77 /HPF (0-3) H Urine Squamous Epithelial Cells Few /hpf (<5) Urine Bacteria Few /hpf (None Seen) H Urine Mucus Few (None Seen) Urine Glucose Normal mg/dL (Normal) Microbiology Microbiology Date/Time Source Procedure Growth Status 10/28/24 04:30 Nose MRSA Screen - Final Complete 10/26/24 13:17 Blood Blood Culture - Final NO GROWTH AFTER 5 DAYS OF INCUBATION. Complete Labs and/or images reviewed: Labs reviewed by me, Image(s) reviewed by me Assessment/Plan Assessment/Plan Acute metabolic encephalopathy, Complicated UTI, cefepime ANNETTE due to VMN Hypertension, Seizures, Keppra valproic acid Hyperlipidemia, Chronic kidney disease, As homeless dementia History of bilateral hydronephrosis History of CVA with right-sided deficit History of traumatic brain injury History of chronic idiopathic constipation History of COPD Prostatomegaly Patient failed swallow test: NG tube feeding started Discussed with the patient's sister Nancy and the patient is being discharged to [facility] to receive cefepime 1 g IV daily for two weeks for complicated UTI Plan discussed with: Patient My Orders Orders - ARIANNE ANGEL MD Procedure Category Date Status Time Urine Bacterial PORSHA 11/07/24 In Process Culture 13:15 * Dietary Consult CONS 11/07/24 Transmitted 13:20 Covid19 Antigen [facility] 11/08/24 Logged Insert Midline ORDERS 11/08/24 Transmitted 09:05 Date of Service: Nov 08, 2024 Billing Provider: ARIANNE ANGEL MD Common Visit Codes: [id number] INP/OBS CARE(HIGH) ARIANNE ANGEL MD Nov 08, 2024 11:04
--- NOTE | 2024-11-08 11:07 | DVHDS2 ---
Discharge Summary Date of Admission Oct 26, 2024 at 13:38 Date of Discharge: Nov 08, 2024 Admitting Diagnosis Generalized weakness and altered mental status Wounds: None Labs/Diagnostic Data: Laboratory Results Test 11/06/24 14:30 11/04/24 22:46 11/03/24 15:30 11/02/24 09:56 Sodium Level 144 mmol/L (136-145) Potassium Level 4.3 mmol/L (3.5-5.1) Chloride Level 111 mmol/L (98-107) Carbon Dioxide Level 22 mmol/L (20-31) Anion Gap 11 (5-15) Blood Urea Nitrogen 13 mg/dL (9-23) Creatinine 0.96 mg/dL (0.700-1.30) Glomerular Filtration Rate Calc 90 mL/min (>90) BUN/Creatinine Ratio 13.5 (10.0-20.0) Serum Glucose 80 mg/dL (74-106) Calcium Level 9.7 mg/dL (8.7-10.4) Phenytoin (Dilantin) Level 7.9 ug/mL (10-20) POC Glucose 95 mg/dl (70-106) Magnesium Level 1.7 mg/dL (1.6-2.6) White Blood Count 7.6 10^3/uL (4.4-10.8) Red Blood Count 4.32 10^6/uL (4.5-5.90) Hemoglobin 14.2 g/dL (13.5-17.5) Hematocrit 42.0 % (41.0-53.0) Mean Corpuscular Volume 97.2 fL (80.0-100.0) Mean Corpuscular Hemoglobin 33.0 pg (28.0-32.0) Mean Corpuscular Hemoglobin Concent 33.9 g/dL (32.0-36.0) Red Cell Distribution Width 13.2 % (11.8-14.3) Platelet Count 206 10^3/uL (140-450) Mean Platelet Volume 8.8 fL (6.9-10.8) Neutrophils (%) (Auto) 65.1 % (37.0-80.0) Lymphocytes (%) (Auto) 21.2 % (10.0-50.0) Monocytes (%) (Auto) 7.7 % (0.0-12.0) Eosinophils (%) (Auto) 5.4 % (0.0-7.0) Basophils (%) (Auto) 0.6 % (0.0-2.0) Neutrophils # (Auto) 4.9 10 ^3/uL (1.6-8.6) Lymphocytes # (Auto) 1.6 10 ^3/uL (0.4-5.4) Monocytes # (Auto) 0.6 10 ^3/uL (0-1.3) Eosinophils # (Auto) 0.4 10 ^3/uL (0-0.8) Basophils # (Auto) 0 10 ^3/uL (0-0.2) Nucleated Red Blood Cells 0.1 % Total Bilirubin 0.4 mg/dL (0.2-1.0) Aspartate Amino Transferase (AST) 33 U/L (13-40) Alanine Aminotransferase (ALT) 26 U/L (7-40) Alkaline Phosphatase 92 U/L (46-116) Total Protein 5.8 g/dL (5.7-8.2) Albumin 3.6 g/dL (3.2-4.8) Test 10/27/24 09:08 10/26/24 13:42 10/26/24 13:05 10/26/24 09:20 Valproic Acid Level 49.4 ug/mL (50-100) Troponin I High Sensitivity 16 ng/L (</=54) Lactic Acid Level 1.3 mmol/L (0.4-2.0) Urine Color Colorless (Yellow) Urine Clarity Turbid (Clear) Urine pH 7.0 (5.0-9.0) Urine Specific [place] 1.010 (1.001-1.035) Urine Protein 1+ (Negative) Urine Ketones Negative (Negative) Urine Blood 1+ /uL (Negative) Urine Nitrite Negative (Negative) Urine Bilirubin Negative (Negative) Urine Urobilinogen Normal mg/dL (Negative) Urine Leukocyte Esterase 3+ /uL (Negative) Urine RBC 7 /hpf (0 - 3) Urine WBC Clumps Present /hpf (None Seen) Urine Microscopic WBC 77 /HPF (0-3) Urine Squamous Epithelial Cells Few /hpf (<5) Urine Bacteria Few /hpf (None Seen) Urine Mucus Few (None Seen) Urine Glucose Normal mg/dL (Normal) Other Laboratory Tests 11/06/24 14:30 11/02/24 09:56 Brief Hx & Hospital Course: 59-year-old male with a history of recurrent urinary tract infections 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 Being discharged to nursing home facility to receive cefepime 1 g IV daily for two weeks for UTI. the plan is acceptable with the sister Nancy at the bedside Consults/Reason for consult None Operations or Procedures None Condition at Discharge: Fair Final Diagnosis/Problems List Acute metabolic encephalopathy, Complicated UTI, cefepime ANNETTE due to [facility] Hypertension, Seizures, Keppra valproic acid Hyperlipidemia, Chronic kidney disease, As homeless dementia History of bilateral hydronephrosis History of CVA with right-sided deficit History of traumatic brain injury History of chronic idiopathic constipation History of COPD Prostatomegaly Patient failed swallow test: NG tube feeding started Discussed with the patient's sister Nancy and the patient is being discharged to [facility] to receive cefepime 1 g IV daily for two weeks for complicated UTI Discharge Disposition: [facility]sp Facility Discharge Instruct/Medications Diet: Cardiac 2g Na,low cholest Activity: Light activity Follow Up/Referral: Follow up with the long term Medications: Cefepime 1 g IV daily for two weeks for complicated UTI see list for other meds Scheduled Amlodipine Besylate (Norvasc Tablet), 10 MG PO DAILY, (Reported) Aripiprazole (Abilify), 5 MG PO DAILY, (Reported) Atorvastatin Calcium (Atorvastatin Calcium), 10 MG PO DAILY, (Reported) Baclofen (Baclofen), 10 MG PO DAILY, (Reported) Benztropine Mesylate (Benztropine Mesylate), 1 MG PO DAILY, (Reported) Cefdinir (Cefdinir), 1 CAP PO BID Cholecalciferol (Vitamin D3), 1,000 UNIT PO DAILY, (Reported) Cranberry (Vaccinium Macrocarp (Cranberry Concentrate), 500 MG PO DAILY, (Reported) Divalproex Sodium (Divalproex Sodium), 500 MG PO BID, (Reported) Docusate Sodium (Colace), 100 MG PO DAILY, (Reported) Escitalopram Oxalate (Escitalopram Oxalate), 1 TAB PO DAILY, (Reported) Finasteride (Finasteride), 5 MG PO HS, (Reported) Folic Acid (Folic Acid), 1 MG PO HS, (Reported) Guaifenesin-Codeine (Robitussin/Codeine), 10 ML PO Q6HP, (Reported) Hydrochlorothiazide (Hydrochlorothiazide), 12.5 MG PO DAILY, (Reported) Levetiracetam (Keppra Tablet), 750 MG PO BID, (Reported) Lorazepam (Ativan Tablet), 1 TAB PO BID, (Reported) Losartan Potassium (Losartan Potassium), 50 MG PO BID, (Reported) Fpyivpbjbgq-Bsyhh-Pezikpjim Bl (Uribel), 1 CAP PO BID, (Reported) Metoprolol Tartrate (Metoprolol Tartrate), 12.5 MG PO DAILY, (Reported) Mometasone Furoate-Formoterol (Dulera), 2 PUFF INH DAILY, (Reported) Niacin (Niacin Er), 500 MG PO HS, (Reported) Nitrofurantoin (Macrodantin Capsule), 50 MG PO HS, (Reported) Omeprazole (Gnp Omeprazole), 20 MG PO DAILY, (Reported) Paliperidone (Invega), 4.5 MG PO HS, (Reported) Phenytoin (Phenytoin), 100 MG PO TID, (Reported) Polyethylene Glycol 3350 (Miralax), 17 GM PO DAILY, (Reported) Quetiapine Fumerate (Quetiapine Fumarate), 100 MG PO DAILY, (Reported) Quetiapine Fumerate (Quetiapine Fumarate), 250 MG PO HS, (Reported) Sulfamethoxazole W/Trimethopri (Bactrim Ds Tablet), 1 TAB PO BID Tamsulosin Hcl (Tamsulosin Hcl), 0.4 MG PO DAILY, (Reported) Trazodone Hcl (Trazodone Hcl), 50 MG PO HS, (Reported) Scheduled PRN Loperamide Hcl (Cvs Anti-Diarrheal), 2 MG PO BIDP PRN for FOR DIARRHEA, (Reported) 39 (Time taken for discharge summary 39 minutes) Discharge Statement: "Patient was advised to return to the ER or call 911 if any headaches, dizziness, shortness of breath, chest pain, abdominal pain, bleeding, fevers, or worsening of medical condition. Patient was counseled about treatment plan, medications, possible side effects, patientverbalized understanding. All questions were answered to the best of my ability. This discharge took greater then 30 minutes in planning, reviewing documentation, counseling the patient, and discussing with other team members." ASSESSMENT ASSESSMENT Hospital Course Marginal improvement Assessment Acute metabolic encephalopathy, Complicated UTI, cefepime ANNETTE due to [facility] Hypertension, Seizures, Keppra valproic acid Hyperlipidemia, Chronic kidney disease, As homeless dementia History of bilateral hydronephrosis History of CVA with right-sided deficit History of traumatic brain injury History of chronic idiopathic constipation History of COPD Prostatomegaly Patient failed swallow test: NG tube feeding started Discussed with the patient's sister Nancy and the patient is being discharged to [facility] to receive cefepime 1 g IV daily for two weeks for complicated UTI Date of Service: Nov 08, 2024 Billing Provider: ARIANNE ANGEL MD Common Visit Codes: 62834-CIK/OBS DISCH DAY >30min ARIANNE ANGEL MD Nov 08, 2024 11:07
--- NOTE | 2024-11-08 15:30 | DVH ---
Bilateral Upper Extremity Venous Duplex Date: 11/08/2024 02:24 PM Clinical History: Pain Comparison: US LT UPPER DVT on DOS: 11/02/24, US BILAT LOWER DVT on DOS: 10/11/24 , US LT UPPER DVT on D OS: 11/02/24 Findings: The left internal jugular, subclavian, axillary veins demonstrate color flow. Left axillary vein is compressible. Thrombus in the left cephalic and radial vein. Right internal jugular vein, subclavian vein, and ulnar vein are unremarkable. Thrombus in the right brachial vein and right radial vein. Ri ght axillary, cephalic, and basilic vein are not visualized IMPRESSION: Bilateral DVTs.
[2024-11-08] MEDS ORDERED: Jevity 1.2 Cal/Fiber 1 Liter GT SCH (16:15)
--- NOTE | 2024-11-08 21:29 | DVH ---
CHEST RADIOGRAPH REASON FOR EXAM: NGT PLACEMENT VERIFICATION COMPARISON: XY CHEST XRAY 1 VIEW on DOS: 11/07/24, XY CHEST XRAY 1 VIEW on DOS: 11/06/24, XY CHEST XRAY 1 VIEW on DOS: 11/06/24, XY CHEST XRAY 1 VIEW on DOS: 11/05/24, XY CHEST XRAY 1 VIEW on DOS: 11/05/24 TECHNIQUE: One view of the chest is provided FINDINGS: The cardiomediastinal silhouette is within normal limits for size. There is left basilar ai rspace disease. There is small left pleural effusion. There is an enteric tube with the tip projectin g over the expected area of the proximal duodenum. There is no pneumothorax. No acute osseous abnorma lity is identified. IMPRESSION: Left basilar airspace disease. Small left pleural effusion. Enteric tube tip projects over the expected area of the proximal duodenum.
--- NOTE | 2024-11-08 23:20 | DVHPN2 ---
Progress Note - Dictate Date Seen: Nov 08, 2024 Medical Necessity Reason Pt with a Central, PICC or Fol: Yes The following are medically ne: Bobby Catheter Subjective Mr. Palmer is a 59 years old gentleman with a history of mental retardation, hypertension, chronic kidney failure, BPH, kidney stone, was brought to the [facility] on 10/26/2024 with a chief complaint of seizure activity I saw him on 11/22/2023 for seizure I have seen and examined. I have talked to his nurse and sitter, he is awake, but he does not talk, he use his left arm to play with me No seizure activity in the lasts a few days Urinalysis, 10/26/2024: WBC: 77, urine leukocyte esterase: 3+ Dilantin, 10/17/2023: 16.1, 10/27/24: 8.8, 10/30/24: 15.4, 10/31/2024: 11.2, 15:30: 8.2, 11/04/24: 9.3, 11/06/24: 7.9 Depakote, 11/18/2023: CBC, 10/26/2024: Unremarkable Na, 10/27/24: 144, 10/28/24: 149, 10/29/2024: 154, 10/30/2024: 155, 10/31/2024: 153, 11/03/2024: 147 BUN/CR, 11/22/2023: 16/1.33, 10/26/2024: 15/1.48 GFR, 10/26/2024: 54 TG/HDL/LDL/HDL, 09/2023: 76/159/79/68 EEG, 10/09/2024: Inadequate but abnormal EEG consistent with encephalopathy Extremity venous study, left upper extremity, 11/02/2024: Deep vein thrombosis with occlusive thrombus in the left brachial, radial and ulnar veins. Bilateral upper extremity venous duplex, 11/08/2024: Bilateral DVTs Chest x-ray, 10/30/2024: No acute cardiopulmonary disease. 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 No acute intracranial abnormality CT head, 10/26/2024: No acute intracranial abnormality. (encephalomalacia in the left hemisphere) vital signs Vital Sign Date Time Temp Pulse Resp B/P (MAP) Pulse Ox O2 Delivery O2 Flow Rate FiO2 11/08/24 21:00 98.2 68 17 144/72 (96) 98 98.2 11/08/24 20:00 Room Air* 0 21 Total Intake and Output 11/07/24 11/07/24 11/08/24 15:00 23:00 07:00 Intake Total 100 ml 350 ml 0 ml Output Total 300 ml 350 ml 900 ml Balance -200 ml 0 ml -900 ml medications Current Medications Medications Dose Ordered Sig/Jazmin Route Start Time Stop Time Status Last Admin Dose Admin Ondansetron HCl 4 mg Q4HP PRN IV 10/26/24 13:45 Docusate Sodium 100 mg BIDPRN PRN PO 10/26/24 13:45 Nitroglycerin 0.4 mg Q5MINP PRN SL 10/26/24 13:45 Hydralazine HCl 10 mg Q6HP PRN IV 10/26/24 14:30 11/05/24 06:04 10 MG Lorazepam 1 mg Q5MINP PRN IV 10/28/24 07:45 11/03/24 01:22 1 MG Aspirin 81 mg DAILY NG 11/05/24 10:00 11/07/24 10:27 81 MG Apixaban 10 mg BID NG 11/05/24 10:00 11/12/24 09:59 11/08/24 22:15 10 MG Atorvastatin Calcium 10 mg HS NG 11/05/24 22:00 11/08/24 22:16 10 MG Purified Water 300 ml Q4HR NG 11/04/24 23:15 11/08/24 22:16 300 ML Valproate Sodium 1,000 mg BID NG 11/04/24 23:15 11/08/24 22:15 1,000 MG Phenytoin Sodium 100 mg Q8HR IV 11/06/24 22:00 11/08/24 16:17 100 MG Enteral Nutritional Formula 1,000 ml 60ML/HR GT 11/08/24 16:15 Levetiracetam 500 mg BID NG 11/08/24 22:00 11/08/24 22:15 500 MG objective General: the patient is well developed and nourished. No acute distress. MENTAL STATUS: Subjective SPEECH, LANGUAGE, HIGHER CORTICAL FUNCTION: He does not vocalize CRANIAL NERVES: Pupils are equal, round and reactive. EOMs full and conjugate. Facial sensation intact in all three divisions bilaterally. Mandibular strength intact. Right facial weakness. SENSATION: Sensation to touch and pinprick is okay MOTOR: Increased muscle tone in the right arm than leg. Normal muscle bulk. No fasciculations. He only moves the left arm and leg REFLEXES: Deep tendon reflexes are symmetrical. No pathological reflexes. CEREBELLAR/COORDINATION: Deferred GAIT/STATION: deferred. laboratory and microbiology Laboratory Tests 11/06/24 14:30 11/02/24 09:56 Test 11/06/24 14:30 Range/Units Serum Glucose 80 74-106 mg/dL Problem List Seizure disorder with seizure breakthrough ? Partial continuous epilepsy Myoclonus Altered mental status Metabolic encephalopathy Subclinical seizure Mental retardation Gait disturbance ? secondary to mental retardation and history of stroke Reported stroke Agitation Kidney stone DVT in the arms Assessment/Plan Monitoring Supportive treatment Telemetry Tube feeding Extra Dilantin loading, 300 mg x 1 now Eliquis Discontinue ASA 81 mg qd Lipitor 10 mg daily Depakote 500 mg t.i.d. Keppra 750 mg b.i.d. (was cut down to 500 b.i.d.) Dilantin 100 mg t.i.d Ativan for seizure breakthrough This medical document was created using an electronic medical record system with [employer] dictation system. Although this document has been carefully reviewed, there may still be some phonetic and typographical errors. These areas are purely typographical due to imperfections of the software programs, and do not reflect any compromise in the patient's medical care. Prognosis poor Dietary Evaluation Review Comments: 1. TF if EN/GI accessible, Nepro@30ml/hr providing 58g Protein, 1274 kcal and 523ml free water, supporting 100% protein needs and 73% energy needs 2. TPN per pharmacy if NPO>7 days 3. reassess needs after pt pass a BREAD PAN [employer]ASER eval. Expected Outcomes/Goals: prevent further wt loss, avoid uremic syndrome Plan discussed with: Other LEYLA VARGHESE MD Nov 08, 2024 23:20
[2024-11-08] MEDS: PHENYTOIN 100 MG/4 ML SUSP NG ONE (23:48)
[2024-11-09 01:00] VITALS: BP 148/79; PULSE 75; RESP 17; TEMP 98; O2SAT 97
[2024-11-09 05:00] VITALS: BP 140/82; PULSE 82; RESP 17; TEMP 98.1; O2SAT 99
[2024-11-09] MEDS: PHENYTOIN 100 MG/4 ML SUSP NG SCH (06:03)
[2024-11-09 08:00] VITALS: PULSE 72; RESP 17
[2024-11-09 09:57] VITALS: BP 125/68; PULSE 78; RESP 16; O2SAT 98
[2024-11-09 10:46] VITALS: BP 161/88; RESP 18; TEMP 36.7
--- NOTE | 2024-11-09 11:05 | DVHPN2 ---
Progress Note - Dictate Date Seen: Nov 09, 2024 Medical Necessity Reason Pt with a Central, PICC or Fol: Yes The following are medically ne: Bobby Catheter Subjective Mr. Palmer is a 59 years old gentleman with a history of mental retardation, hypertension, chronic kidney failure, BPH, kidney stone, was brought to the [facility] on 10/26/2024 with a chief complaint of seizure activity I saw him on 11/22/2023 for seizure I have seen and examined. I have talked to his nurse and sitter, he is awake, but he does not talk, he uses his left arm to play with me, he is able to use his left hand and facial expression to ask for water No seizure activity in the lasts a few days Urinalysis, 10/26/2024: WBC: 77, urine leukocyte esterase: 3+ Dilantin, 10/17/2023: 16.1, 10/27/24: 8.8, 10/30/24: 15.4, 10/31/2024: 11.2, 15:30: 8.2, 11/04/24: 9.3, 11/06/24: 7.9 Depakote, 11/18/2023: CBC, 10/26/2024: Unremarkable Na, 10/27/24: 144, 10/28/24: 149, 10/29/2024: 154, 10/30/2024: 155, 10/31/2024: 153, 11/03/2024: 147 BUN/CR, 11/22/2023: 16/1.33, 10/26/2024: 15/1.48 GFR, 10/26/2024: 54 TG/HDL/LDL/HDL, 09/2023: 76/159/79/68 EEG, 10/09/2024: Inadequate but abnormal EEG consistent with encephalopathy Extremity venous study, left upper extremity, 11/02/2024: Deep vein thrombosis with occlusive thrombus in the left brachial, radial and ulnar veins. Bilateral upper extremity venous duplex, 11/08/2024: Bilateral DVTs Chest x-ray, 10/30/2024: No acute cardiopulmonary disease. 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 No acute intracranial abnormality CT head, 10/26/2024: No acute intracranial abnormality. (encephalomalacia in the left hemisphere) vital signs Vital Sign Date Time Temp Pulse Resp B/P (MAP) Pulse Ox O2 Delivery O2 Flow Rate FiO2 11/09/24 10:46 36.7 18 11/09/24 09:57 78 125/68 (87) 98 11/09/24 08:00 Room Air* 0 21 Total Intake and Output 11/08/24 11/08/24 11/09/24 15:00 23:00 07:00 Intake Total 0 ml Output Total 775 ml 900 ml Balance -775 ml -900 ml medications Current Medications Medications Dose Ordered Sig/Jazmin Route Start Time Stop Time Status Last Admin Dose Admin Ondansetron HCl 4 mg Q4HP PRN IV 10/26/24 13:45 Docusate Sodium 100 mg BIDPRN PRN PO 10/26/24 13:45 Nitroglycerin 0.4 mg Q5MINP PRN SL 10/26/24 13:45 Hydralazine HCl 10 mg Q6HP PRN IV 10/26/24 14:30 11/05/24 06:04 10 MG Lorazepam 1 mg Q5MINP PRN IV 10/28/24 07:45 11/03/24 01:22 1 MG Apixaban 10 mg BID NG 11/05/24 10:00 11/12/24 09:59 11/09/24 09:40 10 MG Atorvastatin Calcium 10 mg HS NG 11/05/24 22:00 11/08/24 22:16 10 MG Purified Water 300 ml Q4HR NG 11/04/24 23:15 11/09/24 09:40 300 ML Valproate Sodium 1,000 mg BID NG 11/04/24 23:15 11/09/24 09:39 1,000 MG Enteral Nutritional Formula 1,000 ml 60ML/HR GT 11/08/24 16:15 Levetiracetam 750 mg BID NG 11/09/24 10:00 11/09/24 09:40 750 MG Phenytoin Sodium 100 mg Q8HR NG 11/09/24 06:00 11/09/24 06:03 100 MG objective General: the patient is well developed and nourished. No acute distress. MENTAL STATUS: Subjective SPEECH, LANGUAGE, HIGHER CORTICAL FUNCTION: He does not vocalize CRANIAL NERVES: Pupils are equal, round and reactive. EOMs full and conjugate. Facial sensation intact in all three divisions bilaterally. Mandibular strength intact. Right facial weakness. SENSATION: Sensation to touch and pinprick is okay MOTOR: Increased muscle tone in the right arm than leg. Normal muscle bulk. No fasciculations. He only moves the left arm and legs, he does not move the right arm REFLEXES: Deep tendon reflexes are symmetrical. No pathological reflexes. CEREBELLAR/COORDINATION: Deferred GAIT/STATION: deferred. laboratory and microbiology Laboratory Tests 11/06/24 14:30 11/02/24 09:56 Test 11/06/24 14:30 Range/Units Serum Glucose 80 74-106 mg/dL Problem List Seizure disorder with seizure breakthrough Myoclonus Altered mental status, improving Metabolic encephalopathy Subclinical seizure Mental retardation Gait disturbance ? secondary to mental retardation and history of stroke Reported stroke Agitation Kidney stone DVT in the arms Assessment/Plan Monitoring Supportive treatment Telemetry Tube feeding Extra Dilantin loading, 300 mg x 1 now Eliquis Discontinue ASA 81 mg qd Lipitor 10 mg daily Depakote 500 mg t.i.d. Keppra 750 mg b.i.d. (was cut down to 500 b.i.d.) Dilantin 100 mg t.i.d Ativan for seizure breakthrough This medical document was created using an electronic medical record system with [employer] dictation system. Although this document has been carefully reviewed, there may still be some phonetic and typographical errors. These areas are purely typographical due to imperfections of the software programs, and do not reflect any compromise in the patient's medical care. Prognosis poor Dietary Evaluation Review Comments: 1. TF if EN/GI accessible, Nepro@30ml/hr providing 58g Protein, 1274 kcal and 523ml free water, supporting 100% protein needs and 73% energy needs 2. TPN per pharmacy if NPO>7 days 3. reassess needs after pt pass a PROFESSIONAL SYSTEM ADMINISTRATOR eval. Expected Outcomes/Goals: prevent further wt loss, avoid uremic syndrome Plan discussed with: Other LEYLA VARGHESE MD Nov 09, 2024 11:05
== END 2024-11-09 15:40 | DRG 100 ==
LOC: EDBD 08:56 → ER 08:56 → OVERFLOW 13:38 → EAST 10-28 04:07 → TELE-WESTW 10-28 16:08
PROVIDERS: ADMIT Family Medicine; ATTEND Family Medicine
PROC: 0DH67UZ Insertion of Feeding Device into Stomach, Via Natural or Artificial Opening (ICD-10-PCS; 2024-10-30)
PROC: 05HA33Z Insertion of Infusion Device into Left Brachial Vein, Percutaneous Approach (ICD-10-PCS; principal; 2024-11-01)
PROC: B54NZZA Ultrasonography of Left Upper Extremity Veins, Guidance (ICD-10-PCS; 2024-11-01)
DX: G40.409 Other generalized epilepsy and epileptic syndromes, not intractable, without status epilepticus (principal); N17.0 Acute kidney failure with tubular necrosis; E87.0 Hyperosmolality and hypernatremia; Z59.00 Homelessness unspecified; I69.351 Hemiplegia and hemiparesis following cerebral infarction affecting right dominant side; N39.0 Urinary tract infection, site not specified; I82.623 Acute embolism and thrombosis of deep veins of upper extremity, bilateral; E78.5 Hyperlipidemia, unspecified; N18.9 Chronic kidney disease, unspecified; I12.9 Hypertensive chronic kidney disease with stage 1 through stage 4 chronic kidney disease, or unspecified chronic kidney disease; J44.9 Chronic obstructive pulmonary disease, unspecified; F79 Unspecified intellectual disabilities; F03.90 Unspecified dementia, unspecified severity, without behavioral disturbance, psychotic disturbance, mood disturbance, and anxiety; G93.89 Other specified disorders of brain; N40.1 Benign prostatic hyperplasia with lower urinary tract symptoms; N32.0 Bladder-neck obstruction; N31.9 Neuromuscular dysfunction of bladder, unspecified; N20.0 Calculus of kidney; E86.0 Dehydration; Z88.8 Allergy status to other drugs, medicaments and biological substances; Z93.1 Gastrostomy status; Z90.79 Acquired absence of other genital organ(s); Z87.820 Personal history of traumatic brain injury; Z87.442 Personal history of urinary calculi; Z79.899 Other long term (current) drug therapy; Z79.82 Long term (current) use of aspirin
CPT/HCPCS: 36415; 70450; 71045; 80048; 80053; 80164; 80185; 81001; 82962; 83605; 83735; 84484; 85025; 87040; 87081; 87086; 92610; 93970; 93971; 95819; 96365; 96366; 96367; 96375; 97110; 97163; 99291; G0378; J0692

== ENCOUNTER 2024-11-10 11:50 | Inpatient (IN) | payer MEDICARE, MEDICAID ==
[~2024-11-10] VITALS: Ht 177.8 cm; Wt 65.9 kg
[~2024-11-10 11:50] MED LIST changes: +AML5T PO; -AMLO1TAB23 PO; -ARIP10TA29 PO; +ARIP2TAB PO; +BACL10TA PO; +CHOL20007 PO; +CRAN500C7 PO; +DIVA500T13 PO; +DOCU-94 PO; -FIN5T PO; +FINA5TAB4 PO; +GUAI100S6 PO; +KEP500T PO; -LEVE750T3 PO; +LOPE-20 PO; -METH-928 PO; +METH118C PO; +METO25TA5 PO; +MOME1AER3 INH; -NIAC1TAB30 PO; +NIAC500T89 PO; -NITR1CAP35 PO; +NITR50CA52 PO; -OMEP1CAP70 PO; +OMEP20TA PO; -PHEN1CAP38 PO; +PHEN50CH8 PO; +POLY335015 PO; +QUET100T47 PO; -QUET200T30 PO; +QUET200T45 PO; -SODI1TAB PO; -VALP1CAP4 PO
--- NOTE | 2024-11-10 12:09 | ED.PDOC ---
General HPI Comments HPI: This is a 59 year old male BIBA presenting to the ED with chief complaint of nephrostomy problem. EMS reports that the patient was discharged from [facility] with a left nephrostomy. EMS relays that the patient's left nephrostomy is leaking due to not having a bag attached to it, being brought in for bag placement due to the tube leaking. Patient denies any abdominal pain, dysuria, hematuria, nausea, or vomiting. Patient is non- verbal at this time. Initial Vitals BP: HR: RR: O2: Temp: Past Medical History: HTN, HLD, Seizures, CVA, BPH, LUE DVT, Aphasia, Dementia Past Surgical History: Left Nephrostomy, Bobby Catheter Social History: Denies ETOH, smoking, and drug use. Medications: Reviewed. Allergies: ROBIN Inhibitors HPI: Poor Historian. CANDIE Paiz NEPHROSTOMY BAG MISSING. snipped. non verbal, moves all 4. ext. requested food. REVIEW OF SYSTEMS: CONSTITUTIONAL: Denies acute: fever, diaphoresis, chills, generalized weakness. HEAD: Denies acute: headache, photophobia Eyes: Denies acute: Double vision, vision loss, eye pain, eye discharge. EARS: Denies acute: tinnitus, hearing loss, ear discharge, ear pain, THROAT: Denies acute: sore throat, swelling, difficulty swallowing , pain with swallowing, change in voice. NECK: Denies acute: neck pain, neck swelling, stiff neck. HEART: Denies acute : chest pain, palpitations, LUNGS: Denies acute: SOB, wheezing, cough, hemoptysis ABDOMEN: Denies acute: abdominal pain, Nausea, Vomiting, diarrhea, melena , hematemesis, hematochezia SKIN: Denies acute: rash, redness, lesions, itchiness. EXTREMITIES: Denies acute: calf pain, numbness, tingling, weakness, denies pain in extremity. Denies acute: Low back pain. Neuro: Denies acute: focal neurological deficit, motor or sensory focal neurological deficit, tremors, seizure like activity, confusion, dizziness, change in mental status, loss of bowel or bladder function, cauda equina like symptoms. : Denies acute: dysuria, hematuria, flank pain, increase in urinary frequency. PSYCH: Denies acute: hallucination, suicidal ideation, homicidal ideation. PHYSICAL EXAM: General: ----no----acute distress, awake and alert. Head: normocephalic, atraumatic. Neck: supple, trachea is midline, no swelling. Throat: Normal phonation. Eyes:, no erythema, no purulent discharge, no proptosis, no icterus. Heart: regular rate, regular rhythm, no significant murmur appreciated. Lungs: no apparent respiratory distress, No wheezing, no rhonchi, no crackles. No stridors Clear to auscultation bilaterally. Abdomen: non tender to palpation, non distended, soft, no guarding, no rebound, + bowel sounds. Evaluation of the left nephrostomy tube site. The bag and tubing associated with the bag is completely missing snipped and this is why nephrostomy tube is leaking because it is not connected to a bag. We can not reconnect the back since the actual tubing is torn. No findings to suggest infection of the nephrostomy site. Neuro: Awake, Alert, oriented to name, self, situation, follows commands. GCS=15. Nonverbal Skin: no petechia, no purpura, no cyanosis, non-pale, not jaundice. Lower extremities: --no - Pitting edema no deformity, no focal swelling, no calf TTP. Makes eye contact. moves all four extremities. Face: no apparent facial droop. ED COURSE: DISCLAIMER: This medical document was created using an electronic medical record system with voice recognition software and computerized dictation system. Although this document has been carefully reviewed, there might still be some phonetic and typographical errors. Occasional wrong-word or "sound-alike" substitutions may have occurred due to the inherent limitations of voice recognition software. These areas are purely typographical due to imperfections of the software programs and do not reflect any compromise in the patient's medical care. Please read the chart carefully and recognize, using context, where these substitutions have occurred. Time Seen by MD: 12:06 Primary Care Provider: FLO Reviewed notes: Nurses Notes, Concrete Building Assembler Notes, Medications, Allergies Allergies: Coded Allergies: ROBIN Inhibitors (Verified Allergy, Unknown, 10/13/23) Home Meds Active Scripts Sulfamethoxazole W/Trimethopri (Bactrim Ds Tablet) 1 Tab Tb, 1 TAB PO BID for 5 Days, #10 TAB Prov:LOLIS LUX RESIDENT 10/14/24 Cefdinir (Cefdinir) 300 Mg Cap, 1 CAP PO BID for 7 Days, #14 CAP Prov:STARR MURPHY MD 10/20/23 Reported Medications Guaifenesin-Codeine (Robitussin/Codeine) 10 Ml So, 10 ML PO Q6HP, ML 10/30/24 Loperamide Hcl ([facility] ANTI-DIARRHEAL) 2 Mg Cap, 2 MG PO BIDP PRN for FOR DIARRHEA, CAP 10/30/24 Levetiracetam (KEPPRA TABLET) 500 Mg Tb, 750 MG PO BID, TAB 10/30/24 Metoprolol Tartrate (Metoprolol Tartrate) 25 Mg Tab, 12.5 MG PO DAILY for 30 Days, MG 10/30/24 Baclofen (Baclofen) 10 Mg Tab, 10 MG PO DAILY for 30 Days, MG 10/30/24 Cholecalciferol (VITAMIN D3) 2,000 Unit Tab, 1000 UNIT PO DAILY, TAB 10/30/24 Trazodone Hcl (Trazodone Hcl) 50 Mg Tab, 50 MG PO HS, MG 10/30/24 Tamsulosin Hcl (Tamsulosin Hcl) 0.4 Mg Cap, 0.4 MG PO DAILY for 30 Days, MG 10/30/24 Quetiapine Fumerate (QUETIAPINE FUMARATE) 200 Mg Tab, 250 MG PO HS for 30 Days, MG 10/30/24 Polyethylene Glycol 3350 (Miralax) 17 Gm Pow, 17 GM PO DAILY, POW 10/30/24 Phenytoin (PHENYTOIN) 50 Mg Chw, 100 MG PO TID, TAB.CHEW 10/30/24 Paliperidone (Invega) 3 Mg Tab, 4.5 MG PO HS, TAB 10/30/24 Omeprazole (Gnp Omeprazole) 20 Mg Tab, 20 MG PO DAILY, TAB 10/30/24 Nitrofurantoin (MACRODANTIN CAPSULE) 50 Mg Cp, 50 MG PO HS, CAP 10/30/24 Niacin (NIACIN ER) 500 Mg Tab, 500 MG PO HS, TAB 8/3/25 Epjwaebbqig-Xymzx-Dgvqyujvq Bl (Uribel) 118 Mg Cap, 1 CAP PO BID, #20 CAP 1 Refill 10/30/24 Losartan Potassium (Losartan Potassium) 50 Mg Tab, 50 MG PO BID for 30 Days, MG 10/30/24 Hydrochlorothiazide (Hydrochlorothiazide) 12.5 Mg Cap, 12.5 MG PO DAILY for 30 Days, MG 10/30/24 Folic Acid (Folic Acid) 1 Mg Tab, 1 MG PO HS for 30 Days, MG 10/30/24 Finasteride (Finasteride) 5 Mg Tab, 5 MG PO HS for 30 Days, MG 10/30/24 Escitalopram Oxalate (ESCITALOPRAM OXALATE) 10 Mg Tab, 1 TAB PO DAILY, #30 TAB 3 Refills 10/30/24 Mometasone Furoate-Formoterol (Dulera) 1 Aer Aer, 2 PUFF INH DAILY, #13 GRAMS 5 Refills 10/30/24 Docusate Sodium (Colace) 100 Mg Cap, 100 MG PO DAILY, CAP 10/30/24 Cranberry (Vaccinium Macrocarp (Cranberry Concentrate) 500 Mg Cap, 500 MG PO DAILY, CAP 10/30/24 Benztropine Mesylate (Benztropine Mesylate) 1 Mg Tab, 1 MG PO DAILY, MG 10/30/24 Atorvastatin Calcium (ATORVASTATIN CALCIUM) 10 Mg Tab, 10 MG PO DAILY, TAB 10/30/24 Amlodipine Besylate (NORVASC TABLET) 5 Mg Tb, 10 MG PO DAILY, TAB 10/30/24 Quetiapine Fumerate (QUETIAPINE FUMARATE) 100 Mg Tab, 100 MG PO DAILY for 30 Days, MG 10/30/24 Lorazepam (ATIVAN TABLET) 0.5 Mg Tb, 1 TAB PO BID, #60 TAB 10/30/24 Divalproex Sodium (Divalproex Sodium) 500 Mg Tab, 500 MG PO BID for 30 Days, MG 10/30/24 Aripiprazole (Abilify) 2 Mg Tab, 5 MG PO DAILY, TAB 10/30/24 Information Source: Patient, Emergency Med Personnel Mode of Arrival: EMS Was a procedure done? Was a procedure done?: No Differential Diagnosis Kidney stone (Female): N/A X-Ray, Labs, Meds, VS Vital Signs Date Time Temp Pulse Resp B/P (MAP) Pulse Ox O2 Delivery O2 Flow Rate FiO2 11/10/24 13:53 98.0 84 13 156/79 (104) 98 98.0 11/10/24 13:00 Room Air* 0 21 11/10/24 12:10 97.1 76 18 128/72 98 97.1 Lab Test 11/10/24 13:34 Range/Units White Blood Count 9.0 4.4-10.8 10^3/uL Red Blood Count 4.58 4.5-5.90 10^6/uL Hemoglobin 15.1 13.5-17.5 g/dL Hematocrit 44.2 41.0-53.0 % Mean Corpuscular Volume 96.4 80.0-100.0 fL Mean Corpuscular Hemoglobin 33.0 H 28.0-32.0 pg Mean Corpuscular Hemoglobin Concent 34.3 32.0-36.0 g/dL Red Cell Distribution Width 13.8 11.8-14.3 % Platelet Count 286 140-450 10^3/uL Mean Platelet Volume 9.1 6.9-10.8 fL Neutrophils (%) (Auto) 60.5 37.0-80.0 % Lymphocytes (%) (Auto) 21.5 10.0-50.0 % Monocytes (%) (Auto) 14.3 H 0.0-12.0 % Eosinophils (%) (Auto) 2.9 0.0-7.0 % Basophils (%) (Auto) 0.8 0.0-2.0 % Neutrophils # (Auto) 5.5 1.6-8.6 10 ^3/uL Lymphocytes # (Auto) 1.9 0.4-5.4 10 ^3/uL Monocytes # (Auto) 1.3 0-1.3 10 ^3/uL Eosinophils # (Auto) 0.3 0-0.8 10 ^3/uL Basophils # (Auto) 0.1 0-0.2 10 ^3/uL Nucleated Red Blood Cells 0.2 % Sodium Level 147 H 136-145 mmol/L Potassium Level 3.7 3.5-5.1 mmol/L Chloride Level 112 H 98-107 mmol/L Carbon Dioxide Level 25 20-31 mmol/L Anion Gap 10 5-15 Blood Urea Nitrogen 19 9-23 mg/dL Creatinine 1.39 H 0.700-1.30 mg/dL Glomerular Filtration Rate Calc 58 >90 mL/min BUN/Creatinine Ratio 13.7 10.0-20.0 Serum Glucose 102 74-106 mg/dL Lactic Acid Level 1.5 0.4-2.0 mmol/L Calcium Level 9.5 8.7-10.4 mg/dL Total Bilirubin 0.2 0.2-1.0 mg/dL Aspartate Amino Transferase (AST) 37 13-40 U/L Alanine Aminotransferase (ALT) 45 H 7-40 U/L Alkaline Phosphatase 109 46-116 U/L Total Protein 6.6 5.7-8.2 g/dL Albumin 4.0 3.2-4.8 g/dL Time of 1ST Reevaluation: 13:05 Reevaluation 1ST: Unchanged Patient Education/Counseling: Diagnosis, Treatment Family Education/Counseling: No Family Present Comments MDM: patient presented with the above HPI.---nephrostomy tube complica tion--workup was initiated. patient was found with the above mentioned diagnosis. the following medications were ordered: please refer to order lists of meds and tests obtained by myself Dr. Glaser. Patient ED course and VS have been stabilized. Patient has been reassessed in the ED and remained in a stable condition. Pertinent incidental findings were discussed with the patient and/or family. Patient/family voices understanding and is agreeable with plan. Patient has been observed in the ED adequate length of time to insure improvement/stability. Escalation of care considered: Consideration of escalation to observation or admission Patient was ADMITTED to the medicine team for further evaluation and treatment of their presentation. All the reports of any imaging studies that were ordered by myself were reviewed by myself. Departure 1 Departure Time of Disposition: 13:47 Impression: Primary Impression: Malfunction of nephrostomy tube Disposition: ADMITTED INPATIENT Admit to: Tele Condition: Guarded Discharged With: Self Critical Care Note Critical Care Time?: No I personally scribed for DANIELLE GLASER DO ([email or web address]) on 11/10/24 at 12:09. Electronically submitted by Beni Jacobs ([email or web address]). DANIELLE GLASER DO Nov 10, 2024 12:09
[2024-11-10 13:55] LABS: Hematocrit 44.2 % (41.0-53.0); Hemoglobin 15.1 g/dL (13.5-17.5); Mean Corpuscular Hemoglobin 33.0 pg (28.0-32.0); Mean Corpuscular Volume 96.4 fL (80.0-100.0); Nucleated Red Blood Cells % 0.2 %
[2024-11-10 14:14] LABS: Alkaline Phosphatase 109 U/L (46-116); Anion Gap 10 (5-15); BUN/Creatinine Ratio 13.7 (10.0-20.0); Blood Urea Nitrogen 19 mg/dL (9-23); Calcium 9.5 mg/dL (8.7-10.4); Carbon Dioxide 25 mmol/L (20-31); Glucose 102 mg/dL (74-106); Potassium 3.7 mmol/L (3.5-5.1); Total Protein 6.6 g/dL (5.7-8.2)
[2024-11-10 14:15] LABS: Alanine Aminotransferase 45 U/L (7-40); Albumin 4.0 g/dL (3.2-4.8); Bilirubin, Total 0.2 mg/dL (0.2-1.0); Chloride 112 mmol/L (98-107); Sodium 147 mmol/L (136-145)
[2024-11-10] MEDS ORDERED: hydrALAZINE HCL 20 MG/ML VL IV PRN (15:00)
[2024-11-10] MEDS ORDERED: ACETAMINOPHEN 325 MG TAB PO PRN (15:00)
[2024-11-10] MEDS ORDERED: ONDANSETRON HCL 4 MG/2 ML VIAL IV PRN (15:00)
--- NOTE | 2024-11-10 15:13 | DVHHP2 ---
History of Present Illness Reason for Visit: Dislodged nephrostomy tube History of Present Illness 59-year-old male with a history of dementia and nonverbal presents for evaluation of nephrostomy tube malfunction. Patient was discharged two days ago for this institution to [facility] with the left nephrostomy tube. Today patient was found with the nephrostomy tube leaking with the nephrostomy bag on the ground. There is half of the nephrostomy tube in place the rest is missing. Past Medical History Seizures, CVA, dementia, aphasia, BPH, HLD, hypertension Past Surgical History Left nephrostomy tube Family History Noncontributory Smoke: No ALCOHOL: none Drugs: None Lives: with Family Review of Systems Review of Systems Review of systems can not be completed due to the patient's advanced dementia. Allergies: Coded Allergies: ROBIN Inhibitors (Verified Allergy, Unknown, 10/13/23) Medications Current Medications Medications Dose Ordered Sig/Jazmin Route Start Time Stop Time Status Last Admin Dose Admin Phenytoin Sodium 100 mg Q8HR PO 11/10/24 22:00 UNV Hydralazine HCl 10 mg Q6HP PRN IV 11/10/24 15:00 UNV Atorvastatin Calcium 10 mg HS PO 11/10/24 22:00 UNV Divalproex Sodium 500 mg BID PO 11/10/24 22:00 UNV Levetiracetam 750 mg BID PO 11/10/24 22:00 UNV Losartan Potassium 50 mg BID PO 11/10/24 22:00 UNV Ondansetron HCl 4 mg Q4HP PRN IV 11/10/24 15:00 UNV Acetaminophen 650 mg Q6HP PRN PO 11/10/24 15:00 UNV Exam Vital Signs Vital Signs Date Time Temp Pulse Resp B/P (MAP) Pulse Ox O2 Delivery O2 Flow Rate FiO2 11/10/24 13:53 98.0 84 13 156/79 (104) 98 98.0 Exam Gen: 59-year-old male in no apparent distress. Skin: Warm, dry, normal color and texture, no rash. HEENT: Normocephalic atraumatic, mucous membranes moist and pink. Neck: Cervical and supraclavicular nodes normal without enlargement, trachea is midline, thyroid gland is normal without masses. Pulmonary: Clear to auscultation and percussion bilaterally. Cardiac: Regular rate and rhythm. No murmur Abdomen: Soft, nontender, nondistended, bowel sounds present all 4 quadrants, no guarding, no rigidity, no organomegaly. Extremities: No cyanosis, clubbing, no edema Neuro: Dementia Labs/Xrays Labs Test 11/10/24 13:34 Range/Units White Blood Count 9.0 4.4-10.8 10^3/uL Red Blood Count 4.58 4.5-5.90 10^6/uL Hemoglobin 15.1 13.5-17.5 g/dL Hematocrit 44.2 41.0-53.0 % Mean Corpuscular Volume 96.4 80.0-100.0 fL Mean Corpuscular Hemoglobin 33.0 H 28.0-32.0 pg Mean Corpuscular Hemoglobin Concent 34.3 32.0-36.0 g/dL Red Cell Distribution Width 13.8 11.8-14.3 % Platelet Count 286 140-450 10^3/uL Mean Platelet Volume 9.1 6.9-10.8 fL Neutrophils (%) (Auto) 60.5 37.0-80.0 % Lymphocytes (%) (Auto) 21.5 10.0-50.0 % Monocytes (%) (Auto) 14.3 H 0.0-12.0 % Eosinophils (%) (Auto) 2.9 0.0-7.0 % Basophils (%) (Auto) 0.8 0.0-2.0 % Neutrophils # (Auto) 5.5 1.6-8.6 10 ^3/uL Lymphocytes # (Auto) 1.9 0.4-5.4 10 ^3/uL Monocytes # (Auto) 1.3 0-1.3 10 ^3/uL Eosinophils # (Auto) 0.3 0-0.8 10 ^3/uL Basophils # (Auto) 0.1 0-0.2 10 ^3/uL Nucleated Red Blood Cells 0.2 % Sodium Level 147 H 136-145 mmol/L Potassium Level 3.7 3.5-5.1 mmol/L Chloride Level 112 H 98-107 mmol/L Carbon Dioxide Level 25 20-31 mmol/L Anion Gap 10 5-15 Blood Urea Nitrogen 19 9-23 mg/dL Creatinine 1.39 H 0.700-1.30 mg/dL Glomerular Filtration Rate Calc 58 >90 mL/min BUN/Creatinine Ratio 13.7 10.0-20.0 Serum Glucose 102 74-106 mg/dL Lactic Acid Level 1.5 0.4-2.0 mmol/L Calcium Level 9.5 8.7-10.4 mg/dL Total Bilirubin 0.2 0.2-1.0 mg/dL Aspartate Amino Transferase (AST) 37 13-40 U/L Alanine Aminotransferase (ALT) 45 H 7-40 U/L Alkaline Phosphatase 109 46-116 U/L Total Protein 6.6 5.7-8.2 g/dL Albumin 4.0 3.2-4.8 g/dL SEPSIS Sepsis Screen Physician Orders Torch Cutter (11/10/24 ) Insert Midline (11/10/24 13:57) Phenytoin Capsule (Dilantin Capsule) (11/10/24 22:00) Hydralazine Injection (Apresoline Inject (11/10/24 15:00) Atorvastatin (Lipitor) (11/10/24 22:00) Divalproex Dr Tablet (Depakote "Dr" Tabl (11/10/24 22:00) Levetiracetam Tablet (Keppra Tablet) (11/10/24 22:00) Losartan Tablet (Cozaar Tablet) (11/10/24 22:00) * Radiologist Consult (11/10/24 14:55) Basic Metabolic Panel (11/11/24 04:00) Admit (11/10/24 14:55) Ondansetron Hcl (Zofran) (11/10/24 15:00) Cardiac Diet-2gna,Lofat,Lochol (11/10/24 Dinner) Condition: Stable (11/10/24 14:55) Acetaminophen Tablet (Tylenol Tablet) (11/10/24 15:00) Maintain Bed Rest (11/10/24 14:55) Sequential Compression Device (11/10/24 ) Vital Signs Date Time Temp Pulse Resp B/P (MAP) Pulse Ox O2 Delivery O2 Flow Rate FiO2 11/10/24 13:53 98.0 84 13 156/79 (104) 98 98.0 Laboratory Tests Test 11/10/24 13:34 Lactic Acid Level 1.5 mmol/L (0.4-2.0) White Blood Count 9.0 10^3/uL (4.4-10.8) Assessment/Plan Assessment/Plan Assessment Dislodged nephrostomy tube Dementia History of CVA Nonverbal Plan Admit the patient to [facility] to the hospitalist Radiology consultation Resume home medications Continue treatment per orders. Plan discussed with: Other My Orders Orders - STARR LEON Procedure Category Date Status Time Phenytoin Capsule PHA 11/10/24 Logged (Dilantin Capsule) 22:00 Hydralazine Injection PHA 11/10/24 Logged (Apresoline Inject 15:00 Atorvastatin (Lipitor) PHA 11/10/24 Logged 22:[address] Tablet PHA 11/10/24 Logged (Depakote "Dr" Tabl 22:00 Levetiracetam Tablet PHA 11/10/24 Logged (Keppra Tablet) 22:00 Losartan Tablet PHA 11/10/24 Logged (Cozaar Tablet) 22:00 * Radiologist Consult CONS 11/10/24 Transmitted 14:55 Basic Metabolic Panel LAB 11/11/24 Verified 04:00 Admit ADMIT 11/10/24 Transmitted 14:55 Ondansetron Hcl PHA 11/10/24 Logged (Zofran) 15:00 Cardiac DIET 11/10/24 Transmitted Diet-2gna,Lofat,Lochol Dinner Condition: Stable FARHAT 11/10/24 In Process 14:55 Acetaminophen Tablet PHA 11/10/24 Logged (Tylenol Tablet) 15:00 Maintain Bed Rest FARHAT 11/10/24 In Process 14:55 Sequential FARHAT 11/10/24 In Process Compression Device Date of Service: Nov 10, 2024 Billing Provider: STARR LEON Common Visit Codes: [id number] INP/OBS CARE (MOD) STARR LEON Nov 10, 2024 15:13
[2024-11-10 17:30] VITALS: BP 138/75; PULSE 75; RESP 16; TEMP 98.5; O2SAT 96
[2024-11-10 17:33] VITALS: BP 138/75; PULSE 75; RESP 16; TEMP 98.5; O2SAT 96
[2024-11-10 21:00] VITALS: BP 133/100; PULSE 74; RESP 17; TEMP 98.5; O2SAT 98
[2024-11-10] MEDS: LOSARTAN POTASSIUM 50 MG TAB PO SCH (21:25)
[2024-11-10] MEDS: ATORVASTATIN 20 MG TAB PO SCH (21:25)
[2024-11-10] MEDS: levETIRAcetam 500 MG TAB PO SCH (21:26)
[2024-11-10] MEDS: PHENYTOIN SODIUM 100 MG CAP PO SCH (21:26)
[2024-11-11] VITALS (11 sets, daily range): BP systolic 113–150; BP diastolic 69–90; PULSE 60–78; RESP 12–20; TEMP 97.7–98.2; O2SAT 94–100
--- NOTE | 2024-11-11 12:52 | DVH ---
Exam: CT ABDOMEN WITHOUT CONTRAST History: EVAL LT NEPHRO DRAIN Comparison Study: CT CT AB PEL WO CON-NO ORAL OR IV on DOS: 10/11/24 TECHNIQUE: Multidetector CT of the abdomen was performed without IV contrast using axial images. Cor onal and sagittal reformats were obtained from the axial data set by the technologist. Radiation Dose Information: CT Dose: CTDI volume is 12.77 mGy. Dose-length product is 2.63 mGy*cm FINDINGS: Evaluation of solid organs is limited due to lack of intravenous contrast use. Findings: Lung Bases: Bilateral lower lobe atelectasis. Normal heart size. No pleural or pericardial effusion. Liver: The liver is normal in size. No focal lesions. Gallbladder and Biliary Tree: Unremarkable Spleen: Unremarkable Pancreas: The pancreas is grossly normal in appearance. Adrenal Glands: Left adrenal gland thickening similar to prior study. The right adrenal gland is unr emarkable. Kidneys: Interval placement of a percutaneous left nephrostomy tube with the tip coiled in an upper p ole calyx of the left kidney. There is gas in the calices likely related to placement of the catheter . No left perinephric fluid collection. Radiodensity noted in the upper and lower pole calices simila r to prior study which may reflect nephrocalcinosis. Persistent asymmetric enlargement of the left ki dney as compared to the right and there is mild left perinephric fat stranding. Moderate left hydrone phrosis is decreased since prior study. Persistent mild right hydronephrosis. No obstructive right in trarenal stones. GI Tract: Fluid and gaseous distention of the stomach. Mucosal thickening of the pylorus. No evidence of small-bowel obstruction. Scattered stool throughout colon. Peritoneal cavity: No pneumoperitoneum. No ascites. Lymphadenopathy: No mesenteric, retroperitoneal or periportal lymphadenopathy. Abdominal Wall and Mesentery: Unremarkable. Vasculature: The visualized abdominal aorta is normal in size and caliber. Evaluation of abdominal a nd pelvic vessels is limited due to lack of intravenous contrast. Musculoskeletal: No aggressive focal bony lesions, acute fractures or dislocation. Soft tissues: Bilateral gynecomastia. IMPRESSION: 1. Interval placement of left nephrostomy tube with decrease in left hydronephrosis. Gas in the bessy ices may be related to placement of the catheter. Radiodensities in the calices which may reflect ne phrocalcinosis and the appearance is similar to prior study. 2. Stable mild right hydronephrosis. 3. Distention of the stomach with mucosal thickening in the pylorus which could reflect gastritis. A spiration precautions recommended. 4. Bilateral gynecomastia. HS:Y Radiation optimization: All CT scans at this facility use at least one of these dose optimization jenni hniques: automated exposure control mA and/or kV adjustment per patient size (includes targeted exam s where dose is matched to clinical indication) or iterative reconstruction.
--- NOTE | 2024-11-11 13:01 | DVHPN2 ---
Reviewed: Care Plan, H&P, Labs, Medications, Previous Orders, Radiology Changes from previous H/P or p: No Changes Objective Vitals Vital Signs Date Time Temp Pulse Resp B/P (MAP) Pulse Ox O2 Delivery O2 Flow Rate FiO2 11/11/24 09:13 123/69 11/11/24 08:30 97.9 68 17 95 97.9 11/11/24 08:00 Room Air* 0 21 Intake/Output Intake and Output 11/11/24 07:00 Intake Total 440 ml Balance 440 ml Intake Oral 440 ml # Voids 2 # Bowel Movements 1 General Appearance: Alert HEENT: Atraumatic, PERRLA, EOMI, Mucous membr. moist/pink Neck: Supple Lungs: Clear to auscultation, Normal air movement Cardiovascular: Regular rate, Normal S1, Normal S2, No murmurs, Gallops, Rubs Abdomen: Normal bowel sounds, Soft, No tenderness Neuro: Cranial nerves 3-12 NL Psych/Mental Status: Mental status NL Medications Current Medications Medications Dose Ordered Sig/Jazmin Route Start Time Stop Time Status Last Admin Dose Admin Phenytoin Sodium 100 mg Q8HR PO 11/10/24 22:00 11/11/24 09:14 100 MG Hydralazine HCl 10 mg Q6HP PRN IV 11/10/24 15:00 Atorvastatin Calcium 10 mg HS PO 11/10/24 22:00 11/10/24 21:25 10 MG Divalproex Sodium 500 mg BID PO 11/10/24 22:00 11/11/24 09:14 500 MG Levetiracetam 750 mg BID PO 11/10/24 22:00 11/11/24 09:14 750 MG Losartan Potassium 50 mg BID PO 11/10/24 22:00 11/11/24 09:13 50 MG Ondansetron HCl 4 mg Q4HP PRN IV 11/10/24 15:00 Acetaminophen 650 mg Q6HP PRN PO 11/10/24 15:00 Laboratory Results Laboratory Tests 11/10/24 13:34 Chemistry Test 11/10/24 13:34 Albumin 4.0 g/dL (3.2-4.8) Calcium Level 9.5 mg/dL (8.7-10.4) Total Protein 6.6 g/dL (5.7-8.2) LFT Test 8/14/25 13:34 Alanine Aminotransferase (ALT) 45 U/L (7-40) H Alkaline Phosphatase 109 U/L (46-116) Aspartate Amino Transferase (AST) 37 U/L (13-40) Total Bilirubin 0.2 mg/dL (0.2-1.0) Labs and/or images reviewed: Labs reviewed by me Assessment/Plan Assessment/Plan Dislodged nephrostomy tube Dementia History of CVA Nonverbal Continue current management. Waiting for replace nephrostomy tube. Plan discussed with: Patient Date of Service: Nov 11, 2024 Billing Provider: RAMIRO DRAPER MD Common Visit Codes: [id number] INP/OBS CARE(HIGH) RAMIRO DRAPER MD Nov 11, 2024 13:01
[2024-11-11] MEDS: IODIXANOL 320MG/ML 100ML BTL IV ONE (13:50)
[2024-11-11] MEDS: LIDOCAINE 2%HCL (LOCAL ANESTH.) INJ 20ML MDV ONE (14:45)
[2024-11-11] MEDS: fentaNYL CITRATE 100 MCG/2 ML VL ONE (14:45)
[2024-11-11] MEDS: MIDAZOLAM HCL 2MG/2ML 2ml VIAL (1mg/ml) ONE (14:45)
--- NOTE | 2024-11-11 16:06 | DVH ---
PROCEDURE: Genitourinary catheter exchange Procedural Personnel Attending physician(s): Phil Laughlin Fellow physician(s): None Resident physician(s): None Advanced practice provider(s): None Pre-procedure diagnosis: dislodged left nephrostomy Post-procedure diagnosis: Same Indication: Catheter malposition Additional clinical history: None Complications: No immediate complications. IMPRESSION: Exchange of left nephrostomy catheter with appropriate position of new catheter Plan: Flush catheter with 10 cc normal saline daily to maintain patency. PROCEDURE SUMMARY - Target organ: Unilateral [place] kidney - Antegrade nephrostogram(s) via the existing access - Nephrostomy tube exchange - Additional procedure(s): None PROCEDURE DETAILS: Pre-procedure Consent: Informed consent for the procedure including risks, benefits and alternatives was obtained a nd time-out was performed prior to the procedure. Preparation: The site was prepared and draped using maximal sterile barrier technique including cutan eous antisepsis. Anesthesia/sedation Level of anesthesia/sedation: No sedation Anesthesia/sedation administered by: Not applicable Total intra-service sedation time (minutes): 0 Genitourinary catheter exchange Side:Left [place] Local anesthesia was administered. Initial nephrostogram was performed. A wire was placed through the existing tube and it was removed. The new tube was advanced over the wire and position was confirmed with contrast injection. Pre-existing genitourinary catheter: 8 Somali Genitourinary catheter(s) placed: 8.5 Somali multipurpose Findings: Retraction of prior catheter into calyx. New catheter retention loop in renal pelvis External catheter securement: Non-absorbable suture and adhesive anchoring device Additional genitourinary system intervention Side:Not applicable Genitourinary intervention: None Location of intervention: Not applicable Device used: Not applicable Description of intervention: Not applicable Post-intervention findings: Not applicable Contrast Contrast agent: Visipaque 320 Contrast volume (mL): 10 Radiation Dose Fluoroscopy time (seconds): 25 Reference air kerma (mGy): 1 Kerma area product (Gy-cm2): 0.2 Additional Details Additional description of procedure: None Registry event: V/3/f Device used: Not applicable Equipment details: None Specimens removed: None. A sample was not sent for analysis. Estimated blood loss (mL): Less than 10 Standardized report: [id number] Attestation Signer name: Phil Laughlin I attest that I was present for the entire procedure. I reviewed the stored images and agree with the report as written.
[2024-11-11 17:24] LABS: Sodium 144 mmol/L (136-145)
[2024-11-11 17:25] LABS: Anion Gap 13 (5-15); Calcium 9.1 mg/dL (8.7-10.4)
[2024-11-11 17:30] LABS: Glucose 80 mg/dL (74-106)
[2024-11-11 17:33] LABS: BUN/Creatinine Ratio 14.5 (10.0-20.0); Blood Urea Nitrogen 18 mg/dL (9-23); Carbon Dioxide 20 mmol/L (20-31); Chloride 111 mmol/L (98-107); Potassium 5.0 mmol/L (3.5-5.1)
[2024-11-11 17:37] LABS: INR 1.07 (0.9-1.15); Partial Thromboplastin Time 31.1 SEC (24.5-34.5); Prothrombin Time 11.3 sec (9.3-11.8)
[2024-11-12] VITALS (7 sets, daily range): BP systolic 115–141; BP diastolic 59–88; PULSE 66–74; RESP 16–20; TEMP 97.7–98.5; O2SAT 96–99
--- NOTE | 2024-11-12 15:16 | DVHPN2 ---
Subjective Patient is seen and examined at bedside. Still have diarrhea. Reviewed: Care Plan, H&P, Labs, Medications, Previous Orders, Radiology Changes from previous H/P or p: No Changes Objective Vitals Vital Signs Date Time Temp Pulse Resp B/P (MAP) Pulse Ox O2 Delivery O2 Flow Rate FiO2 11/12/24 12:43 97.8 70 20 115/59 (77) 99 97.8 11/12/24 08:00 Room Air* 0 21 Intake/Output Intake and Output 11/12/24 07:00 Intake Total 1000 ml Output Total 270 ml Balance 730 ml Intake Oral 1000 ml Output Other 270 ml # Voids 1 # Bowel Movements 1 General Appearance: Alert HEENT: Atraumatic, PERRLA, EOMI, Mucous membr. moist/pink Neck: Supple Lungs: Clear to auscultation, Normal air movement Cardiovascular: Regular rate, Normal S1, Normal S2, No murmurs, Gallops, Rubs Abdomen: Normal bowel sounds, Soft, No tenderness Neuro: Cranial nerves 3-12 NL Psych/Mental Status: Mental status NL Medications Current Medications Medications Dose Ordered Sig/Jazmin Route Start Time Stop Time Status Last Admin Dose Admin Phenytoin Sodium 100 mg Q8HR PO 11/10/24 22:00 11/12/24 14:37 100 MG Hydralazine HCl 10 mg Q6HP PRN IV 11/10/24 15:00 Atorvastatin Calcium 10 mg HS PO 11/10/24 22:00 11/11/24 21:25 10 MG Divalproex Sodium 500 mg BID PO 11/10/24 22:00 11/12/24 09:27 500 MG Levetiracetam 750 mg BID PO 11/10/24 22:00 11/12/24 09:27 750 MG Losartan Potassium 50 mg BID PO 11/10/24 22:00 11/12/24 09:26 50 MG Ondansetron HCl 4 mg Q4HP PRN IV 11/10/24 15:00 Acetaminophen 650 mg Q6HP PRN PO 11/10/24 15:00 Laboratory Results Laboratory Tests 11/10/24 13:34 11/11/24 16:47 Chemistry Test 11/11/24 16:47 Calcium Level 9.1 mg/dL (8.7-10.4) Coagulation Test 11/11/24 16:47 Prothrombin Time 11.3 sec (9.3-11.8) Prothrombin Time INR 1.07 (0.9-1.15) Activated Partial Thromboplast Time 31.1 SEC (24.5-34.5) Microbiology Microbiology Date/Time Source Procedure Growth Status 11/10/24 18:10 Nose MRSA Screen - Final Complete Labs and/or images reviewed: Labs reviewed by me Assessment/Plan Assessment/Plan Dislodged nephrostomy tube Dementia History of CVA Nonverbal Continue current management. Nephrostomy tube replace. Continuing hydration Continuing IV antibiotics. Plan discussed with: Patient Date of Service: Nov 12, 2024 Billing Provider: RAMIRO DRAPER MD Common Visit Codes: [id number] INP/OBS CARE(HIGH) RAMIRO DRAPER MD Nov 12, 2024 15:16
[2024-11-13] VITALS (7 sets, daily range): BP systolic 112–137; BP diastolic 56–85; PULSE 66–85; RESP 16–20; TEMP 97.8–98.5; O2SAT 93–98
--- NOTE | 2024-11-13 22:50 | DVHPN2 ---
Subjective Patient is seen and examined at bedside. Still complain of back pain Reviewed: Care Plan, H&P, Labs, Medications, Previous Orders, Radiology Changes from previous H/P or p: No Changes Objective Vitals Vital Signs Date Time Temp Pulse Resp B/P (MAP) Pulse Ox O2 Delivery O2 Flow Rate FiO2 11/13/24 21:00 98.5 85 16 136/70 (92) 94 98.5 11/13/24 08:00 Room Air* 0 21 Intake/Output Intake and Output 11/13/24 07:00 Intake Total 1180 ml Output Total 1000 ml Balance 180 ml Intake Oral 1180 ml Output Urine Total 1000 ml # Voids 3 General Appearance: Alert HEENT: Atraumatic, PERRLA, EOMI, Mucous membr. moist/pink Neck: Supple Lungs: Clear to auscultation, Normal air movement Cardiovascular: Regular rate, Normal S1, Normal S2, No murmurs, Gallops, Rubs Abdomen: Normal bowel sounds, Soft, No tenderness Neuro: Cranial nerves 3-12 NL Psych/Mental Status: Mental status NL Medications Current Medications Medications Dose Ordered Sig/Jazmin Route Start Time Stop Time Status Last Admin Dose Admin Phenytoin Sodium 100 mg Q8HR PO 11/10/24 22:00 11/13/24 14:42 100 MG Hydralazine HCl 10 mg Q6HP PRN IV 11/10/24 15:00 Atorvastatin Calcium 10 mg HS PO 11/10/24 22:00 11/12/24 21:53 10 MG Divalproex Sodium 500 mg BID PO 11/10/24 22:00 11/13/24 10:00 500 MG Levetiracetam 750 mg BID PO 11/10/24 22:00 11/13/24 09:59 750 MG Losartan Potassium 50 mg BID PO 11/10/24 22:00 11/13/24 10:00 50 MG Ondansetron HCl 4 mg Q4HP PRN IV 11/10/24 15:00 Acetaminophen 650 mg Q6HP PRN PO 11/10/24 15:00 Laboratory Results Laboratory Tests 11/10/24 13:34 11/11/24 16:47 Microbiology Microbiology Date/Time Source Procedure Growth Status 11/10/24 18:10 Nose MRSA Screen - Final Complete Labs and/or images reviewed: Labs reviewed by me Assessment/Plan Assessment/Plan Dislodged nephrostomy tube Dementia History of CVA Nonverbal Continue current management. Nephrostomy tube placed Continuing IV antibiotics IV fluid This medical document was created using an electronic medical record system with [employer] direct computerized dictation system. Although this document has been carefully reviewed, there may still be some phonetic and typographical errors. These areas are purely typographical due to imperfections of the software programs, and do not reflect any compromise in the patient's medical care. Plan discussed with: Patient Date of Service: Nov 13, 2024 Billing Provider: RAMIRO DRAPER MD Common Visit Codes: [id number] INP/OBS CARE(HIGH) RAMIRO DRAPER MD Nov 13, 2024 22:50
[2024-11-14] VITALS (8 sets, daily range): BP systolic 126–153; BP diastolic 68–94; PULSE 69–87; RESP 16–18; TEMP 36.3; O2SAT 96–99
--- NOTE | 2024-11-14 10:24 | DVHPN2 ---
Subjective Patient is seen and examined at bedside. Still complain of back pain Reviewed: Care Plan, H&P, Labs, Medications, Previous Orders, Radiology Objective Vitals Vital Signs Date Time Temp Pulse Resp B/P (MAP) Pulse Ox O2 Delivery O2 Flow Rate FiO2 11/14/24 09:53 128/68 11/14/24 09:00 98.0 76 18 99 98.0 11/14/24 08:00 Room Air* 0 21 Intake/Output Intake and Output 11/14/24 07:00 Intake Total 2380 ml Output Total 2150 ml Balance 230 ml Intake Oral 2380 ml Output Urine Total 2150 ml # Voids 1 General Appearance: Alert HEENT: Atraumatic, PERRLA, EOMI, Mucous membr. moist/pink Neck: Supple Lungs: Clear to auscultation, Normal air movement Cardiovascular: Regular rate, Normal S1, Normal S2, No murmurs, Gallops, Rubs Abdomen: Normal bowel sounds, Soft, No tenderness Neuro: Cranial nerves 3-12 NL Psych/Mental Status: Mental status NL Medications Current Medications Medications Dose Ordered Sig/Jazmin Route Start Time Stop Time Status Last Admin Dose Admin Phenytoin Sodium 100 mg Q8HR PO 11/10/24 22:00 11/14/24 05:22 100 MG Hydralazine HCl 10 mg Q6HP PRN IV 11/10/24 15:00 Atorvastatin Calcium 10 mg HS PO 11/10/24 22:00 11/13/24 22:56 10 MG Divalproex Sodium 500 mg BID PO 11/10/24 22:00 11/14/24 09:54 500 MG Levetiracetam 750 mg BID PO 11/10/24 22:00 11/14/24 09:54 750 MG Losartan Potassium 50 mg BID PO 11/10/24 22:00 11/14/24 09:53 50 MG Ondansetron HCl 4 mg Q4HP PRN IV 11/10/24 15:00 Acetaminophen 650 mg Q6HP PRN PO 11/10/24 15:00 Laboratory Results Laboratory Tests 11/10/24 13:34 11/11/24 16:47 Microbiology Microbiology Date/Time Source Procedure Growth Status 11/10/24 18:10 Nose MRSA Screen - Final Complete Assessment/Plan Assessment/Plan Dislodged nephrostomy tube Dementia History of CVA Nonverbal Continue current management. Nephrostomy tube placed Continuing IV antibiotics IV fluid This medical document was created using an electronic medical record system with [employer] [facility] [employer] direct computerized dictation system. Although this document has been carefully reviewed, there may still be some phonetic and typographical errors. These areas are purely typographical due to imperfections of the software programs, and do not reflect any compromise in the patient's medical care. RAMIRO DRAPER MD Nov 14, 2024 10:24
--- NOTE | 2024-11-14 10:31 | DVHDS2 ---
Discharge Summary Date of Admission Nov 10, 2024 at 14:55 Date of Discharge: Nov 14, 2024 Admitting Diagnosis Dislodged nephrostomy tube Dementia History of CVA Nonverbal Labs/Diagnostic Data: Laboratory Results Test 11/11/24 16:47 11/10/24 13:34 Prothrombin Time 11.3 sec (9.3-11.8) Prothrombin Time INR 1.07 (0.9-1.15) Activated Partial Thromboplast Time 31.1 SEC (24.5-34.5) Sodium Level 144 mmol/L (136-145) Potassium Level 5.0 mmol/L (3.5-5.1) Chloride Level 111 mmol/L (98-107) Carbon Dioxide Level 20 mmol/L (20-31) Anion Gap 13 (5-15) Blood Urea Nitrogen 18 mg/dL (9-23) Creatinine 1.24 mg/dL (0.700-1.30) Glomerular Filtration Rate Calc 67 mL/min (>90) BUN/Creatinine Ratio 14.5 (10.0-20.0) Serum Glucose 80 mg/dL (74-106) Calcium Level 9.1 mg/dL (8.7-10.4) White Blood Count 9.0 10^3/uL (4.4-10.8) Red Blood Count 4.58 10^6/uL (4.5-5.90) Hemoglobin 15.1 g/dL (13.5-17.5) Hematocrit 44.2 % (41.0-53.0) Mean Corpuscular Volume 96.4 fL (80.0-100.0) Mean Corpuscular Hemoglobin 33.0 pg (28.0-32.0) Mean Corpuscular Hemoglobin Concent 34.3 g/dL (32.0-36.0) Red Cell Distribution Width 13.8 % (11.8-14.3) Platelet Count 286 10^3/uL (140-450) Mean Platelet Volume 9.1 fL (6.9-10.8) Neutrophils (%) (Auto) 60.5 % (37.0-80.0) Lymphocytes (%) (Auto) 21.5 % (10.0-50.0) Monocytes (%) (Auto) 14.3 % (0.0-12.0) Eosinophils (%) (Auto) 2.9 % (0.0-7.0) Basophils (%) (Auto) 0.8 % (0.0-2.0) Neutrophils # (Auto) 5.5 10 ^3/uL (1.6-8.6) Lymphocytes # (Auto) 1.9 10 ^3/uL (0.4-5.4) Monocytes # (Auto) 1.3 10 ^3/uL (0-1.3) Eosinophils # (Auto) 0.3 10 ^3/uL (0-0.8) Basophils # (Auto) 0.1 10 ^3/uL (0-0.2) Nucleated Red Blood Cells 0.2 % Lactic Acid Level 1.5 mmol/L (0.4-2.0) Total Bilirubin 0.2 mg/dL (0.2-1.0) Aspartate Amino Transferase (AST) 37 U/L (13-40) Alanine Aminotransferase (ALT) 45 U/L (7-40) Alkaline Phosphatase 109 U/L (46-116) Total Protein 6.6 g/dL (5.7-8.2) Albumin 4.0 g/dL (3.2-4.8) Other Laboratory Tests 11/11/24 16:47 11/10/24 13:34 Brief Hx & Hospital Course: This is 59 years old male with past medical history dementia and nonverbal came to emergency department because of nephrostomy tube malfunction. The patient subsequently was discharged two days ago prior to this admission to [facility] with left nephrostomy tube. Today the patient was found with a nephrostomy tube leaking and nephrostomy bag on the floor. The patient was admitted. The patient had a nephrostomy tube replacement done. The patient doing well after the tube replacement done. No complaint of abdominal pain. No leaking from the nephrostomy tube. No blood. So I am going to discharge the patient home today. Advised the patient to follow up with primary care physician 1-2 weeks. Activity as tolerated. Diet per home diet. Physical examination: HEENT: Normocephalic atraumatic pupils equal react to light and accommodation. Extraocular muscles intact, conjunctiva pink, oropharynx moist, no thrush, no exudate. Lymphatic: No lymphadenopathy Cardiovascular exam: S1, S2 was heard. No murmurs, rubs, gallops Lung: Clear on auscultation bilaterally, no wheeze, rale, rhonchi. GI: Abdominal soft, nondistended, nontenderness, positive bowel sounds. Extremity: No crepitus, cyanosis, edema. Pedal pulses present bilateral. Full range of motion. Skin: Normal turgor, no rash. Psych: Alert, awake. Neurology: No focal deficits, cranial nerve II to XII grossly intact. This medical document was created using an electronic medical record system with [employer] computerized dictation system. Although this document has been carefully reviewed, there may still be some phonetic and typographical errors. These areas are purely typographical due to imperfections of the software programs, and do not reflect any compromise in the patient's medical care. Condition at Discharge: Stable Final Diagnosis/Problems List Dislodged nephrostomy tube Dementia History of CVA Nonverbal Discharge Disposition: [facility] Discharge Instruct/Medications Scheduled Amlodipine Besylate (Norvasc Tablet), 10 MG PO DAILY, (Reported) Aripiprazole (Abilify), 5 MG PO DAILY, (Reported) Atorvastatin Calcium (Atorvastatin Calcium), 10 MG PO DAILY, (Reported) Baclofen (Baclofen), 10 MG PO DAILY, (Reported) Benztropine Mesylate (Benztropine Mesylate), 1 MG PO DAILY, (Reported) Cefdinir (Cefdinir), 1 CAP PO BID Cholecalciferol (Vitamin D3), 1,000 UNIT PO DAILY, (Reported) Cranberry (Vaccinium Macrocarp (Cranberry Concentrate), 500 MG PO DAILY, (Reported) Divalproex Sodium (Divalproex Sodium), 500 MG PO BID, (Reported) Docusate Sodium (Colace), 100 MG PO DAILY, (Reported) Escitalopram Oxalate (Escitalopram Oxalate), 1 TAB PO DAILY, (Reported) Finasteride (Finasteride), 5 MG PO HS, (Reported) Folic Acid (Folic Acid), 1 MG PO HS, (Reported) Guaifenesin-Codeine (Robitussin/Codeine), 10 ML PO Q6HP, (Reported) Hydrochlorothiazide (Hydrochlorothiazide), 12.5 MG PO DAILY, (Reported) Levetiracetam (Keppra Tablet), 750 MG PO BID, (Reported) Lorazepam (Ativan Tablet), 1 TAB PO BID, (Reported) Losartan Potassium (Losartan Potassium), 50 MG PO BID, (Reported) Qbdofpveztt-Hxbvj-Hbaovaftc Bl (Uribel), 1 CAP PO BID, (Reported) Metoprolol Tartrate (Metoprolol Tartrate), 12.5 MG PO DAILY, (Reported) Mometasone Furoate-Formoterol (Dulera), 2 PUFF INH DAILY, (Reported) Niacin (Niacin Er), 500 MG PO HS, (Reported) Nitrofurantoin (Macrodantin Capsule), 50 MG PO HS, (Reported) Omeprazole (Gnp Omeprazole), 20 MG PO DAILY, (Reported) Paliperidone (Invega), 4.5 MG PO HS, (Reported) Phenytoin (Phenytoin), 100 MG PO TID, (Reported) Polyethylene Glycol 3350 (Miralax), 17 GM PO DAILY, (Reported) Quetiapine Fumerate (Quetiapine Fumarate), 100 MG PO DAILY, (Reported) Quetiapine Fumerate (Quetiapine Fumarate), 250 MG PO HS, (Reported) Sulfamethoxazole W/Trimethopri (Bactrim Ds Tablet), 1 TAB PO BID Tamsulosin Hcl (Tamsulosin Hcl), 0.4 MG PO DAILY, (Reported) Trazodone Hcl (Trazodone Hcl), 50 MG PO HS, (Reported) Scheduled PRN Loperamide Hcl ([facility] Anti-Diarrheal), 2 MG PO BIDP PRN for FOR DIARRHEA, (Reported) Discharge Statement: "Patient was advised to return to the ER or call 911 if any headaches, dizziness, shortness of breath, chest pain, abdominal pain, bleeding, fevers, or worsening of medical condition. Patient was counseled about treatment plan, medications, possible side effects, patientverbalized understanding. All questions were answered to the best of my ability. This discharge took greater then 30 minutes in planning, reviewing documentation, counseling the patient, and discussing with other team members." ASSESSMENT ASSESSMENT Assessment Date of Service: Nov 14, 2024 Billing Provider: RAMIRO DRAPER MD Common Visit Codes: [id number] DISCH DAY >30min RAMIRO DRAPER MD Nov 14, 2024 10:31
== END 2024-11-14 19:42 | DRG 700 ==
LOC: EDBD 11:50 → ER 11:50 → EDUNIT# 11:50 → OVERFLOW 14:55 → WEST WING 17:27
PROVIDERS: ADMIT Internal Medicine; ATTEND Internal Medicine
PROC: 0T25X0Z Change Drainage Device in Kidney, External Approach (ICD-10-PCS; principal; 2024-11-11)
PROC: BT121ZZ Fluoroscopy of Left Kidney using Low Osmolar Contrast (ICD-10-PCS; 2024-11-11)
DX: T83.022A Displacement of nephrostomy catheter, initial encounter (principal); N99.522 Malfunction of incontinent external stoma of urinary tract; F03.90 Unspecified dementia, unspecified severity, without behavioral disturbance, psychotic disturbance, mood disturbance, and anxiety; E78.5 Hyperlipidemia, unspecified; I10 Essential (primary) hypertension; N40.0 Benign prostatic hyperplasia without lower urinary tract symptoms; G40.409 Other generalized epilepsy and epileptic syndromes, not intractable, without status epilepticus; Z86.73 Personal history of transient ischemic attack (TIA), and cerebral infarction without residual deficits; Z86.718 Personal history of other venous thrombosis and embolism; Z88.8 Allergy status to other drugs, medicaments and biological substances; Y92.89 Other specified places as the place of occurrence of the external cause; Y83.8 Other surgical procedures as the cause of abnormal reaction of the patient, or of later complication, without mention of misadventure at the time of the procedure; Z79.899 Other long term (current) drug therapy
CPT/HCPCS: 36415; 50435; 74150; 74425; 80048; 80053; 83605; 85025; 85610; 85730; 87081; 99152; A4565; G0378; J2250; Q9967

== ENCOUNTER 2024-12-08 09:54 | Inpatient (IN) | payer MEDICARE, MEDICAID ==
[~2024-12-08] VITALS: Ht 175.3 cm; Wt 66.1 kg
--- NOTE | 2024-12-08 10:50 | ED.PDOC ---
History of Present Illness HPI Comments 59 y/o non-verbal Male, with PMHx of CKF, CVA, HTN, and seizures is BIBA for CC of tube replacement. EMS reports, patient is coming from home where family called d/t patient accidently pulling out his left nephrostomy tube. No other symptoms or modifying factors are present at this time. Chief Complaint: Tube Replacement Time Seen by MD: 10:30 Primary Care Provider: FLO Reviewed Notes: Nurses Notes, Paleobotanist Notes, Medications, Allergies Allergies: Coded Allergies: ROBIN Inhibitors (Verified Allergy, Unknown, 10/13/23) Home Meds Active Scripts Sulfamethoxazole W/Trimethopri (Bactrim Ds Tablet) 1 Tab Tb, 1 TAB PO BID for 5 Days, #10 TAB Prov:LOLIS LUX RESIDENT 10/14/24 Cefdinir (Cefdinir) 300 Mg Cap, 1 CAP PO BID for 7 Days, #14 CAP Prov:STARR MURPHY MD 10/20/23 Reported Medications Guaifenesin-Codeine (Robitussin/Codeine) 10 Ml So, 10 ML PO Q6HP, ML 10/30/24 Loperamide Hcl ([facility] ANTI-DIARRHEAL) 2 Mg Cap, 2 MG PO BIDP PRN for FOR DIARRHEA, CAP 10/30/24 Levetiracetam (KEPPRA TABLET) 500 Mg Tb, 750 MG PO BID, TAB 10/30/24 Metoprolol Tartrate (Metoprolol Tartrate) 25 Mg Tab, 12.5 MG PO DAILY for 30 Days, MG 10/30/24 Baclofen (Baclofen) 10 Mg Tab, 10 MG PO DAILY for 30 Days, MG 10/30/24 Cholecalciferol (VITAMIN D3) 2,000 Unit Tab, 1000 UNIT PO DAILY, TAB 10/30/24 Trazodone Hcl (Trazodone Hcl) 50 Mg Tab, 50 MG PO HS, MG 10/30/24 Tamsulosin Hcl (Tamsulosin Hcl) 0.4 Mg Cap, 0.4 MG PO DAILY for 30 Days, MG 10/30/24 Quetiapine Fumerate (QUETIAPINE FUMARATE) 200 Mg Tab, 250 MG PO HS for 30 Days, MG 10/30/24 Polyethylene Glycol 3350 (Miralax) 17 Gm Pow, 17 GM PO DAILY, POW 10/30/24 Phenytoin (PHENYTOIN) 50 Mg Chw, 100 MG PO TID, TAB.CHEW 10/30/24 Paliperidone (Invega) 3 Mg Tab, 4.5 MG PO HS, TAB 10/30/24 Omeprazole (Gnp Omeprazole) 20 Mg Tab, 20 MG PO DAILY, TAB 10/30/24 Nitrofurantoin (MACRODANTIN CAPSULE) 50 Mg Cp, 50 MG PO HS, CAP 10/30/24 Niacin (NIACIN ER) 500 Mg Tab, 500 MG PO HS, TAB 10/30/24 Zscnmznplhm-Cvgks-Kkwlwzcpa Bl (Uribel) 118 Mg Cap, 1 CAP PO BID, #20 CAP 1 Refill 10/30/24 Losartan Potassium (Losartan Potassium) 50 Mg Tab, 50 MG PO BID for 30 Days, MG 10/30/24 Hydrochlorothiazide (Hydrochlorothiazide) 12.5 Mg Cap, 12.5 MG PO DAILY for 30 Days, MG 10/30/24 Folic Acid (Folic Acid) 1 Mg Tab, 1 MG PO HS for 30 Days, MG 10/30/24 Finasteride (Finasteride) 5 Mg Tab, 5 MG PO HS for 30 Days, MG 10/30/24 Escitalopram Oxalate (ESCITALOPRAM OXALATE) 10 Mg Tab, 1 TAB PO DAILY, #30 TAB 3 Refills 10/30/24 Mometasone Furoate-Formoterol (Dulera) 1 Aer Aer, 2 PUFF INH DAILY, #13 GRAMS 5 Refills 10/30/24 Docusate Sodium (Colace) 100 Mg Cap, 100 MG PO DAILY, CAP 10/30/24 Cranberry (Vaccinium Macrocarp (Cranberry Concentrate) 500 Mg Cap, 500 MG PO DAILY, CAP 10/30/24 Benztropine Mesylate (Benztropine Mesylate) 1 Mg Tab, 1 MG PO DAILY, MG 10/30/24 Atorvastatin Calcium (ATORVASTATIN CALCIUM) 10 Mg Tab, 10 MG PO DAILY, TAB 10/30/24 Amlodipine Besylate (NORVASC TABLET) 5 Mg Tb, 10 MG PO DAILY, TAB 10/30/24 Quetiapine Fumerate (QUETIAPINE FUMARATE) 100 Mg Tab, 100 MG PO DAILY for 30 Days, MG 10/30/24 Lorazepam (ATIVAN TABLET) 0.5 Mg Tb, 1 TAB PO BID, #60 TAB 10/30/24 Divalproex Sodium (Divalproex Sodium) 500 Mg Tab, 500 MG PO BID for 30 Days, MG 10/30/24 Aripiprazole (Abilify) 2 Mg Tab, 5 MG PO DAILY, TAB 10/30/24 Mode of Arrival: EMS Past Medical History PAST MEDICAL HISTORY: CKF, CVA, HTN, Seizures Surgical History: Denies all surgeries Family History Family History: Reviewed,noncontributory to illness Social History Smoker: Non-Smoker Alcohol: Denies ETOH Use Drugs: Denies Drug Use Lives In: Home Unable to Obtain due to: Other (PT NON-VERBAL) Physical Exam General Appearance: No Apparent Distress, Normal HEENT: Normal ENT Inspection, Pharynx Normal, TMs Normal Neck: Full Range of Motion, Non-Tender, Normal, Normal Inspection Respiratory: Chest Non-Tender, Lungs Clear, No Accessory Muscle Use, No Respiratory Distress, Normal Breath Sounds Cardiovascular: No Edema, No Murmur, No Gallop, Normal Peripheral Pulses, Regular Rate/Rhythm Breast Exam: Deferred Gastrointestinal: No Organomegaly, Non Tender, No Pulsatile Mass, Normal Bowel Sounds, Soft Genitalia: Deferred Pelvic: Deferred Rectal: Deferred Extremities: No calf tenderness, Normal capillary refill, Normal inspection, Normal range of motion, Non-tender, No pedal edema Musculoskeletal : Apperance: Normal Neurologic: Alert, freight elevator erector II-XII nml as Tested, No Motor Deficits, Normal Affect, Normal Mood, No Sensory Deficits, Speech Problem (NON-VERBAL) Cerebellar Function: Normal Reflexes: Normal Skin: Dry, Normal Color, Warm Lymphatic: No Adenopathy Was a procedure done? Was a procedure done?: No Differential Dx Considerations may include: NEPHROSTOMY TUBE REPLACEMENT X-Ray, Labs, Meds, VS Vital Signs Date Time Temp Pulse Resp B/P (MAP) Pulse Ox O2 Delivery O2 Flow Rate FiO2 12/08/24 13:38 110 20 139/75 (96) 98 12/08/24 13:38 110 20 98 Room Air* 0 21 12/08/24 09:56 97.8 88 18 139/93 97 97.8 Lab Test 12/08/24 12:10 Range/Units White Blood Count 8.2 4.4-10.8 10^3/uL Red Blood Count 4.31 L 4.5-5.90 10^6/uL Hemoglobin 14.3 13.5-17.5 g/dL Hematocrit 40.9 L 41.0-53.0 % Mean Corpuscular Volume 94.8 80.0-100.0 fL Mean Corpuscular Hemoglobin 33.2 H 28.0-32.0 pg Mean Corpuscular Hemoglobin Concent 35.0 32.0-36.0 g/dL Red Cell Distribution Width 14.3 11.8-14.3 % Platelet Count 219 140-450 10^3/uL Mean Platelet Volume 8.7 6.9-10.8 fL Neutrophils (%) (Auto) 61.8 37.0-80.0 % Lymphocytes (%) (Auto) 23.1 10.0-50.0 % Monocytes (%) (Auto) 12.7 H 0.0-12.0 % Eosinophils (%) (Auto) 1.9 0.0-7.0 % Basophils (%) (Auto) 0.5 0.0-2.0 % Neutrophils # (Auto) 5.0 1.6-8.6 10 ^3/uL Lymphocytes # (Auto) 1.9 0.4-5.4 10 ^3/uL Monocytes # (Auto) 1.0 0-1.3 10 ^3/uL Eosinophils # (Auto) 0.2 0-0.8 10 ^3/uL Basophils # (Auto) 0 0-0.2 10 ^3/uL Nucleated Red Blood Cells 0.1 % Sodium Level 142 136-145 mmol/L Potassium Level 4.4 3.5-5.1 mmol/L Chloride Level 107 98-107 mmol/L Carbon Dioxide Level 25 20-31 mmol/L Anion Gap 10 5-15 Blood Urea Nitrogen 15 9-23 mg/dL Creatinine 1.43 H 0.700-1.30 mg/dL Glomerular Filtration Rate Calc 56 >90 mL/min BUN/Creatinine Ratio 10.5 10.0-20.0 Serum Glucose 89 74-106 mg/dL Calcium Level 9.8 8.7-10.4 mg/dL Beta HCG, Quantitative 0.5 0-2 mIU/mL Time of 1ST Reevaluation: 11:00 Reevaluation 1ST: Unchanged Patient Education/Counseling: Diagnosis, Treatment Family Education/Counseling: No Family Present SEPSIS Sepsis Screen Date sepsis recognized/suspect: Dec 08, 2024 Time Sepsis recognized/suspect: 09 Recent Procedure: No On Antibiotic Therapy: No Respiratory Rate >20: No Heart Rate >90: No Temp<36 C (96.8 F) or >38.3 C: No SBP <90 or MAP <65 mmHG: No New Acute Mental Status Change: No Is the patient on CPAP, BIPAP,: No Vital Signs Date Time Temp Pulse Resp B/P (MAP) Pulse Ox O2 Delivery O2 Flow Rate FiO2 12/08/24 13:38 110 20 139/75 (96) 98 12/08/24 13:38 110 20 98 Room Air* 0 21 12/08/24 09:56 97.8 88 18 139/93 97 97.8 Laboratory Tests Test 12/08/24 12:10 White Blood Count 8.2 10^3/uL (4.4-10.8) Departure 1 Departure Time of Disposition: 17:57 (Patient's nephrostomy tube was removed. We will admit patient for placement of nephrostomy tube.) Impression: Primary Impression: Flank pain Additional Impression: Nephrostomy tube displaced Disposition: ADMITTED INPATIENT Admit to: Med Surg Condition: Serious Critical Care Note Critical Care Time?: No Stability Stability form required: No Heart Score Heart Score: Heart Score Response (Comments) Value History N/A 0 EKG N/A 0 Age N/A 0 Risk Factors N/A 0 Troponin N/A 0 Total 0 I personally scribed for MARIN BULLOCK MD ([email or web address]) on 12/08/24 at 10:50. El ectronically submitted by Rach Wheatley [email or web address]). MARIN BULLOCK MD Dec 08, 2024 10:50
[2024-12-08 12:30] LABS: Hematocrit 40.9 % (41.0-53.0); Hemoglobin 14.3 g/dL (13.5-17.5); Mean Corpuscular Hemoglobin 33.2 pg (28.0-32.0); Mean Corpuscular Volume 94.8 fL (80.0-100.0); Nucleated Red Blood Cells % 0.1 %
[2024-12-08 13:31] LABS: Chloride 107 mmol/L (98-107); Potassium 4.4 mmol/L (3.5-5.1); Sodium 142 mmol/L (136-145)
[2024-12-08 13:32] LABS: Anion Gap 10 (5-15); Carbon Dioxide 25 mmol/L (20-31)
[2024-12-08 13:33] LABS: Calcium 9.8 mg/dL (8.7-10.4)
[2024-12-08 13:37] LABS: BUN/Creatinine Ratio 10.5 (10.0-20.0); Blood Urea Nitrogen 15 mg/dL (9-23); Glucose 89 mg/dL (74-106)
[2024-12-08 13:38] VITALS: PULSE 110; RESP 20; O2SAT 98
[2024-12-08] MEDS ORDERED: DOCUSATE SOD 100 MG CAP PO PRN (21:15)
[2024-12-08] MEDS ORDERED: ACETAMINOPHEN 325 MG TAB PO PRN (21:15)
[2024-12-08] MEDS ORDERED: HYDROcodone-ACET 5/325MG TAB PO PRN (21:15)
[2024-12-08] MEDS ORDERED: ONDANSETRON HCL 4 MG/2 ML VIAL IV PRN (21:15)
[2024-12-08] MEDS ORDERED: LORazepam 2MG/ML-1ML VIAL IV PRN (21:15)
--- NOTE | 2024-12-08 22:20 | DVHHP2 ---
History of Present Illness Reason for Visit: Flank pain History of Present Illness The patient is a 59-year-old male nonverbal with past medical history of CVA, seizures, hypertension, and CKF who presented to [facility] ED with complaint G-tube dislodgement. Patient is, from home where family called regarding patient's left nephrostomy tube accidentally dislodged. Patient was seen and evaluated in the ED, laboratory data shows WBC 8.2, platelets 219, sodium 142, potassium 4.4, BUN 15, creatinine 1.43, glucose 89, calcium 9.8, blood pressure 139/75, heart rate 1 one 0, temperature 97.8 F, O2 saturation 98% on room. Please see medication orders section in the computer. On my assessment, no diaphoresis, no shortness of breaths, no diarrhea, no vomiting, no fever, no chills. Patient was admitted for further evaluation and medical management. Past Medical History CKF, CVA, HTN, Seizures Past Surgical History Denies all surgeries Family History Reviewed, noncontributory to the management of this case. Past Social History The patient lives at home, denies smoking, alcohol or illicit drugs abuse. Review of Systems Constitutional: Yes: Weakness; No: Fever, Chills, Sweats, Malaise, Other Eyes: No: Pain, Vision change, Conjunctivae inflammation, Eyelid inflammation, Other, Redness ENT: No: Ear pain, Ear discharge, Nose pain, Nose discharge, Nose congestion, Mouth pain, Mouth swelling, Throat pain, Throat swelling, Other Respiratory: No: Cough, Dry, Shortness of breath, SOB with excertion, Wheezing, Hemoptysis, Pleuritic Pain, Sputum, Wheezing, Other Cardiovascular: No: Chest Pain, Palpitations, Orthopnea, Paroxysmal Noc. Dyspnea, Edema, Lt Headedness, Other Gastrointestinal: Other (Dislodged G-tube); No: Nausea, Vomiting, Abdominal Pain, Diarrhea, Constipation, Melena, Hematochezia Genitourinary: No Dysuria, No Frequency, No Incontinence, No Hematuria, No Retention, No Other Musculoskeletal: No: other, neck pain, shoulder pain, arm pain, back pain, hand pain, leg pain, foot pain Skin: No: Rash, Lesions, Jaundice, Bruising, Other Neurological: No: Weakness, Numbness, Incoordination, Change in speech, Confusion, Seizures, Other Allergies: Coded Allergies: ROBIN Inhibitors (Verified Allergy, Unknown, 10/13/23) Medications Current Medications Medications Dose Ordered Sig/Jazmin Route Start Time Stop Time Status Last Admin Dose Admin Trazodone HCl 50 mg HS PO 12/08/24 22:00 Atorvastatin Calcium 10 mg HS PO 12/08/24 22:00 Amlodipine Besylate 5 mg DAILY PO 12/09/24 10:00 Levetiracetam 100 ml @ 400 mls/hr BID IV 12/08/24 22:00 Divalproex Sodium 500 mg BID PO 12/08/24 22:00 Lorazepam 0.5 mg Q8HP PRN IV 12/08/24 21:15 Sodium Chloride 10 ml Q8HR IV 12/08/24 22:00 Acetaminophen/ Hydrocodone Bitart 1 tab Q4HP PRN PO 12/08/24 21:15 Ondansetron HCl 4 mg Q4HP PRN IV 12/08/24 21:15 Docusate Sodium 100 mg BIDPRN PRN PO 12/08/24 21:15 Acetaminophen 650 mg Q6HP PRN PO 12/08/24 21:15 Exam Vital Signs Vital Signs Date Time Temp Pulse Resp B/P (MAP) Pulse Ox O2 Delivery O2 Flow Rate FiO2 12/08/24 13:38 110 20 139/75 (96) 98 12/08/24 13:38 Room Air* 0 21 12/08/24 09:56 97.8 97.8 General Appearance: Alert, Cooperative, No acute distress HEENT: Atraumatic, PERRLA, EOMI, Mucous membr. moist/pink Respiratory: Clear to auscultation, Normal air movement Cardiovascular: Regular rate, Normal S1, Normal S2, No murmurs Abdominal: Normal bowel sounds, Soft, No tenderness, No hepatospenomegaly, No masses Extremities: No clubbing, No cyanosis, No edema, Normal pulses, No tenderness/swelling Skin: No rashes, No breakdown, No significant lesion Neuro: Normal speech, Normal tone, Sensation intact, Cranial nerves 3-12 NL, Reflexes 2+, Other (Weakness) Psych/Mental Status: Mood NL, Other (Agitated) Labs/Xrays Labs Test 12/08/24 12:10 Range/Units White Blood Count 8.2 4.4-10.8 10^3/uL Red Blood Count 4.31 L 4.5-5.90 10^6/uL Hemoglobin 14.3 13.5-17.5 g/dL Hematocrit 40.9 L 41.0-53.0 % Mean Corpuscular Volume 94.8 80.0-100.0 fL Mean Corpuscular Hemoglobin 33.2 H 28.0-32.0 pg Mean Corpuscular Hemoglobin Concent 35.0 32.0-36.0 g/dL Red Cell Distribution Width 14.3 11.8-14.3 % Platelet Count 219 140-450 10^3/uL Mean Platelet Volume 8.7 6.9-10.8 fL Neutrophils (%) (Auto) 61.8 37.0-80.0 % Lymphocytes (%) (Auto) 23.1 10.0-50.0 % Monocytes (%) (Auto) 12.7 H 0.0-12.0 % Eosinophils (%) (Auto) 1.9 0.0-7.0 % Basophils (%) (Auto) 0.5 0.0-2.0 % Neutrophils # (Auto) 5.0 1.6-8.6 10 ^3/uL Lymphocytes # (Auto) 1.9 0.4-5.4 10 ^3/uL Monocytes # (Auto) 1.0 0-1.3 10 ^3/uL Eosinophils # (Auto) 0.2 0-0.8 10 ^3/uL Basophils # (Auto) 0 0-0.2 10 ^3/uL Nucleated Red Blood Cells 0.1 % Sodium Level 142 136-145 mmol/L Potassium Level 4.4 3.5-5.1 mmol/L Chloride Level 107 98-107 mmol/L Carbon Dioxide Level 25 20-31 mmol/L Anion Gap 10 5-15 Blood Urea Nitrogen 15 9-23 mg/dL Creatinine 1.43 H 0.700-1.30 mg/dL Glomerular Filtration Rate Calc 56 >90 mL/min BUN/Creatinine Ratio 10.5 10.0-20.0 Serum Glucose 89 74-106 mg/dL Calcium Level 9.8 8.7-10.4 mg/dL Beta HCG, Quantitative 0.5 0-2 mIU/mL SEPSIS Sepsis Screen Date sepsis recognized/suspect: Dec 08, 2024 Time Sepsis recognized/suspect: 956 Recent Procedure: No On Antibiotic Therapy: No Respiratory Rate >20: No Heart Rate >90: No Temp<36 C (96.8 F) or >38.3 C: No SBP <90 or MAP <65 mmHG: No New Acute Mental Status Change: No Is the patient on CPAP, BIPAP,: No Physician Orders Trazodone Hcl (Desyrel) (12/08/24 22:00) Atorvastatin (Lipitor) (12/08/24 22:00) Amlodipine Tablet (Norvasc Tablet) (12/09/24 10:00) Levetiracetam 500 Mg/100ml (Levetiraceta (12/08/24 22:00) Divalproex Dr Tablet (Depakote "Dr" Tabl (12/08/24 22:00) Lorazepam 2mg/Ml Inj (Ativan Inj) (12/08/24 21:15) Allergies (12/08/24 21:15) Code Status (12/08/24 21:15) Sodium Chloride Lock (Saline Lock Ns) (12/08/24 22:00) Oxygen Per Hour (12/08/24 21:15) Hydrocodone-Acet 5/325mg Tab (Glenvil 5/32 (12/08/24 21:15) Ondansetron Hcl (Zofran) (12/08/24 21:15) Docusate Sodium Capsule (Colace Capsule) (12/08/24 21:15) Complete Blood Count (12/09/24 04:00) Comprehensive Metabolic Panel (12/09/24 04:00) Cardiac Diet-2gna,Lofat,Lochol (12/09/24 Breakfast) Condition: Serious (12/08/24 21:15) Acetaminophen Tablet (Tylenol Tablet) (12/08/24 21:15) Bedrest With Bathroom Privileg (12/08/24 21:15) Sequential Compression Device (12/08/24 ) Laboratory Tests Test 12/08/24 12:10 White Blood Count 8.2 10^3/uL (4.4-10.8) Assessment/Plan Assessment/Plan Flank pain Nephrostomy tube displaced Plan 1. Admit to med surge unit 2. Breathing treatment 3. Pain control management 4. Management of fluids and electrolytes 5. Consultation for hospitalist 6. Diagnostic tests chest x-ray 7. DVT prophylaxis-on SCDs 8. Repeat labs CBC, CMP in a.m. 9. Continue with current medical management 10. Treatment plan discussed with patient and RN. Patient will need reinstatement of information given mental status. Plan discussed with: Patient, Other (RN) My Orders Orders - ABBE WHALEY DNP Procedure Category Date Status Time Trazodone Hcl PHA 12/08/24 In Process (Desyrel) 22:00 Atorvastatin (Lipitor) PHA 12/08/24 In Process 22:00 Amlodipine Tablet PHA 12/09/24 In Process (Norvasc Tablet) 10:00 Levetiracetam 500 PHA 12/08/24 In Process Mg/100ml (Levetiraceta 22:[address] Tablet PHA 12/08/24 In Process (Depakote "Dr" Tabl 22:00 Lorazepam 2mg/Ml Inj PHA 12/08/24 In Process (Ativan Inj) 21:15 Allergies FARHAT 12/08/24 In Process 21:15 Code Status CODE 12/08/24 Transmitted 21:15 Sodium Chloride Lock PHA 12/08/24 In Process (Saline Lock Ns) 22:00 Oxygen Per Hour RT 12/08/24 Transmitted 21:15 Hydrocodone-Acet PHA 12/08/24 In Process 5/325mg Tab (Glenvil 21:15 Ondansetron Hcl PHA 12/08/24 In Process (Zofran) 21:15 Docusate Sodium PHA 12/08/24 In Process Capsule (Colace 21:15 Complete Blood Count LAB 12/09/24 Verified 04:00 Comprehensive LAB 12/09/24 Verified Metabolic Panel 04:00 Cardiac DIET 12/09/24 Transmitted Diet-2gna,Lofat,Lochol Breakfast Condition: Serious FARHAT 12/08/24 In Process 21:15 Acetaminophen Tablet PHA 12/08/24 In Process (Tylenol Tablet) 21:15 Bedrest With Bathroom FARHAT 12/08/24 In Process Privileg 21:15 Sequential FARHAT 12/08/24 In Process Compression Device Problem List: (1) Flank pain (2) Nephrostomy tube displaced Date of Service: Dec 08, 2024 Billing Provider: ABBE WHALEY DNP Common Visit Codes: [id number] INP/OBS CARE (HIGH) ABBE WHALEY DNP Dec 08, 2024 22:20
[2024-12-08] MEDS ORDERED: NITROGLYCERIN 0.4 MG SL TAB SL PRN (22:30)
[2024-12-08] MEDS ORDERED: MORPHINE SULFATE INJ 2 MG/ml SYRG IV PRN (22:30)
[2024-12-08] MEDS: SODIUM CHLOR 0.9% PF (SALINE LOCK) 10ML VIAL/SYR IV SCH (23:07)
[2024-12-08] MEDS: ATORVASTATIN 20 MG TAB PO SCH (23:12)
[2024-12-08] MEDS: levETIRAcetam 500 mg/100ml 100 ML IV SCH (23:12)
[2024-12-08 23:25] VITALS: PULSE 74; RESP 19; O2SAT 100
[2024-12-09] MEDS ORDERED: LORazepam 2MG/ML-1ML VIAL IV PRN
[2024-12-09] MEDS ORDERED: DOCU-94 PO (02:58)
[2024-12-09] MEDS ORDERED: ACET325T82 PO (02:58)
[2024-12-09] MEDS ORDERED: BISA10SU45 RE (02:58)
[2024-12-09] MEDS ORDERED: ASPI-378 PO (02:58)
[2024-12-09] MEDS ORDERED: VALP250S19 PO (02:58)
[2024-12-09] MEDS ORDERED: APIX5TAB PO (02:58)
[2024-12-09] MEDS ORDERED: MOMLQ GT (03:03)
[2024-12-09 07:07] LABS: Hematocrit 41.7 % (41.0-53.0); Hemoglobin 14.8 g/dL (13.5-17.5); Mean Corpuscular Hemoglobin 33.7 pg (28.0-32.0); Mean Corpuscular Volume 95.0 fL (80.0-100.0); Nucleated Red Blood Cells % 0.0 %
[2024-12-09 07:09] LABS: Alanine Aminotransferase 31 U/L (7-40); Albumin 3.9 g/dL (3.2-4.8); Alkaline Phosphatase 65 U/L (46-116); Anion Gap 12 (5-15); BUN/Creatinine Ratio 10.7 (10.0-20.0); Bilirubin, Total 0.6 mg/dL (0.2-1.0); Blood Urea Nitrogen 15 mg/dL (9-23); Calcium 10.2 mg/dL (8.7-10.4); Carbon Dioxide 23 mmol/L (20-31); Chloride 106 mmol/L (98-107); Glucose 97 mg/dL (74-106); Potassium 4.5 mmol/L (3.5-5.1); Sodium 141 mmol/L (136-145); Total Protein 6.7 g/dL (5.7-8.2)
[2024-12-09 07:30] VITALS: PULSE 74; RESP 19
[2024-12-09 09:00] VITALS: BP 140/78; PULSE 60; RESP 17; TEMP 97.9; O2SAT 99
[2024-12-09 13:00] VITALS: BP 135/82; PULSE 62; RESP 17; TEMP 98.4; O2SAT 97
--- NOTE | 2024-12-09 13:02 | DVHPN2 ---
Reviewed: Care Plan, H&P, Labs, Medications, Previous Orders, Radiology Changes from previous H/P or p: No Changes Eyes: No Pain, No Vision change, No Conjunctivae inflammation, No Eyelid inflammation, No Other, No Redness ENT: No Ear pain, No Ear discharge, No Nose pain, No Nose discharge, No Nose congestion, No Mouth pain, No Mouth swelling, No Throat pain, No Throat swelling, No Other Cardiovascular: No Chest Pain, No Palpitations, No Orthopnea, No Paroxysmal Noc. Dyspnea, No Edema, No Lt Headedness, No Other Respiratory: No Cough, No Dry, No Shortness of breath, No SOB with excertion, No Wheezing, No Hemoptysis, No Pleuritic Pain, No Sputum, No Other Gastrointestinal: No Nausea, No Vomiting, No Abdominal Pain, No Diarrhea, No Constipation, No Melena, No Hematochezia; Other (Dislodged G-tube) Genitourinary: No Dysuria, No Frequency, No Incontinence, No Hematuria, No Retention, No Other Musculoskeletal: No other, No neck pain, No shoulder pain, No arm pain, No back pain, No hand pain, No leg pain, No foot pain Skin: No Rash, No Lesions, No Jaundice, No Bruising, No Other Objective Vitals Vital Signs Date Time Temp Pulse Resp B/P (MAP) Pulse Ox O2 Delivery O2 Flow Rate FiO2 12/09/24 12:03 140/78 12/09/24 09:00 97.9 60 17 99 97.9 12/09/24 07:30 Room Air* 0 21 Intake/Output Intake and Output 12/09/24 07:00 Intake Total 600 ml Balance 600 ml Intake Oral 600 ml # Voids 2 # Bowel Movements 1 Medications Current Medications Medications Dose Ordered Sig/Jazmin Route Start Time Stop Time Status Last Admin Dose Admin Trazodone HCl 50 mg HS PO 12/08/24 22:00 12/08/24 23:12 50 MG Atorvastatin Calcium 10 mg HS PO 12/08/24 22:00 12/08/24 23:12 10 MG Amlodipine Besylate 5 mg DAILY PO 12/09/24 10:00 12/09/24 12:03 5 MG Levetiracetam 100 ml @ 400 mls/hr BID IV 12/08/24 22:00 12/09/24 12:01 400 MLS/HR Divalproex Sodium 500 mg BID PO 12/08/24 22:00 12/09/24 12:02 500 MG Lorazepam 0.5 mg Q8HP PRN IV 12/08/24 21:15 Hold Sodium Chloride 10 ml Q8HR IV 12/08/24 22:00 12/08/24 23:07 10 ML Acetaminophen/ Hydrocodone Bitart 1 tab Q4HP PRN PO 12/08/24 21:15 Ondansetron HCl 4 mg Q4HP PRN IV 12/08/24 21:15 Docusate Sodium 100 mg BIDPRN PRN PO 12/08/24 21:15 Acetaminophen 650 mg Q6HP PRN PO 12/08/24 21:15 Nitroglycerin 0.4 mg Q5MINP PRN SL 12/08/24 22:30 Morphine Sulfate 2 mg Q30M PRN IV 12/08/24 22:30 Lorazepam 1 mg Q6HP PRN IV 12/09/24 00:00 Laboratory Results Laboratory Tests 12/09/24 06:28 Chemistry Test 12/09/24 06:28 Albumin 3.9 g/dL (3.2-4.8) Calcium Level 10.2 mg/dL (8.7-10.4) Total Protein 6.7 g/dL (5.7-8.2) LFT Test 12/09/24 06:28 Alanine Aminotransferase (ALT) 31 U/L (7-40) Alkaline Phosphatase 65 U/L (46-116) Aspartate Amino Transferase (AST) 38 U/L (13-40) Total Bilirubin 0.6 mg/dL (0.2-1.0) Labs and/or images reviewed: Labs reviewed by me, Image(s) reviewed by me Assessment/Plan Assessment/Plan Dislodged left nephrostomy tube Acute metabolic encephalopathy, ANNETTE due to VMN Hypertension, Seizures, Keppra valproic acid Hyperlipidemia, Chronic kidney disease, Dementia Nonverbal History of bilateral hydronephrosis History of CVA with right-sided deficit History of traumatic brain injury History of chronic idiopathic constipation History of COPD Prostatomegaly Time Spent 70 minutes Advanced care planning time 20 minutes Patient is full code Plan discussed with: Patient Date of Service: Dec 09, 2024 Billing Provider: ARIANNE ANGEL MD Common Visit Codes: [id number] CARE 30-74 MIN ARIANNE ANGEL MD Dec 09, 2024 13:02
[2024-12-09 16:31] LABS: INR 1.02 (0.9-1.15); Partial Thromboplastin Time 29.9 SEC (24.5-34.5); Prothrombin Time 10.8 sec (9.3-11.8)
[2024-12-09 17:00] VITALS: BP 127/91; PULSE 81; RESP 16; TEMP 97.7; O2SAT 100
[2024-12-09 21:00] VITALS: BP 135/79; PULSE 82; RESP 16; TEMP 98; O2SAT 98
[2024-12-10 05:00] VITALS: BP 117/80; PULSE 98; RESP 17; TEMP 98.3; O2SAT 98
[2024-12-10 07:30] VITALS: PULSE 98; RESP 17
[2024-12-10 09:00] VITALS: BP 138/95; PULSE 99; RESP 20; TEMP 96.1; O2SAT 99
--- NOTE | 2024-12-10 09:52 | DVH ---
COMPUTERIZED TOMOGRAPHY ABDOMEN AND PELVIS WITHOUT CONTRAST REASON FOR EXAM: NEPHRO TUBE PROCEDURE. Hydronephrosis. COMPARISON: CT ABDOMEN WITHOUT CONTRAST on DOS: 11/11/24, CT CT AB PEL WO CON-NO ORAL OR IV on DOS: , US KIDNEY on DOS: 10/11/24, CT CT AB PEL WO CON-NO ORAL OR IV on DOS: 11/19/23, US KIDNEY on DOS : 11/17/23 TECHNIQUE: Spiral scans were acquired from the diaphragm to the symphysis pubis without intravenous c ontrast administration. 2-D coronal and sagittal reformatted images were provided. Radiation optimiza tion: All CT scans at this facility use at least one of these dose optimization techniques: Automated exposure control mA and/or kV adjustment per patient size (includes targeted exams where dose is mat ched to clinical indication) or iterative reconstruction. RADIATION DOSE: CTDI: 9.79 mGy DLP: 572.79 mGy-cm FINDINGS: The visualized lung bases are grossly clear. There is no pleural effusion. There is no pericardial e ffusion. The spleen is not enlarged. Evaluation of the abdominal organs is suboptimal in the absence of intrav enous contrast. Evaluation is further degraded by streak artifact from the patient's arms at his side s. The liver is grossly within normal limits. The gallbladder is not seen and may be collapsed or abs ent. Unenhanced appearance of the pancreas is grossly unremarkable. The adrenal glands are within nor mal limits. The kidneys are similar in size. There is mild left hydroureteronephrosis. There is a 3 m m nonobstructive calculus at the inferior pole of the left kidney. No ureteral or bladder calculus is identified. There is no right hydronephrosis. No right renal calculus is identified. The urinary b ladder appears thick walled. The prostate does not appear enlarged. The colonic stool burden is mode rate. The appendix is not seen. No free fluid is identified within the limitations of the study. No p athologic lymphadenopathy is identified by size criteria. There is no pathologic distention of the sm all bowel. No acute osseous abnormality is identified. There is bilateral L5 spondylolysis. There is a tiny metallic density in the left groin, possibly a surgical clip. IMPRESSION: Evaluation of the abdominal organs is suboptimal in the absence of intravenous contrast and further d egraded by streak artifact from the patient's arms. Mild left hydroureteronephrosis. No ureteral calculus is identified. Nonobstructive 3 mm left renal calculus.
--- NOTE | 2024-12-10 11:01 | DVHPN2 ---
Reviewed: Care Plan, H&P, Labs, Medications, Previous Orders, Radiology Changes from previous H/P or p: No Changes Eyes: No Pain, No Vision change, No Conjunctivae inflammation, No Eyelid inflammation, No Other, No Redness ENT: No Ear pain, No Ear discharge, No Nose pain, No Nose discharge, No Nose congestion, No Mouth pain, No Mouth swelling, No Throat pain, No Throat swelling, No Other Cardiovascular: No Chest Pain, No Palpitations, No Orthopnea, No Paroxysmal Noc. Dyspnea, No Edema, No Lt Headedness, No Other Respiratory: No Cough, No Dry, No Shortness of breath, No SOB with excertion, No Wheezing, No Hemoptysis, No Pleuritic Pain, No Sputum, No Other Gastrointestinal: No Nausea, No Vomiting, No Abdominal Pain, No Diarrhea, No Constipation, No Melena, No Hematochezia; Other (Dislodged G-tube) Genitourinary: No Dysuria, No Frequency, No Incontinence, No Hematuria, No Retention, No Other Musculoskeletal: No other, No neck pain, No shoulder pain, No arm pain, No back pain, No hand pain, No leg pain, No foot pain Skin: No Rash, No Lesions, No Jaundice, No Bruising, No Other Objective Vitals Vital Signs Date Time Temp Pulse Resp B/P (MAP) Pulse Ox O2 Delivery O2 Flow Rate FiO2 12/10/24 10:04 127/89 12/10/24 09:00 96.1 99 20 99 96.1 12/09/24 20:00 Room Air* 0 21 Intake/Output Intake and Output 12/10/24 07:00 Intake Total 1709 ml Output Total 500 ml Balance 1209 ml Intake Oral 1609 ml IV Total 100 ml Output Drainage Total 500 ml # Voids 3 # Bowel Movements 2 Medications Current Medications Medications Dose Ordered Sig/Jazmin Route Start Time Stop Time Status Last Admin Dose Admin Trazodone HCl 50 mg HS PO 12/08/24 22:00 12/09/24 22:24 50 MG Atorvastatin Calcium 10 mg HS PO 12/08/24 22:00 12/09/24 22:24 10 MG Amlodipine Besylate 5 mg DAILY PO 12/09/24 10:00 12/10/24 10:04 5 MG Levetiracetam 100 ml @ 400 mls/hr BID IV 12/08/24 22:00 12/10/24 10:03 400 MLS/HR Divalproex Sodium 500 mg BID PO 12/08/24 22:00 12/10/24 10:03 500 MG Lorazepam 0.5 mg Q8HP PRN IV 12/08/24 21:15 Hold Sodium Chloride 10 ml Q8HR IV 12/08/24 22:00 12/10/24 04:58 10 ML Acetaminophen/ Hydrocodone Bitart 1 tab Q4HP PRN PO 12/08/24 21:15 Ondansetron HCl 4 mg Q4HP PRN IV 12/08/24 21:15 Docusate Sodium 100 mg BIDPRN PRN PO 12/08/24 21:15 Acetaminophen 650 mg Q6HP PRN PO 12/08/24 21:15 Nitroglycerin 0.4 mg Q5MINP PRN SL 12/08/24 22:30 Morphine Sulfate 2 mg Q30M PRN IV 12/08/24 22:30 Lorazepam 1 mg Q6HP PRN IV 12/09/24 00:00 Laboratory Results Laboratory Tests 12/09/24 06:28 Coagulation Test 12/09/24 15:33 Prothrombin Time 10.8 sec (9.3-11.8) Prothrombin Time INR 1.02 (0.9-1.15) Activated Partial Thromboplast Time 29.9 SEC (24.5-34.5) Labs and/or images reviewed: Labs reviewed by me, Image(s) reviewed by me Assessment/Plan Assessment/Plan Dislodged left nephrostomy tube: CT abdomen pelvis without contrast shows mild left hydroureteronephrosis, may not need replacement of dislodged left nephrostomy tube. Acute metabolic encephalopathy, ANNETTE due to VMN Hypertension, Seizures, Keppra valproic acid Hyperlipidemia, Chronic kidney disease, Dementia Nonverbal History of bilateral hydronephrosis History of CVA with right-sided deficit History of traumatic brain injury History of chronic idiopathic constipation History of COPD Prostatomegaly Time Spent 70 minutes Advanced care planning time 20 minutes Patient is full code Plan discussed with: Patient My Orders Orders - ARIANNE ANGEL MD Procedure Category Date Status Time * Radiologist Consult CONS 12/09/24 Transmitted 12:53 Cardiac DIET 12/09/24 Transmitted Diet-2gna,Lofat,Lochol Lunch * Cafeteria Supervisor CONS 12/09/24 Transmitted Consult Date of Service: Dec 10, 2024 Billing Provider: ARIANNE ANGEL MD Common Visit Codes: [id number] INP/OBS CARE(HIGH) ARIANNE ANGEL MD Dec 10, 2024 11:01
[2024-12-10 13:00] VITALS: BP 134/79; PULSE 75; RESP 18; TEMP 96.6; O2SAT 99
[2024-12-10 17:00] VITALS: BP 119/83; PULSE 83; RESP 17; TEMP 96.8; O2SAT 98
[2024-12-10 21:00] VITALS: BP 123/85; PULSE 70; RESP 17; TEMP 98.1; O2SAT 95
[2024-12-11 01:00] VITALS: BP 128/83; PULSE 78; RESP 17; TEMP 97.8; O2SAT 96
[2024-12-11 05:00] VITALS: BP 137/81; PULSE 74; RESP 18; TEMP 97.9; O2SAT 98
[2024-12-11 07:30] VITALS: PULSE 74; RESP 18; O2SAT 98
--- NOTE | 2024-12-11 13:06 | DVHPN2 ---
Reviewed: Care Plan, H&P, Labs, Medications, Previous Orders, Radiology Changes from previous H/P or p: No Changes Eyes: No Pain, No Vision change, No Conjunctivae inflammation, No Eyelid inflammation, No Other, No Redness ENT: No Ear pain, No Ear discharge, No Nose pain, No Nose discharge, No Nose congestion, No Mouth pain, No Mouth swelling, No Throat pain, No Throat swelling, No Other Cardiovascular: No Chest Pain, No Palpitations, No Orthopnea, No Paroxysmal Noc. Dyspnea, No Edema, No Lt Headedness, No Other Respiratory: No Cough, No Dry, No Shortness of breath, No SOB with excertion, No Wheezing, No Hemoptysis, No Pleuritic Pain, No Sputum, No Other Gastrointestinal: No Nausea, No Vomiting, No Abdominal Pain, No Diarrhea, No Constipation, No Melena, No Hematochezia; Other (Dislodged G-tube) Genitourinary: No Dysuria, No Frequency, No Incontinence, No Hematuria, No Retention, No Other Musculoskeletal: No other, No neck pain, No shoulder pain, No arm pain, No back pain, No hand pain, No leg pain, No foot pain Skin: No Rash, No Lesions, No Jaundice, No Bruising, No Other Objective Vitals Vital Signs Date Time Temp Pulse Resp B/P (MAP) Pulse Ox O2 Delivery O2 Flow Rate FiO2 12/11/24 10:02 137/81 12/11/24 07:30 74 18 98 Room Air* 0 21 12/11/24 05:00 97.9 97.9 Intake/Output Intake and Output 12/11/24 07:00 Intake Total 2100 ml Balance 2100 ml Intake Oral 2100 ml # Voids 3 # Bowel Movements 1 Medications Current Medications Medications Dose Ordered Sig/Jazmin Route Start Time Stop Time Status Last Admin Dose Admin Trazodone HCl 50 mg HS PO 12/08/24 22:00 12/10/24 21:45 50 MG Atorvastatin Calcium 10 mg HS PO 12/08/24 22:00 12/10/24 21:45 10 MG Amlodipine Besylate 5 mg DAILY PO 12/09/24 10:00 12/11/24 10:02 5 MG Levetiracetam 100 ml @ 400 mls/hr BID IV 12/08/24 22:00 12/11/24 10:01 400 MLS/HR Divalproex Sodium 500 mg BID PO 12/08/24 22:00 12/11/24 09:54 500 MG Lorazepam 0.5 mg Q8HP PRN IV 12/08/24 21:15 Hold Sodium Chloride 10 ml Q8HR IV 12/08/24 22:00 12/11/24 10:01 10 ML Acetaminophen/ Hydrocodone Bitart 1 tab Q4HP PRN PO 12/08/24 21:15 Ondansetron HCl 4 mg Q4HP PRN IV 12/08/24 21:15 Docusate Sodium 100 mg BIDPRN PRN PO 12/08/24 21:15 Acetaminophen 650 mg Q6HP PRN PO 12/08/24 21:15 Nitroglycerin 0.4 mg Q5MINP PRN SL 12/08/24 22:30 Morphine Sulfate 2 mg Q30M PRN IV 12/08/24 22:30 Lorazepam 1 mg Q6HP PRN IV 12/09/24 00:00 Laboratory Results Laboratory Tests 12/09/24 06:28 Labs and/or images reviewed: Labs reviewed by me, Image(s) reviewed by me Assessment/Plan Assessment/Plan Dislodged left nephrostomy tube: CT abdomen pelvis without contrast shows mild left hydroureteronephrosis does not need nephrostomy tube placement Acute metabolic encephalopathy, ANNETTE due to VMN Hypertension, Seizures, Keppra valproic acid Hyperlipidemia, Chronic kidney disease, Dementia Nonverbal History of bilateral hydronephrosis History of CVA with right-sided deficit History of traumatic brain injury History of chronic idiopathic constipation History of COPD Prostatomegaly Sister Nancy at bed side willing for the patient to be discharged back to [facility] acute Time Spent 50 minutes Advanced care planning time 20 minutes Patient is full code Plan discussed with: Patient Date of Service: Dec 11, 2024 Billing Provider: ARIANNE ANGEL MD Common Visit Codes: [id number] INP/OBS CARE(HIGH) ARIANNE ANGEL MD Dec 11, 2024 13:06
--- NOTE | 2024-12-11 13:12 | DVHDS2 ---
Discharge Summary Date of Admission Dec 08, 2024 at 22:19 Date of Discharge: Dec 11, 2024 Admitting Diagnosis Discharged left nephrostomy tube Wounds: none Labs/Diagnostic Data: Laboratory Results Test 12/09/24 15:33 12/09/24 06:28 12/08/24 12:10 Prothrombin Time 10.8 sec (9.3-11.8) Prothrombin Time INR 1.02 (0.9-1.15) Activated Partial Thromboplast Time 29.9 SEC (24.5-34.5) White Blood Count 7.9 10^3/uL (4.4-10.8) Red Blood Count 4.38 10^6/uL (4.5-5.90) Hemoglobin 14.8 g/dL (13.5-17.5) Hematocrit 41.7 % (41.0-53.0) Mean Corpuscular Volume 95.0 fL (80.0-100.0) Mean Corpuscular Hemoglobin 33.7 pg (28.0-32.0) Mean Corpuscular Hemoglobin Concent 35.4 g/dL (32.0-36.0) Red Cell Distribution Width 14.3 % (11.8-14.3) Platelet Count 210 10^3/uL (140-450) Mean Platelet Volume 9.2 fL (6.9-10.8) Neutrophils (%) (Auto) 63.2 % (37.0-80.0) Lymphocytes (%) (Auto) 21.3 % (10.0-50.0) Monocytes (%) (Auto) 13.4 % (0.0-12.0) Eosinophils (%) (Auto) 1.3 % (0.0-7.0) Basophils (%) (Auto) 0.8 % (0.0-2.0) Neutrophils # (Auto) 5.0 10 ^3/uL (1.6-8.6) Lymphocytes # (Auto) 1.7 10 ^3/uL (0.4-5.4) Monocytes # (Auto) 1.1 10 ^3/uL (0-1.3) Eosinophils # (Auto) 0.1 10 ^3/uL (0-0.8) Basophils # (Auto) 0.1 10 ^3/uL (0-0.2) Nucleated Red Blood Cells 0.0 % Sodium Level 141 mmol/L (136-145) Potassium Level 4.5 mmol/L (3.5-5.1) Chloride Level 106 mmol/L (98-107) Carbon Dioxide Level 23 mmol/L (20-31) Anion Gap 12 (5-15) Blood Urea Nitrogen 15 mg/dL (9-23) Creatinine 1.40 mg/dL (0.700-1.30) Glomerular Filtration Rate Calc 58 mL/min (>90) BUN/Creatinine Ratio 10.7 (10.0-20.0) Serum Glucose 97 mg/dL (74-106) Calcium Level 10.2 mg/dL (8.7-10.4) Total Bilirubin 0.6 mg/dL (0.2-1.0) Aspartate Amino Transferase (AST) 38 U/L (13-40) Alanine Aminotransferase (ALT) 31 U/L (7-40) Alkaline Phosphatase 65 U/L (46-116) Total Protein 6.7 g/dL (5.7-8.2) Albumin 3.9 g/dL (3.2-4.8) Beta HCG, Quantitative 0.5 mIU/mL (0-2) Other Laboratory Tests 12/09/24 06:28 Brief Hx & Hospital Course: 59-year-old male with a history of dementia nonverbal chronic kidney disease hyperlipidemia seizures hypertension AK I CVA traumatic brain injury COPD chronic idiopathic constipation BPH brought in from senior care facility for dislodged left nephrostomy tube. CT abdomen pelvis without contrast showed mild hydronephrosis. The patient has habit of repeatedly pulling of the nephrostomy tubes because of underlying dementia. At the present time patient does not need any nephrostomy tube replacement as it is only mild hydronephrosis. Discharged back to senior care facility and he will continue all his medications. Discussed discharge plan of discharging him back to the group home with the sister Nancy who agreed. Consults/Reason for consult None Operations or Procedures CT abdomen pelvis without contrast Condition at Discharge: Fair Final Diagnosis/Problems List Dislodged left nephrostomy tube: CT abdomen pelvis without contrast shows mild left hydroureteronephrosis does not need nephrostomy tube placement Acute metabolic encephalopathy, ANNETTE due to VMN Hypertension, Seizures, Keppra valproic acid Hyperlipidemia, Chronic kidney disease, Dementia Nonverbal History of bilateral hydronephrosis History of CVA with right-sided deficit History of traumatic brain injury History of chronic idiopathic constipation History of COPD Prostatomegaly Discharge Disposition: Half-Way Facility Discharge Instruct/Medications Diet: Cardiac 2g Na,low cholest Activity: Light activity Follow Up/Referral: Follow up with the group home Medications: see list Scheduled Acetaminophen (Apap), 1 TAB PO BID, (Reported) Apixaban Base (Eliquis), 5 MG PO BID, (Reported) Aspirin (Bonnie Aspirin Ec Low Dose), 1 TAB PO DAILY, (Reported) Atorvastatin Calcium (Atorvastatin Calcium), 10 MG PO DAILY, (Reported) Cholecalciferol (Vitamin D3), 1,000 UNIT PO DAILY, (Reported) Docusate Sodium (Colace), 1 CAP PO BID, (Reported) Levetiracetam (Keppra Tablet), 750 MG PO BID, (Reported) Losartan Potassium (Losartan Potassium), 50 MG PO BID, (Reported) Valproate Sodium (Valproic Acid), 250 MG PO DAILY, (Reported) Miscellaneous Medications Bisacodyl (Dulcolax), 10 MG RE, (Reported) Magnesium Hydroxide (Milk Of Magnesia Oral Suspension), 30 ML GT, (Reported) 38 (Time taken for discharge summary 38 minutes) Discharge Statement: "Patient was advised to return to the ER or call 911 if any headaches, dizziness, shortness of breath, chest pain, abdominal pain, bleeding, fevers, or worsening of medical condition. Patient was counseled about treatment plan, medications, possible side effects, patientverbalized understanding. All questions were answered to the best of my ability. This discharge took greater then 30 minutes in planning, reviewing documentation, counseling the patient, and discussing with other team members." ASSESSMENT ASSESSMENT Hospital Course Improved Assessment Dislodged left nephrostomy tube: CT abdomen pelvis without contrast shows mild left hydroureteronephrosis does not need nephrostomy tube placement Acute metabolic encephalopathy, ANNETTE due to VMN Hypertension, Seizures, Keppra valproic acid Hyperlipidemia, Chronic kidney disease, Dementia Nonverbal History of bilateral hydronephrosis History of CVA with right-sided deficit History of traumatic brain injury History of chronic idiopathic constipation History of COPD Prostatomegaly Date of Service: Dec 11, 2024 Billing Provider: ARIANNE ANGEL MD Common Visit Codes: [id number] INP/OBS CARE(HIGH) ARIANNE ANGEL MD Dec 11, 2024 13:12
[2024-12-11 16:50] VITALS: BP 132/81; PULSE 74; RESP 18; TEMP 97.9; O2SAT 98
== END 2024-12-11 19:00 | DRG 698 ==
LOC: EDUNIT# 09:54 → ER 09:54 → EDBD 09:54 → OVERFLOW 22:19 → WEST WING 23:54
PROVIDERS: ADMIT Family Medicine; ATTEND Family Medicine
DX: T83.022A Displacement of nephrostomy catheter, initial encounter (principal); G93.41 Metabolic encephalopathy; N17.0 Acute kidney failure with tubular necrosis; N13.30 Unspecified hydronephrosis; R56.9 Unspecified convulsions; E78.5 Hyperlipidemia, unspecified; N18.9 Chronic kidney disease, unspecified; F03.90 Unspecified dementia, unspecified severity, without behavioral disturbance, psychotic disturbance, mood disturbance, and anxiety; I12.9 Hypertensive chronic kidney disease with stage 1 through stage 4 chronic kidney disease, or unspecified chronic kidney disease; J44.9 Chronic obstructive pulmonary disease, unspecified; K59.04 Chronic idiopathic constipation; N40.0 Benign prostatic hyperplasia without lower urinary tract symptoms; Y73.2 Prosthetic and other implants, materials and accessory gastroenterology and urology devices associated with adverse incidents; I69.30 Unspecified sequelae of cerebral infarction; Z87.820 Personal history of traumatic brain injury; Z88.8 Allergy status to other drugs, medicaments and biological substances; Z79.899 Other long term (current) drug therapy
CPT/HCPCS: 36415; 74176; 80048; 80053; 84702; 85025; 85610; 85730; G0378

== ENCOUNTER 2025-02-25 10:50 | Inpatient (IN) | payer MEDICARE, MEDICAID ==
[~2025-02-25] VITALS: Ht 185.4 cm; Wt 70.4 kg
[~2025-02-25 10:50] MED LIST changes: +ACET325T82 PO; -AML5T PO; +APIX5TAB PO; -ARIP2TAB PO; +ASPI-378 PO; -BACDST PO; -BACL10TA PO; -BENZ1TAB6 PO; +BISA10SU45 RE; -CEFD300C2 PO; -CRAN500C7 PO; -DIVA500T13 PO; -ESCI1TAB36 PO; -FINA5TAB4 PO; -FOLI-119 PO; -GUAI100S6 PO; -HYDR12.59 PO; -LOPE-20 PO; -LORA-1121 PO; -METH118C PO; -METO25TA5 PO; -MOME1AER3 INH; +MOMLQ GT; -NIAC500T89 PO; -NITR50CA52 PO; -OMEP20TA PO; -PALI3TAB PO; -PHEN50CH8 PO; -POLY335015 PO; -QUET100T47 PO; -QUET200T45 PO; -TAMS0.4C39 PO; -TRAZ-227 PO; +VALP250S19 PO
[2025-02-25 12:44] LABS: Hematocrit 38.7 % (41.0-53.0); Hemoglobin 13.1 g/dL (13.5-17.5); Mean Corpuscular Hemoglobin 33.3 pg (28.0-32.0); Mean Corpuscular Volume 98.2 fL (80.0-100.0)
[2025-02-25 12:55] LABS: Chloride 106 mmol/L (98-107); Potassium 5.0 mmol/L (3.5-5.1); Sodium 137 mmol/L (136-145)
[2025-02-25 12:56] LABS: Anion Gap 7 (5-15); Carbon Dioxide 24 mmol/L (20-31)
[2025-02-25 12:57] LABS: Calcium 9.9 mg/dL (8.7-10.4)
[2025-02-25 13:01] LABS: Glucose 96 mg/dL (74-106)
[2025-02-25 13:02] LABS: BUN/Creatinine Ratio 21.0 (10.0-20.0)
[2025-02-25 13:04] LABS: Blood Urea Nitrogen 30 mg/dL (9-23)
--- NOTE | 2025-02-25 13:13 | ED.PDOC ---
General HPI Comments This is a 59 year-old male, accompanied by hoop puncher, who presents to the ED via wheelchair for UTI. Per hoop puncher, patient was diagnosed with a UTI on February 20. Aircraft Sheet Metal Mechanic states patient has been unable to take medication since it is not in crushed form. Patient is seeking medication to treat his UTI. There are no further complaints or symptoms at this time. Chief Complaint: Urinary Time Seen by MD: 12:48 Primary Care Provider: FLO Rojas notes: Medications, Allergies Allergies: Coded Allergies: ROBIN Inhibitors (Verified Allergy, Unknown, 10/13/23) Home Meds Reported Medications Magnesium Hydroxide (MILK OF MAGNESIA ORAL SUSPENSION) 30 Ml Ss, 30 ML GT, ML 12/09/24 Valproate Sodium (Valproic Acid) 250 Mg/5 Ml Syp, 250 MG PO DAILY, SYP 12/09/24 Bisacodyl (Dulcolax) 10 Mg Sup, 10 MG RE, SUPP 12/09/24 Docusate Sodium (Colace) 100 Mg Cap, 1 CAP PO BID, #30 CAP 12/09/24 Aspirin (BELIA ASPIRIN EC LOW DOSE) 81 Mg Tab, 1 TAB PO DAILY, #30 TAB 3 Refills 12/09/24 Apixaban Base (ELIQUIS) 5 Mg Tab, 5 MG PO BID, TAB 12/09/24 Acetaminophen (Apap) 325 Mg Tab, 1 TAB PO BID, #30 TAB 12/09/24 Levetiracetam (KEPPRA TABLET) 500 Mg Tb, 750 MG PO BID, TAB 10/30/24 Cholecalciferol (VITAMIN D3) 2,000 Unit Tab, 1000 UNIT PO DAILY, TAB 10/30/24 Losartan Potassium (Losartan Potassium) 50 Mg Tab, 50 MG PO BID for 30 Days, MG 10/30/24 Atorvastatin Calcium (ATORVASTATIN CALCIUM) 10 Mg Tab, 10 MG PO DAILY, TAB 10/30/24 Mode of Arrival: Wheelchair Severity: Moderate Timing: Days Duration: Since onset History of: UTI associated signs and symptoms: Other (UTI ) Past Medical History PAST MEDICAL HISTORY: CKF, CVA, HTN, Seizures, UTI'S Surgical History: Denies all surgeries Family History Family History: Reviewed,noncontributory to illness Social History Smoker: Non-Smoker Alcohol: Denies ETOH Use Drugs: Denies Drug Use Lives In: Home Constitutional: denies: chills, diaphoresis, fatigue, fever, malaise, sweats, weakness, others EENTM: denies: blurred vision, double vision, ear bleeding, ear discharge, ear drainage, ear pain, ear ringing, eye pain, eye redness, hearing loss, mouth pain, mouth swelling, nasal discharge, nose bleeding, nose congestion, nose pain, photophobia, tearing, throat pain, throat swelling, voice changes, others Respiratory: denies: cough, hemoptysis, orthopnea, SOB at rest, shortness of breath, SOB with excertion, stridor, wheezing, others Cardiovascular: denies: chest pain, dizzy spells, diaphoresis, Dyspnea on exertion, edema, irregular heart beat, left arm pain, lightheadedness, palpitations, PND, syncope, others Gastrointestinal: denies: abdomen distended, abdominal pain, blood streaked bowels, constipated, diarrhea, dysphagia, difficulty swallowing, hematemesis, melena, nausea, poor appetite, poor fluid intake, rectal bleeding, rectal pain, vomiting, others Genitourinary: reports: others (UTI ); denies: burning, dysuria, flank pain, frequency, hematuria, incontinence, penile discharge, penile sore, pain, testic le pain, testicle swelling, urgency Neurological: denies: dizziness, fainting, headache, left sided numbness, left sided weakness, numbness, paresthesia, pre-existing deficit, right sided numbness, right sided weakness, seizure, speech problems, tingling, tremors, weakness, others Musculoskeletal: denies: back pain, gout, joint pain, joint swelling, muscle pain, muscle stiffness, neck pain, others Integumetry: denies: bruises, change in color, change in hair/nails, dryness, laceration, lesions, lumps, rash, wounds, others Allergic/Immunocompromised: denies: Difficulty Healing, Frequent Infections, Hives, Itching, others Hematologic/Lymphatic: denies: anemia, blood clots, easy bleeding, easy bruising, swollen glands, others Endocrine: denies: excessive hunger, excessive sweating, excessive thirst, excessive urination, flushing, intolerance to cold, intolerance to heat, unexplained weight gain, unexplained weight loss, others Psychiatric: denies: anxiety, bipolar disorder, depression, hopeless, panic disorder, schizophrenia, sleepless, suicidal, others All Other Systems: Reviewed and Negative Physical Exam General Appearance: Moderate Distress HEENT: Normal ENT Inspection, Pharynx Normal, TMs Normal Neck: Full Range of Motion, Non-Tender, Normal, Normal Inspection Respiratory: Chest Non-Tender, Lungs Clear, No Accessory Muscle Use, No Respiratory Distress, Normal Breath Sounds Cardiovascular: No Edema, No JVD, No Murmur, No Gallop, Normal Peripheral Pulses, Regular Rate/Rhythm Breast Exam: Deferred Gastrointestinal: No Organomegaly, Non Tender, No Pulsatile Mass, Normal Bowel Sounds, Soft Genitalia: Deferred Pelvic: Deferred Rectal: Deferred Extremities: No calf tenderness, Normal capillary refill, Normal inspection, N ormal range of motion, Non-tender, No pedal edema Musculoskeletal : Apperance: Normal Neurologic: Alert, lens marker II-XII nml as Tested, No Motor Deficits, Normal Affect, Normal Mood, No Sensory Deficits Cerebellar Function: NOT DONE Reflexes: NOT DONE Skin: Dry, Normal Color, Warm Peripheral Pulses: 3+ Radial (R), 3+ Radial (L) Lymphatic: No Adenopathy Was a procedure done? Was a procedure done?: No Differential Diagnosis Kidney stone (Female): Musculoskeletal pain, Urinary obstruction, Urolithiasis Urinary Problem (Female): UTI, Vaginitis X-Ray, Labs, Meds, VS Vital Signs Date Time Temp Pulse Resp B/P (MAP) Pulse Ox O2 Delivery O2 Flow Rate FiO2 02/25/25 11:00 97.9 91 18 138/81 99 97.9 Lab Test 02/25/25 14:04 02/25/25 12:38 Range/Units Urine Color Yellow Yellow Urine Clarity Cloudy H Clear Urine pH 7.0 5.0-9.0 Urine Specific [place] 1.011 1.001-1.035 Urine Protein Trace H Negative Urine Ketones Negative Negative Urine Blood 2+ H Negative /uL Urine Nitrite Negative Negative Urine Bilirubin Negative Negative Urine Urobilinogen Normal Negative mg/dL Urine Leukocyte Esterase 2+ Negative /uL Urine RBC 111 0 - 3 /hpf Urine WBC Clumps Present None Seen /hpf Urine Microscopic WBC 663 H 0-3 /HPF Urine Squamous Epithelial Cells Few <5 /hpf Urine Bacteria Mod H None Seen /hpf Urine Yeast (Budding) Occasional None Seen /hpf Urine Glucose Normal Normal mg/dL White Blood Count 7.6 4.4-10.8 10^3/uL Red Blood Count 3.94 L 4.5-5.90 10^6/uL Hemoglobin 13.1 L 13.5-17.5 g/dL Hematocrit 38.7 L 41.0-53.0 % Mean Corpuscular Volume 98.2 80.0-100.0 fL Mean Corpuscular Hemoglobin 33.3 H 28.0-32.0 pg Mean Corpuscular Hemoglobin Concent 34.0 32.0-36.0 g/dL Red Cell Distribution Width 14.8 H 11.8-14.3 % Platelet Count 176 140-450 10^3/uL Mean Platelet Volume 8.6 6.9-10.8 fL Neutrophils (%) (Auto) 37.0-80.0 % Lymphocytes (%) (Auto) 10.0-50.0 % Monocytes (%) (Auto) 0.0-12.0 % Basophils (%) (Auto) 0.0-2.0 % Neutrophils # (Auto) 1.6-8.6 10 ^3/uL Lymphocytes # (Auto) 0.4-5.4 10 ^3/uL Monocytes # (Auto) 0-1.3 10 ^3/uL Differential Total Cells Counted 100.0 100 Neutrophils % (Manual) 55 37.0-80.0 Band Neutrophils % (Manual) 1 Lymphocytes % (Manual) 20 10.0-50.0 Monocytes % (Manual) 18 H 0-12 Eosinophils % (Manual) 3 0-7 Basophils % (Manual) 0 0.0-2.0 Metamyelocytes % (manual) 0 Myelocytes % (Manual) 0 Promyelocytes % (Manual) 0 Blast Cells % (Manual) 0 Reactive Lymphocytes 3 Platelet Estimate Adequate Anisocytosis (manual) Slight Sodium Level 137 136-145 mmol/L Potassium Level 5.0 3.5-5.1 mmol/L Chloride Level 106 98-107 mmol/L Carbon Dioxide Level 24 20-31 mmol/L Anion Gap 7 5-15 Blood Urea Nitrogen 30 H 9-23 mg/dL Creatinine 1.43 H 0.700-1.30 mg/dL Glomerular Filtration Rate Calc 56 >90 mL/min BUN/Creatinine Ratio 21.0 H 10.0-20.0 Serum Glucose 96 74-106 mg/dL Calcium Level 9.9 8.7-10.4 mg/dL Patient alert. Complaining of urinary symptoms. Vitals stable. Answering questions. Moving all extremities. WBC within normal limits pain Sepsis due to urinary tract infection. Establish intravenous access. Was given fluids. Was given Rocephin. Explained to the patient. Continue monitoring. Time of 1ST Reevaluation: 14:12 Reevaluation 1ST: Unchanged Patient Education/Counseling: Diagnosis, Treatment Family Education/Counseling: Diagnosis, Treatment SEPSIS Sepsis Screen Date sepsis recognized/suspect: Feb 25, 2025 Time Sepsis recognized/suspect: 1102 Recent Procedure: No On Antibiotic Therapy: No Respiratory Rate >20: No Heart Rate >90: Yes Temp<36 C (96.8 F) or >38.3 C: No SBP <90 or MAP <65 mmHG: No New Acute Mental Status Change: No Is the patient on CPAP, BIPAP,: No Vital Signs Date Time Temp Pulse Resp B/P (MAP) Pulse Ox O2 Delivery O2 Flow Rate FiO2 02/25/25 11:00 97.9 91 18 138/81 99 97.9 Laboratory Tests Test 02/25/25 12:38 White Blood Count 7.6 10^3/uL (4.4-10.8) Departure 1 Departure Time of Disposition: 15:48 Impression: Primary Impression: Sepsis due to urinary tract infection Disposition: ADMITTED INPATIENT Admit to: Med Surg Condition: Guarded Critical Care Note Critical Care Time?: No Stability Stability form required: No Heart Score Heart Score: Heart Score Response (Comments) Value History N/A 0 EKG N/A 0 Age N/A 0 Risk Factors N/A 0 Troponin N/A 0 Total 0 I personally scribed for SIERRA VALENZUELA MD ([email or web address]) on 02/25/25 at 13:13. Electronically submitted by Maritza Aguilar ([email or web address]). SIERRA VALENZUELA MD Feb 25, 2025 13:13
[2025-02-25 13:28] LABS: Total Cells Counted 100.0 (100)
[2025-02-25 13:29] LABS: Anisocytosis Slight
[2025-02-25 15:31] LABS: Urine Budding Yeast OCCASIONAL /hpf (None Seen); Urine Protein, UAD TRACE (Negative); Urine WBC Clumps PRESENT /hpf (None Seen)
[2025-02-25] MEDS ORDERED: NITROGLYCERIN 0.4 MG SL TAB SL PRN (16:30)
[2025-02-25] MEDS: SODIUM CHLORIDE 0.9% 1,000 ML IV SCH (16:30)
[2025-02-25] MEDS ORDERED: DOCUSATE SOD 100 MG CAP PO PRN (16:30)
[2025-02-25] MEDS ORDERED: ONDANSETRON HCL 4 MG/2 ML VIAL IV PRN (16:30)
[2025-02-25] MEDS ORDERED: BISACODYL 10 MG RECT SUPP PR SCH (16:30)
--- NOTE | 2025-02-25 16:36 | DVHHP2 ---
History of Present Illness Reason for Visit: uti treatment History of Present Illness 65-year-old male with a complex past medical history including chronic kidney failure (CKF) with baseline creatinine of 1.43, history of cerebrovascular accident (CVA), hypertension, seizures, urinary tract infections (UTIs), urinary retention, benign prostatic hyperplasia (BPH), and is currently wheelchair bound, presents with concerns of untreated urinary tract infection. The patient resides in a private home with caregiver Asael ([phone]), who has been the primary provider for the past five years. He was diagnosed with a UTI on February 20, 2025, and prescribed Macrobid; however, the patient was unable to take the medication due to difficulty swallowing capsules. Attempts were made to contact his urologist, Dr. Marks, for an alternative formulation but were unsuccessful. The infection has not yet been treated. Patient is afebrile but has had urinary symptoms for approximately one week. He denies dysuria or hematuria. He is known to have urinary retention with PVR >350 mL at times. His caregiver reports he is on a pureed diet with thickened liquids, and all medications must be crushed. The caregiver declines discharge with an indwelling catheter. A prostate artery embolization is planned for April [address] Marks. In the ED, labs revealed CBC within normal limits, creatinine 1.43 at baseline, BUN 3, CMP otherwise unremarkable. Urinalysis showed leukocytes, bacteria, WBCs, and occasional yeast. CT abdomen/pelvis not repeated, but prior scan shows non-obstructive left hydronephrosis with a 3 mm left renal stone. will order us renal. He will be admitted for IV antibiotics, kidney ultrasound, and PVR monitoring. Past Medical History see hpi above Past Surgical History see hpi above Family History Reviewed, non-contributory to the management of this case. Lives: Other ([facility]) Past Social History The patient lives at home, denies smoking, alcohol or illicit drugs abuse. Review of Systems Constitutional: No: Fever, Chills, Sweats, Weakness, Malaise, Other Eyes: No: Pain, Vision change, Conjunctivae inflammation, Eyelid inflammation, Other, Redness ENT: No: Ear pain, Ear discharge, Nose pain, Nose discharge, Nose congestion, Mouth pain, Mouth swelling, Throat pain, Throat swelling, Other Respiratory: No: Cough, Dry, Shortness of breath, SOB with excertion, Wheezing, Hemoptysis, Pleuritic Pain, Sputum, Wheezing, Other Cardiovascular: No: Chest Pain, Palpitations, Orthopnea, Paroxysmal Noc. Dyspnea, Edema, Lt Headedness, Other Gastrointestinal: No: Nausea, Vomiting, Abdominal Pain, Diarrhea, Constipation, Melena, Hematochezia, Other Genitourinary: Dysuria; No Frequency, No Incontinence, No Hematuria, No Rete ntion, No Other Musculoskeletal: No: other, neck pain, shoulder pain, arm pain, back pain, hand pain, leg pain, foot pain Skin: No: Rash, Lesions, Jaundice, Bruising, Other Neurological: No: Weakness, Numbness, Incoordination, Change in speech, Confusion, Seizures, Other Allergies: Coded Allergies: ROBIN Inhibitors (Verified Allergy, Unknown, 10/13/23) Exam Vital Signs Vital Signs Date Time Temp Pulse Resp B/P (MAP) Pulse Ox O2 Delivery O2 Flow Rate FiO2 02/25/25 11:00 97.9 91 18 138/81 99 97.9 General Appearance: Alert, Oriented X3, Cooperative, No acute distress HEENT: Atraumatic, PERRLA, EOMI, Mucous membr. moist/pink Respiratory: Clear to auscultation, Normal air movement Cardiovascular: Regular rate, Normal S1, Normal S2, No murmurs Abdominal: Normal bowel sounds, Soft, No tenderness, No hepatospenomegaly, No masses, Other (no cva tenderness) Extremities: No clubbing, No cyanosis, No edema, Normal pulses, No tenderness/swelling Neuro: Other (wc bound ) Psych/Mental Status: Other (mental delayed per caregiver) Labs/Xrays I reviewed labs, imaging CT scan abdomen pelvis, EKG and all diagnostic studies on this patient from ED records and the medical chart Labs Test 02/25/25 14:04 02/25/25 12:38 Range/Units Urine Color Yellow Yellow Urine Clarity Cloudy H Clear Urine pH 7.0 5.0-9.0 Urine Specific [place] 1.011 1.001-1.035 Urine Protein Trace H Negative Urine Ketones Negative Negative Urine Blood 2+ H Negative /uL Urine Nitrite Negative Negative Urine Bilirubin Negative Negative Urine Urobilinogen Normal Negative mg/dL Urine Leukocyte Esterase 2+ Negative /uL Urine RBC 111 0 - 3 /hpf Urine WBC Clumps Present None Seen /hpf Urine Microscopic WBC 663 H 0-3 /HPF Urine Squamous Epithelial Cells Few <5 /hpf Urine Bacteria Mod H None Seen /hpf Urine Yeast (Budding) Occasional None Seen /hpf Urine Glucose Normal Normal mg/dL White Blood Count 7.6 4.4-10.8 10^3/uL Red Blood Count 3.94 L 4.5-5.90 10^6/uL Hemoglobin 13.1 L 13.5-17.5 g/dL Hematocrit 38.7 L 41.0-53.0 % Mean Corpuscular Volume 98.2 80.0-100.0 fL Mean Corpuscular Hemoglobin 33.3 H 28.0-32.0 pg Mean Corpuscular Hemoglobin Concent 34.0 32.0-36.0 g/dL Red Cell Distribution Width 14.8 H 11.8-14.3 % Platelet Count 176 140-450 10^3/uL Mean Platelet Volume 8.6 6.9-10.8 fL Neutrophils (%) (Auto) 37.0-80.0 % Lymphocytes (%) (Auto) 10.0-50.0 % Monocytes (%) (Auto) 0.0-12.0 % Basophils (%) (Auto) 0.0-2.0 % Neutrophils # (Auto) 1.6-8.6 10 ^3/uL Lymphocytes # (Auto) 0.4-5.4 10 ^3/uL Monocytes # (Auto) 0-1.3 10 ^3/uL Differential Total Cells Counted 100.0 100 Neutrophils % (Manual) 55 37.0-80.0 Band Neutrophils % (Manual) 1 Lymphocytes % (Manual) 20 10.0-50.0 Monocytes % (Manual) 18 H 0-12 Eosinophils % (Manual) 3 0-7 Basophils % (Manual) 0 0.0-2.0 Metamyelocytes % (manual) 0 Myelocytes % (Manual) 0 Promyelocytes % (Manual) 0 Blast Cells % (Manual) 0 Reactive Lymphocytes 3 Platelet Estimate Adequate Anisocytosis (manual) Slight Sodium Level 137 136-145 mmol/L Potassium Level 5.0 3.5-5.1 mmol/L Chloride Level 106 98-107 mmol/L Carbon Dioxide Level 24 20-31 mmol/L Anion Gap 7 5-15 Blood Urea Nitrogen 30 H 9-23 mg/dL Creatinine 1.43 H 0.700-1.30 mg/dL Glomerular Filtration Rate Calc 56 >90 mL/min BUN/Creatinine Ratio 21.0 H 10.0-20.0 Serum Glucose 96 74-106 mg/dL Calcium Level 9.9 8.7-10.4 mg/dL SEPSIS Sepsis Screen Date sepsis recognized/suspect: Feb 25, 2025 Time Sepsis recognized/suspect: 1101 Recent Procedure: No On Antibiotic Therapy: No Respiratory Rate >20: No Heart Rate >90: Yes Temp<36 C (96.8 F) or >38.3 C: No SBP <90 or MAP <65 mmHG: No New Acute Mental Status Change: No Is the patient on CPAP, BIPAP,: No Physician Orders Ceftriaxone 1gm/50ml (Rocephin) (02/25/25 16:00) Urine Bacterial Culture (02/25/25 16:16) Check Postvoid Residual (02/25/25 16:16) Straight Cath Patient (02/25/25 16:16) Straightcath If Unable To Void (02/25/25 16:16) Strict I & O QSHIFT (02/25/25 16:16) Seizure Precautions (02/25/25 ) Fluconazole Tablet (Diflucan Tablet) (02/25/25 16:30) Crush Meds And Give W/ Pudding (02/25/25 16:16) Crush Meds And Give W/ Pudding (02/25/25 16:16) Kidney (02/25/25 16:16) Apixaban (Eliquis) (02/25/25 22:00) Aspirin Enteric Coated Tablet (Ecotrin E (02/26/25 10:00) Bisacodyl Suppository (Dulcolax Supposit (02/25/25 16:30) Docusate Sodium Capsule (Colace Capsule) (02/25/25 22:00) Levetiracetam Tablet (Keppra Tablet) (02/25/25 22:00) Losartan Tablet (Cozaar Tablet) (02/25/25 22:00) Magnesium Hydroxide Suspension (Milk Of (02/25/25 17:00) Valproic Acid Oral Soln (Depakene Oral S (02/26/25 10:00) (Nf) Atorvastatin Calcium (02/26/25 10:00) (Nf) Cholecalciferol (Vitamin D3) (02/26/25 10:00) Ceftriaxone Ivpb Rocephin (02/26/25 09:00) Admit (02/25/25 16:16) Allergies (02/25/25 16:16) Code Status (02/25/25 16:16) 0.9% Ns 1000 Ml (02/25/25 16:30) Hydrocodone-Acet 5/325mg Tab ([place] 5/32 (02/25/25 16:30) Ondansetron Hcl (Zofran) (02/25/25 16:30) Docusate Sodium Capsule (Colace Capsule) (02/25/25 16:30) Fall Risk Precautions In Place QSHIFT (02/25/25 16:16) Complete Blood Count (02/26/25 04:00) Comprehensive Metabolic Panel (02/26/25 04:00) Cardiac Diet-2gna,Lofat,Lochol (02/25/25 Dinner) Condition: Stable (02/25/25 16:16) BRP (02/25/25 16:16) Morphine Sulfate Injection (02/25/25 16:30) Nitroglycerin Sublingual (Ntrostat Subli (02/25/25 16:30) Stat Ekg For Chest Pain (02/25/25 16:16) Notify Of Changes From Base (02/25/25 16:16) Professor Of Literacy For 24 Hours (02/25/25 16:16) Emergency Dysrhythmia Protocol (02/25/25 16:16) Rhythm Strips Once Every Shift (02/25/25 16:16) Oxygen By Nasal Cannula (02/25/25 16:16) Vital Signs Date Time Temp Pulse Resp B/P (MAP) Pulse Ox O2 Delivery O2 Flow Rate FiO2 02/25/25 11:00 97.9 91 18 138/81 99 97.9 Laboratory Tests Test 02/25/25 12:38 White Blood Count 7.6 10^3/uL (4.4-10.8) Assessment/Plan Assessment/Plan 65-year-old male with history of CKF, urinary retention, and recurrent UTI presents with untreated UTI and difficulty with oral antibiotic administration. Admission for IV antibiotics, hydration, and further workup. acute Urinary Tract Infection, untreated acute candiduria Start IV ceftriaxone Send urine culture and sensitivity fu results Monitor for fever, worsening symptoms Consider ID consult if resistance suspected Urology follow-up if infection persists or worsens ordered diflucan oral x1 dose for now acute on chronic Urinary retention, history of >350 mL PVR Check PVR after voiding Avoid indwelling catheter if possible (per caregiver) Intermittent straight catheterization if pvr >[address] Marks if worsening symptoms Chronic Kidney Disease, stable at baseline Cr 1.43 Avoid nephrotoxic agents Maintain adequate hydration Monitor daily BMP Dietary restrictions: pureed diet, thickened liquids Ensure all medications are crushed Dietary order consistent with swallowing precautions chronic problems BPH Monitor urinary symptoms/Scheduled for prostate artery embolization in April 2024 Seizure disorder Maintain home antiepileptics Seizure precautions in place Cerebrovascular disease No acute changes noted con asa and eliquis Chronic kidney failure Cerebrovascular accident Hypertension Seizure disorder Urinary retention Benign prostatic hyperplasia Recurrent UTI Wheelchair-bound FEN / PPx Fluids: IV NS at 75 mL/hr, Electrolytes: Monitor BMP daily; replete as needed Nutrition: Pureed diet, thickened liquids, all meds crushed DVT Prophylaxis: SCDs eliquis GI Prophylaxis: no hx of gerds or gi bleed no gi ppx Disposition Admit to medicine for management of untreated UTI, IV antibiotics, and monitoring. Will obtain kidney ultrasound, monitor PVRs, Plan discussed with: Other (caregiver gulshan [phone]) My Orders Orders - JUANI CHAPMAN [facility] Procedure Category Date Status Time Urine Bacterial PORSHA 02/25/25 Transmitted Culture 16:16 Check Postvoid FARHAT 02/25/25 Transmitted Residual 16:16 Straight Cath Patient ORDERS 02/25/25 Transmitted 16:16 Straightcath If ORDERS 02/25/25 Transmitted Unable To Void 16:16 Strict I & O FARHAT 02/25/25 Transmitted 16:16 Seizure Precautions ED NURSING 02/25/25 Transmitted Fluconazole Tablet PHA 02/25/25 Transmitted (Diflucan Tablet) 16:30 Crush Meds And Give ORDERS 02/25/25 Transmitted W/ Pudding 16:16 Crush Meds And Give ORDERS 02/25/25 Transmitted W/ Pudding 16:16 Kidney US 02/25/25 Logged 16:16 Apixaban (Eliquis) PHA 02/25/25 Transmitted 22:00 Aspirin Enteric PHA 02/26/25 Transmitted Coated Tablet 10:00 Bisacodyl Suppository PHA 02/25/25 Transmitted (Dulcolax Supposit 16:30 Docusate Sodium PHA 02/25/25 Transmitted Capsule (Colace 22:00 Levetiracetam Tablet PHA 02/25/25 Transmitted (Keppra Tablet) 22:00 Losartan Tablet PHA 02/25/25 Transmitted (Cozaar Tablet) 22:00 Magnesium Hydroxide PHA 02/25/25 Transmitted Suspension (Milk Of 17:00 Valproic Acid Oral PHA 02/26/25 Transmitted Soln (Depakene Oral S 10:00 (Nf) Atorvastatin PHA 02/26/25 Transmitted Calcium 10:00 (Nf) Cholecalciferol PHA 02/26/25 Transmitted (Vitamin D3) 10:00 Ceftriaxone Ivpb PHA 02/26/25 Transmitted Rocephin 09:00 Admit ADMIT 02/25/25 Transmitted 16:16 Allergies [facility] 02/25/25 Transmitted 16:16 Code Status CODE 02/25/25 Transmitted 16:16 0.9% Ns 1000 Ml PHA 02/25/25 Transmitted 16:30 Hydrocodone-Acet PHA 02/25/25 Transmitted 5/325mg Tab ([place] 16:30 Ondansetron Hcl PHA 02/25/25 Transmitted (Zofran) 16:30 Docusate Sodium PHA 02/25/25 Transmitted Capsule (Colace 16:30 Fall Risk Precautions [facility] 02/25/[address] 16:16 Complete Blood Count LAB 02/26/25 Verified 04:00 Comprehensive LAB 02/26/25 Verified Metabolic Panel 04:00 Cardiac DIET 02/25/25 Transmitted Diet-2gna,Lofat,Lochol Dinner Condition: Stable [facility] 02/25/25 Transmitted 16:16 BRP [facility] 02/25/25 Transmitted 16:16 Morphine Sulfate [facility] 02/25/25 Transmitted Injection 16:30 Nitroglycerin [facility] 02/25/25 Transmitted Sublingual (Ntrostat 16:30 Stat Ekg For Chest [facility] 02/25/25 Transmitted Pain 16:16 Notify Md Of Changes [facility] 02/25/25 Transmitted From Base 16:16 Professor Of Literacy For [facility] 02/25/25 Transmitted 24 Hours 16:16 Emergency Dysrhythmia [facility] 02/25/25 Transmitted Protocol 16:16 Rhythm Strips Once [facility] 02/25/25 Transmitted Every Shift 16:16 Oxygen By Nasal RT 02/25/25 Transmitted Cannula 16:16 Date of Service: Feb 25, 2025 Billing Provider: CHAPMAN,JUANI M DNP Common Visit Codes: [id number] INP/OBS CARE (HIGH) JUANI CHAPMAN DNP Feb 25, 2025 16:36
--- NOTE | 2025-02-25 18:13 | DVH ---
INDICATION: eval for urinary retention TECHNIQUE: Multiple real-time sonographic images of the kidneys and bladder were obtained. COMPARISON: XY PERCUTANEOUS NEPHROSTOMY on DOS: 11/11/24, XY PERCUTANEOUS NEPHROSTOMY on DOS: 10/13/24, NM NM MAG3 RENAL SCAN on DOS: 10/12/24, US KIDNEY on DOS: 10/11/24, US KIDNEY on DOS: 11/17/23 FINDINGS: The right kidney measures 8.2 cm in length, decreased compared with the prior study. There is increased echogenicity. There is mild hydronephrosis, decreased compared with the prior study and likely chronic. The left kidney measures 10.8 cm in length, which is normal in size. There is increased echogenicity. There is unchanged severe left hydronephrosis. There is a 15 mm echogenic, shadowing focus of the inferior pole of the left kidney that may represent a cortical calculus. No intraluminal mass is seen in the bladder. At the time of the examination, the bladder volume measures 463 cc. The right ureteral jet is visualized during this exam. The left ureteral jet is not visualized. There is some debris along the dependent surface of the bladder. IMPRESSION: Increased echogenicity of the kidneys consistent with medical renal disease. Mild right hydronephrosis, decreased compared with the prior study and likely chronic. Unchanged severe left hydronephrosis. Distended urinary bladder at 463 cc.
[2025-02-25] MEDS: FLUCONAZOLE 100 MG TAB PO ONE (21:53)
[2025-02-25] MEDS: MILK OF MAGNESIA 30ML SUSP GT SCH (21:53)
[2025-02-25] MEDS: DOCUSATE SOD 100 MG CAP PO SCH (22:00)
[2025-02-25 22:08] VITALS: BP 150/85; PULSE 102; RESP 18; TEMP 98; O2SAT 99
[2025-02-26] MEDS: LOSARTAN POTASSIUM 50 MG TAB PO SCH (00:05)
[2025-02-26] MEDS: levETIRAcetam 500 MG TAB PO SCH (00:06)
[2025-02-26] MEDS: ATORVASTATIN 20 MG TAB PO SCH (00:09)
[2025-02-26] MEDS: APIXABAN 5 MG TAB PO SCH (00:10)
[2025-02-26 01:00] VITALS: BP 134/85; PULSE 96; RESP 18; TEMP 97.7; O2SAT 98
[2025-02-26 02:47] LABS: Hematocrit 41.6 % (41.0-53.0); Hemoglobin 14.2 g/dL (13.5-17.5); Mean Corpuscular Hemoglobin 33.1 pg (28.0-32.0); Mean Corpuscular Volume 97.0 fL (80.0-100.0)
[2025-02-26 03:11] LABS: Alanine Aminotransferase 28 U/L (7-40); Alkaline Phosphatase 54 U/L (46-116); Anion Gap 9 (5-15); BUN/Creatinine Ratio 18.8 (10.0-20.0); Chloride 101 mmol/L (98-107); Glucose 83 mg/dL (74-106); Potassium 4.5 mmol/L (3.5-5.1); Sodium 141 mmol/L (136-145); Total Protein 7.2 g/dL (5.7-8.2)
[2025-02-26 03:12] LABS: Albumin 4.2 g/dL (3.2-4.8); Bilirubin, Total 0.4 mg/dL (0.2-1.0)
[2025-02-26 03:13] LABS: Blood Urea Nitrogen 27 mg/dL (9-23); Calcium 10.5 mg/dL (8.7-10.4); Carbon Dioxide 31 mmol/L (20-31)
[2025-02-26 03:20] LABS: Total Cells Counted 100.0 (100)
[2025-02-26 08:00] VITALS: RESP 17
[2025-02-26] MEDS: VALPROIC ACID 250 MG/5 ML ORAL SOLN PO SCH (10:00)
[2025-02-26] MEDS: ASPirin-EC 81 mg tab PO SCH (10:00)
[2025-02-26] MEDS: CHOLECALCIFEROL (VITD3) 1,000UNIT=25mCg TAB PO SCH (10:00)
--- NOTE | 2025-02-26 13:06 | DVHPN2 ---
Subjective Events noted. I am assuming the care of the patient from today onwards. Patient is aphasic there was no government affairs researcher at bedside. Changes from previous H/P or p: No Changes Eyes: No Pain, No Vision change, No Conjunctivae inflammation, No Eyelid inflammation, No Other, No Redness ENT: No Ear pain, No Ear discharge, No Nose pain, No Nose discharge, No Nose congestion, No Mouth pain, No Mouth swelling, No Throat pain, No Throat swelling, No Other Cardiovascular: No Chest Pain, No Palpitations, No Orthopnea, No Paroxysmal Noc. Dyspnea, No Edema, No Lt Headedness, No Other Respiratory: No Cough, No Dry, No Shortness of breath, No SOB with excertion, No Wheezing, No Hemoptysis, No Pleuritic Pain, No Sputum, No Other Gastrointestinal: No Nausea, No Vomiting, No Abdominal Pain, No Diarrhea, No Constipation, No Melena, No Hematochezia, No Other Genitourinary: Dysuria; No Frequency, No Incontinence, No Hematuria, No Retention, No Other Musculoskeletal: No other, No neck pain, No shoulder pain, No arm pain, No back pain, No hand pain, No leg pain, No foot pain Skin: No Rash, No Lesions, No Jaundice, No Bruising, No Other Objective Vitals Vital Signs Date Time Temp Pulse Resp B/P (MAP) Pulse Ox O2 Delivery O2 Flow Rate FiO2 02/26/25 10:30 97.8 112 18 122/77 (92) 97 97.8 02/26/25 10:30 Room Air* 0 21 Intake/Output Intake and Output 02/26/25 07:00 Intake Total 240 ml Balance 240 ml Intake Oral 240 ml # Voids 1 # Bowel Movements 1 Exam HEENT pupils are reactive Neck is supple CV is S1-S2 regular rate and rhythm Diminished breath sounds bases GI positive bowel sound Extremity no edema neck is INDUCTION HEAT TREATER patient is aphasic with a history of CVA Medications Current Medications Medications Dose Ordered Sig/Jazmin Route Start Time Stop Time Status Last Admin Dose Admin Apixaban 5 mg BID PO 02/25/25 22:00 02/26/25 00:10 5 MG Aspirin 81 mg DAILY PO 02/26/25 10:00 Bisacodyl 10 mg PRN PA 02/25/25 16:30 Docusate Sodium 100 mg BID PO 02/25/25 22:00 Levetiracetam 750 mg BID PO 02/25/25 22:00 02/26/25 00:06 750 MG Losartan Potassium 50 mg BID PO 02/25/25 22:00 02/26/25 00:05 50 MG Magnesium Hydroxide 30 ml ACHS GT 02/25/25 17:00 02/25/25 23:59 30 ML Valproate Sodium 250 mg DAILY PO 02/26/25 10:00 Atorvastatin Calcium 10 mg HS PO 02/25/25 22:00 02/26/25 00:09 10 MG Cholecalciferol 1,000 unit DAILY PO 02/26/25 10:00 Ceftriaxone Sodium 50 ml @ 100 mls/hr DAILY@09 IV 02/26/25 09:00 Sodium Chloride 1,000 ml @ 70 mls/hr [id number] IV 02/25/25 16:30 Acetaminophen/ Hydrocodone Bitart 1 tab Q4HP PRN PO 02/25/25 16:30 Ondansetron HCl 4 mg Q4HP PRN IV 02/25/25 16:30 Docusate Sodium 100 mg BIDPRN PRN PO 02/25/25 16:30 Morphine Sulfate 2 mg Q4HPRN PRN IV 02/25/25 16:30 Nitroglycerin 0.4 mg Q5MINP PRN SL 02/25/25 16:30 Laboratory Results Laboratory Tests 02/26/25 02:16 Chemistry Test 02/26/25 02:16 Albumin 4.2 g/dL (3.2-4.8) Calcium Level 10.5 mg/dL (8.7-10.4) H Total Protein 7.2 g/dL (5.7-8.2) LFT Test 02/26/25 02:16 Alanine Aminotransferase (ALT) 28 U/L (7-40) Alkaline Phosphatase 54 U/L (46-116) Aspartate Amino Transferase (AST) 38 U/L (13-40) Total Bilirubin 0.4 mg/dL (0.2-1.0) Urinalysis Test 02/25/25 14:04 Urine Color Yellow (Yellow) Urine Clarity Cloudy (Clear) H Urine pH 7.0 (5.0-9.0) Urine Specific [place] 1.011 (1.001-1.035) Urine Protein Trace (Negative) H Urine Ketones Negative (Negative) Urine Blood 2+ /uL (Negative) H Urine Nitrite Negative (Negative) Urine Bilirubin Negative (Negative) Urine Urobilinogen Normal mg/dL (Negative) Urine Leukocyte Esterase 2+ /uL (Negative) Urine RBC 111 /hpf (0 - 3) Urine WBC Clumps Present /hpf (None Seen) Urine Microscopic WBC 663 /HPF (0-3) H Urine Squamous Epithelial Cells Few /hpf (<5) Urine Bacteria Mod /hpf (None Seen) H Urine Yeast (Budding) Occasional /hpf (None Urine Glucose Normal mg/dL (Normal) Microbiology Microbiology Date/Time Source Procedure Growth Status 02/25/25 14:04 Urine - Catheterized Urine Culture - Preliminary Resulted Assessment/Plan Assessment/Plan 65-year-old male with a known history of recurrent UTI, grave disability with a previous history of CVA currently aphasic who was brought in by government affairs researcher for urinary tract infection which was recently diagnosed on February 20 but patient was not able to get any antibiotics has been can not be crushed. 1. Acute urinary tract infection 2. Acute on chronic urinary retention 3. AKA with a underlying CKD 4. Grave disability 5. History of CVA currently aphasic 6. BPH 7. Seizure disorder 8. Wheelchair-bound -continue IV antibiotics follow up urine culture, continue seizure medications, aspiration and fall precautions. Plan discussed with: Other Problem List: (1) Sepsis due to urinary tract infection (2) Grave disability Date of Service: Feb 26, 2025 Billing Provider: CHELSY BEY MD Common Visit Codes: [id number] INP/OBS CARE(HIGH) CHELSY BEY MD Feb 26, 2025 13:06
[2025-02-27 08:00] VITALS: RESP 17; O2SAT 95
[2025-02-27] MEDS: MORPHINE SULFATE INJ 2 MG/ml SYRG IV PRN (13:14)
[2025-02-27] MEDS: MORPHINE SULFATE 4 MG/ML SYR/VIAL ONE (13:14)
--- NOTE | 2025-02-27 16:50 | DVHPN2 ---
Subjective He is non verbal Reviewed: H&P Changes from previous H/P or p: No Changes Eyes: No Pain, No Vision change, No Conjunctivae inflammation, No Eyelid inflammation, No Other, No Redness ENT: No Ear pain, No Ear discharge, No Nose pain, No Nose discharge, No Nose congestion, No Mouth pain, No Mouth swelling, No Throat pain, No Throat swelling, No Other Cardiovascular: No Chest Pain, No Palpitations, No Orthopnea, No Paroxysmal Noc. Dyspnea, No Edema, No Lt Headedness, No Other Respiratory: No Cough, No Dry, No Shortness of breath, No SOB with excertion, No Wheezing, No Hemoptysis, No Pleuritic Pain, No Sputum, No Other Gastrointestinal: No Nausea, No Vomiting, No Abdominal Pain, No Diarrhea, No Constipation, No Melena, No Hematochezia, No Other Genitourinary: Dysuria; No Frequency, No Incontinence, No Hematuria, No Retention, No Other Musculoskeletal: No other, No neck pain, No shoulder pain, No arm pain, No back pain, No hand pain, No leg pain, No foot pain Skin: No Rash, No Lesions, No Jaundice, No Bruising, No Other Objective Vitals Vital Signs Date Time Temp Pulse Resp B/P (MAP) Pulse Ox O2 Delivery O2 Flow Rate FiO2 02/27/25 15:42 104 16 163/92 (115) 98 02/27/25 12:00 97.8 97.8 02/27/25 08:00 Room Air* 0 21 General Appearance: Alert, Other (non verbal at baseline) HEENT: Atraumatic Cardiovascular: Regular rate, Normal S1, Normal S2 Abdomen: Normal bowel sounds Medications Current Medications Medications Dose Ordered Sig/Jazmin Route Start Time Stop Time Status Last Admin Dose Admin Apixaban 5 mg BID PO 02/25/25 22:00 02/27/25 10:41 5 MG Aspirin 81 mg DAILY PO 02/26/25 10:00 Bisacodyl 10 mg PRN [place] 02/25/25 16:30 Docusate Sodium 100 mg BID PO 02/25/25 22:00 Levetiracetam 750 mg BID PO 02/25/25 22:00 02/27/25 10:41 750 MG Losartan Potassium 50 mg BID PO 02/25/25 22:00 02/27/25 10:42 50 MG Magnesium Hydroxide 30 ml ACHS GT 02/25/25 17:00 02/25/25 23:59 30 ML Valproate Sodium 250 mg DAILY PO 02/26/25 10:00 02/27/25 10:41 250 MG Atorvastatin Calcium 10 mg HS PO 02/25/25 22:00 02/26/25 00:09 10 MG Cholecalciferol 1,000 unit DAILY PO 02/26/25 10:00 02/27/25 10:41 1,000 UNIT Ceftriaxone Sodium 50 ml @ 100 mls/hr DAILY@09 IV 02/26/25 09:00 02/27/25 09:15 100 MLS/HR Sodium Chloride 1,000 ml @ 70 mls/hr [id number] IV 02/25/25 16:30 02/27/25 11:09 70 MLS/HR Acetaminophen/ Hydrocodone Bitart 1 tab Q4HP PRN PO 02/25/25 16:30 Ondansetron HCl 4 mg Q4HP PRN IV 02/25/25 16:30 Docusate Sodium 100 mg BIDPRN PRN PO 02/25/25 16:30 Morphine Sulfate 2 mg Q4HPRN PRN IV 02/25/25 16:30 02/27/25 13:14 2 MG Nitroglycerin 0.4 mg Q5MINP PRN SL 02/25/25 16:30 Laboratory Results Laboratory Tests 02/26/25 02:16 Urinalysis Test 02/25/25 14:04 Urine Color Yellow (Yellow) Urine Clarity Cloudy (Clear) H Urine pH 7.0 (5.0-9.0) Urine Specific [place] 1.011 (1.001-1.035) Urine Protein Trace (Negative) H Urine Ketones Negative (Negative) Urine Blood 2+ /uL (Negative) H Urine Nitrite Negative (Negative) Urine Bilirubin Negative (Negative) Urine Urobilinogen Normal mg/dL (Negative) Urine Leukocyte Esterase 2+ /uL (Negative) Urine RBC 111 /hpf (0 - 3) Urine WBC Clumps Present /hpf (None Seen) Urine Microscopic WBC 663 /HPF (0-3) H Urine Squamous Epithelial Cells Few /hpf (<5) Urine Bacteria Mod /hpf (None Seen) H Urine Yeast (Budding) Occasional /hpf (None Urine Glucose Normal mg/dL (Normal) Microbiology Microbiology Date/Time Source Procedure Growth Status 02/25/25 14:04 Urine - Catheterized Urine Culture - Preliminary Resulted Assessment/Plan Assessment/Plan 65-year-old male with a known history of recurrent UTI, grave disability with a previous history of CVA currently aphasic who was brought in by materials director for urinary tract infection which was recently diagnosed on February 20 but patient was not able to get any antibiotics has been can not be crushed. 1. Acute urinary tract infection 2. Acute on chronic urinary retention 3. AKA with a underlying CKD 4. Grave disability 5. History of CVA currently aphasic 6. BPH 7. Seizure disorder 8. Wheelchair-bound IV abx Urology consulted Plan discussed with: Patient My Orders Orders - TEOFILO SANCHEZ MD Procedure Category Date Status Time Insert Bobby Catheter FARHAT 02/27/25 In Process 13:05 Urine Bacterial PORSHA 02/27/25 In Process Culture 13:05 * Urology Consult CONS 02/27/25 Transmitted 14:15 Date of Service: Feb 27, 2025 Billing Provider: TEOFILO SANCHEZ MD Common Visit Codes: [id number] INP/OBS CARE(HIGH) TEOFILO ASNCHEZ MD Feb 27, 2025 16:49
[2025-02-27 19:15] VITALS: O2SAT 95
[2025-02-27 19:50] VITALS: BP 165/94; PULSE 83; RESP 18; TEMP 99.5; O2SAT 94
[2025-02-27 21:00] VITALS: BP 163/82; PULSE 82; RESP 16; TEMP 99.1; O2SAT 97
[2025-02-27] MEDS: MORPHINE SULFATE 4 MG/ML SYR/VIAL IV PRN (22:25)
[2025-02-28] VITALS (7 sets, daily range): BP systolic 139–154; BP diastolic 73–91; PULSE 82–108; RESP 17; TEMP 97.8–99.5; O2SAT 93–99
[2025-02-28] MEDS: HYDROcodone-ACET 5/325MG TAB PO PRN (01:32)
--- NOTE | 2025-02-28 13:37 | DVHPN2 ---
Subjective He is non verbal Reviewed: H&P Changes from previous H/P or p: No Changes Eyes: No Pain, No Vision change, No Conjunctivae inflammation, No Eyelid inflammation, No Other, No Redness ENT: No Ear pain, No Ear discharge, No Nose pain, No Nose discharge, No Nose congestion, No Mouth pain, No Mouth swelling, No Throat pain, No Throat swelling, No Other Cardiovascular: No Chest Pain, No Palpitations, No Orthopnea, No Paroxysmal Noc. Dyspnea, No Edema, No Lt Headedness, No Other Respiratory: No Cough, No Dry, No Shortness of breath, No SOB with excertion, No Wheezing, No Hemoptysis, No Pleuritic Pain, No Sputum, No Other Gastrointestinal: No Nausea, No Vomiting, No Abdominal Pain, No Diarrhea, No Constipation, No Melena, No Hematochezia, No Other Genitourinary: Dysuria; No Frequency, No Incontinence, No Hematuria, No Retention, No Other Musculoskeletal: No other, No neck pain, No shoulder pain, No arm pain, No back pain, No hand pain, No leg pain, No foot pain Skin: No Rash, No Lesions, No Jaundice, No Bruising, No Other Objective Vitals Vital Signs Date Time Temp Pulse Resp B/P (MAP) Pulse Ox O2 Delivery O2 Flow Rate FiO2 02/28/25 11:01 141/73 02/28/25 09:00 98.2 100 17 96 98.2 02/28/25 08:00 Room Air* 0 21 Intake/Output Intake and Output 02/28/25 07:00 Intake Total 400 ml Output Total 3500 ml Balance -3100 ml Intake Oral 350 ml IV Total 50 ml Output Urine Total 3500 ml General Appearance: Alert, Other (non verbal at baseline) HEENT: Atraumatic Cardiovascular: Regular rate, Normal S1, Normal S2 Abdomen: Normal bowel sounds Medications Current Medications Medications Dose Ordered Sig/Jazmin Route Start Time Stop Time Status Last Admin Dose Admin Apixaban 5 mg BID PO 02/25/25 22:00 02/28/25 11:00 5 MG Aspirin 81 mg DAILY PO 02/26/25 10:00 02/28/25 10:59 81 MG Bisacodyl 10 mg PRN [place] 02/25/25 16:30 Docusate Sodium 100 mg BID PO 02/25/25 22:00 Losartan Potassium 50 mg BID PO 02/25/25 22:00 02/28/25 11:01 50 MG Magnesium Hydroxide 30 ml ACHS GT 02/25/25 17:00 02/25/25 23:59 30 ML Valproate Sodium 250 mg DAILY PO 02/26/25 10:00 02/28/25 10:59 250 MG Atorvastatin Calcium 10 mg HS PO 02/25/25 22:00 02/27/25 22:20 10 MG Cholecalciferol 1,000 unit DAILY PO 02/26/25 10:00 02/28/25 11:00 1,000 UNIT Ceftriaxone Sodium 50 ml @ 100 mls/hr DAILY@09 IV 02/26/25 09:00 02/28/25 11:02 100 MLS/HR Sodium Chloride 1,000 ml @ 70 mls/hr [id number] IV 02/25/25 16:30 02/27/25 11:09 70 MLS/HR Acetaminophen/ Hydrocodone Bitart 1 tab Q4HP PRN PO 02/25/25 16:30 02/28/25 01:32 1 TAB Ondansetron HCl 4 mg Q4HP PRN IV 02/25/25 16:30 Docusate Sodium 100 mg BIDPRN PRN PO 02/25/25 16:30 Nitroglycerin 0.4 mg Q5MINP PRN SL 02/25/25 16:30 Morphine Sulfate 2 mg Q4HPRN PRN IV 02/27/25 22:00 02/27/25 22:25 2 MG Levetiracetam 750 mg BID PO 02/28/25 10:00 02/28/25 10:59 750 MG Laboratory Results Laboratory Tests 02/26/25 02:16 Urinalysis Test 02/25/25 14:04 Urine Color Yellow (Yellow) Urine Clarity Cloudy (Clear) H Urine pH 7.0 (5.0-9.0) Urine Specific [place] 1.011 (1.001-1.035) Urine Protein Trace (Negative) H Urine Ketones Negative (Negative) Urine Blood 2+ /uL (Negative) H Urine Nitrite Negative (Negative) Urine Bilirubin Negative (Negative) Urine Urobilinogen Normal mg/dL (Negative) Urine Leukocyte Esterase 2+ /uL (Negative) Urine RBC 111 /hpf (0 - 3) Urine WBC Clumps Present /hpf (None Seen) Urine Microscopic WBC 663 /HPF (0-3) H Urine Squamous Epithelial Cells Few /hpf (<5) Urine Bacteria Mod /hpf (None Seen) H Urine Yeast (Budding) Occasional /hpf (None Urine Glucose Normal mg/dL (Normal) Microbiology Microbiology Date/Time Source Procedure Growth Status 02/27/25 13:02 Voided Urine Urine Culture - Preliminary Resulted Assessment/Plan Assessment/Plan 65-year-old male with a known history of recurrent UTI, grave disability with a previous history of CVA currently aphasic who was brought in by 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 1. Acute urinary tract infection 2. Acute on chronic urinary retention 3. AKA with a underlying CKD 4. Grave disability 5. History of CVA currently aphasic 6. BPH 7. Seizure disorder 8. Wheelchair-bound IV abx Urology consulted Plan discussed with: Patient My Orders Orders - TEOFILO SANCHEZ MD Procedure Category Date Status Time * Urology Consult CONS 02/27/25 Transmitted 14:15 Date of Service: Feb 28, 2025 Billing Provider: TEOFILO SANCHEZ MD Common Visit Codes: [id number] INP/OBS CARE(HIGH) TEOFILO SANCHEZ MD Feb 28, 2025 13:37
[2025-02-28] MEDS: CIPROFLOXACIN HCL 500 MG TAB PO SCH (21:47)
[2025-03-01] VITALS (8 sets, daily range): BP systolic 132–156; BP diastolic 78–110; PULSE 67–98; RESP 18–20; TEMP 97.4–98.4; O2SAT 96–99
--- NOTE | 2025-03-01 10:53 | DVHINCON2 ---
Date of service: Mar 01, 2025 Referring Physician Hospitalist Reason for Consultation UTI Urinary retention Hydronephrosis History of Present Illness 65-year-old male with a complex past medical history including chronic kidney failure (CKF) with baseline creatinine of 1.43, history of cerebrovascular accident (CVA), hypertension, seizures, urinary tract infections (UTIs), urinary retention, benign prostatic hyperplasia (BPH), and is currently wheelchair bound, presents with concerns of untreated urinary tract infection. The patient resides in a private home with caregiver Asael ([phone]), who has been the primary provider for the past five years. He was diagnosed with a UTI on February 20, 2025, and prescribed Macrobid; however, the patient was unable to take the medication due to difficulty swallowing capsules. The infection has not yet been treated. Patient is afebrile but has had urinary symptoms for approximately one week. He denies dysuria or hematuria. He is known to have urinary retention with PVR >350 mL at times. His caregiver reports he is on a pureed diet with thickened liquids, and all medications must be crushed. The caregiver declines discharge with an indwelling catheter. A prostate artery embolization is planned for March 2025. In the ED, labs revealed CBC within normal limits, creatinine 1.43 at baseline, BUN 3, CMP otherwise unremarkable. Urinalysis showed leukocytes, bacteria, WBCs, and occasional yeast. Past Medical History as per HPI Past Surgical History Left PNT TURP Cystoscopy with RPG Family History: Cardiovascular disease G8 MOTHER G8 FATHER Allergies: Coded Allergies: ROBIN Inhibitors (Verified Allergy, Unknown, 10/13/23) Home Meds Reported Medications Magnesium Hydroxide (MILK OF MAGNESIA ORAL SUSPENSION) 30 Ml Ss, 30 ML GT, ML 12/09/24 Valproate Sodium (Valproic Acid) 250 Mg/5 Ml Syp, 250 MG PO DAILY, SYP 12/09/24 Bisacodyl (Dulcolax) 10 Mg Sup, 10 MG RE, SUPP 12/09/24 Docusate Sodium (Colace) 100 Mg Cap, 1 CAP PO BID, #30 CAP 12/09/24 Aspirin (BELIA ASPIRIN EC LOW DOSE) 81 Mg Tab, 1 TAB PO DAILY, #30 TAB 3 Refills 12/09/24 Apixaban Base (ELIQUIS) 5 Mg Tab, 5 MG PO BID, TAB 12/09/24 Acetaminophen (Apap) 325 Mg Tab, 1 TAB PO BID, #30 TAB 12/09/24 Levetiracetam (KEPPRA TABLET) 500 Mg Tb, 750 MG PO BID, TAB 10/30/24 Cholecalciferol (VITAMIN D3) 2,000 Unit Tab, 1000 UNIT PO DAILY, TAB 10/30/24 Losartan Potassium (Losartan Potassium) 50 Mg Tab, 50 MG PO BID for 30 Days, MG 10/30/24 Atorvastatin Calcium (ATORVASTATIN CALCIUM) 10 Mg Tab, 10 MG PO DAILY, TAB 10/30/24 Current Medications Current Medications Medications (Trade) Dose Ordered Sig/Jazmin Route PRN Reason Start Time Stop Time Status Last Admin Ciprofloxacin (Cipro Tablet) 500 mg Q12HR PO 02/28/25 22:00 03/01/25 09:31 Review of Systems Constitutional: No: Fever, Chills, Sweats, Weakness, Malaise, Other Eyes: No: Pain, Vision change, Conjunctivae inflammation, Eyelid inflammation, Other, Redness ENT: No: Ear pain, Ear discharge, Nose pain, Nose discharge, Nose congestion, Mouth pain, Mouth swelling, Throat pain, Throat swelling, Other Respiratory: No: Cough, Dry, Shortness of breath, SOB with excertion, Wheezing, Hemoptysis, Pleuritic Pain, Sputum, Wheezing, Other Cardiovascular: No: Chest Pain, Palpitations, Orthopnea, Paroxysmal Noc. Dyspnea, Edema, Lt Headedness, Other Gastrointestinal: No: Nausea, Vomiting, Abdominal Pain, Diarrhea, Constipation, Melena, Hematochezia, Other Genitourinary: Dysuria; No Frequency, No Incontinence, No Hematuria, No Retention, No Other Musculoskeletal: No: other, neck pain, shoulder pain, arm pain, back pain, hand pain, leg pain, foot pain Skin: No: Rash, Lesions, Jaundice, Bruising, Other Neurological: No: Weakness, Numbness, Incoordination, Change in speech, Confusion, Seizures, Other Allergies: Coded Allergies: ROBIN Inhibitors (Verified Allergy, Unknown, 10/13/23) Vital Signs Vital Signs Date Time Temp Pulse Resp B/P (MAP) Pulse Ox O2 Delivery O2 Flow Rate FiO2 03/01/25 09:31 149/87 03/01/25 08:51 98.2 94 19 96 98.2 02/28/25 20:05 Room Air* 0 21 Physical Exam Vital Signs Date Time Temp Pulse Resp B/P (MAP) Pulse Ox O2 Delivery O2 Flow Rate FiO2 02/25/25 11:00 97.9 91 18 138/81 99 97.9 General Appearance: Alert, Oriented X3, Cooperative, No acute distress HEENT: Atraumatic, PERRLA, EOMI, Mucous membr. moist/pink Respiratory: Clear to auscultation, Normal air movement Cardiovascular: Regular rate, Normal S1, Normal S2, No murmurs Abdominal: Normal bowel sounds, Soft, No tenderness, No hepatospenomegaly, No masses, Other (no cva tenderness) Extremities: No clubbing, No cyanosis, No edema, Normal pulses, No tenderness/swelling Neuro: Other (wc bound ) Psych/Mental Status: Other (mental delayed per caregiver) Labs/Diagnostic Data Labs Test 02/26/25 02:16 02/25/25 14:04 02/25/25 12:38 Range/Units White Blood Count 7.3 4.4-10.8 10^3/uL Red Blood Count 4.29 L 4.5-5.90 10^6/uL Hemoglobin 14.2 13.5-17.5 g/dL Hematocrit 41.6 41.0-53.0 % Mean Corpuscular Volume 97.0 80.0-100.0 fL Mean Corpuscular Hemoglobin 33.1 H 28.0-32.0 pg Mean Corpuscular Hemoglobin Concent 34.2 32.0-36.0 g/dL Red Cell Distribution Width 14.5 H 11.8-14.3 % Platelet Count 199 140-450 10^3/uL Mean Platelet Volume 8.5 6.9-10.8 fL Neutrophils (%) (Auto) 37.0-80.0 % Lymphocytes (%) (Auto) 10.0-50.0 % Monocytes (%) (Auto) 0.0-12.0 % Basophils (%) (Auto) 0.0-2.0 % Neutrophils # (Auto) 1.6-8.6 10 ^3/uL Lymphocytes # (Auto) 0.4-5.4 10 ^3/uL Monocytes # (Auto) 0-1.3 10 ^3/uL Differential Total Cells Counted 100.0 100 Neutrophils % (Manual) 50 37.0-80.0 Band Neutrophils % (Manual) 0 Lymphocytes % (Manual) 28 10.0-50.0 Monocytes % (Manual) 19 H 0-12 Eosinophils % (Manual) 0 0-7 Basophils % (Manual) 0 0.0-2.0 Metamyelocytes % (manual) 0 Myelocytes % (Manual) 0 Promyelocytes % (Manual) 0 Blast Cells % (Manual) 0 Reactive Lymphocytes 3 Platelet Estimate Adequate Sodium Level 141 136-145 mmol/L Potassium Level 4.5 3.5-5.1 mmol/L Chloride Level 101 98-107 mmol/L Carbon Dioxide Level 31 20-31 mmol/L Anion Gap 9 5-15 Blood Urea Nitrogen 27 H 9-23 mg/dL Creatinine 1.44 H 0.700-1.30 mg/dL Glomerular Filtration Rate Calc 56 >90 mL/min BUN/Creatinine Ratio 18.8 10.0-20.0 Serum Glucose 83 74-106 mg/dL Calcium Level 10.5 H 8.7-10.4 mg/dL Total Bilirubin 0.4 0.2-1.0 mg/dL Aspartate Amino Transferase (AST) 38 13-40 U/L Alanine Aminotransferase (ALT) 28 7-40 U/L Alkaline Phosphatase 54 46-116 U/L Total Protein 7.2 5.7-8.2 g/dL Albumin 4.2 3.2-4.8 g/dL Urine Color Yellow Yellow Urine Clarity Cloudy H Clear Urine pH 7.0 5.0-9.0 Urine Specific [place] 1.011 1.001-1.035 Urine Protein Trace H Negative Urine Ketones Negative Negative Urine Blood 2+ H Negative /uL Urine Nitrite Negative Negative Urine Bilirubin Negative Negative Urine Urobilinogen Normal Negative mg/dL Urine Leukocyte Esterase 2+ Negative /uL Urine RBC 111 0 - 3 /hpf Urine WBC Clumps Present None Seen /hpf Urine Microscopic WBC 663 H 0-3 /HPF Urine Squamous Epithelial Cells Few <5 /hpf Urine Bacteria Mod H None Seen /hpf Urine Yeast (Budding) Occasional None Seen /hpf Urine Glucose Normal Normal mg/dL Anisocytosis (manual) Slight Microbiology Date/Time Source Procedure Growth Status 02/27/25 13:02 Voided Urine Urine Culture - Preliminary Resulted PATIENT: CHARLENE CHRISTIANSON ACCT: [id number] UNIT: [id number] : 1965 LOC: OVERFLOW ROOM / BED: 1010-ER / A AGE / SEX: 59 / M ADM STATUS: ADM IN SERVICE 1616 ORDERING PHYSICIAN: JUANI CHAPMAN DNP PROCEDURE(s): KIDUS - KIDNEY REASON: eval for urinary retention ORDER NUMBER(s): [id number], ACCESSION NUMBER(s): [id number] INDICATION: eval for urinary retention TECHNIQUE: Multiple real-time sonographic images of the kidneys and bladder were obtained. COMPARISON: XY PERCUTANEOUS NEPHROSTOMY on DOS: 11/11/24, XY PERCUTANEOUS NEPHROSTOMY on DOS: 10/13/24, NM NM MAG3 RENAL SCAN on DOS: 10/12/24, US KIDNEY on DOS: 10/11/24, US KIDNEY on DOS: 11/17/23 FINDINGS: The right kidney measures 8.2 cm in length, decreased compared with the prior study. There is increased echogenicity. There is mild hydronephrosis, decreased compared with the prior study and likely chronic. The left kidney measures 10.8 cm in length, which is normal in size. There is increased echogenicity. There is unchanged severe left hydronephrosis. There is a 15 mm echogenic, shadowing focus of the inferior pole of the left kidney that may represent a cortical calculus. No intraluminal mass is seen in the bladder. At the time of the examination, the bladder volume measures 463 cc. The right ureteral jet is visualized during this exam. The left ureteral jet is not visualized. There is some debris along the dependent surface of the bladder. IMPRESSION: Increased echogenicity of the kidneys consistent with medical renal disease. Mild right hydronephrosis, decreased compared with the prior study and likely chronic. Unchanged severe left hydronephrosis. Distended urinary bladder at 463 cc. ATED BY: VINCE LOWRY MD DICTATED DATE/TIME: 02/25/251809 SIGNED BY: VINCE LOWRY MD SIGNED DATE/TIME: 02/25/251809 CC: Assessment BPH Urinary retention UTI History of kidney stones CKD Plan/Recommendation CT Scan AP NC Keep Bobby to gravity Fully treat UTI with IV ABX Outpatient management of BPH Plan discussed with: Patient, Other ROSA ELENA ROSSI MD Mar 01, 2025 10:53
--- NOTE | 2025-03-01 12:30 | DVH ---
EXAM: CT CT AB PEL WO CON-NO ORAL OR IV HISTORY: left hydronephrosis Comparison Study: CT CT AB PEL WO CON-NO ORAL OR IV on DOS: 12/10/24 Exam Date: 03/01/2025 11:15 AM Radiation Dose Information: CT Dose: CTDI volume is 7.91 mGy. Dose-length product is 446.86 mGy*cm Technique: Multidetector CT of the abdomen and pelvis was performed. Imaging was performed without IV contrast. Axial, coronal and sagittal multiplanar reformats were obtained from the axial data set by the technologist. Findings: Lack of intravenous contrast compromises evaluation of perfusion and for isodense lesions. Lower chest: Bibasilar atelectasis/scarring. Liver: Unremarkable Biliary system: Unremarkable Spleen: Unremarkable Pancreas: Unremarkable. Adrenals: Unremarkable. Kidneys and ureters: Similar appearing mild left collecting system dilatation with similar prominent dilatation of calyces. Nonobstructive small left lower pole calculus again seen. No obstructing ureteral calculus. Cortical thinning of left kidney. Bowel: No obstruction. Bladder: Decompressed with a Bobby catheter Reproductive organs: No abnormal mass. Lymph nodes: Unremarkable. Peritoneum: Unremarkable Vessels: Patency not evaluated on this noncontrast study. Bones and soft tissue: No aggressive osseous lesion IMPRESSION: Similar appearing mild left collecting system dilatation with similar prominent dilatation of calyces. Nonobstructive small left lower pole calculus again seen. No obstructing ureteral calculus. Early/developing xanthogranulomatous pyelonephritis is possible.
[2025-03-01 13:35] LABS: Potassium 4.2 mmol/L (3.5-5.1)
[2025-03-01 13:36] LABS: Anion Gap 11 (5-15); Carbon Dioxide 23 mmol/L (20-31)
[2025-03-01 13:37] LABS: Calcium 9.2 mg/dL (8.7-10.4)
[2025-03-01 13:39] LABS: Chloride 112 mmol/L (98-107); Sodium 146 mmol/L (136-145)
[2025-03-01 13:42] LABS: BUN/Creatinine Ratio 16.9 (10.0-20.0); Glucose 95 mg/dL (74-106)
[2025-03-01 13:48] LABS: Blood Urea Nitrogen 30 mg/dL (9-23)
[2025-03-02] VITALS (7 sets, daily range): BP systolic 133–159; BP diastolic 85–94; PULSE 17–89; RESP 15–18; TEMP 97.6–98.6; O2SAT 97–99
[2025-03-02 08:07] LABS: Prostate Specific Antigen 0.5 ng/mL (0.0-4.0)
[2025-03-02] MEDS ORDERED: NITR-87 PO (11:59)
--- NOTE | 2025-03-02 13:52 | DVHPN2 ---
Progress Note - Dictate Date Seen: Mar 02, 2025 Medical Necessity Reason Pt with a Central, PICC or Fol: Yes The following are medically ne: Cancino Catheter Reason for cancino catheter: Bladder Retention/Obstruc, Total Immobilization Subjective 59 yo male iwth hx of CVA residual deficits, dementia, combative, chronic urinary retention, prior TURP and bilateral hydronephrosis left >right. pt previously required left PCN for obstructive uropathy with exchange on11/11/24. the PCN was dislodged 12/08/24 and was not replaced as pt has a hisotry of pulling out tubes and IVs. vital signs Vital Sign Date Time Temp Pulse Resp B/P (MAP) Pulse Ox O2 Delivery O2 Flow Rate FiO2 03/02/25 10:33 107/67 03/02/25 09:00 97.6 83 17 98 97.6 03/02/25 08:00 Room Air* 0 21 Total Intake and Output 03/01/25 03/01/25 03/02/25 15:00 23:00 07:00 Intake Total 550 ml 425 ml 420 ml Output Total 1100 ml 1325 ml Balance 550 ml -675 ml -905 ml medications Current Medications Medications Dose Ordered Sig/Jazmin Route Start Time Stop Time Status Last Admin Dose Admin Apixaban 5 mg BID PO 02/25/25 22:00 03/02/25 10:34 5 MG Aspirin 81 mg DAILY PO 02/26/25 10:00 03/02/25 10:34 81 MG Bisacodyl 10 mg PRN [place] 02/25/25 16:30 Docusate Sodium 100 mg BID PO 02/25/25 22:00 03/02/25 10:33 100 MG Losartan Potassium 50 mg BID PO 02/25/25 22:00 03/02/25 10:33 50 MG Magnesium Hydroxide 30 ml ACHS GT 02/25/25 17:00 03/01/25 21:10 30 ML Valproate Sodium 250 mg DAILY PO 02/26/25 10:00 03/02/25 10:32 250 MG Atorvastatin Calcium 10 mg HS PO 02/25/25 22:00 03/01/25 21:09 10 MG Cholecalciferol 1,000 unit DAILY PO 02/26/25 10:00 03/02/25 10:33 1,000 UNIT Sodium Chloride 1,000 ml @ 70 mls/hr [id number] IV 02/25/25 16:30 03/02/25 10:54 70 MLS/HR Acetaminophen/ Hydrocodone Bitart 1 tab Q4HP PRN PO 02/25/25 16:30 02/28/25 01:32 1 TAB Ondansetron HCl 4 mg Q4HP PRN IV 02/25/25 16:30 Docusate Sodium 100 mg BIDPRN PRN PO 02/25/25 16:30 Nitroglycerin 0.4 mg Q5MINP PRN SL 02/25/25 16:30 Morphine Sulfate 2 mg Q4HPRN PRN IV 02/27/25 22:00 02/27/25 22:25 2 MG Levetiracetam 750 mg BID PO 02/28/25 10:00 03/02/25 10:33 750 MG Nitrofurantoin Macrocrystals 100 mg BID PO 03/01/25 22:00 03/02/25 10:38 100 MG objective chronically ill appearing, NAD cancino in placed with yellow urine laboratory and microbiology Laboratory Tests 03/01/25 11:09 02/26/25 02:16 Test 03/01/25 11:09 Range/Units Serum Glucose 95 74-106 mg/dL Assessment/Plan 59 yo bedbound male with CVA dementia, neurgogenic bladder with retention and chronic hydronephrosis. Renal scan shows minimally functional right kidney with poor drainage and compensatory left renal function 74%. hydronephrosis is stable and without acute obstruction. No indication for PCN at this time. continue cancino d/ c prior to discharge per caregiver request Treat UTI monitor BMP urology signing off Problems(with codes): (1) Non-functioning kidney (2) Urinary retention (3) Neurogenic bladder (4) Grave disability (5) Complicated UTI (urinary tract infection) (6) Acute kidney injury Prognosis fair Dietary Evaluation Review Comments: Cardiac pureed diet, nepro 240ml QD if PO intake< 100% Expected Outcomes/Goals: Improved nutrition related lab values, gradual weight gain Plan discussed with: COLT Downing NP Mar 02, 2025 13:52
[2025-03-03 00:45] VITALS: BP 167/90; PULSE 86; RESP 18; TEMP 98; O2SAT 100
[2025-03-03 05:00] VITALS: BP 133/84; PULSE 80; RESP 18; TEMP 98.2; O2SAT 99
[2025-03-03 08:00] VITALS: PULSE 81; RESP 17; O2SAT 97
[2025-03-03 09:00] VITALS: BP 120/78; PULSE 81; RESP 17; TEMP 98.3; O2SAT 97
--- NOTE | 2025-03-03 09:52 | DVHPN2 ---
Subjective He is non verbal Reviewed: H&P Changes from previous H/P or p: No Changes Eyes: No Pain, No Vision change, No Conjunctivae inflammation, No Eyelid inflammation, No Other, No Redness ENT: No Ear pain, No Ear discharge, No Nose pain, No Nose discharge, No Nose congestion, No Mouth pain, No Mouth swelling, No Throat pain, No Throat swelling, No Other Cardiovascular: No Chest Pain, No Palpitations, No Orthopnea, No Paroxysmal Noc. Dyspnea, No Edema, No Lt Headedness, No Other Respiratory: No Cough, No Dry, No Shortness of breath, No SOB with excertion, No Wheezing, No Hemoptysis, No Pleuritic Pain, No Sputum, No Other Gastrointestinal: No Nausea, No Vomiting, No Abdominal Pain, No Diarrhea, No Constipation, No Melena, No Hematochezia, No Other Genitourinary: Dysuria; No Frequency, No Incontinence, No Hematuria, No Retention, No Other Musculoskeletal: No other, No neck pain, No shoulder pain, No arm pain, No back pain, No hand pain, No leg pain, No foot pain Skin: No Rash, No Lesions, No Jaundice, No Bruising, No Other Objective Vitals Vital Signs Date Time Temp Pulse Resp B/P (MAP) Pulse Ox O2 Delivery O2 Flow Rate FiO2 03/03/25 09:00 98.3 81 17 120/78 (92) 97 98.3 03/02/25 20:00 Room Air* 0 21 Intake/Output Intake and Output 03/03/25 07:00 Intake Total 2370 ml Output Total 2000 ml Balance 370 ml Intake Oral 2370 ml Output Urine Total 2000 ml # Bowel Movements 2 General Appearance: Alert, Other (non verbal at baseline) HEENT: Atraumatic Cardiovascular: Regular rate, Normal S1, Normal S2 Abdomen: Normal bowel sounds Medications Current Medications Medications Dose Ordered Sig/Jazmin Route Start Time Stop Time Status Last Admin Dose Admin Apixaban 5 mg BID PO 02/25/25 22:00 03/02/25 21:01 5 MG Aspirin 81 mg DAILY PO 02/26/25 10:00 03/02/25 10:34 81 MG Bisacodyl 10 mg PRN NC 02/25/25 16:30 Docusate Sodium 100 mg BID PO 02/25/25 22:00 03/02/25 21:01 100 MG Losartan Potassium 50 mg BID PO 02/25/25 22:00 03/02/25 21:04 50 MG Magnesium Hydroxide 30 ml ACHS GT 02/25/25 17:00 03/01/25 21:10 30 ML Valproate Sodium 250 mg DAILY PO 02/26/25 10:00 03/02/25 10:32 250 MG Atorvastatin Calcium 10 mg HS PO 02/25/25 22:00 03/02/25 21:04 10 MG Cholecalciferol 1,000 unit DAILY PO 02/26/25 10:00 03/02/25 10:33 1,000 UNIT Sodium Chloride 1,000 ml @ 70 mls/hr [id number] IV 02/25/25 16:30 03/02/25 10:54 70 MLS/HR Acetaminophen/ Hydrocodone Bitart 1 tab Q4HP PRN PO 02/25/25 16:30 02/28/25 01:32 1 TAB Ondansetron HCl 4 mg Q4HP PRN IV 02/25/25 16:30 Docusate Sodium 100 mg BIDPRN PRN PO 02/25/25 16:30 Nitroglycerin 0.4 mg Q5MINP PRN SL 02/25/25 16:30 Morphine Sulfate 2 mg Q4HPRN PRN IV 02/27/25 22:00 02/27/25 22:25 2 MG Levetiracetam 750 mg BID PO 02/28/25 10:00 03/02/25 21:11 750 MG Nitrofurantoin Macrocrystals 100 mg BID PO 03/01/25 22:00 03/02/25 21:05 100 MG Laboratory Results Laboratory Tests 02/26/25 02:16 03/01/25 11:09 Urinalysis Test 02/25/25 14:04 Urine Color Yellow (Yellow) Urine Clarity Cloudy (Clear) H Urine pH 7.0 (5.0-9.0) Urine Specific [place] 1.011 (1.001-1.035) Urine Protein Trace (Negative) H Urine Ketones Negative (Negative) Urine Blood 2+ /uL (Negative) H Urine Nitrite Negative (Negative) Urine Bilirubin Negative (Negative) Urine Urobilinogen Normal mg/dL (Negative) Urine Leukocyte Esterase 2+ /uL (Negative) Urine RBC 111 /hpf (0 - 3) Urine WBC Clumps Present /hpf (None Seen) Urine Microscopic WBC 663 /HPF (0-3) H Urine Squamous Epithelial Cells Few /hpf (<5) Urine Bacteria Mod /hpf (None Seen) H Urine Yeast (Budding) Occasional /hpf (None Urine Glucose Normal mg/dL (Normal) Microbiology Microbiology Date/Time Source Procedure Growth Status 02/27/25 13:02 Voided Urine Urine Culture - Final Enterococcus faecium - VRE Complete Assessment/Plan Assessment/Plan 65-year-old male with a known history of recurrent UTI, grave disability with a previous history of CVA currently aphasic who was brought in by test fixture designer for urinary tract infection which was recently diagnosed on February 20 but patient was not able to get any antibiotics has been can not be crushed. 1. Acute urinary tract infection 2. Acute on chronic urinary retention 3. AKA with a underlying CKD 4. Grave disability 5. History of CVA currently aphasic 6. BPH 7. Seizure disorder 8. Wheelchair-bound IV abx Urology consulted Plan discussed with: Patient My Orders Orders - TEOFILO SANCHEZ MD Procedure Category Date Status Time Discharge DISCHARGE 03/02/25 Transmitted 11:59 Date of Service: Mar 01, 2025 Billing Provider: TEOFILO SANCHEZ MD Common Visit Codes: [id number] INP/OBS CARE(HIGH) TEOFILO SANCHEZ MD Mar 03, 2025 09:52
--- NOTE | 2025-03-03 09:53 | DVHPN2 ---
Subjective He is non verbal Reviewed: H&P Changes from previous H/P or p: No Changes Eyes: No Pain, No Vision change, No Conjunctivae inflammation, No Eyelid inflammation, No Other, No Redness ENT: No Ear pain, No Ear discharge, No Nose pain, No Nose discharge, No Nose congestion, No Mouth pain, No Mouth swelling, No Throat pain, No Throat swelling, No Other Cardiovascular: No Chest Pain, No Palpitations, No Orthopnea, No Paroxysmal Noc. Dyspnea, No Edema, No Lt Headedness, No Other Respiratory: No Cough, No Dry, No Shortness of breath, No SOB with excertion, No Wheezing, No Hemoptysis, No Pleuritic Pain, No Sputum, No Other Gastrointestinal: No Nausea, No Vomiting, No Abdominal Pain, No Diarrhea, No Constipation, No Melena, No Hematochezia, No Other Genitourinary: Dysuria; No Frequency, No Incontinence, No Hematuria, No Retention, No Other Musculoskeletal: No other, No neck pain, No shoulder pain, No arm pain, No back pain, No hand pain, No leg pain, No foot pain Skin: No Rash, No Lesions, No Jaundice, No Bruising, No Other Objective Vitals Vital Signs Date Time Temp Pulse Resp B/P (MAP) Pulse Ox O2 Delivery O2 Flow Rate FiO2 03/03/25 09:00 98.3 81 17 120/78 (92) 97 98.3 03/02/25 20:00 Room Air* 0 21 Intake/Output Intake and Output 03/03/25 07:00 Intake Total 2370 ml Output Total 2000 ml Balance 370 ml Intake Oral 2370 ml Output Urine Total 2000 ml # Bowel Movements 2 General Appearance: Alert, Other (non verbal at baseline) HEENT: Atraumatic Cardiovascular: Regular rate, Normal S1, Normal S2 Abdomen: Normal bowel sounds Medications Current Medications Medications Dose Ordered Sig/Jazmin Route Start Time Stop Time Status Last Admin Dose Admin Apixaban 5 mg BID PO 02/25/25 22:00 03/02/25 21:01 5 MG Aspirin 81 mg DAILY PO 02/26/25 10:00 03/02/25 10:34 81 MG Bisacodyl 10 mg PRN FL 02/25/25 16:30 Docusate Sodium 100 mg BID PO 02/25/25 22:00 03/02/25 21:01 100 MG Losartan Potassium 50 mg BID PO 02/25/25 22:00 03/02/25 21:04 50 MG Magnesium Hydroxide 30 ml ACHS GT 02/25/25 17:00 03/01/25 21:10 30 ML Valproate Sodium 250 mg DAILY PO 02/26/25 10:00 03/02/25 10:32 250 MG Atorvastatin Calcium 10 mg HS PO 02/25/25 22:00 03/02/25 21:04 10 MG Cholecalciferol 1,000 unit DAILY PO 02/26/25 10:00 03/02/25 10:33 1,000 UNIT Sodium Chloride 1,000 ml @ 70 mls/hr [id number] IV 02/25/25 16:30 03/02/25 10:54 70 MLS/HR Acetaminophen/ Hydrocodone Bitart 1 tab Q4HP PRN PO 02/25/25 16:30 02/28/25 01:32 1 TAB Ondansetron HCl 4 mg Q4HP PRN IV 02/25/25 16:30 Docusate Sodium 100 mg BIDPRN PRN PO 02/25/25 16:30 Nitroglycerin 0.4 mg Q5MINP PRN SL 02/25/25 16:30 Morphine Sulfate 2 mg Q4HPRN PRN IV 02/27/25 22:00 02/27/25 22:25 2 MG Levetiracetam 750 mg BID PO 02/28/25 10:00 03/02/25 21:11 750 MG Nitrofurantoin Macrocrystals 100 mg BID PO 03/01/25 22:00 03/02/25 21:05 100 MG Laboratory Results Laboratory Tests 02/26/25 02:16 03/01/25 11:09 Urinalysis Test 02/25/25 14:04 Urine Color Yellow (Yellow) Urine Clarity Cloudy (Clear) H Urine pH 7.0 (5.0-9.0) Urine Specific [place] 1.011 (1.001-1.035) Urine Protein Trace (Negative) H Urine Ketones Negative (Negative) Urine Blood 2+ /uL (Negative) H Urine Nitrite Negative (Negative) Urine Bilirubin Negative (Negative) Urine Urobilinogen Normal mg/dL (Negative) Urine Leukocyte Esterase 2+ /uL (Negative) Urine RBC 111 /hpf (0 - 3) Urine WBC Clumps Present /hpf (None Seen) Urine Microscopic WBC 663 /HPF (0-3) H Urine Squamous Epithelial Cells Few /hpf (<5) Urine Bacteria Mod /hpf (None Seen) H Urine Yeast (Budding) Occasional /hpf (None Urine Glucose Normal mg/dL (Normal) Microbiology Microbiology Date/Time Source Procedure Growth Status 02/27/25 13:02 Voided Urine Urine Culture - Final Enterococcus faecium - VRE Complete Assessment/Plan Assessment/Plan 65-year-old male with a known history of recurrent UTI, grave disability with a previous history of CVA currently aphasic who was brought in by piecer up for urinary tract infection which was recently diagnosed on February 20 but patient was not able to get any antibiotics has been can not be crushed. 1. Acute urinary tract infection 2. Acute on chronic urinary retention 3. AKA with a underlying CKD 4. Grave disability 5. History of CVA currently aphasic 6. BPH 7. Seizure disorder 8. Wheelchair-bound IV abx>oral with nitrofurantoin Urology consulted>CT and also will need to keep cancino Plan discussed with: Patient My Orders Orders - TEOFILO SANCHEZ MD Procedure Category Date Status Time Discharge DISCHARGE 03/02/25 Transmitted 11:59 Date of Service: Mar 02, 2025 Billing Provider: TEOFILO SANCHEZ MD Common Visit Codes: [id number] INP/OBS CARE(HIGH) TEOFILO SANCHEZ MD Mar 03, 2025 09:53
--- NOTE | 2025-03-03 11:32 | DVHPN2 ---
Subjective He is non verbal Reviewed: H&P Changes from previous H/P or p: No Changes Eyes: No Pain, No Vision change, No Conjunctivae inflammation, No Eyelid inflammation, No Other, No Redness ENT: No Ear pain, No Ear discharge, No Nose pain, No Nose discharge, No Nose congestion, No Mouth pain, No Mouth swelling, No Throat pain, No Throat swelling, No Other Cardiovascular: No Chest Pain, No Palpitations, No Orthopnea, No Paroxysmal Noc. Dyspnea, No Edema, No Lt Headedness, No Other Respiratory: No Cough, No Dry, No Shortness of breath, No SOB with excertion, No Wheezing, No Hemoptysis, No Pleuritic Pain, No Sputum, No Other Gastrointestinal: No Nausea, No Vomiting, No Abdominal Pain, No Diarrhea, No Constipation, No Melena, No Hematochezia, No Other Genitourinary: Dysuria; No Frequency, No Incontinence, No Hematuria, No Retention, No Other Musculoskeletal: No other, No neck pain, No shoulder pain, No arm pain, No back pain, No hand pain, No leg pain, No foot pain Skin: No Rash, No Lesions, No Jaundice, No Bruising, No Other Objective Vitals Vital Signs Date Time Temp Pulse Resp B/P (MAP) Pulse Ox O2 Delivery O2 Flow Rate FiO2 03/03/25 10:30 120/78 03/03/25 09:00 98.3 81 17 97 98.3 03/02/25 20:00 Room Air* 0 21 Intake/Output Intake and Output 03/03/25 07:00 Intake Total 2370 ml Output Total 2000 ml Balance 370 ml Intake Oral 2370 ml Output Urine Total 2000 ml # Bowel Movements 2 General Appearance: Alert, Other (non verbal at baseline) HEENT: Atraumatic Cardiovascular: Regular rate, Normal S1, Normal S2 Abdomen: Normal bowel sounds Medications Current Medications Medications Dose Ordered Sig/Jazmin Route Start Time Stop Time Status Last Admin Dose Admin Apixaban 5 mg BID PO 02/25/25 22:00 03/03/25 10:31 5 MG Aspirin 81 mg DAILY PO 02/26/25 10:00 03/03/25 10:31 81 MG Bisacodyl 10 mg PRN NC 02/25/25 16:30 Docusate Sodium 100 mg BID PO 02/25/25 22:00 03/02/25 21:01 100 MG Losartan Potassium 50 mg BID PO 02/25/25 22:00 03/03/25 10:30 50 MG Magnesium Hydroxide 30 ml ACHS GT 02/25/25 17:00 03/01/25 21:10 30 ML Valproate Sodium 250 mg DAILY PO 02/26/25 10:00 03/03/25 10:31 250 MG Atorvastatin Calcium 10 mg HS PO 02/25/25 22:00 03/02/25 21:04 10 MG Cholecalciferol 1,000 unit DAILY PO 02/26/25 10:00 03/03/25 10:31 1,000 UNIT Sodium Chloride 1,000 ml @ 70 mls/hr [id number] IV 02/25/25 16:30 03/02/25 10:54 70 MLS/HR Acetaminophen/ Hydrocodone Bitart 1 tab Q4HP PRN PO 02/25/25 16:30 02/28/25 01:32 1 TAB Ondansetron HCl 4 mg Q4HP PRN IV 02/25/25 16:30 Docusate Sodium 100 mg BIDPRN PRN PO 02/25/25 16:30 Nitroglycerin 0.4 mg Q5MINP PRN SL 02/25/25 16:30 Morphine Sulfate 2 mg Q4HPRN PRN IV 02/27/25 22:00 02/27/25 22:25 2 MG Levetiracetam 750 mg BID PO 02/28/25 10:00 03/03/25 10:31 750 MG Nitrofurantoin Macrocrystals 100 mg BID PO 03/01/25 22:00 03/03/25 10:00 100 MG Laboratory Results Laboratory Tests 02/26/25 02:16 03/01/25 11:09 Urinalysis Test 02/25/25 14:04 Urine Color Yellow (Yellow) Urine Clarity Cloudy (Clear) H Urine pH 7.0 (5.0-9.0) Urine Specific [place] 1.011 (1.001-1.035) Urine Protein Trace (Negative) H Urine Ketones Negative (Negative) Urine Blood 2+ /uL (Negative) H Urine Nitrite Negative (Negative) Urine Bilirubin Negative (Negative) Urine Urobilinogen Normal mg/dL (Negative) Urine Leukocyte Esterase 2+ /uL (Negative) Urine RBC 111 /hpf (0 - 3) Urine WBC Clumps Present /hpf (None Seen) Urine Microscopic WBC 663 /HPF (0-3) H Urine Squamous Epithelial Cells Few /hpf (<5) Urine Bacteria Mod /hpf (None Seen) H Urine Yeast (Budding) Occasional /hpf (None Urine Glucose Normal mg/dL (Normal) Microbiology Microbiology Date/Time Source Procedure Growth Status 02/27/25 13:02 Voided Urine Urine Culture - Final Enterococcus faecium - VRE Complete Assessment/Plan Assessment/Plan 65-year-old male with a known history of recurrent UTI, grave disability with a previous history of CVA currently aphasic who was brought in by janitor caretaker for urinary tract infection which was recently diagnosed on February 20 but patient was not able to get any antibiotics has been can not be crushed. 1. Acute urinary tract infection 2. Acute on chronic urinary retention 3. AKA with a underlying CKD 4. Grave disability 5. History of CVA currently aphasic 6. BPH 7. Seizure disorder 8. Wheelchair-bound IV abx>oral with nitrofurantoin Urology consulted>CT and also will need to keep cancino Pending new SNF placement Plan discussed with: Patient My Orders Orders - TEOFILO SANCHEZ MD Procedure Category Date Status Time Discharge DISCHARGE 03/02/25 Transmitted 11:59 Date of Service: Mar 03, 2025 Billing Provider: TEOFILO SANCHZE MD Common Visit Codes: [id number] INP/OBS CARE(HIGH) TEOFILO SANCHEZ MD Mar 03, 2025 11:32
[2025-03-03 13:00] VITALS: BP 127/80; PULSE 78; RESP 17; TEMP 98.2; O2SAT 97
[2025-03-03 16:40] VITALS: BP 140/84; PULSE 83; RESP 17; TEMP 97.3; O2SAT 96
[2025-03-03] MEDS: DAPTOmycin 500 MG in SODIUM CHL 0.9% 50 ML IV SCH (17:40)
== END 2025-03-03 19:50 | DRG 690 ==
LOC: ER 10:50 → OVERFLOW 16:16 → CENTRAL 02-27 19:38
PROVIDERS: ADMIT Hospitalist; ATTEND Hospitalist
PROC: 05H933Z Insertion of Infusion Device into Right Brachial Vein, Percutaneous Approach (ICD-10-PCS; principal; 2025-03-03)
PROC: B54MZZA Ultrasonography of Right Upper Extremity Veins, Guidance (ICD-10-PCS; 2025-03-03)
DX: N30.01 Acute cystitis with hematuria (principal); I69.320 Aphasia following cerebral infarction; F03.90 Unspecified dementia, unspecified severity, without behavioral disturbance, psychotic disturbance, mood disturbance, and anxiety; G40.909 Epilepsy, unspecified, not intractable, without status epilepticus; I12.9 Hypertensive chronic kidney disease with stage 1 through stage 4 chronic kidney disease, or unspecified chronic kidney disease; N18.9 Chronic kidney disease, unspecified; N40.1 Benign prostatic hyperplasia with lower urinary tract symptoms; R33.8 Other retention of urine; Z99.3 Dependence on wheelchair; Z88.8 Allergy status to other drugs, medicaments and biological substances; Z82.49 Family history of ischemic heart disease and other diseases of the circulatory system; Z87.442 Personal history of urinary calculi; Z90.79 Acquired absence of other genital organ(s); Z74.01 Bed confinement status
CPT/HCPCS: 36415; 74176; 76775; 80048; 80053; 81001; 84154; 85007; 85027; 87086; 87088; 87186; 96365; 97163; G0378